=== PATIENT | male | born 1950 | race Caucasian/White ===

== ENCOUNTER → 2016-07-21 | Outpatient (REF) | payer MEDICARE, OTHER ==
[~2016-07-21] MED LIST: HYDR-3719 PO; MSIR30TA PO
== END ==
LOC: M SFHCLERA 15:13
PROVIDERS: ATTEND Family Medicine
DX: J02.9 Acute pharyngitis, unspecified (principal)

== ENCOUNTER → 2016-11-01 | Outpatient (REF) | payer MEDICARE, OTHER ==
[2016-11-01 17:01] LABS: MEAN CORPUSCULAR HEMOGLOBIN 28.9 pg (27.0-33.0); MEAN CORPUSCULAR HGB CONC 33.5 g/dl (32.0-36.5); MEAN CORPUSCULAR VOLUME 86.4 fl (80.0-96.0); RED CELL DISTRIBUTION WIDTH 14.6 % (11.5-14.5); WHITE BLOOD COUNT 6.6 K/mm3 (4.0-10.0)
[2016-11-01 17:10] LABS: ALBUMIN 3.6 GM/DL (3.2-5.2); ALBUMIN/GLOBULIN RATIO 0.95 (1.00-1.93); CALCIUM LEVEL 9.4 MG/DL (8.8-10.2); CREATININE FOR GFR 1.52 MG/DL (0.70-1.30); GLOMERULAR FILTRATION RATE 49.4 (>49); POTASSIUM SERUM 4.3 MEQ/L (3.5-5.1); TOTAL PROTEIN 7.4 GM/DL (6.4-8.2)
[2016-11-01 17:46] LABS: BASOPHILS 1 % (0-4); EOSINOPHILS 1 % (0-5)
== END ==
LOC: M SFHCLERA 14:06
PROVIDERS: ATTEND Family Medicine
DX: N18.3 Chronic kidney disease, stage 3 (moderate) (principal); I25.10 Atherosclerotic heart disease of native coronary artery without angina pectoris
CPT/HCPCS: 80053; 85007; 85027; G0463

== ENCOUNTER → 2016-11-06 | Outpatient (REF) | payer OTHER | LOC: M SFHCPLAZ 09:52 | PROVIDERS: ATTEND Physician Assistant | DX: Z53.9 Procedure and treatment not carried out, unspecified reason (principal) ==

== ENCOUNTER → 2016-11-28 | Outpatient (CLI) | payer OTHER ==
[2016-11-28 13:21] LABS: MEAN CORPUSCULAR HEMOGLOBIN 30.1 pg (27.0-33.0); MEAN CORPUSCULAR VOLUME 88.3 fl (80.0-96.0); RED CELL DISTRIBUTION WIDTH 14.8 % (11.5-14.5); WHITE BLOOD COUNT 6.3 K/mm3 (4.0-10.0)
[2016-11-28 15:04] LABS: CREATININE FOR GFR 1.35 MG/DL (0.70-1.30); GLOMERULAR FILTRATION RATE 56.6 (>49); POTASSIUM SERUM 4.6 MEQ/L (3.5-5.1)
== END ==
LOC: M SMT 11:18
PROVIDERS: ATTEND Physician Assistant
DX: M47.22 Other spondylosis with radiculopathy, cervical region (principal)

== ENCOUNTER → 2017-01-12 | Outpatient (CLI) | payer MEDICARE ==
--- NOTE | 2017-01-12 13:31 | REP ---
Renal ultrasound: The the patient had a right nephrectomy in 2008. The left kidney is normal size measuring 12.8 x 7.7 x 7 ml 1 cm. Renal cortical echogenicity is normal. There is hydronephrosis and hydroureter. There are are no renal calculi, masses or cysts. The the patient has had a cystectomy with ileal conduit. The bladder cannot be evaluated. Impression: Left hydronephrosis. Otherwise, negative renal ultrasound. Signed by Georgi Conklin MD 01/12/2017 01:23 P
== END ==
LOC: M RAD 10:58
PROVIDERS: ATTEND Internal Medicine Nephrology
DX: Z90.5 Acquired absence of kidney (principal)

== ENCOUNTER → 2017-10-05 | Outpatient (CLI) | payer OTHER ==
[~2017-10-05] MED LIST changes: +FUROSEMIDE 20 MG/2 ML VIAL (J1940) As Ordered; -HYDR-3719 PO; -MSIR30TA PO
== END ==
LOC: M RAD 08:54
DX: Z95.0 Presence of cardiac pacemaker (principal); Z98.890 Other specified postprocedural states
CPT/HCPCS: J1940

== ENCOUNTER → 2017-10-17 | Outpatient (CLI) | payer OTHER ==
[2017-10-17 14:25] LABS: ANION GAP 5 MEQ/L (8-16); BLOOD UREA NITROGEN 50 MG/DL (7-18); CALCIUM LEVEL 9.2 MG/DL (8.8-10.2); CARBON DIOXIDE LEVEL 24 MEQ/L (21-32); CHLORIDE LEVEL 114 MEQ/L (98-107); GLUCOSE, FASTING 161 MG/DL (70-100); POTASSIUM SERUM 5.1 MEQ/L (3.5-5.1); SODIUM LEVEL 143 MEQ/L (136-145)
[2017-10-17 14:37] LABS: ESTIMATED AVERAGE GLUCOSE 157 MG/DL (60-110); HEMOGLOBIN A1c 7.1 %
== END ==
LOC: M SMT 09:07
DX: N18.3 Chronic kidney disease, stage 3 (moderate) (principal); Z79.899 Other long term (current) drug therapy
CPT/HCPCS: 83036

== ENCOUNTER → 2017-11-07 | Outpatient (CLI) | payer OTHER | LOC: M LRY 17:08 | DX: M16.11 Unilateral primary osteoarthritis, right hip (principal); M25.761 Osteophyte, right knee; M25.551 Pain in right hip | CPT/HCPCS: 73502; G0463 ==

== ENCOUNTER → 2018-01-16 | Outpatient (REF) | payer OTHER ==
[2018-01-16 17:30] LABS: ESTIMATED AVERAGE GLUCOSE 146 MG/DL (60-110); HEMOGLOBIN A1c 6.7 %
[2018-01-16 17:47] LABS: ANION GAP 9 MEQ/L (8-16); BLOOD UREA NITROGEN 43 MG/DL (7-18); CALCIUM LEVEL 9.6 MG/DL (8.8-10.2); CARBON DIOXIDE LEVEL 24 MEQ/L (21-32); CHLORIDE LEVEL 110 MEQ/L (98-107); CREATININE FOR GFR 1.32 MG/DL (0.70-1.30); GLOMERULAR FILTRATION RATE 57.9 (>49); GLUCOSE, FASTING 106 MG/DL (70-100); POTASSIUM SERUM 4.2 MEQ/L (3.5-5.1); SODIUM LEVEL 143 MEQ/L (136-145)
== END ==
LOC: M SFHCLERA 11:30
DX: E11.9 Type 2 diabetes mellitus without complications (principal); Z87.448 Personal history of other diseases of urinary system; Z90.5 Acquired absence of kidney; Z98.890 Other specified postprocedural states
CPT/HCPCS: 83036

== ENCOUNTER → 2018-02-26 | Outpatient (CLI) | payer OTHER | LOC: M RAD 11:19 | DX: I25.10 Atherosclerotic heart disease of native coronary artery without angina pectoris (principal); I65.23 Occlusion and stenosis of bilateral carotid arteries | CPT/HCPCS: 93880 ==

== ENCOUNTER → 2018-09-26 | Outpatient (REF) | payer MEDICARE ==
[~2018-09-26] MED LIST changes: -FUROSEMIDE 20 MG/2 ML VIAL (J1940) As Ordered; +HYDR-3719 PO; +MSIR30TA PO
[2018-09-26 19:58] LABS: ALBUMIN 3.7 GM/DL (3.2-5.2); BILIRUBIN,TOTAL 0.7 MG/DL (0.2-1.0); CALCIUM LEVEL 9.4 MG/DL (8.8-10.2); CHOLESTEROL RISK RATIO 6.729 (<5); CREATININE FOR GFR 1.39 MG/DL (0.70-1.30); GLOMERULAR FILTRATION RATE 54.6 (>49); LDL CHOLESTEROL 152.8 MG/DL (<100); POTASSIUM SERUM 4.4 MEQ/L (3.5-5.1); TOTAL PROTEIN 8.1 GM/DL (6.4-8.2)
[2018-09-26 20:14] LABS: HEMOGLOBIN A1c 7.3 %
== END ==
LOC: M SFHCLERA 12:46
PROVIDERS: ATTEND Family Medicine
DX: E11.9 Type 2 diabetes mellitus without complications (principal)

== ENCOUNTER → 2018-12-03 | Outpatient (REF) | payer MEDICARE, OTHER ==
[2018-12-03 16:50] LABS: HEMOGLOBIN A1c 7.5 %
== END ==
LOC: M SFHCLERA 13:35
PROVIDERS: ATTEND Family Medicine
DX: E11.9 Type 2 diabetes mellitus without complications (principal)

== ENCOUNTER → 2019-01-01 | Outpatient (CLI) | payer MEDICARE | LOC: M LRY 14:25 | PROVIDERS: ATTEND Family Medicine | DX: M10.9 Gout, unspecified (principal); Z53.8 Procedure and treatment not carried out for other reasons ==

== ENCOUNTER → 2019-01-01 | Outpatient (REF) | payer MEDICARE, OTHER | LOC: M SFHCLERA 14:11 | PROVIDERS: ATTEND Family Medicine | DX: M10.9 Gout, unspecified (principal); Z53.8 Procedure and treatment not carried out for other reasons ==

== ENCOUNTER → 2019-01-02 | Outpatient (REF) | payer MEDICARE, OTHER | LOC: M SFHCLERA 09:16 | PROVIDERS: ATTEND Family Medicine | DX: M10.9 Gout, unspecified (principal) ==

== ENCOUNTER → 2019-01-02 | Outpatient (CLI) | payer MEDICARE ==
--- NOTE | 2019-01-02 12:25 | REP ---
Clinical: Pain. Acute gout. Technique: AP and lateral views of the right foot. Findings: Hallux valgus deformity noted along with mild increased sclerosis and subtle cortical irregularity involving the first metatarsophalangeal joint. No periarticular erosive changes or significant loose bodies identified. Remainder examination is relatively normal for age. Impression: Degenerative changes involving the first toe. Electronically Signed by Michael Arana MD 01/02/2019 09:38 A
== END ==
LOC: M LRY 09:18
PROVIDERS: ATTEND Family Medicine
DX: M10.9 Gout, unspecified (principal)

== ENCOUNTER → 2019-03-11 | Outpatient (REF) | payer MEDICARE, OTHER ==
[2019-03-11 17:15] LABS: BLOOD UREA NITROGEN 65 MG/DL (7-18); CALCIUM LEVEL 9.3 MG/DL (8.8-10.2); CARBON DIOXIDE LEVEL 22 MEQ/L (21-32); CHLORIDE LEVEL 110 MEQ/L (98-107); CREATININE FOR GFR 1.37 MG/DL (0.70-1.30); GLOMERULAR FILTRATION RATE 55.3 (>49); GLUCOSE, FASTING 123 MG/DL (70-100); POTASSIUM SERUM 4.4 MEQ/L (3.5-5.1); RHEUMATOID FACTOR QUANT < 10.0 IU/ML (<15.0); SODIUM LEVEL 139 MEQ/L (136-145)
[2019-03-11 17:34] LABS: HEMOGLOBIN A1c 7.1 %
== END ==
LOC: M SFHCLERA 12:51
PROVIDERS: ATTEND Family Medicine
DX: M25.50 Pain in unspecified joint (principal); E11.9 Type 2 diabetes mellitus without complications

== ENCOUNTER → 2019-03-25 | Outpatient (REF) | payer MEDICARE, OTHER ==
[2019-03-25 16:57] LABS: BASO % 0.2 % (0.0-1.0); EOS # 0.2 10^3/uL (0.0-0.5); EOS % 2.8 % (0.0-3.0); HEMATOCRIT 41.7 % (42.0-52.0); HEMOGLOBIN 13.9 g/dl (13.5-17.5); LYMPH # 2.7 10^3/uL (1.5-5.0); LYMPH % 32.5 % (24.0-44.0); MEAN CORPUSCULAR HGB CONC 33.3 g/dl (32.0-36.5); MEAN CORPUSCULAR VOLUME 95.9 fl (80.0-96.0); MONO # 0.7 10^3/uL (0.0-0.8); MONO % 7.8 % (0.0-5.0); NEUTROPHILS # 4.7 10^3/uL (1.5-8.5); NEUTROPHILS % 56.5 % (36.0-66.0); PLATELET COUNT, AUTOMATED 255 10^3/uL (150-450); RED BLOOD COUNT 4.35 10^6/uL (4.30-6.10); WHITE BLOOD COUNT 8.3 10^3/uL (4.0-10.0)
[2019-03-25 17:16] LABS: C REACTIVE PROTEIN QUANTITATIV 0.3 MG/DL (0.00-0.30); CALCIUM LEVEL 9.7 MG/DL (8.8-10.2); CREATININE FOR GFR 1.29 MG/DL (0.70-1.30); GLOMERULAR FILTRATION RATE 59.3 (>49); POTASSIUM SERUM 4.3 MEQ/L (3.5-5.1)
[2019-03-25 17:53] LABS: ERYTHROCYTE SEDIMENTATION RATE 16 mm/hr (0-20)
== END ==
LOC: M SFHCLERA 11:15
PROVIDERS: ATTEND Family Medicine
DX: N13.30 Unspecified hydronephrosis (principal)

== ENCOUNTER → 2019-06-11 | Outpatient (REF) | payer MEDICARE, OTHER ==
[2019-06-11 17:14] LABS: CALCIUM LEVEL 9.3 MG/DL (8.8-10.2); CREATININE FOR GFR 1.3 MG/DL (0.70-1.30); GLOMERULAR FILTRATION RATE 58.8 (>49); POTASSIUM SERUM 4.5 MEQ/L (3.5-5.1)
[2019-06-11 17:51] LABS: HEMOGLOBIN A1c 7.5 %
== END ==
LOC: M SFHCLERA 12:42
PROVIDERS: ATTEND Family Medicine
DX: E11.9 Type 2 diabetes mellitus without complications (principal); N18.3 Chronic kidney disease, stage 3 (moderate)

== ENCOUNTER → 2019-09-23 | Outpatient (CLI) | payer MEDICARE, OTHER ==
--- NOTE | 2019-09-23 17:35 | REPPI ---
RIGHT HIP, TWO VIEWS: Two views of the right hip are performed and compared to prior study of 11/07/2017. There is chronic diastasis of the pubic symphysis again noted. There are severe arthritic changes at the right hip joint with severe joint space narrowing and associated moderate spurring, subchondral sclerosis, and cystic change. The findings have mildly progressed since the prior exam. Once again, there are metallic clips overlying the right iliac bone superiorly. Metallic clips also overly the sacrum. IMPRESSION: Progressive severe arthritic changes of the right hip joint. Chronic diastasis of the pubic symphysis. Electronically Signed by Georgi Melvin MD 09/24/2019 11:17 A
== END ==
LOC: M PLAIMG 12:20
PROVIDERS: ATTEND Family Medicine
DX: M16.11 Unilateral primary osteoarthritis, right hip (principal)

== ENCOUNTER 2019-10-01 10:26 | Outpatient (RCR) | payer MEDICARE | END 2019-10-02 | disposition home or self-care (01) | LOC: M PT 10:26 | PROVIDERS: ATTEND Family Medicine | DX: Z51.89 Encounter for other specified aftercare (principal); M16.11 Unilateral primary osteoarthritis, right hip ==

== ENCOUNTER → 2019-10-13 | Outpatient (REF) | payer OTHER ==
[2019-10-13 17:39] LABS: HEMOGLOBIN A1c 7.4 %
== END ==
LOC: M SFHCLERA 15:25
PROVIDERS: ATTEND Family Medicine
DX: E11.9 Type 2 diabetes mellitus without complications (principal)

== ENCOUNTER 2019-10-15 11:38 | Outpatient (RCR) | payer MEDICARE | END 2019-11-02 | LOC: M PT 11:38 | PROVIDERS: ATTEND Family Medicine | DX: Z51.89 Encounter for other specified aftercare (principal); M16.11 Unilateral primary osteoarthritis, right hip ==

== ENCOUNTER → 2020-04-16 | Outpatient (REF) | payer OTHER ==
[2020-04-16 15:13] LABS: HEMOGLOBIN A1c 6.7 %
== END ==
LOC: M SFHCLERA 11:07
PROVIDERS: ATTEND Family Medicine
DX: E11.9 Type 2 diabetes mellitus without complications (principal)

== ENCOUNTER → 2020-04-16 | Outpatient (CLI) | payer OTHER ==
--- NOTE | 2020-04-16 13:34 | REPPI ---
INDICATION: RIGHT SHOULER STRAIN. COMPARISON: None. TECHNIQUE: Three views of the shoulder were performed. FINDINGS: The acromioclavicular and glenohumeral relationships are within normal limits. There is no acute fracture or destructive osseous lesion. IMPRESSION: No acute abnormality. <Electronically signed by Hermes Hart > 04/16/20 [id number]
== END ==
LOC: M PLAIMG 11:07
PROVIDERS: ATTEND Physician Assistant
DX: S46.911S Strain of unspecified muscle, fascia and tendon at shoulder and upper arm level, right arm, sequela (principal); X58.XXXD Exposure to other specified factors, subsequent encounter; Y92.9 Unspecified place or not applicable

== ENCOUNTER → 2020-05-31 | Outpatient (CLI) | payer OTHER ==
--- NOTE | 2020-06-02 00:48 | ECWPNPC ---
PATIENT NAME: SHELBY ABEBE : 1950 GENDER: MALE VISIT DATE: 05/31/2020 DISCHARGE DATE: 05/31/20931 VISIT LOCKED DATE TIME: PHYSICIAN: SHEYLA GONZALEZ PHYSICIAN PAGER NO: ACTIVE RESOURCE: SHEYLA GONZALEZ REASON FOR APPOINTMENT 1. 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 PAIN ASSESSMENT. HE RATES HIS PAIN CURRENTLY AT A 4 OUT OF 10 AND DESCRIBES IT ACHING. PATIENT IS CURRENTLY ON HYDROCODONE THAT WAS PRESCRIBED BY ANOTHER PROVIDER. HE HAS NOT HAD PROCEDURES IN THE PAST AND WE WILL DISCUSS PROCEDURES TODAY. ON 01/03/1992 MARIA ELENA WAS PUSHING PALLETS OF LIQUOR ON A CART AND HE FELT A POP IN HIS NECK. THE RESULTING NECK PAIN LED TO BUE NUMBNESS AND CARPAL TUNNEL SYNDROME. FALL RISK SCREENING: SCREENING :NO FALLS REPORTED IN THE LAST YEAR PAIN SCREENING: PATIENT HAS A COMPLAINT OF ACUTE OR CHRONIC PAIN :YES LOCATION OF PAIN:NECK, RIGHT SHOULDER INTENSITY OF PAIN (SCALE OF 1 TO 10):4 WHAT DOES YOUR PAIN FEEL LIKE:ACHING DURATION:CONSTANT PAIN IS INCREASED BY:ACTIVITIES PAIN IS DECREASED BY:USE OF PAIN MEDICATIONS, SITTING NURSING NOTE: - - -. PAIN CENTER INTAKE QUESTIONS: DO YOU HAVE A HISTORY OF MRSA? :NO DO YOU TAKE A BLOOD THINNERS? :NO DO YOU HAVE ANY BLEEDING DISORDERS? :NO ANY NEW NUMBNESS OR WEAKNESS IN YOUR LEGS OR ARMS? :NO ANY PACEMAKER,DEFIBRILLATOR, OR DORSAL COLUMN STIMULATOR? :NO DO YOU HAVE ANY RASHES OR OPEN SORES? :NO ARE YOU ALLERGIC TO IV DYE? :NO ARE YOU DIABETIC? :NO ANY NEW PROBLEMS WITH YOUR MEDICATIONS? :NO HAVE YOU RECEIVED A VACCINE IN THE PAST 30 DAYS? :NO DO YOU PLAN TO RECEIVE A VACCINE IN THE NEXT 21 DAYS? :NO DO YOU NEED ANY PRESCRIPTION? :NO DO YOU TAKE ANY IMMUNOSUPPRESSIVE MEDICATIONS? :YES CURRENT MEDICATIONS TAKING PLAQUENIL 200 MG TABLET DIRECTED ORALLY TAKING CIPROFLOXACIN HCL 500 MG TABLET TAKE ONE TABLET BY MOUTH TWICE A DAY NEEDED ORAL , NOTES: RECURRENT KIDNEY INFECTIONS TAKING GLIPIZIDE ER 5 MG TABLET EXTENDED RELEASE 24 HOUR 1 TABLET WITH FOOD ORALLY ONCE A DAY TAKING ASPIR-81 , NOTES: NOT STARTED TAKING NITROGLYCERIN 0.4 MG TABLET SUBLINGUAL 1 TAB UNDER THE TONGUE NEEDED SUBLINGUAL EVERY 3-5 MIN X 3 DOSES MAXIMUM, GO TO ER IF YOU USE IT TAKING TADALAFIL 20 MG TABLET 1/2 TAB ORALLY 30 MINUTES PRIOR TO SEXUAL ACTIVITY, (MDD:1) TAKING GABAPENTIN 300 MG CAPSULE 1 CAPSULE ORALLY 3 TIMES A DAY TAKING MACRODANTIN 100 MG CAPSULE DIRECTED ORALLY TAKING INCONTINENCE BRIEF LARGE - MISCELLANEOUS DIRECTED N39.45, WORKER'S COMPENSATION FOUR TIMES DAILY NEEDED, NOTES: DISPENSE 120 INCONTINENCE BRIEFS TO BE USED QID FOR 12 MONTHSDX N39.45PROG: GUARDEDLON: 99 MONTHS TAKING BLOOD GLUCOSE TEST - STRIP DIRECTED IN VITRO BID TAKING LANCETS - MISCELLANEOUS DIRECTED BID, NOTES: DISPENSE FORMULARY PREFERRED ONE TOUCH) TAKING GLUCOMETER DIRECTED , NOTES: DISPENSE FORMULARY PREFERRED ONE TOUCH) TAKING HYDROCODONE-ACETAMINOPHEN 10-325 MG TABLET 2 TABLETS ORALLY TWICE A DAY (MDD=4) NOT-TAKING SODIUM BICARBONATE 325 MG TABLET 1 TAB ORALLY TID NOT-TAKING CRUTCHES-ALUMINUM - MISCELLANEOUS DIRECTED _ _ NOT-TAKING BRIEFS OVERNIGHT LARGE - MISCELLANEOUS DIRECTED UNKNOWN HEARING AID DISPENSE RIGHT AND LEFT HEARING AIDS. DX: H91.93 , PROGNOSIS GUARDED, LENGTH OF NEED 1 YEAR, USE DIRECTED MEDICATION LIST REVIEWED AND RECONCILED WITH THE PATIENT PAST MEDICAL HISTORY CA (1 STENT): 2006, REFUSES STATINS HEARING LOSS GOUT CAD DDD - CERVICAL POLYARTHRITIS URINARY INCONTINENCE HYPERLIPIDEMIA VITAMIN D DEFICIENCY HYDRONEPHROSIS BORN WITH EXTERNAL BLADDER AND HAD RESECTION BABY - HAD APPENDECTOMY AND PROSTATECTOMY TYPE 2 DIABETES, DIAGNOSIS 2018 DIET CONTROLLED-->TRADJENTA-->A1C7.5-->SWITCH TO GLIPIZIDE, NEPHROLOGY RECOMMENDS NO METFORMIN, NO ACEI/ARB CKDIII WITH 1 FUNCTIONING KIDNEY, FOLLOWS WITH NEPHROLOGY RHEMATOID ARTHRITIS ALLERGIES AMOXICILLIN: ANAPHYLAXIS - ALLERGY SEASONAL: PUFFY EYES, NASAL DRAINAGE - ALLERGY SURGICAL HISTORY R NEPHRECTOMY 2008 CYSTECTOMY (EXTERNAL) - IN CHILDHOOD, BILAT UTERO-SIGMOIDOSTOMY, PROSTATECTOMY, APPENDECTOMY 1953 MULTIPLE INGUINAL AND VENTRAL HERNIA REPAIRS, DONE AT [facility] 2003 MULTIPLE REVISION SURGERIES S/P NEPHRECTOMY, DONE AT [facility], FOLLOWS WITH [facility] UROLOGY AND HAS CONSULTED WITH [facility] 2018 2008 EPISPADIUS REPAIR 1982 COLONOSCOPY 12/2013 HERNIA REPAIR 04/2016 COLONOSCOPY- [facility] 02/10/2019 FAMILY HISTORY FATHER: 86 YRS, STROKE, DIAGNOSED WITH UNSPECIFIED CEREBRAL ARTERY OCCLUSION WITH CEREBRAL INFARCTION MOTHER: 58 YRS, CA, UNSPECIFIED HEART DISEASE SIBLINGS: 55 YRS, CA, STROKE, DIABETES, KIDNEY DISEASE BROTHER AGE 55 DUE TO CA, HYPERTENSION, UNSPECIFIED HEART DISEASE, DIABETES, UNSPECIFIED CEREBRAL ARTERY OCCLUSION WITH CEREBRAL INFARCTION 3 BROTHER(S) , 6 SISTER(S) - HEALTHY. NO KNOWN FAMILY HISTORY OF ANY UROLOGICALLY RELATED DISEASES\\\/CANCERS. SOCIAL HISTORY GENERAL: TOBACCO USE ARE YOU A:NONSMOKER LATEX QUESTIONNAIRE LATEX ALLERGY : HAVE YOU EVER DEVELOPED ANY TYPE OF REACTION AFTER HANDLING LATEX PRODUCTS SUCH RUBBER GLOVES, CONDOMS, DIAPHRAGMS, BALLOONS, SOCKS, OR UNDERWEAR?NO LATEX ALLERGY : HAVE YOU EVER DEVELOPED ANY TYPE OF REACTION DURING OR AFTER DENTAL APPOINTMENT, VAGINAL/RECTAL EXAMINATION, SURGICAL PROCEDURE, OR ANY OTHER EXPOSURE?NO DATE ASKED : 04/16/2020 LATEX RISK : HAVE YOU EVER HAD ANY DIFFICULTY BREATHING OR HIVES AFTER EATING OR HANDLING ANY FRUITS, OR VEGETABLES; SUCH KIWI, BANANAS, STONE FRUITS, OR CHESTNUTSNO LATEX RISK : DO YOU HAVE A PREVIOUS PERSONAL HISTORY OF MORE THAN NINE SURGERIES, SPINA BIFIDA, OR REPEATED CATHERIZATIONS? NO LATEX RISK : ARE YOU FREQUENTLY EXPOSED TO LATEX PRODUCTS IN YOUR OCCUPATION?NO LUNG CANCER SCREENING SMOKING STATUS:NON SMOKER BMI CARE GOAL FOLLOW-UP ABOVE NORMAL BMI FOLLOW-UPDIETARY MANAGEMENT EDUCATION, GUIDANCE, AND COUNSELING ALCOHOL SCREENING POINTS: 0, INTERPRETATION: NEGATIVE. RECREATIONAL DRUG USE DENIES. CAFFEINE NONE. SEXUAL HX HAD SEX IN THE LAST 12 MONTHS (VAGINAL, ORAL, OR ANAL)?NO HAVE YOU EVER HAD AN STD?NO HIV / HEP-C SCREENING HIV TEST OFFERED TO PATIENT:YES DATE OFFERED:07/29/2018 TEST ACCEPTED:NO HEP-C TEST OFFERED TO PATIENT:NO REASON:PATIENT DECLINED BROCHURE PROVIDED TO PATIENTYES JEW [id number] [employer] LANGUAGE LANGUAGES SPOKEN:YI EDUCATION LEVEL OF EDUCATION:HIGH SCHOOL LEARNING BARRIERS / SPECIAL NEEDS CHANGE FROM LAST VISIT?NO BARRIERS TO LEARNING?NO HEARING IMPAIRED?YES VISION IMPAIRED?YES COGNITIVELY IMPAIRED?NO :HEARING AIDES :CORRECTIVE LENSES READINESS TO LEARN?YES LEARNING PREFERENCES?NO LEARNING CAPABILITIES PRESENT?YES EMOTIONAL BARRIERS?NO SPECIAL DEVICES?NO LEAD CAREGIVER NEEDED?NO DOMESTIC VIOLENCE DO YOU FEEL SAFE IN YOUR ENVIRONMENT?YES 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 EXERCISE: NONE. MARITAL STATUS: - 2 STEP-CHILDREN. OTHERS AT HOME: NONE. FROM 0-10, WHAT LEVEL IS YOUR PAIN TODAY?7 MALAISE HOSPITALIZATION/MAJOR DIAGNOSTIC PROCEDURE CA - 1 STENT 2006 SURGICALY RELATED BOWEL OBSTRUCTION [facility]- HERNIA REPAIR 04/2016 REVIEW OF SYSTEMS CONSTITUTIONAL: ANY RECENT FEVER NO . CHILLS NO . WEIGHT CHANGE OF UNKNOWN REASONS NO . MUSCULOSKELETAL: ANY UNUSUAL JOINT PAIN OR SWELLING NOT MENTIONED NO . SYSTEMIC LUPUS NO . ANY NEUROMUSCULAR DISORDER NOT MENTIONED NO . LYME DISEASE NO . GASTROENTEROLOGY: ANY NEW CHANGE IN BOWEL CONTROL? NO . HISTORY OF LIVER DISORDER NOT MENTIONED NO . HISTORY OF UNUSUAL ABDOMINAL PAIN OR CRAMPING NOT MENTIONED NO . NO CONSTIPATION. GENITOURINARY: ANY NEW CHANGE IN BLADDER CONTROL? NO . ANY RENAL/KIDNEY CONDITON NOT MENTIONED NO . NEUROLOGY: HISTORY OF TBI NOT MENTIONED NO . OTHER NEW NUMBNESS OR PAIN PATTERNS NOT MENTIONED NO . NEW ONSET DIZZINESS OR NEUROLOGICAL CHANGES NOT MENTIONED NO . HISTORY OF SEVERE HEADACHES NOT MENTIONED NO . HISTORY OF STROKE OR NEUROLOGICAL DISORDER NOT MENTIONED NO . CARDIOLOGY: HEART SURGERY NO . CONGESTIVE HEART FAILURE/FLUID OVERLOAD NOT MENTIONED NO . HISTORY OF CHEST PAIN,IRREGULAR HEART BEAT NOT MENTIONED NO . RESPIRATORY: SHORTNESS OF BREATH ON EXERTION, WHEEZES, UNUSUAL COUGH NOT MENTIONED NO . ENDOCRINOLOGY: ADRENAL GLAND OR THYROID DISORDERS NOT MENTIONED NO . UNUSUAL URINATION, DIZZINESS OR LETHARGY NOT MENTIONED NO . VITAL SIGNS WT 164.2 LBS, HT 64 IN, BMI 28.18 INDEX, BP 148/84 MM HG, HR 85 /MIN, RR 18 /MIN, TEMP 97.7 F, OXYGEN SAT % 95%, NA INITIALS AW 0826. EXAMINATION GENERAL EXAMINATION: GENERALNO ACUTE DISTRESS, WELL NOURISHED AND HYDRATED. PSYCHAPPROPRIATE MOOD AND AFFECT . NECK:POINT TENDER C5-C6 C6-C7, SURROUNDING SKIN SHOWS NO ERYTHEMA, ECCHYMOSIS, INCREASED WARMTH, AND/OR SKIN ERUPTIONS NOTED. PATIENT DOES ENDORSE INCREASED PAIN WITH FACET LOADING. . LUNGS:CLEAR TO AUSCULTATION BILATERALLY, NO WHEEZES, RHONCHI, RALES. HEART:NO MURMURS, REGULAR RATE AND RHYTHM. ASSESSMENTS SPONDYLOSIS OF CERVICAL REGION WITHOUT MYELOPATHY OR RADICULOPATHY - M47.812 (PRIMARY) TREATMENT SPONDYLOSIS OF CERVICAL REGION WITHOUT MYELOPATHY OR RADICULOPATHY NOTES: 69-YEAR-OLD MALE IN FOR INITIAL PAIN CONSULT REGARDING THE CERVICAL SPINE. GIVEN PRESENTING SYMPTOMS AND RESULTS OF PHYSICAL EXAMINATION RECOMMEND BILATERAL THERAPEUTIC CERVICAL FACET BLOCK C6-7 C7-T1 WITH POSTPROCEDURAL FOLLOW-UP. PATIENT HAS EXPRESSED UNDERSTANDING OF AND WAS IN AGREEMENT WITH TREATMENT PLAN. GIVEN TIME TO ASK QUESTIONS AND EXPRESS CONCERNS. PROCEDURES PN WORKMANS' COMP OPINION IN YOUR OPINION, WAS THE INCIDENT THAT THE PATIENT DESCRIBED THE COMPETENT MEDICAL CAUSE OF THIS INJURY/ILLNESS? YES ARE THE PATIENT'S COMPLAINTS CONSISTENT WITH HIS/HER HISTORY OF THE INJURY/ILLNESS? YES IS THE PATIENT'S HISTORY OF THE INJURY/ILLNESS CONSISTENT WITH YOUR OBJECTIVE FINDING? YES WHAT IS THE PERCENTAGE OF TEMPORARY IMPAIRMENT? MODERATE TO MARKED = 66.7% IS THE PATIENT WORKING? YES DOCTOR ON SITE: AKBAR PLEITEZ MD [facility] PAIN CLINIC TEACHING: MEDICATIONS PT IS ON PLACQUENIL AND DOES NOT KNOW THE PRESCRIBING PHYSICIANS NAME . PT STATES HE WILL CALL AND GIVEN US HIS NAME SO WE MAY GENERATE A LETTER FOR PERMISSION TO HOLD MEDICAITON. PROCEDURE TEACHING DISCUSSED THE PROCEDURE INCLUDING GIVING HIM PRINTED MEATERIAL ON CERVICAL FACET. PROCEDURE CODES FA211 ESTABILISHED PATIENT [facility] CHARGE DISPOSITION & COMMUNICATION FOLLOW UP POSTPROCEDURE (REASON: BILATERAL THERAPEUTIC CERVICAL FACET BLOCK C6-7 C7-T1 PLEASE GET ORDERS TO HOLD PLAQUINAL) ELECTRONICALLY SIGNED BY CASANDRA SANCHEZ ON 06/01/2020 AT 08:44 AM EST DISCLAIMER : THIS IS A VISIT SUMMARY EXTRACTED FROM THE [employer] CHART. IT IS NOT A COPY OF THE [employer] PROGRESS NOTE. TANYA
== END ==
LOC: M PAIN 08:30
PROVIDERS: ATTEND Family Medicine
DX: M47.812 Spondylosis without myelopathy or radiculopathy, cervical region (principal); I25.2 Old myocardial infarction; E11.9 Type 2 diabetes mellitus without complications; Z88.1 Allergy status to other antibiotic agents; Z79.82 Long term (current) use of aspirin; Z79.891 Long term (current) use of opiate analgesic; Z79.899 Other long term (current) drug therapy

== ENCOUNTER → 2020-08-10 | Outpatient (CLI) | payer OTHER ==
[2020-08-10 12:51] LABS: BASO % 0.3 % (0.0-1.0); EOS # 0.2 10^3/uL (0.0-0.5); EOS % 3.4 % (0.0-3.0); HEMATOCRIT 41.5 % (42.0-52.0); HEMOGLOBIN 13.3 g/dl (13.5-17.5); LYMPH # 2.2 10^3/uL (1.5-5.0); LYMPH % 32.4 % (24.0-44.0); MEAN CORPUSCULAR HEMOGLOBIN 30.5 pg (27.0-33.0); MEAN CORPUSCULAR VOLUME 95.2 fl (80.0-96.0); MONO # 0.6 10^3/uL (0.0-0.8); MONO % 8.7 % (2.0-8.0); NEUTROPHILS # 3.7 10^3/uL (1.5-8.5); NEUTROPHILS % 54.9 % (36.0-66.0); PLATELET COUNT, AUTOMATED 247 10^3/uL (150-450); RED BLOOD COUNT 4.36 10^6/uL (4.30-6.10); WHITE BLOOD COUNT 6.8 10^3/uL (4.0-10.0)
[2020-08-10 15:10] LABS: HEMOGLOBIN A1c 7.4 %
== END ==
LOC: M WUC 09:23
PROVIDERS: ATTEND Family Medicine
DX: E11.9 Type 2 diabetes mellitus without complications (principal); R60.0 Localized edema

== ENCOUNTER → 2020-08-11 | Outpatient (REF) | payer MEDICARE | LOC: M LAB REF 16:41 | PROVIDERS: ATTEND Internal Medicine Nephrology | DX: R60.0 Localized edema (principal); I50.9 Heart failure, unspecified ==

== ENCOUNTER → 2020-12-09 | Outpatient (CLI) | payer OTHER ==
--- NOTE | 2020-12-10 23:14 | ECWPNPC ---
PATIENT NAME: SHELBY ABEBE : 1950 GENDER: MALE VISIT DATE: 12/09/2020 DISCHARGE DATE: 12/09/20 1455 VISIT LOCKED DATE TIME: PHYSICIAN: SHEYLA GONZALEZ PHYSICIAN PAGER NO: ACTIVE RESOURCE: SHEYLA GONZALEZ REASON FOR APPOINTMENT 1. NECK PAIN INTERESTEDN MIN CERVICAL FACET BLOCK HISTORY OF PRESENT ILLNESS DEPRESSION SCREENING: PHQ-2 (2015 EDITION) LITTLE INTEREST OR PLEASURE IN DOING THINGS?NOT AT ALL FEELING DOWN, DEPRESSED, OR HOPELESS?NOT AT ALL TOTAL SCORE0 GENERAL: HPI 70-YEAR-OLD MALE IN FOR CHRONIC PAIN FOLLOW-UP. HE RATES HIS PAIN CURRENTLY AT A 6 OUT OF 10 DESCRIBES IT ACHING, BURNING, CONTINUOUS, TENDER, THROBBING, SORE, AND SHOOTING. HE WOULD LIKE TO DISCUSS POTENTIAL PROCEDURES TODAY. DOI 01/03/1992. -. FALL RISK SCREENING: SCREENING : NO FALLS REPORTED IN THE LAST YEAR. PAIN SCREENING: PATIENT HAS A COMPLAINT OF ACUTE OR CHRONIC PAIN :YES LOCATION OF PAIN:NECK INTENSITY OF PAIN (SCALE OF 1 TO 10):6 WHAT DOES YOUR PAIN FEEL LIKE:ACHING, BURNING, CONTINOUS, TENDER, THROBBING, SORE, SHOOTING DURATION:CONTINOUS, CONSTANT, ALL DAY PAIN IS INCREASED BY:ACTIVITIES, OTHERS SLEEPING IN THE WRONG POSITTION PAIN IS DECREASED BY:OTHERS HEATING PADS, TENS UNITS NURSING NOTE: -. PAIN CENTER INTAKE QUESTIONS: DO YOU HAVE A HISTORY OF MRSA? :YES 2009 DO YOU TAKE A BLOOD THINNERS? :NO DO YOU HAVE ANY BLEEDING DISORDERS? :NO ANY NEW NUMBNESS OR WEAKNESS IN YOUR LEGS OR ARMS? :NO ANY PACEMAKER,DEFIBRILLATOR, OR DORSAL COLUMN STIMULATOR? :NO DO YOU HAVE ANY RASHES OR OPEN SORES? :NO ARE YOU ALLERGIC TO IV DYE? :NO ARE YOU DIABETIC? :YES TYPE 2 DIABETES ANY NEW PROBLEMS WITH YOUR MEDICATIONS? :NO HAVE YOU RECEIVED A VACCINE IN THE PAST 30 DAYS? :NO DO YOU PLAN TO RECEIVE A VACCINE IN THE NEXT 21 DAYS? :NO DO YOU NEED ANY PRESCRIPTION? :NO DO YOU TAKE ANY IMMUNOSUPPRESSIVE MEDICATIONS? :YES PLAQUENIL 200 MG DO YOU HAVE ANY KIDNEY OR LIVER DISEASE? :NO ONLY ONE KIDNEY IS THERE A CHANCE YOU COULD BE ? :NO ARE YOU BREAST FEEDING? :NO CURRENT MEDICATIONS TAKING TRADJENTA 5 MG TABLET 1 TABLET ORALLY ONCE A DAY TAKING PLAQUENIL 200 MG TABLET DIRECTED ORALLY TAKING CIPROFLOXACIN HCL 500 MG TABLET 1 TABLET ORALLY TWICE A DAY NEEDED, NOTES: RECURRENT KIDNEY INFECTIONS TAKING NITROGLYCERIN 0.4 MG TABLET SUBLINGUAL 1 TAB UNDER THE TONGUE NEEDED SUBLINGUAL EVERY 3-5 MIN X 3 DOSES MAXIMUM, GO TO ER IF YOU USE IT TAKING TADALAFIL 20 MG TABLET 1/2 TAB ORALLY 30 MINUTES PRIOR TO SEXUAL ACTIVITY, (MDD:1) TAKING GABAPENTIN 300 MG CAPSULE 1 CAPSULE ORALLY 3 TIMES A DAY TAKING INCONTINENCE BRIEF LARGE - MISCELLANEOUS DIRECTED N39.45, WORKER'S COMPENSATION FOUR TIMES DAILY NEEDED, NOTES: DISPENSE 120 INCONTINENCE BRIEFS TO BE USED QID FOR 12 MONTHSDX N39.45PROG: GUARDEDLON: 99 MONTHS TAKING LANCETS - MISCELLANEOUS DIRECTED BID, NOTES: DISPENSE FORMULARY PREFERRED ONE TOUCH) TAKING GLUCOMETER DIRECTED , NOTES: DISPENSE FORMULARY PREFERRED ONE TOUCH) TAKING BLOOD GLUCOSE TEST - STRIP DIRECTED IN VITRO BID TAKING HYDROCODONE-ACETAMINOPHEN 10-325 MG TABLET 2 TABLETS ORALLY TWICE A DAY (MDD=4) REFERENCE #:[id number], NOTES: PLEASE DO NOT FILL UNTIL DUE NOT-TAKING GLIPIZIDE ER 5 MG TABLET EXTENDED RELEASE 24 HOUR 1 TABLET WITH FOOD ORALLY ONCE A DAY UNKNOWN HEARING AID DISPENSE RIGHT AND LEFT HEARING AIDS. DX: H91.93 , PROGNOSIS GUARDED, LENGTH OF NEED 1 YEAR, USE DIRECTED MEDICATION LIST REVIEWED AND RECONCILED WITH THE PATIENT PAST MEDICAL HISTORY KS (1 STENT): 2006, REFUSES STATINS HEARING LOSS GOUT CAD DDD - CERVICAL POLYARTHRITIS URINARY INCONTINENCE HYPERLIPIDEMIA VITAMIN D DEFICIENCY HYDRONEPHROSIS BORN WITH EXTERNAL BLADDER AND HAD RESECTION BABY - HAD APPENDECTOMY AND PROSTATECTOMY TYPE 2 DIABETES, DIAGNOSIS 2018 DIET CONTROLLED-->TRADJENTA-->A1C7.5-->SWITCH TO GLIPIZIDE, NEPHROLOGY RECOMMENDS NO METFORMIN, NO ACEI/ARB CKDIII WITH 1 FUNCTIONING KIDNEY, FOLLOWS WITH NEPHROLOGY RHEMATOID ARTHRITIS ALLERGIES AMOXICILLIN: ANAPHYLAXIS - ALLERGY SEASONAL: PUFFY EYES, NASAL DRAINAGE - ALLERGY SURGICAL HISTORY R NEPHRECTOMY 2008 CYSTECTOMY (EXTERNAL) - IN CHILDHOOD, BILAT UTERO-SIGMOIDOSTOMY, PROSTATECTOMY, APPENDECTOMY 1953 MULTIPLE INGUINAL AND VENTRAL HERNIA REPAIRS, DONE AT [facility] 2003 MULTIPLE REVISION SURGERIES S/P NEPHRECTOMY, DONE AT [facility], FOLLOWS WITH [facility] UROLOGY AND HAS CONSULTED WITH [facility] 2018 2008 EPISPADIUS REPAIR 1983 COLONOSCOPY 12/2013 HERNIA REPAIR 04/2016 COLONOSCOPY- [facility] 02/10/2019 RIFGHT HIP REPLACEMENT 08/17/2020 SOCIAL HISTORY GENERAL: TOBACCO USE ARE YOU A:NONSMOKER LATEX QUESTIONNAIRE LATEX ALLERGY : HAVE YOU EVER DEVELOPED ANY TYPE OF REACTION AFTER HANDLING LATEX PRODUCTS SUCH RUBBER GLOVES, CONDOMS, DIAPHRAGMS, BALLOONS, SOCKS, OR UNDERWEAR?NO LATEX ALLERGY : HAVE YOU EVER DEVELOPED ANY TYPE OF REACTION DURING OR AFTER DENTAL APPOINTMENT, VAGINAL/RECTAL EXAMINATION, SURGICAL PROCEDURE, OR ANY OTHER EXPOSURE?NO LATEX RISK : HAVE YOU EVER HAD ANY DIFFICULTY BREATHING OR HIVES AFTER EATING OR HANDLING ANY FRUITS, OR VEGETABLES; SUCH KIWI, BANANAS, STONE FRUITS, OR CHESTNUTSNO LATEX RISK : DO YOU HAVE A PREVIOUS PERSONAL HISTORY OF MORE THAN NINE SURGERIES, SPINA BIFIDA, OR REPEATED CATHERIZATIONS? NO LATEX RISK : ARE YOU FREQUENTLY EXPOSED TO LATEX PRODUCTS IN YOUR OCCUPATION?NO DATE ASKED : 12/09/2020 ALCOHOL USE: YES. LUNG CANCER SCREENING SMOKING STATUS:NON SMOKER BMI CARE GOAL FOLLOW-UP ABOVE NORMAL BMI FOLLOW-UPDIETARY MANAGEMENT EDUCATION, GUIDANCE, AND COUNSELING ALCOHOL SCREENING POINTS: 0, INTERPRETATION: NEGATIVE. RECREATIONAL DRUG USE DENIES. CAFFEINE NONE. SEXUAL HX HAD SEX IN THE LAST 12 MONTHS (VAGINAL, ORAL, OR ANAL)?NO HAVE YOU EVER HAD AN STD?NO HIV / HEP-C SCREENING HIV TEST OFFERED TO PATIENT:YES DATE OFFERED:10/14/2020 TEST ACCEPTED:NO HEP-C TEST OFFERED TO PATIENT:NO REASON:PATIENT DECLINED BROCHURE PROVIDED TO PATIENTYES RASTAFARI [id number] LANGUAGE LANGUAGES SPOKEN:FRENCH EDUCATION LEVEL OF EDUCATION:HIGH SCHOOL LEARNING BARRIERS / SPECIAL NEEDS CHANGE FROM LAST VISIT?NO BARRIERS TO LEARNING?NO HEARING IMPAIRED?YES :HEARING AIDES VISION IMPAIRED?YES :CORRECTIVE LENSES COGNITIVELY IMPAIRED?NO READINESS TO LEARN?YES LEARNING PREFERENCES?NO LEARNING CAPABILITIES PRESENT?YES EMOTIONAL BARRIERS?NO SPECIAL DEVICES?NO DOLL REPAIRER NEEDED?NO DOMESTIC VIOLENCE DO YOU FEEL SAFE IN YOUR ENVIRONMENT?YES 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 EXERCISE: NONE. MARITAL STATUS: - 2 STEP-CHILDREN. OTHERS AT HOME: NONE. FROM 0-10, WHAT LEVEL IS YOUR PAIN TODAY?7 MALAISE HOSPITALIZATION/MAJOR DIAGNOSTIC PROCEDURE KS - 1 STENT 2006 SURGICALY RELATED BOWEL OBSTRUCTION [facility]- HERNIA REPAIR 04/2016 REVIEW OF SYSTEMS CONSTITUTIONAL: ANY RECENT FEVER NO . CHILLS NO . WEIGHT CHANGE OF UNKNOWN REASONS NO . GASTROENTEROLOGY: NEW UNEXPLAINABLE CHANGES IN BOWEL CONTROL NO . CONSTIPATION NO . GENITOURINARY: ANY NEW CHANGE IN BLADDER CONTROL? NO . NEUROLOGY: NEW ONSET DIZZINESS OR NEUROLOGICAL CHANGES NOT MENTIONED NO . NEW NUMBNESS OR PAIN PATTERNS NOT MENTIONED AND PERTINENT TO TODAY'S VISIT NO . CARDIOLOGY: NEW CHEST PRESSURE NO . PATIENT DENIES NO . RESPIRATORY: UNEXPLAINABLE COUGH NO . NEW SHORTNESS OF BREATH NO . VITAL SIGNS WT 168.6 LBS, HT 64 IN, BMI 28.94 INDEX, BP 128/59 MM HG, HR 83 /MIN, RR 18 /MIN, TEMP 97.5 F, OXYGEN SAT % 96%, SAFE IN ENV? (Y/N) YES, NA INITIALS AW 1415T.CHRIS REGALADO. EXAMINATION GENERAL EXAMINATION: GENERALNO ACUTE DISTRESS, WELL NOURISHED AND HYDRATED. PSYCHAPPROPRIATE MOOD AND AFFECT . NECK:POINT TENDER ALONG CERVICAL SPINE, SURROUNDING SKIN SHOWS NO ERYTHEMA, ECCHYMOSIS, INCREASED WARMTH, AND NO SKIN OPTIONS NOTED. POSITIVE SPURLING SIGN. LUNGS:CLEAR TO AUSCULTATION BILATERALLY, NO WHEEZES, RHONCHI, RALES. HEART:NO MURMURS, REGULAR RATE AND RHYTHM. ASSESSMENTS CERVICAL DISC DISORDER WITH RADICULOPATHY, UNSPECIFIED CERVICAL REGION - M50.10 (PRIMARY) TREATMENT CERVICAL DISC DISORDER WITH RADICULOPATHY, UNSPECIFIED CERVICAL REGION MED: PAIN NORCO TABLET 5MG/325MG ORALLY HYDROCODONE/ACETAMINOPHEN (ORDERED FOR 12/17/2020) MEDICATION: PAIN VALIUM TAB 5MG ORALLY (DIAZEPAM) (ORDERED FOR 12/17/2020) SALINE LOCK (ORDERED FOR 12/17/2020) NOTES: 70 YEAR OLD MALE IN FOR CHRONIC PAIN FOLLOW UP. GIVEN PRESENTING SYMPTOMS AND RESULTS OF PHYSICAL EXAMINATION RECOMMEND CERVICAL EPIDURAL STEROID INJECTION WITH POST PROCEDURAL FOLLOW UP. PATIENT HAS EXPRESSED UNDERSTANDING OF AND WAS IN AGREEMENT WITH TREATMENT PLAN. GIVEN TIME TO ASK QUESTIONS AND EXPRESS CONCERNS. PRINTED AND REVIEWED PRE PROCEDURE INFORMATION, PATIENT VERBALIZED UNDERSTANDING, ALSO SEND A MED HOLD FOR PLAQUENIL TO DR : FRANSICO LOYA FAX# [phone] FOR 3 DATS BEFORE PROCEDURE AND 3 DAYS AFTER PROCEDURE VELMA REGALADO . PROCEDURES PN WORKMANS' COMP OPINION IN YOUR OPINION, WAS THE INCIDENT THAT THE PATIENT DESCRIBED THE COMPETENT MEDICAL CAUSE OF THIS INJURY/ILLNESS? YES ARE THE PATIENT'S COMPLAINTS CONSISTENT WITH HIS/HER HISTORY OF THE INJURY/ILLNESS? YES IS THE PATIENT'S HISTORY OF THE INJURY/ILLNESS CONSISTENT WITH YOUR OBJECTIVE FINDING? YES WHAT IS THE PERCENTAGE OF TEMPORARY IMPAIRMENT? MODERATE TO MARKED = 66.7% IS THE PATIENT WORKING? YES DOCTOR ON SITE: AKBAR PLEITEZ MD PROCEDURE CODES FA211 ESTABILISHED PATIENT [facility] CHARGE DISPOSITION & COMMUNICATION FOLLOW UP POST PROCEDURE (REASON: CERVICAL EPIDURAL STEROID INJECTION C7-T1) ELECTRONICALLY SIGNED BY CASANDRA SANCHEZ ON 12/10/2020 AT 12:56 PM EDT DISCLAIMER : THIS IS A VISIT SUMMARY EXTRACTED FROM THE [employer] CHART. IT IS NOT A COPY OF THE [employer] PROGRESS NOTE. TANYA
== END ==
LOC: M PAIN 14:30
PROVIDERS: ATTEND Family Medicine
DX: M50.10 Cervical disc disorder with radiculopathy, unspecified cervical region (principal); G89.29 Other chronic pain; E11.9 Type 2 diabetes mellitus without complications; I25.2 Old myocardial infarction; Z86.14 Personal history of Methicillin resistant Staphylococcus aureus infection; Z88.1 Allergy status to other antibiotic agents; Z79.84 Long term (current) use of oral hypoglycemic drugs; Z79.891 Long term (current) use of opiate analgesic; Z79.899 Other long term (current) drug therapy

== ENCOUNTER → 2021-01-13 | Outpatient (CLI) | payer OTHER, MEDICARE | LOC: M LABSMTC 13:10 | PROVIDERS: ATTEND Anesthesiology | DX: Z20.822 Contact with and (suspected) exposure to COVID-19 (principal) ==

== ENCOUNTER → 2021-01-18 | Outpatient (CLI) | payer OTHER | LOC: M PAIN 11:20 | PROVIDERS: ATTEND Anesthesiology | DX: M79.10 Myalgia, unspecified site (principal); M54.2 Cervicalgia; S46.911S Strain of unspecified muscle, fascia and tendon at shoulder and upper arm level, right arm, sequela; G89.29 Other chronic pain; E11.9 Type 2 diabetes mellitus without complications; I25.2 Old myocardial infarction; Z86.14 Personal history of Methicillin resistant Staphylococcus aureus infection; Z88.1 Allergy status to other antibiotic agents; Z79.891 Long term (current) use of opiate analgesic; Z79.899 Other long term (current) drug therapy ==

== ENCOUNTER → 2021-02-23 | Outpatient (CLI) | payer OTHER | LOC: M LABSMTC 11:45 | PROVIDERS: ATTEND Anesthesiology | DX: Z20.822 Contact with and (suspected) exposure to COVID-19 (principal) ==

== ENCOUNTER → 2021-02-28 | Outpatient (CLI) | payer OTHER ==
[~2021-02-28] MED LIST changes: +BUPIVACAINE HCL 0.25% 10ML VIAL As Ordered ONE; +BUPIVACAINE HCL 0.25% 30ML VIAL As Ordered ONE; +TRIAMCINOLONE ACETONIDE SUSP 40 MG/ML VIAL (J3301) As Ordered ONE
== END ==
LOC: M PAIN 08:30
PROVIDERS: ATTEND Anesthesiology
DX: M79.10 Myalgia, unspecified site (principal); E11.9 Type 2 diabetes mellitus without complications; Z86.14 Personal history of Methicillin resistant Staphylococcus aureus infection; Z88.1 Allergy status to other antibiotic agents; Z79.84 Long term (current) use of oral hypoglycemic drugs; Z79.891 Long term (current) use of opiate analgesic; Z79.899 Other long term (current) drug therapy
CPT/HCPCS: 20553; J3301

== ENCOUNTER 2021-03-10 01:05 | Emergency (ER) | payer OTHER ==
[~2021-03-10] VITALS: Ht 162.6 cm; Wt 75.9 kg
[~2021-03-10 01:05] MED LIST changes: -BUPIVACAINE HCL 0.25% 10ML VIAL As Ordered ONE; -BUPIVACAINE HCL 0.25% 30ML VIAL As Ordered ONE; -TRIAMCINOLONE ACETONIDE SUSP 40 MG/ML VIAL (J3301) As Ordered ONE
[2021-03-10] MEDS ORDERED: GABA-282 PO (01:15)
[2021-03-10] MEDS ORDERED: SODI325T9 PO (01:15)
[2021-03-10] MEDS ORDERED: GLIP5TAB8 PO (01:15)
[2021-03-10] MEDS ORDERED: CIPR-249 PO (01:15)
[2021-03-10] MEDS ORDERED: HYDR200T3 PO (01:15)
--- NOTE | 2021-03-10 08:03 | REPVR ---
PROCEDURE INFORMATION: Exam: CT Cervical Spine Without Contrast Exam date and time: 03/10/2021 6:20 AM Age: 70 years old Clinical indication: Neck pain and radicular pain (radiculopathy); Location of radicular pain not specified; Additional info: Trigger injections now has numbness, tingling TECHNIQUE: Imaging protocol: Computed tomography images of the cervical spine without contrast. Radiation optimization: All CT scans at this facility use at least one of these dose optimization techniques: automated exposure control; mA and/or kV adjustment per patient size (includes targeted exams where dose is matched to clinical indication); or iterative reconstruction. COMPARISON: [facility] Spine, Cervical 04/23/2016 1:42 PM FINDINGS: Vertebrae: Bony demineralization age-appropriate degenerative changes are present without acute fracture line, high-grade compression deformity, or worrisome malalignment. Disc spaces: Degenerative changes contribute to multilevel central stenosis most pronounced at C4-C5 through C6-C7 where it is at least [id number]. Multilevel foraminal encroachment is also present. Epidural space: No epidural fluid. Other bones/joints: The ribs are intact. Soft tissues: Unremarkable. Sinuses: Mild maxillary sinus disease without air-fluid levels. Dental: There a carious maxillary teeth present bilaterally suggestive of dental disease. Prevertebral Space: No prevertebral soft tissue swelling. Esophagus: Patulous esophagus. Vasculature: Atherosclerotic changes of the aortic arch. Limited atherosclerotic changes of the carotids. Lungs: Lung apices are normal. IMPRESSION: Degenerative changes without acute fracture. Dental disease. Electronically signed by: Nba Diaz On 03/10/2021 08:02:55 AM
[2021-03-10 10:06] VITALS: BP 119/85
== END 2021-03-10 10:08 | disposition home or self-care (01) ==
LOC: M ED 01:05
DX: M50.321 Other cervical disc degeneration at C4-C5 level (principal); M50.322 Other cervical disc degeneration at C5-C6 level; M48.02 Spinal stenosis, cervical region; M25.511 Pain in right shoulder; R20.2 Paresthesia of skin; K08.9 Disorder of teeth and supporting structures, unspecified; I25.2 Old myocardial infarction; E11.9 Type 2 diabetes mellitus without complications; E78.5 Hyperlipidemia, unspecified; Z88.0 Allergy status to penicillin; Z79.899 Other long term (current) drug therapy

== ENCOUNTER → 2021-04-14 | Outpatient (CLI) | payer MEDICARE ==
[~2021-04-14] MED LIST changes: +CIPR-249 PO; +GABA-282 PO; +GLIP5TAB8 PO; +HYDR200T3 PO; +SODI325T9 PO
[2021-04-14 17:37] LABS: CALCIUM LEVEL 9.4 MG/DL (8.8-10.2); CREATININE FOR GFR 1.27 MG/DL (0.70-1.30); POTASSIUM SERUM 4.5 MEQ/L (3.5-5.1)
[2021-04-14 19:42] LABS: HEMOGLOBIN A1c 7.4 %
== END ==
LOC: M PLALAB 12:08
PROVIDERS: ATTEND Student in an Organized Health Care Education/Training Program
DX: E11.9 Type 2 diabetes mellitus without complications (principal)

== ENCOUNTER → 2021-04-14 | Outpatient (CLI) | payer MEDICARE ==
[2021-04-14 17:24] LABS: BASO % 0.3 % (0.0-1.0); EOS # 0.2 10^3/uL (0.0-0.5); EOS % 2.7 % (0.0-3.0); HEMATOCRIT 45.2 % (42.0-52.0); HEMOGLOBIN 14.3 g/dl (13.5-17.5); MEAN CORPUSCULAR HEMOGLOBIN 29.4 pg (27.0-33.0); MEAN CORPUSCULAR HGB CONC 31.6 g/dl (32.0-36.5); MONO # 0.7 10^3/uL (0.0-0.8); NEUTROPHILS # 5.7 10^3/uL (1.5-8.5); NEUTROPHILS % 65.7 % (36.0-66.0); PLATELET COUNT, AUTOMATED 263 10^3/uL (150-450); RED BLOOD COUNT 4.86 10^6/uL (4.30-6.10); WHITE BLOOD COUNT 8.6 10^3/uL (4.0-10.0)
[2021-04-14 17:45] LABS: ALBUMIN 3.6 GM/DL (3.2-5.2); BILIRUBIN,TOTAL 0.5 MG/DL (0.2-1.0); CALCIUM LEVEL 9.3 MG/DL (8.8-10.2); CREATININE FOR GFR 1.28 MG/DL (0.70-1.30); GLOMERULAR FILTRATION RATE 59.5 (>49); POTASSIUM SERUM 4.4 MEQ/L (3.5-5.1); TOTAL PROTEIN 7.1 GM/DL (6.4-8.2)
== END ==
LOC: M PLALAB 12:11
PROVIDERS: ATTEND Physician Assistant
DX: M25.50 Pain in unspecified joint (principal)

== ENCOUNTER → 2021-04-14 | Outpatient (CLI) | payer OTHER | LOC: M PLALAB 12:04 | PROVIDERS: ATTEND Physician Assistant | DX: Z53.20 Procedure and treatment not carried out because of patient's decision for unspecified reasons (principal) ==

== ENCOUNTER → 2021-04-22 | Outpatient (CLI) | payer OTHER | LOC: M PAIN 11:00 | PROVIDERS: ATTEND Anesthesiology | DX: G89.29 Other chronic pain (principal); M54.2 Cervicalgia; M79.18 Myalgia, other site; E11.9 Type 2 diabetes mellitus without complications; Z86.14 Personal history of Methicillin resistant Staphylococcus aureus infection; Z79.84 Long term (current) use of oral hypoglycemic drugs; Z79.891 Long term (current) use of opiate analgesic; Z79.899 Other long term (current) drug therapy ==

== ENCOUNTER 2021-05-04 15:17 | Emergency (ER) | payer OTHER ==
[~2021-05-04] VITALS: Ht 162.6 cm; Wt 75.9 kg
[2021-05-04 15:18] VITALS: BP 142/70
== END 2021-05-04 22:19 | disposition left against medical advice (07) ==
LOC: M ED 15:17
DX: Z53.21 Procedure and treatment not carried out due to patient leaving prior to being seen by health care provider (principal)

== ENCOUNTER 2021-05-09 14:38 | Emergency (ER) | payer OTHER ==
[~2021-05-09] VITALS: Ht 162.6 cm; Wt 75.5 kg
--- OUTSIDE RECORDS SUMMARY | 2021-05-09 14:52 | CCD ---
Author Author [facility] Organization [facility] Address Unknown Phone Unavailable Care Team Providers Care Paralegal Instructor Name Role Phone Leixs Farr PT Unavailable Unavailable Yordan, R Tony PT Unavailable Unavailable Yordan, R Tony PT Unavailable Unavailable Yordan, R Tony PT Unavailable Unavailable Yordan, R Tony PT Unavailable Unavailable Yordan, R Tony PT Unavailable Unavailable Yordan, R Tony PT Unavailable Unavailable Yordan, R Tony PT Unavailable Unavailable Yordan, R Tony PT Unavailable Unavailable Yordan, R Tony PT Unavailable Unavailable Yordan, R Tony PT Unavailable Unavailable Yordan, R Tony PT Unavailable Unavailable Yordan, R Tony PT Unavailable Unavailable Yordan, R Tony PT Unavailable Unavailable Yordan, R Tony PT Unavailable Unavailable Yordan, R Tony PT Unavailable Unavailable Yordan, R Tony PT Unavailable Unavailable Yordan, R Tony PT Unavailable Unavailable Yordan, R Tony PT Unavailable Unavailable Yordan, R Tony PT Unavailable Unavailable Yordan, R Tony PT Unavailable Unavailable Yordan, R Tony PT Unavailable Unavailable Yordan, R Tony PT Unavailable Unavailable Yordan, R Tony PT Unavailable Unavailable Yordan, R Tony PT Unavailable Unavailable Yaw, Lety Corbin MD Unavailable Unavailable Yaw, Lety Corbin MD Unavailable Unavailable Yaw, Lety Corbin MD Unavailable Unavailable Yaw, A Shelby MD Unavailable Unavailable Yaw, A Shelby MD Unavailable Unavailable Yaw, A Shelby MD Unavailable Unavailable Yaw, A Shelby MD Unavailable Unavailable Yaw, A Shelby MD Unavailable Unavailable Yaw, A Shelby MD Unavailable Unavailable Yaw, A Shelby MD Unavailable Unavailable Yaw, A Shelby MD Unavailable Unavailable Yaw, A Shelby MD Unavailable Unavailable Yaw, A Shelby MD Unavailable Unavailable Yaw, A Shelby MD Unavailable Unavailable Yaw, A Shelby MD Unavailable Unavailable Yaw, A Shelby MD Unavailable Unavailable Yaw, A Shelby MD Unavailable Unavailable Yaw, A Shelby MD Unavailable Unavailable Yaw, A Shelby MD Unavailable Unavailable Yaw, A Shelby MD Unavailable Unavailable Yaw, A Shelby MD Unavailable Unavailable Yaw, A Shelby MD Unavailable Unavailable Yaw, A Shelby MD Unavailable Unavailable Yaw, A Shelby MD Unavailable Unavailable Yaw, A Shelby MD Unavailable Unavailable Yaw, A Shelby MD Unavailable Unavailable Yaw, A Shelby MD Unavailable Unavailable Yaw, A Shelby MD Unavailable Unavailable Yaw, A Shelby MD Unavailable Unavailable Yaw, A Shelby MD Unavailable Unavailable Yaw, A Shelby MD Unavailable Unavailable Yaw, A Shelby MD Unavailable Unavailable Yaw, A Shelby MD Unavailable Unavailable Yaw, A Shelby MD Unavailable Unavailable Yaw, A Shelby MD Unavailable Unavailable Yaw, A Shelby MD Unavailable Unavailable Yaw, A Shelby MD Unavailable Unavailable Yaw, A Shelby MD Unavailable Unavailable Yaw, A Shelby MD Unavailable Unavailable Yaw, A Shelby MD Unavailable Unavailable Yaw, A Shelby MD Unavailable Unavailable Yaw, A Shelby MD Unavailable Unavailable Yaw, A Shelby MD Unavailable Unavailable Yaw, A Shelby MD Unavailable Unavailable Yaw, A Shelby MD Unavailable Unavailable Yaw, A Shelby MD Unavailable Unavailable Yaw, A Shelby MD Unavailable Unavailable Yaw, A Shelby MD Unavailable Unavailable Yaw, A Shelby MD Unavailable Unavailable Yaw, A Shelby MD Unavailable Unavailable Yaw, A Shelby MD Unavailable Unavailable Yaw, A Shelby MD Unavailable Unavailable Yaw, A Shelby MD Unavailable Unavailable Yaw, A Shelby MD Unavailable Unavailable Yaw, A Shelby MD Unavailable Unavailable Yaw, A Shelby MD Unavailable Unavailable Yaw, A Shelby MD Unavailable Unavailable Yaw, A Shelby MD Unavailable Unavailable Yaw, A Shelby MD Unavailable Unavailable Yaw, A Shelby MD Unavailable Unavailable Yaw, A Shelby MD Unavailable Unavailable Yaw, A Shelby MD Unavailable Unavailable Yaw, A Shelby MD Unavailable Unavailable Yaw, A Shelby MD Unavailable Unavailable Yaw, A Shelby MD Unavailable Unavailable Yaw, A Shelby MD Unavailable Unavailable Yaw, A Shelby MD Unavailable Unavailable Yaw, A Shelby MD Unavailable Unavailable Yaw, A Shelby MD Unavailable Unavailable Yaw, A Shelby MD Unavailable Unavailable Yaw, A Shelby MD Unavailable Unavailable Yaw, A Shelby MD Unavailable Unavailable Yaw, A Shelby MD Unavailable Unavailable Yaw, A Shelby MD Unavailable Unavailable Yaw, A Shelby MD Unavailable Unavailable Yaw, A Shelby MD Unavailable Unavailable Yaw, A Shelby MD Unavailable Unavailable Yaw, A Shelby MD Unavailable Unavailable Yaw, A Shelby MD Unavailable Unavailable Yaw, A Shelby MD Unavailable Unavailable Yaw, A Shelby MD Unavailable Unavailable Yaw, A Shelby MD Unavailable Unavailable Yaw, A Shelby MD Unavailable Unavailable Yaw, A Shelby MD Unavailable Unavailable Yaw, A Shelby MD Unavailable Unavailable Yaw, A Shelby MD Unavailable Unavailable Yaw, A Shelby MD Unavailable Unavailable Yaw, A Shelby MD Unavailable Unavailable Yaw, A Shelby MD Unavailable Unavailable Yaw, A Shelby MD Unavailable Unavailable Yaw, A Shelby MD Unavailable Unavailable Yaw, A Shelby MD Unavailable Unavailable Yaw, A Shelby MD Unavailable Unavailable Yaw, A Shelby MD Unavailable Unavailable Yaw, A Shelby MD Unavailable Unavailable Yaw, A Shelby MD Unavailable Unavailable Yaw, A Shelby MD Unavailable Unavailable Yaw, A Shelby MD Unavailable Unavailable Yaw, A Shelby MD Unavailable Unavailable Yaw, A Shelby MD Unavailable Unavailable Yaw, A Shelby MD Unavailable Unavailable Yaw, A Shelby MD Unavailable Unavailable Yaw, A Shelby MD Unavailable Unavailable Yaw, A Shelby MD Unavailable Unavailable Yaw, A Shelby MD Unavailable Unavailable Yaw, A Shelby MD Unavailable Unavailable Yaw, A Shelby MD Unavailable Unavailable Yaw, A Shelby MD Unavailable Unavailable Yaw, A Shelby MD Unavailable Unavailable Yaw, A Shelby MD Unavailable Unavailable Yaw, A Shelby MD Unavailable Unavailable Yaw, A Shelby MD Unavailable Unavailable Yaw, A Shelby MD Unavailable Unavailable Yaw, A Shelby MD Unavailable Unavailable Yaw, A Shelby MD Unavailable Unavailable Yaw, A Shelby MD Unavailable Unavailable Yaw, Lety Corbin MD Unavailable Unavailable Yaw, Lety Corbin MD Unavailable Unavailable Thomas, C Zo PROGRAMMER OR ANALYST Unavailable Unavailable Thomas, C Zo PROGRAMMER OR ANALYST Unavailable Unavailable Thomas, C Zo PROGRAMMER OR ANALYST Unavailable Unavailable Thomas, C Zo PROGRAMMER OR ANALYST Unavailable Unavailable Thomas, C Zo PROGRAMMER OR ANALYST Unavailable Unavailable Thomas, C Zo PROGRAMMER OR ANALYST Unavailable Unavailable Thomas, C Zo PROGRAMMER OR ANALYST Unavailable Unavailable Thomas, C Zo PROGRAMMER OR ANALYST Unavailable Unavailable Thomas, C Zo PROGRAMMER OR ANALYST Unavailable Unavailable Thomas, C Zo PROGRAMMER OR ANALYST Unavailable Unavailable Thomas, C Zo PROGRAMMER OR ANALYST Unavailable Unavailable Thomas, C Zo PROGRAMMER OR ANALYST Unavailable Unavailable Thomas, C Zo PROGRAMMER OR ANALYST Unavailable Unavailable Thomas, C Zo PROGRAMMER OR ANALYST Unavailable Unavailable Thomas, C Zo PROGRAMMER OR ANALYST Unavailable Unavailable Thomas, C Zo PROGRAMMER OR ANALYST Unavailable Unavailable Thomas, C Zo PROGRAMMER OR ANALYST Unavailable Unavailable Thomas, C Zo PROGRAMMER OR ANALYST Unavailable Unavailable Thomas, C Zo PROGRAMMER OR ANALYST Unavailable Unavailable Thomas, C Zo PROGRAMMER OR ANALYST Unavailable Unavailable Thomas, C Zo PROGRAMMER OR ANALYST Unavailable Unavailable Thomas, C Zo PROGRAMMER OR ANALYST Unavailable Unavailable Thomas, C Zo PROGRAMMER OR ANALYST Unavailable Unavailable Thomas, C Zo PROGRAMMER OR ANALYST Unavailable Unavailable Thomas, C Zo PROGRAMMER OR ANALYST Unavailable Unavailable Thomas, C Zo PROGRAMMER OR ANALYST Unavailable Unavailable Thomas, C Zo PROGRAMMER OR ANALYST Unavailable Unavailable Thomas, C Zo PROGRAMMER OR ANALYST Unavailable Unavailable Thomas, C Zo PROGRAMMER OR ANALYST Unavailable Unavailable Thomas, C Zo PROGRAMMER OR ANALYST Unavailable Unavailable Frannie COX MD Unavailable Unavailable Frannie COX MD Unavailable Unavailable Frannie COX MD Unavailable Unavailable Frannie COX MD Unavailable Unavailable RAYA WALSH MD Unavailable Unavailable Jesus AlbertouoVILMA schmidt ANP-C Unavailable tomaiuo [email or web address] VILMA Blevins ANP-C Unavailable tomaiuo [email or web address] VILMA Blevins ANP-C Unavailable tomaiuo [email or web address] VILMA Blevins ANP-C Unavailable tomaiuo [email or web address] VILMA Blevins ANP-C Unavailable tomaiuo [email or web address] Tomaiuoli, VILMA Janis ANP-C Unavailable tomaiuo Tomaiuoroxana VILMA Janis ANP-C Unavailable tomaiuo TomaiuoADEEL schmidtE Janis ANP-C Unavailable tomaiuo Tomaiuoroxana VILMA Janis ANP-C Unavailable tomaiuo Tomaiuoroxana VILMA Janis ANP-C Unavailable tomaiuo TomaiuoADEEL schmidtE Janis ANP-C Unavailable tomaiuo Tomaiuoroxana VILMA Janis ANP-C Unavailable tomaiuo Tomaiuoroxana VILMA Janis ANP-C Unavailable tomaiuo TomaiuoADEEL schmidtE Janis ANP-C Unavailable tomaiuo TomaiuoADEEL schmidtE Janis ANP-C Unavailable tomaiuo TomaiuoADELE schmidtE Janis ANP-C Unavailable tomaiuo Tomaiuoroxana VILMA Janis ANP-C Unavailable tomaiuo Tomaiuoroxana VILMA Janis ANP-C Unavailable tomaiuo Tomaiuoroxana VILMA Janis ANP-C Unavailable tomaiuo Tomaiuoroxana VILMA Janis ANP-C Unavailable tomaiuo TomaiuoADEEL schmidtE Janis ANP-C Unavailable tomaiuo TomaiuoVILMA schmidt Janis ANP-C Unavailable tomaiuo Tomaiuoroxana VILMA Janis ANP-C Unavailable tomaiuo Tomaiuoroxana VILMA Janis ANP-C Unavailable tomaiuo TomaiuoADEEL schmidtE Janis ANP-C Unavailable tomaiuo Tomaiuoroxana VILMA Janis ANP-C Unavailable tomaiuo Tomaiuoroxana VILMA Janis ANP-C Unavailable tomaiuo TomaiuoADEEL schmidtE Janis ANP-C Unavailable tomaiuo ADEEL BlevinsE Janis ANP-C Unavailable tomaiuo CecilaiuoVILMA schmidt Janis ANP-C Unavailable tomaiuo Jesus AlbertouoVILMA schmidt Janis ANP-C Unavailable tomaiuo Jesus AlbertouoVILMA schmidt Janis ANP-C Unavailable tomaiuo CecilaiuoVILMA schmidt Janis ANP-C Unavailable tomaiuo Jesus AlbertouoVILMA schmidt Janis ANP-C Unavailable tomaiuo TomaiuoVILMA schmidt Janis ANP-C Unavailable tomaiuo TomaiuoVILMA schmidt Janis ANP-C Unavailable tomaiuo CecilaiuoVILMA schmidt Janis ANP-C Unavailable tomaiuo TomaiuoVILMA schmidt Janis ANP-C Unavailable tomaiuo CecilaiVILMA gill Janis ANP-C Unavailable tomaiuo TomaiuoVILMA schmidt Janis ANP-C Unavailable tomaiuo TomaiuoVILMA schmidt Janis ANP-C Unavailable tomaiuo [place], V SY PA-C Unavailable Unavailable [place], V SY PA-C Unavailable Unavailable Eric, V SY PA-C Unavailable Unavailable [place], V SY PA-C Unavailable Unavailable [place], V SY PA-C Unavailable Unavailable [place], V SY PA-C Unavailable Unavailable Eric, V SY PA-C Unavailable Unavailable Eric, V SY PA-C Unavailable Unavailable [place], V SY PA-C Unavailable Unavailable [place], V SY PA-C Unavailable Unavailable Eric, V SY PA-C Unavailable Unavailable [place], V SY PA-C Unavailable Unavailable [place], V YS PA-C Unavailable Unavailable [place], V SY PA-C Unavailable Unavailable PATRIC LIN MD Unavailable Unavailable PATRIC LIN MD Unavailable Unavailable PATRIC LIN MD Unavailable Unavailable PATRIC LIN MD Unavailable Unavailable Fannie Palencia MD Unavailable Fannie Patricio MD Unavailable Unavailable Fannie Palencia MD Unavailable Unavailable Fannie Palencia MD Unavailable Unavailable Sita Michele MD Unavailable Unavailable Sita Michele MD Unavailable Unavailable Sita Michele MD Unavailable Unavailable Sita Michele MD Unavailable Unavailable Sita Michele MD Unavailable Unavailable Sita Michele MD Unavailable Unavailable Sita Michele MD Unavailable Unavailable Sita Michele MD Unavailable Unavailable Sita Michele MD Unavailable Unavailable Sita Michele MD Unavailable Unavailable Sita Michele MD Unavailable Unavailable Sita Michele MD Unavailable Unavailable Sita Michele MD Unavailable Unavailable Sita Michele MD Unavailable Unavailable Sita Michele MD Unavailable Unavailable Sita Michele MD Unavailable Unavailable Sita Michele MD Unavailable Unavailable Sita Michele MD Unavailable Unavailable Sita Michele MD Unavailable Unavailable Sita Michele MD Unavailable Unavailable Sita Michele MD Unavailable Unavailable Sita Michele MD Unavailable Unavailable Sita Michele MD Unavailable Unavailable Sita Michele MD Unavailable Unavailable Sita Michele MD Unavailable Unavailable Sita Michele MD Unavailable Unavailable Sita Michele MD Unavailable Unavailable Sita Michele MD Unavailable Unavailable Sita Michele MD Unavailable Unavailable Sita Michele MD Unavailable Unavailable Sita Michele MD Unavailable Unavailable Sita Michele MD Unavailable Unavailable Sita Michele MD Unavailable Unavailable Sita Michele MD Unavailable Unavailable Sita Michele MD Unavailable Unavailable Sita Michele MD Unavailable Unavailable Sita Michele MD Unavailable Unavailable Sita Michele MD Unavailable Unavailable Sita Michele MD Unavailable Unavailable Sita Michele MD Unavailable Unavailable Sita Michele MD Unavailable Unavailable Sita Michele MD Unavailable Unavailable Sita Michele MD Unavailable Unavailable Sita Michele MD Unavailable Unavailable Sita Michele MD Unavailable Unavailable Sita Michele MD Unavailable Unavailable Sita Michele MD Unavailable Unavailable Sita Michele MD Unavailable Unavailable Slezka, Vojtech MD Unavailable Unavailable Slezka, Vojtech MD Unavailable Unavailable Slezka, Vojtech MD Unavailable Unavailable Slezka, Vojtech MD Unavailable Unavailable Slezka, Vojtech MD Unavailable Unavailable Slezka, Vojtech MD Unavailable Unavailable Slezka, Vojtech MD Unavailable Unavailable Slezka, Vojtech MD Unavailable Unavailable Slezka, Vojtech MD Unavailable Unavailable Slezka, Vojtech MD Unavailable Unavailable Slezka, Vojtech MD Unavailable Unavailable Slezka, Vojtech MD Unavailable Unavailable Re-disclosure Warning The records that you are about to access may contain information from federally-assisted alcohol or drug abuse programs. If such information is present, then the following federally mandated warning applies: This information has been disclosed to you from records protected by federal confidentiality rules (42 CFR part 2). The federal rules prohibit you from making any further disclosure of this information unless further disclosure is expressly permitted by the written consent of the person to whom it pertains or as otherwise permitted by 42 CFR part 2. A general authorization for the release of medical or other information is NOT sufficient for this purpose. The Federal rules restrict any use of the information to criminally investigate or prosecute any alcohol or drug abuse patient.The records that you are about to access may contain highly sensitive health information, the redisclosure of which is protected by Article 27-F of the [facility] Public Health law. If you continue you may have access to information: Regarding HIV / AIDS; Provided by facilities licensed or operated by the [facility] Office of Mental Health; or Provided by the [facility] Office for People With Developmental Disabilities. If such information is present, then the following [facility] mandated warning applies: This information has been disclosed to you from confidential records which are protected by state law. State law prohibits you from making any further disclosure of this information without the specific written consent of the person to whom it pertains, or as otherwise permitted by law. Any unauthorized further disclosure in violation of state law may result in a fine or long-term sentence or both. A general authorization for the release of medical or other information is NOT sufficient authorization for further disc losure. Allergies and Adverse Reactions Type Description Substance Reaction Status Data Source(s ) Environmental Allergy ENVIRONMENTAL [facility] Family History Family Member Name Family Member Gender Family Member Status Date o f Status Description Data Source(s) Unknown Unknown Problem [facility] ([facility]) Encounters Encounter Providers Location Date Indications Data Source(s ) Outpatient Attender: Shelby Leiws MD 06/06/2021 12:00:00 AM [facility] Outpatient Attender: Shelby Lewis MD 05/06/2021 12:00:00 AM [facility] Out[place] [address] [facility] [address] 04/22/2021 12:00:00 AM EST [facility]CW1 ([facility]) [place] [address] [facility] [facility] [address] 04/14/2021 12:00:00 AM EST eCW1 ([facility]) Unknown [address] [facility] [place] [address] 04/14/2021 12:00:00 AM EST eCW1 ([facility]) [place] [address] [facility] [place] [address] 03/23/2021 12:00:00 AM EDT eCW1 ([facility]) [place] [address] [facility] [address] 03/15/2021 12:00:00 AM EDT eCW1 ([facility]) [place] [address] [facility] [place] [address] 03/15/2021 12:00:00 AM EDT eCW1 ([facility]) [place] [address] [facility] [place] [address] 03/11/2021 12:00:00 AM EDT eCW1 ([facility]) [place] [address] [facility] [address] 03/08/2021 12:00:00 AM EDT eCW1 ([facility]) Outpatient Attender: Sita Michele MD [email or web address] 09/2020 12:00:00 AM EDT - 03/07/2021 10:24:24 AM EDT [facility] ([facility]) W/C Procedure [address] [place] [address] 02/28/2021 12:00:00 AM EDT [facility]CW1 ([facility]) [place] [address] [facility] [address] 02/24/2021 12:00:00 AM EDT eCW1 ([facility]) [place] [address] [facility] [address] 02/21/2021 12:00:00 AM EDT eCW1 ([facility]) [place] [address] [facility] [address] 02/10/2021 12:00:00 AM EDT eCW1 ([facility]) [place] [address] [facility] [address] 01/27/2021 12:00:00 AM EDT eCW1 ([facility]) [place] [address] [facility] [address] 01/27/2021 12:00:00 AM EDT eCW1 ([facility]) [place] [address] [facility] [address] 01/25/2021 12:00:00 AM EDT eCW1 ([facility]) Outpatient Attender: Tony Farr PT CPSCAORT-CPSCARHALINA 01:20:00 PM EDT - 01/24/2021 01:21:00 PM EDT [facility] Patient discharged. [place] [address] [facility] [address] 01/24/2021 12:00:00 AM EDT eCW1 ([facility]) [place] [address] [facility] [address] 01/18/2021 12:00:00 AM EDT eCW1 ([facility]) [place] [address] [facility] [address] 01/18/2021 12:00:00 AM EDT eCW1 ([facility]) [place] [address] [facility] [address] 01/13/2021 12:00:00 AM EDT eCW1 ([facility]) Outpatient Attender: Janis LIRA-C 01/13/2021 12:00:00 AM [facility] Unknown [address] [facility] [address] 01/06/2021 12:00:00 AM EDT eCW1 ([facility]) [place] [address] [facility] [address] 01/05/2021 12:00:00 AM EDT eCW1 ([facility]) Outpatient Referrer: Shelby Lewis MD 12/31/2020 12 :00:00 AM EDT Presence of right artificial hip joint [facility] Presence of right artificial hip joint Outpatient Attender: Shelby Lewis MD [id number] 12/31/2020 12:00:0 0 AM [facility] Outpatient Attender: Janis LIRA-C [id number] 12/30/2020 12:00:00 AM EDT [facility] Cervicalgia Outpatient Referrer: Janis LIRA-C 12/30 12:00:00 AM EDT [facility] Cervicalgia Outpatient [address] [facility] [address] 12/27/2020 12:00:00 AM EDT eCW1 ([facility]) [place]patient [address] [facility] [address] 12/24/2020 12:00:00 AM EDT eCW1 ([facility]) [place] [address] [facility] [address] 12/17/2020 12:00:00 AM EDT eCW1 ([facility]) Outpatient Attender: JAYSON COX MDReferrer: JAYSON COX MD 12/14/2020 12:00:00 AM [facility] Outpatient Attender: JAYSON COX MDReferrer: JAYSON COX MD 12/13/2020 12:00:00 AM [facility] Inpatient Attender: RAYA ABEL MDAttender: JAYSON COX MDAttender: Fannie Palencia MDAttender: PATRIC LIN MDAdmitter: JAYSON COX MDReferrer: JAYSON COX MD [id number] 12/12/2020 12:00:00 AM EDT - 12/16/2020 12:33:00 PM EDT 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 [place] [address] [facility] [address] 12/09/2020 12:00:00 AM EDT eCW1 ([facility]) Outpatient [address] [facility] [place] [address] 12/09/2020 12:00:00 AM EDT eCW1 ([facility]) Unknown [address] [facility] [place] [address] 12/08/2020 12:00:00 AM EDT eCW1 ([facility]) Outpatient Attender: Shelby Lewis MD [id number] 12/03/2020 12:00:0 0 AM EDT [facility] Unknown [address] [facility] [address] 12/03/2020 12:00:00 AM EDT eCW1 ([facility]) [place] [address] [facility] [address] 12/01/2020 12:00:00 AM EDT [facility] [place] [address] [facility] [place] [address] 11/30/2020 12:00:00 AM EDT eCW1 ([facility]) Unknown [address] [facility] [place] [address] 11/26/2020 12:00:00 AM EDT [facility] [place] [address] [facility] [address] 11/19/2020 12:00:00 AM EDT eCW1 ([facility]) [place] [address] [facility] [address] 11/11/2020 12:00:00 AM EDT eCW1 ([facility]) [place] [address] [facility] [address] 10/28/2020 12:00:00 AM EDT eCW1 ([facility]) [place] [address] [facility] [address] 10/28/2020 12:00:00 AM EDT eCW1 ([facility]) [place] [address] [facility] [address] 10/28/2020 12:00:00 AM EDT eCW1 ([facility]) Outpatient [address] [facility] [address] 10/14/2020 12:00:00 AM EDT eCW1 ([facility]) Outpatient [address] [facility] [address] 10/14/2020 12:00:00 AM EDT eCW1 ([facility]) [place] [address] [facility] [address] 10/07/2020 12:00:00 AM EDT eCW1 ([facility]) [place] [address] [facility] [address] 10/07/2020 12:00:00 AM EDT eCW1 ([facility]) Outpatient Referrer: Shelby Lewis MD 10/01/2020 12 :00:00 AM EDT Pain in right hip [facility] Pain in right hip Outpatient Attender: Shelby Lewis MD [id number] 10/01/2020 12 :00:00 AM EDT Presence of right artificial hip joint [facility] Presence of right artificial hip joint [place] [address] [facility] [address] 09/30/2020 12:00:00 AM EDT eCW1 ([facility]) [place] [address] [facility] [address] 09/24/2020 12:00:00 AM EDT eCW1 ([facility]) [place] [address] [facility] [address] 09/14/2020 12:00:00 AM EDT eCW1 ([facility]) Outpatient Attender: Shelby Lewis MD [id number] 09/03/2020 12 :00:00 AM EDT Pain in right hip [facility] Pain in right hip [place] [address] [facility] [address] 09/03/2020 12:00:00 AM EDT eCW1 ([facility]) Unknown [address] [facility] [address] 08/25/2020 12:00:00 AM EDT eCW1 ([facility]) [place] [address] [facility] [address] 08/20/2020 12:00:00 AM EDT eCW1 ([facility]) Inpatient Attender: Shelby Lewis MDAdmitter: Shelby dang MD [id number] 08/17/2020 12:00:00 AM EDT - 08/21/2020 12:05:00 PM EDT Unilateral primary osteoarthritis, right [facility] Unilateral primary osteoarthritis, right hip Patient discharged. Outpatient 08/13/2020 12:00:00 AM [facility] Outpatient Attender: Zo Thomas FNPReferrer: Zo graves PROGRAMMER OR ANALYST 08/12/2020 12:00:00 AM EST - 08/13/2020 12:00:00 AM EST Encounter for screening for other viral diseases [facility] Encounter for screening for other viral diseases Outpatient Referrer: Shelby Lewis MD 08/12/2020 12 :00:00 AM EST Other unilateral secondary osteoarthritis of hip [facility] Other unilateral secondary osteoarthriti s of hip Outpatient Attender: Shelby Lewis MDReferrer: Shelby dang MD 08/12/2020 12:00:00 AM EST - 08/13/2020 12:00:00 AM [facility] Outpatient 08/12/2020 12:00:00 AM [facility] Outpatient [address] [facility] [address] 08/10/2020 12:00:00 AM EST eCW1 ([facility]) Outpatient 08/05/2020 12:00:00 AM EST [facility] Unknown [address] [facility] [facility] [address] 08/04/2020 12:00:00 AM EST eCW1 ([facility]) Outpatient Attender: SY MATHEW-SJPTaliaRANDALL 07/2020 12:00:00 AM EST - 08/03/2020 08:35:38 AM EST [facility] Outpatient Attender: Tony Farr PT [id number]-CPSCARHE 01:37:00 PM EST - 07/29/2020 01:38:00 PM EST [facility] Patient discharged. [place] [address] [facility] [address] 07/29/2020 12:00:00 AM EST eCW1 ([facility]) Unknown [address] [facility] [facility] [address] 07/21/2020 12:00:00 AM EST eCW1 ([facility]) Outpatient [address] [facility] [facility] [address] 07/15/2020 12:00:00 AM EST eCW1 ([facility]) Unknown [address] [facility] [facility] [address] 06/25/2020 12:00:00 AM EST eCW1 ([facility]) Unknown [address] [facility] [address] 06/17/2020 12:00:00 AM EST eCW1 ([facility]) Outpatient [address] [facility] [address] 05/31/2020 12:00:00 AM EST eCW1 ([facility]) Unknown [address] [facility] [facility] [address] 05/31/2020 12:00:00 AM EST eCW1 ([facility]) Unknown [address] [facility] [address] 05/26/2020 12:00:00 AM EST eCW1 ([facility]) Unknown [address] [facility] [address] 05/19/2020 12:00:00 AM EST eCW1 ([facility]) Outpatient Attender: Shelby Lewis MD [id number] 12/2019 12:00:00 AM EST - 05/10/2020 03:20:16 PM EST Other unilateral secondary osteoarthritis of hip [facility] Other unilateral secondary osteoarthriti s of hip Outpatient Referrer: Shelby Lewis MD 05/10/2020 12 :00:00 AM EST Pain in right hip [facility] Pain in right hip Unknown [address] [facility] [address] 04/21/2020 12:00:00 AM EST eCW1 ([facility]) Unknown [address] [facility] [address] 04/19/2020 12:00:00 AM EST eCW1 ([facility]) Outpatient [address] [facility] [address] 04/16/2020 12:00:00 AM EST eCW1 ([facility]) Unknown [address] [facility] [address] 04/16/2020 12:00:00 AM EST eCW1 ([facility]) Outpatient [address] [facility] [address] 04/06/2020 12:00:00 AM EST eCW1 ([facility]) Outpatient [address] [facility] [address] 03/30/2020 12:00:00 AM EDT eCW1 ([facility]) Unknown [address] [facility] [address] 03/28/2020 12:00:00 AM EDT eCW1 ([facility]) Unknown [address] [facility] [address] 03/26/2020 12:00:00 AM EDT eCW1 ([facility]) Unknown [address] [facility] [address] 03/15/2020 12:00:00 AM EDT eCW1 ([facility]) Unknown [address] [facility] [address] 03/15/2020 12:00:00 AM EDT eCW1 ([facility]) Unknown [address] [facility] [address] 03/13/2020 12:00:00 AM EDT eCW1 ([facility]) Unknown [address] [facility] [address] 03/12/2020 12:00:00 AM EDT eCW1 ([facility]) Medications Medication Brand Name Start Date Product Form Dose Route Admi nistrative Instructions Pharmacy Instructions Status Indications Reaction Description Data Source(s) Acetaminophen 325 MG / Hydrocodone Bitartrate 10 MG Or al Tablet 10-325 mg HYDROCODONE/ACETAMINOPHEN 04/20/2021 12:00:00 AM EST tablet 120 TAKE TWO TABLETS BY MOUTH TWICE A DAY MAXIMUM DAILY DOSE = 4 TABLETS TAKE TWO TABLETS BY MOUTH TWICE A DAY MAXIMUM DAILY DOSE = 4 TABLETS SOLD: 04/29/2021 [facility] Acetaminophen 325 MG / Hydrocodone Bitartrate 10 MG Or al Tablet 10-325 mg HYDROCODONE/ACETAMINOPHEN 03/22/2021 12:00:00 AM EDT tablet 120 TAKE TWO TABLETS BY MOUTH TWICE A DAY MAXIMUM DAILY DOSE = 4 TABLETS TAKE TWO TABLETS BY MOUTH TWICE A DAY MAXIMUM DAILY DOSE = 4 TABLETS SOLD: 03/22/2021 [facility] 300 mg 03/21/2021 12:00:00 AM EDT capsule 90 TAKE ONE CAPSULE BY MOUTH THREE TIMES A DAY TAKE ONE CAPSULE BY MOUTH THREE TIMES A DAY SOLD: 03/21/2021 [facility] Acetaminophen 325 MG / Hydrocodone Guevara trate 10 MG Oral Tablet HYDROcodone- Acetaminophen 10-325 MG HYDROcodone-Acetaminophen 10-325 MG 03/17/2021 12:00:0 0 AM EDT 2.0 {tablets} active HYDROcodon e-Acetaminophen 10-325 MG eCW1 ([facility]) Acetaminophen 325 MG / Hydrocodone Guevara trate 10 MG Oral Tablet HYDROcodone- Acetaminophen 10-325 MG HYDROcodone-Acetaminophen 10-325 MG 03/17/2021 12:00:0 0 AM EDT 2.0 {tablets} active HYDROcodon e-Acetaminophen 10-325 MG eCW1 ([facility]) Acetaminophen 325 MG / Hydrocodone Guevara trate 10 MG Oral Tablet HYDROcodone- Acetaminophen 10-325 MG HYDROcodone-Acetaminophen 10-325 MG 03/17/2021 12:00:0 0 AM EDT 2.0 {tablets} active HYDROcodon e-Acetaminophen 10-325 MG eCW1 ([facility]) Acetaminophen 325 MG / Hydrocodone Guevara trate 10 MG Oral Tablet HYDROcodone- Acetaminophen 10-325 MG HYDROcodone-Acetaminophen 10-325 MG 03/17/2021 12:00:0 0 AM EDT 2.0 {tablets} active HYDROcodon e-Acetaminophen 10-325 MG eCW1 ([facility]) Acetaminophen 325 MG / Hydrocodone Guevara trate 10 MG Oral Tablet HYDROcodone- Acetaminophen 10-325 MG HYDROcodone-Acetaminophen 10-325 MG 03/17/2021 12:00:0 0 AM EDT 2.0 {tablets} active HYDROcodon e-Acetaminophen 10-325 MG eCW1 ([facility]) Acetaminophen 325 MG / Hydrocodone Guevara trate 10 MG Oral Tablet HYDROcodone- Acetaminophen 10-325 MG HYDROcodone-Acetaminophen 10-325 MG 03/17/2021 12:00:0 0 AM EDT 2.0 {tablets} active HYDROcodon e-Acetaminophen 10-325 MG eCW1 ([facility]) Acetaminophen 325 MG / Hydrocodone Guevara trate 10 MG Oral Tablet HYDROcodone- Acetaminophen 10-325 MG HYDROcodone-Acetaminophen 10-325 MG 03/17/2021 12:00:0 0 AM EDT 2.0 {tablets} active HYDROcodon e-Acetaminophen 10-325 MG eCW1 ([facility]) Acetaminophen 325 MG / Hydrocodone Guevara trate 10 MG Oral Tablet HYDROcodone- Acetaminophen 10-325 MG HYDROcodone-Acetaminophen 10-325 MG 03/17/2021 12:00:0 0 AM EDT 2.0 {tablets} active HYDROcodon e-Acetaminophen 10-325 MG eCW1 ([facility]) Acetaminophen 325 MG / Hydrocodone Guevara trate 10 MG Oral Tablet HYDROcodone- Acetaminophen 10-325 MG HYDROcodone-Acetaminophen 10-325 MG 03/17/2021 12:00:0 0 AM EDT 2.0 {tablets} active HYDROcodon e-Acetaminophen 10-325 MG eCW1 ([facility]) Aspirin 81 MG Delayed Release Oral Tablet aspirin EC 8 1 MG EC tablet aspirin EC 81 MG EC tablet 03/07/2021 12:00:00 AM EDT 81 mg Oral ac tive Take 1 tablet (81 mg total) by mouth daily [facility] Acetaminophen 325 MG / Hydrocodone Guevara trate 10 MG Oral Tablet HYDROcodone- Acetaminophen 10-325 MG HYDROcodone-Acetaminophen 10-325 MG 02/10/2021 12:00:0 0 AM EDT 2.0 {tablets} active HYDROcodon e-Acetaminophen 10-325 MG eCW1 ([facility]) Acetaminophen 325 MG / Hydrocodone Bitartrate 10 MG Or al Tablet 10-325 mg HYDROCODONE/ACETAMINOPHEN 02/10/2021 12:00:00 AM EDT tablet 120 TAKE TWO TABLETS BY MOUTH TWICE A DAY MAXIMUM DAILY DOSE = FOUR TABLETS TAKE TWO TABLETS BY MOUTH TWICE A DAY MAXIMUM DAILY DOSE = FOUR TABLETS SOLD: 02/14/2021 [facility] Acetaminophen 325 MG / Hydrocodone Guevara trate 10 MG Oral Tablet HYDROcodone- Acetaminophen 10-325 MG HYDROcodone-Acetaminophen 10-325 MG 02/10/2021 12:00:0 0 AM EDT 2.0 {tablets} active HYDROcodon e-Acetaminophen 10-325 MG eCW1 ([facility]) Acetaminophen 325 MG / Hydrocodone Guevara trate 10 MG Oral Tablet HYDROcodone- Acetaminophen 10-325 MG HYDROcodone-Acetaminophen 10-325 MG 02/10/2021 12:00:0 0 AM EDT 2.0 {tablets} active HYDROcodon e-Acetaminophen 10-325 MG eCW1 ([facility]) Acetaminophen 325 MG / Hydrocodone Guevara trate 10 MG Oral Tablet HYDROcodone- Acetaminophen 10-325 MG HYDROcodone-Acetaminophen 10-325 MG 02/10/2021 12:00:0 0 AM EDT 2.0 {tablets} active HYDROcodon e-Acetaminophen 10-325 MG eCW1 ([facility]) Acetaminophen 325 MG / Hydrocodone Guevara trate 10 MG Oral Tablet HYDROcodone- Acetaminophen 10-325 MG HYDROcodone-Acetaminophen 10-325 MG 02/10/2021 12:00:0 0 AM EDT 2.0 {tablets} active HYDROcodon e-Acetaminophen 10-325 MG eCW1 ([facility]) Acetaminophen 325 MG / Hydrocodone Guevara trate 10 MG Oral Tablet HYDROcodone- Acetaminophen 10-325 MG HYDROcodone-Acetaminophen 10-325 MG 02/10/2021 12:00:0 0 AM EDT 2.0 {tablets} active HYDROcodon e-Acetaminophen 10-325 MG eCW1 ([facility]) Acetaminophen 325 MG / Hydrocodone Guevara trate 10 MG Oral Tablet HYDROcodone- Acetaminophen 10-325 MG HYDROcodone-Acetaminophen 10-325 MG 02/10/2021 12:00:0 0 AM EDT 2.0 {tablets} active HYDROcodon e-Acetaminophen 10-325 MG eCW1 ([facility]) Acetaminophen 325 MG / Hydrocodone Bitartrate 10 MG Or al Tablet 10-325 mg HYDROCODONE/ACETAMINOPHEN 01/10/2021 12:00:00 AM EDT tablet 120 TAKE TWO TABLETS BY MOUTH TWICE A DAY MAXIMUM DAILY DOSE = 4 TAKE TWO TABLETS BY MOUTH TWICE A DAY MAXIMUM DAILY DOSE = 4 SOLD: 01/11/2021 [facility] Acetaminophen 325 MG / Hydrocodone Guevara trate 10 MG Oral Tablet HYDROcodone- Acetaminophen 10-325 MG HYDROcodone-Acetaminophen 10-325 MG 01/06/2021 12:00:0 0 AM EDT 2.0 {tablets} active HYDROcodon e-Acetaminophen 10-325 MG eCW1 ([facility]) Acetaminophen 325 MG / Hydrocodone Guevara trate 10 MG Oral Tablet HYDROcodone- Acetaminophen 10-325 MG HYDROcodone-Acetaminophen 10-325 MG 01/06/2021 12:00:0 0 AM EDT 2.0 {tablets} active HYDROcodon e-Acetaminophen 10-325 MG eCW1 ([facility]) Acetaminophen 325 MG / Hydrocodone Guevara trate 10 MG Oral Tablet HYDROcodone- Acetaminophen 10-325 MG HYDROcodone-Acetaminophen 10-325 MG 01/06/2021 12:00:0 0 AM EDT 2.0 {tablets} active HYDROcodon e-Acetaminophen 10-325 MG eCW1 ([facility]) Acetaminophen 325 MG / Hydrocodone Guevara trate 10 MG Oral Tablet HYDROcodone- Acetaminophen 10-325 MG HYDROcodone-Acetaminophen 10-325 MG 01/06/2021 12:00:0 0 AM EDT 2.0 {tablets} active HYDROcodon e-Acetaminophen 10-325 MG eCW1 ([facility]) Hydroxychloroquine Sulfate 200 MG Oral Tablet HYDROXYCHLOROQ UINE SULFATE 01/06/2021 12:00:00 AM EDT tablet 60 TAKE ONE TABLET BY MOUTH TWICE A DAY WITH FOOD OR MILK TAKE ONE TABLET BY MOUTH TWICE A DAY WITH FOOD OR MILK SOLD: 03/27/2021 [facility] Acetaminophen 325 MG / Hydrocodone Guevara trate 10 MG Oral Tablet HYDROcodone- Acetaminophen 10-325 MG HYDROcodone-Acetaminophen 10-325 MG 01/06/2021 12:00:0 0 AM EDT 2.0 {tablets} active HYDROcodon e-Acetaminophen 10-325 MG eCW1 ([facility]) Acetaminophen 325 MG / Hydrocodone Guevara trate 10 MG Oral Tablet HYDROcodone- Acetaminophen 10-325 MG HYDROcodone-Acetaminophen 10-325 MG 01/06/2021 12:00:0 0 AM EDT 2.0 {tablets} active HYDROcodon e-Acetaminophen 10-325 MG eCW1 ([facility]) Hydroxychloroquine Sulfate 200 MG Oral Tablet HYDROXYCHLOROQ UINE SULFATE 01/06/2021 12:00:00 AM EDT tablet 60 TAKE ONE TABLET BY MOUTH TWICE A DAY WITH FOOD OR MILK TAKE ONE TABLET BY MOUTH TWICE A DAY WITH FOOD OR MILK SOLD: 01/11/2021 [facility] Hydroxychloroquine Sulfate 200 MG Oral Tablet HYDROXYCHLOROQ UINE SULFATE 01/06/2021 12:00:00 AM EDT tablet 60 TAKE ONE TABLET BY MOUTH TWICE A DAY WITH FOOD OR MILK TAKE ONE TABLET BY MOUTH TWICE A DAY WITH FOOD OR MILK SOLD: 03/01/2021 [facility] Acetaminophen 325 MG / Hydrocodone Guevara trate 10 MG Oral Tablet HYDROcodone- Acetaminophen 10-325 MG HYDROcodone-Acetaminophen 10-325 MG 01/06/2021 12:00:0 0 AM EDT 2.0 {tablets} active HYDROcodon e-Acetaminophen 10-325 MG eCW1 ([facility]) Hydroxychloroquine Sulfate 200 MG Oral Tablet HYDROXYCHLOROQ UINE SULFATE 01/06/2021 12:00:00 AM EDT tablet 60 TAKE ONE TABLET BY MOUTH TWICE A DAY WITH FOOD OR MILK TAKE ONE TABLET BY MOUTH TWICE A DAY WITH FOOD OR MILK SOLD: 04/19/2021 [facility] 500 mg 01/01/2021 12:00:00 AM EDT tablet 30 TAKE ONE TABLET BY MOUTH THREE TIMES A DAY NEEDED FOR UP TO 10 DAYS TAKE ONE TABLET BY MOUTH THREE TIMES A DAY NEEDED FOR UP TO 10 DAYS SOLD: 01/01/2021 [facility] Methocarbamol 500 MG Oral Tablet Methocarbamol 500 MG Oral Tablet (ROBAXIN) Methocarbamol 500 MG Oral Tablet (ROBAXIN) 12/30/2020 12:00:00 AM EDT 500 mg Oral active Take 1 tablet by mouth Three times daily as needed for up to 10 days [facility] 500 mg 12/19/2020 12:00:00 AM EDT tablet 10 TAKE ONE TABLET BY MOUTH TWICE A DAY FOR 5 DAYS TAKE ONE TABLET BY MOUTH TWICE A DAY FOR 5 DAYS SOLD: 2020 [facility] Ciprofloxacin 500 MG Oral Tablet ciprofloxacin (CIPRO) 500 MG tablet ciprofloxacin (CIPRO) 500 MG tablet 12/19/2020 12:00:00 AM EDT active Prn UTI [facility] Ciprofloxacin 500 MG Oral Tablet Ciprofloxacin HCl 500 MG Oral Tablet (CIPRO) Ciprofloxacin HCl 500 MG Oral Tablet (CIPRO) 12/16/2020 12:00:00 AM EDT 500 mg Oral aborted Take 1 tablet by mouth T wo Times Daily for 5 days [facility] Sodium Bicarbonate 325 MG Oral Tablet Sodium Bicarbonate 325 MG Oral Tablet 12/16/2020 12:00:00 AM EDT 650 mg Oral aborted Take 2 tablets by mouth Two Times Daily [facility] Ciprofloxacin 500 MG Oral Tablet Ciprofloxacin HCl 500 MG Oral Tablet (CIPRO) Ciprofloxacin HCl 500 MG Oral Tablet (CIPRO) 12/16/2020 12:00:00 AM EDT 500 mg Oral active Take 1 tablet by mouth T wo Times Daily for 5 days [facility] Sodium Bicarbonate 325 MG Oral Tablet Sodium Bicarbonate 325 MG Oral Tablet 12/16/2020 12:00:00 AM EDT 650 mg Oral active Take 2 tablets by mouth Two Times Daily [facility] Acetaminophen 325 MG / Hydrocodone Guevara trate 5 MG Oral Tablet HYDROcodone- acetaminophen (LORTAB) 5-325 MG per tablet 1 tablet HYDROcodone-acetaminophen (LORTAB) 5-325 MG per tablet 1 tablet 12/15/2020 05:13:03 PM EDT 1 {tbl} Oral active 1 tablet, Oral, Every 6 hours PRN, Moderate Pain (Pain Scale Score 4-6), chronic neck pain, abdominal pain, Starting on Sun12/15/20 at 1713, For 3 days
Maximum daily dose of acetaminophen is 3,000 mg from all sources in 24 hours.
[facility] Medication administered onsite POLYETHYLENE GLYCOL 3350 59 MG/ML / Pota ssium Chloride 0.01 MEQ/ML / Sodium Bicarbonate 0.02 MEQ/ML / Sodium Chloride 0.025 MEQ/ML / sodium sulfate 0.04 MEQ/ML Oral Solution polyethylene glycol (GoLYTELY,NuLYTELY) suspension 4,000 mL polyethylene glycol (GoLYTELY,NuLYTELY) suspension 4,0 00 mL 12/14/2020 06:45:00 PM EDT 4000 mL Oral completed 4,000 mL, Oral, Once, On Sun12/14/20 at 1845, For 1 dose [facility] Medication administered onsite fentaNYL (SUBLIMAZE) (PF) injection 25 mcg [id number] 12/14/2020 02:12:50 PM EDT 25 ug Intravenous completed 25 mcg, Intravenous, Every 4 hours PRN, Moderate Pain (Pain Scale Score 4-6), Starting on Sun12/14/20 at 1412, For 24 hours [facility] Medication administered onsite Ceftriaxone 1000 MG Injection cefTRIAXone (ROCEPHIN) i nfusion 1 g (premix) cefTRIAXone (ROCEPHIN) infusion 1 g (premix) 12/14/2020 02:00:00 AM EDT 1 g Intravenous completed 1 g, Intraven ous, at 100 mL/hr, Every 24 hours, First dose on Sun12/14/20 at 0200, For 3 days
Discouraged Uses: Empiric treatment of post-surgical meningitis (ceftazidime preferred)
[facility] Medication administered onsite Sodium Bicarbonate 650 MG Oral Tablet sodium bicarbona te tablet 325 mg sodium bicarbonate tablet 325 mg 12/13/2020 09:00:00 PM EDT 325 mg Oral active 325 mg, Oral, 2 Times Daily, First dose on Sun12/13/20 at 2100, For 30 days [facility] Medication administered onsite insulin lispro (HumaLOG) injection LOW DOSE EATING INS ULIN patients 1-8 Units 50968-040-68 12/13/2020 06:00:00 PM EDT U Subcutaneous active 1-8 Units, Subcutaneous, Three Times Daily-With Meals, First dose on Sun12/13/20 at 1800, For 30 days
Nursing MUST open the 'SQ Insulin Dosing Charts' Sidebar Report, or, the Patient Summary or Summary Report within the ED.
[facility] Medication administered onsite potassium chloride (K-DUR) dissolvable tablet 40 mEq 86597-7 99-01 12/13/2020 09:30:00 AM EDT 40 meq Oral completed 40 mEq, Oral, Once, On Sun12/13/20 at 0930, For 1 dose
May be dissolved in water for patients with a G- Tube or unable to swallow. If concern for clogging G-Tube, may contact Pharmacy to switch formulation to a powder packet.
[facility] Medication administered onsite heparin (porcine) 5000 UNIT/ML injection 5,000 Units [id number] 12/13/2020 09:00:00 AM EDT 5000 U Subcutaneous active 5,000 Units, Subcutaneous, Three Times Daily Standard, First dose on Sun12/13/20 at 0900, For 30 days [facility] Medication administered onsite Calcium Chloride 0.0014 MEQ/ML / Potassi um Chloride 0.004 MEQ/ML / Sodium Chloride 0.103 MEQ/ML / Sodium Lactate 0.028 MEQ/ML Injectable Solution lactated ringers infusion lactated ringers infusion 12/13/2020 03:45:00 AM EDT 75 mL/h Intravenous completed at 75 mL/hr, Intravenous, Continuous, Starting on Sun12/13/20 at 0345, For 12 hours [facility] Medication administered onsite Glucose 0.417 MG/MG Oral Gel glucose (GLUTOSE) 40 % or al gel 15 g glucose (GLUTOSE) 40 % oral gel 15 g 12/13/2020 02:52:39 AM EDT 15 g Oral active 15 g, Oral, PRN, Low blood s ugar, for gluose 55-69 mg/dl and able to take PO, Starting on Sun12/13/20 at 0252, For 30 days [facility] Medication administered onsite dextrose 50 % IV solution 25 mL [id number] 12/13/2020 02:52:38 AM E DT 25 mL Intravenous active 25 mL, Intrav enous, PRN, Other, blood glucose <55, Starting on Sun12/13/20 at 0252, For 30 days
Not for midline administration.
[facility] Medication administered onsite Glucagon 1 MG Injection glucagon (human recombinant) ( GLUCAGEN) injection 1 mg glucagon (human recombinant) (GLUCAGEN) injection 1 mg 12/13/2020 02:52:38 AM EDT 1 mg Intramuscular active 1 mg, Intramuscular, PRN, for glucose <55 without IV access, Starting on Sun12/13/20 at 0252, For 30 days [facility] Medication administered onsite fentaNYL (SUBLIMAZE) (PF) injection 25 mcg 2081-1114-40 12/13/2020 02:46:39 AM EDT 25 ug Intravenous aborted 25 m cg, Intravenous, Every 4 hours PRN, Moderate Pain (Pain Scale Score 4-6), Starting on Sun12/13/20 at 0246, For 2 days [facility] Medication administered onsite Ceftriaxone 1000 MG Injection cefTRIAXone (ROCEPHIN) i nfusion 1 g (premix) cefTRIAXone (ROCEPHIN) infusion 1 g (premix) 12/12/2020 11:15:00 PM EDT 1 g Intravenous completed 1 g, Intraven ous, at 100 mL/hr, Once, On 12/12/20 at 2315, For 1 dose
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
[facility] Medication administered onsite lactated ringers bolus 1,000 mL [id number] 12/12/2020 08:30:00 PM EDT 1000 mL Intravenous completed 1,000 mL , Intravenous, Once, On Sun12/12/20 at 2030, For 1 dose [facility] Medication administered onsite Acetaminophen 325 MG / Hydrocodone Bitartrate 10 MG Or al Tablet 10-325 mg HYDROCODONE/ACETAMINOPHEN 12/07/2020 12:00:00 AM EDT tablet 120 TAKE TWO TABLETS BY MOUTH TWICE A DAY MAXIMUM DAILY DOSE = 4 TAKE TWO TABLETS BY MOUTH TWICE A DAY MAXIMUM DAILY DOSE = 4 SOLD: 12/07/2020 [facility] Acetaminophen 325 MG / Hydrocodone Guevara trate 10 MG Oral Tablet HYDROcodone- Acetaminophen 10-325 MG HYDROcodone-Acetaminophen 10-325 MG 11/26/2020 12:00:0 0 AM EDT 2.0 {tablets} active HYDROcodon e-Acetaminophen 10-325 MG eCW1 ([facility]) Acetaminophen 325 MG / Hydrocodone Guevara trate 10 MG Oral Tablet HYDROcodone- Acetaminophen 10-325 MG HYDROcodone-Acetaminophen 10-325 MG 11/26/2020 12:00:0 0 AM EDT 2.0 {tablets} active HYDROcodon e-Acetaminophen 10-325 MG eCW1 ([facility]) Acetaminophen 325 MG / Hydrocodone Guevara trate 10 MG Oral Tablet HYDROcodone- Acetaminophen 10-325 MG HYDROcodone-Acetaminophen 10-325 MG 11/26/2020 12:00:0 0 AM EDT 2.0 {tablets} active HYDROcodon e-Acetaminophen 10-325 MG eCW1 ([facility]) Acetaminophen 325 MG / Hydrocodone Guevara trate 10 MG Oral Tablet HYDROcodone- Acetaminophen 10-325 MG HYDROcodone-Acetaminophen 10-325 MG 11/26/2020 12:00:0 0 AM EDT 2.0 {tablets} active HYDROcodon e-Acetaminophen 10-325 MG eCW1 ([facility]) Acetaminophen 325 MG / Hydrocodone Guevara trate 10 MG Oral Tablet HYDROcodone- Acetaminophen 10-325 MG HYDROcodone-Acetaminophen 10-325 MG 11/26/2020 12:00:0 0 AM EDT 2.0 {tablets} active HYDROcodon e-Acetaminophen 10-325 MG eCW1 ([facility]) Acetaminophen 325 MG / Hydrocodone Guevara trate 10 MG Oral Tablet HYDROcodone- Acetaminophen 10-325 MG HYDROcodone-Acetaminophen 10-325 MG 11/26/2020 12:00:0 0 AM EDT 2.0 {tablets} active HYDROcodon e-Acetaminophen 10-325 MG eCW1 ([facility]) Acetaminophen 325 MG / Hydrocodone Guevara trate 10 MG Oral Tablet HYDROcodone- Acetaminophen 10-325 MG HYDROcodone-Acetaminophen 10-325 MG 11/26/2020 12:00:0 0 AM EDT 2.0 {tablets} active HYDROcodon e-Acetaminophen 10-325 MG eCW1 ([facility]) Acetaminophen 325 MG / Hydrocodone Guevara trate 10 MG Oral Tablet HYDROcodone- Acetaminophen 10-325 MG HYDROcodone-Acetaminophen 10-325 MG 11/26/2020 12:00:0 0 AM EDT 2.0 {tablets} active HYDROcodon e-Acetaminophen 10-325 MG eCW1 ([facility]) Acetaminophen 325 MG / Hydrocodone Bitartrate 10 MG Or al Tablet 10-325 mg HYDROCODONE/ACETAMINOPHEN 10/29/2020 12:00:00 AM EDT tablet 120 TAKE TWO TABLETS BY MOUTH TWICE A DAY MAXIMUM DAILY DOSE = FOUR TABLETS TAKE TWO TABLETS BY MOUTH TWICE A DAY MAXIMUM DAILY DOSE = FOUR TABLETS SOLD: 11/06/2020 [facility] Acetaminophen 325 MG / Hydrocodone Guevara trate 10 MG Oral Tablet Hydrocodone- Acetaminophen 10-325 MG Hydrocodone-Acetaminophen 10-325 MG 10/28/2020 12:00:0 0 AM EDT 2.0 {tablets} active Hydrocodon e-Acetaminophen 10-325 MG eCW1 ([facility]) Acetaminophen 325 MG / Hydrocodone Guevara trate 10 MG Oral Tablet HYDROcodone- Acetaminophen 10-325 MG HYDROcodone-Acetaminophen 10-325 MG 10/28/2020 12:00:0 0 AM EDT 2.0 {tablets} active HYDROcodon e-Acetaminophen 10-325 MG eCW1 ([facility]) Acetaminophen 325 MG / Hydrocodone Guevara trate 10 MG Oral Tablet Hydrocodone- Acetaminophen 10-325 MG Hydrocodone-Acetaminophen 10-325 MG 10/28/2020 12:00:0 0 AM EDT 2.0 {tablets} active Hydrocodon e-Acetaminophen 10-325 MG eCW1 ([facility]) Acetaminophen 325 MG / Hydrocodone Guevara trate 10 MG Oral Tablet HYDROcodone- Acetaminophen 10-325 MG HYDROcodone-Acetaminophen 10-325 MG 10/28/2020 12:00:0 0 AM EDT 2.0 {tablets} active HYDROcodon e-Acetaminophen 10-325 MG eCW1 ([facility]) Acetaminophen 325 MG / Hydrocodone Guevara trate 10 MG Oral Tablet Hydrocodone- Acetaminophen 10-325 MG Hydrocodone-Acetaminophen 10-325 MG 10/28/2020 12:00:0 0 AM EDT 2.0 {tablets} active eCW 1 ([facility]) Linagliptin 5 MG Oral Tablet [Tradjenta] Tradjenta 5 MG Trad jenta 5 MG 10/14/2020 12:00:00 AM EDT 1.0 {tablet} active Tradjenta 5 MG eCW1 ([facility]) Linagliptin 5 MG Oral Tablet [Tradjenta] Tradjenta 5 MG Trad jenta 5 MG 10/14/2020 12:00:00 AM EDT 1.0 {tablet} active Tradjenta 5 MG eCW1 ([facility]) Linagliptin 5 MG Oral Tablet [Tradjenta] Tradjenta 5 MG Trad jenta 5 MG 10/14/2020 12:00:00 AM EDT 1.0 {tablet} active Tradjenta 5 MG eCW1 ([facility]) Linagliptin 5 MG Oral Tablet [Tradjenta] Tradjenta 5 MG Oral Tablet (linagliptin) Tradjenta 5 MG Oral Tablet (linagliptin) 10/14/2020 12 :00:00 AM EDT active 1 [facility] Linagliptin 5 MG Oral Tablet [Tradjenta] Tradjenta 5 MG Trad jenta 5 MG 10/14/2020 12:00:00 AM EDT 1.0 {tablet} active Tradjenta 5 MG eCW1 ([facility]) Linagliptin 5 MG Oral Tablet [Tradjenta] Tradjenta 5 MG Trad jenta 5 MG 10/14/2020 12:00:00 AM EDT 1.0 {tablet} active Tradjenta 5 MG eCW1 ([facility]) Linagliptin 5 MG Oral Tablet [Tradjenta] Tradjenta 5 MG Trad jenta 5 MG 10/14/2020 12:00:00 AM EDT 1.0 {tablet} active Tradjenta 5 MG eCW1 ([facility]) Linagliptin 5 MG Oral Tablet [Tradjenta] Tradjenta 5 MG Trad jenta 5 MG 10/14/2020 12:00:00 AM EDT 1.0 {tablet} active Tradjenta 5 MG eCW1 ([facility]) Linagliptin 5 MG Oral Tablet [Tradjenta] Tradjenta 5 MG Trad jenta 5 MG 10/14/2020 12:00:00 AM EDT 1.0 {tablet} active Tradjenta 5 MG eCW1 ([facility]) Linagliptin 5 MG Oral Tablet [Tradjenta] Tradjenta 5 MG Trad jenta 5 MG 10/14/2020 12:00:00 AM EDT 1.0 {tablet} active eCW1 ([facility]) Linagliptin 5 MG Oral Tablet [Tradjenta] Tradjenta 5 MG Trad jenta 5 MG 10/14/2020 12:00:00 AM EDT 1.0 {tablet} active Tradjenta 5 MG eCW1 ([facility]) Linagliptin 5 MG Oral Tablet [Tradjenta] Tradjenta 5 MG Trad jenta 5 MG 10/14/2020 12:00:00 AM EDT 1.0 {tablet} active Tradjenta 5 MG eCW1 ([facility]) Linagliptin 5 MG Oral Tablet [Tradjenta] Tradjenta 5 MG Trad jenta 5 MG 10/14/2020 12:00:00 AM EDT 1.0 {tablet} active Tradjenta 5 MG eCW1 ([facility]) Linagliptin 5 MG Oral Tablet [Tradjenta] Tradjenta 5 MG Trad jenta 5 MG 10/14/2020 12:00:00 AM EDT 1.0 {tablet} active Tradjenta 5 MG eCW1 ([facility]) Linagliptin 5 MG Oral Tablet [Tradjenta] Tradjenta 5 MG Trad jenta 5 MG 10/14/2020 12:00:00 AM EDT 1.0 {tablet} active eCW1 ([facility]) Linagliptin 5 MG Oral Tablet [Tradjenta] Tradjenta 5 MG Trad jenta 5 MG 10/14/2020 12:00:00 AM EDT 1.0 {tablet} active Tradjenta 5 MG eCW1 ([facility]) Linagliptin 5 MG Oral Tablet [Tradjenta] Tradjenta 5 MG Trad jenta 5 MG 10/14/2020 12:00:00 AM EDT 1.0 {tablet} active Tradjenta 5 MG eCW1 ([facility]) Linagliptin 5 MG Oral Tablet [Tradjenta] Tradjenta 5 MG Trad jenta 5 MG 10/14/2020 12:00:00 AM EDT 1.0 {tablet} active Tradjenta 5 MG eCW1 ([facility]) Linagliptin 5 MG Oral Tablet [Tradjenta] Tradjenta 5 MG Trad jenta 5 MG 10/14/2020 12:00:00 AM EDT 1.0 {tablet} active Tradjenta 5 MG eCW1 ([facility]) Linagliptin 5 MG Oral Tablet [Tradjenta] Tradjenta 5 MG Trad jenta 5 MG 10/14/2020 12:00:00 AM EDT 1.0 {tablet} active Tradjenta 5 MG eCW1 ([facility]) Linagliptin 5 MG Oral Tablet [Tradjenta] Tradjenta 5 MG Trad jenta 5 MG 10/14/2020 12:00:00 AM EDT 1.0 {tablet} active Tradjenta 5 MG eCW1 ([facility]) Linagliptin 5 MG Oral Tablet [Tradjenta] Tradjenta 5 MG Trad jenta 5 MG 10/14/2020 12:00:00 AM EDT 1.0 {tablet} active Tradjenta 5 MG eCW1 ([facility]) Linagliptin 5 MG Oral Tablet [Tradjenta] Tradjenta 5 MG Trad jenta 5 MG 10/14/2020 12:00:00 AM EDT 1.0 {tablet} active Tradjenta 5 MG eCW1 ([facility]) Linagliptin 5 MG Oral Tablet [Tradjenta] Tradjenta 5 MG Trad jenta 5 MG 10/14/2020 12:00:00 AM EDT 1.0 {tablet} active Tradjenta 5 MG eCW1 ([facility]) Linagliptin 5 MG Oral Tablet [Tradjenta] Tradjenta 5 MG Trad jenta 5 MG 10/14/2020 12:00:00 AM EDT 1.0 {tablet} active Tradjenta 5 MG eCW1 ([facility]) Linagliptin 5 MG Oral Tablet [Tradjenta] Tradjenta 5 MG Trad jenta 5 MG 10/14/2020 12:00:00 AM EDT 1.0 {tablet} active Tradjenta 5 MG eCW1 ([facility]) Acetaminophen 325 MG / Hydrocodone Bitartrate 10 MG Or al Tablet 10-325 mg HYDROCODONE/ACETAMINOPHEN 10/01/2020 12:00:00 AM EDT tablet 120 TAKE TWO TABLETS BY MOUTH TWICE A DAY MAXIMUM DAILY DOSE = 4 TABLETS TAKE TWO TABLETS BY MOUTH TWICE A DAY MAXIMUM DAILY DOSE = 4 TABLETS SOLD: 10/02/2020 [facility] Acetaminophen 325 MG / Hydrocodone Guevara trate 10 MG Oral Tablet Hydrocodone- Acetaminophen 10-325 MG Hydrocodone-Acetaminophen 10-325 MG 09/30/2020 12:00:0 0 AM EDT 2.0 {tablets} active Hydrocodon e-Acetaminophen 10-325 MG eCW1 ([facility]) Acetaminophen 325 MG / Hydrocodone Guevara trate 10 MG Oral Tablet Hydrocodone- Acetaminophen 10-325 MG Hydrocodone-Acetaminophen 10-325 MG 09/30/2020 12:00:0 0 AM EDT 2.0 {tablets} active Hydrocodon e-Acetaminophen 10-325 MG eCW1 ([facility]) Acetaminophen 325 MG / Hydrocodone Guevara trate 10 MG Oral Tablet Hydrocodone- Acetaminophen 10-325 MG Hydrocodone-Acetaminophen 10-325 MG 09/30/2020 12:00:0 0 AM EDT 2.0 {tablets} active Hydrocodon e-Acetaminophen 10-325 MG eCW1 ([facility]) Acetaminophen 325 MG / Hydrocodone Guevara trate 10 MG Oral Tablet Hydrocodone- Acetaminophen 10-325 MG Hydrocodone-Acetaminophen 10-325 MG 09/30/2020 12:00:0 0 AM EDT 2.0 {tablets} active Hydrocodon e-Acetaminophen 10-325 MG eCW1 ([facility]) Acetaminophen 325 MG / Hydrocodone Guevara trate 10 MG Oral Tablet Hydrocodone- Acetaminophen 10-325 MG Hydrocodone-Acetaminophen 10-325 MG 09/30/2020 12:00:0 0 AM EDT 2.0 {tablets} active eCW 1 ([facility]) Acetaminophen 325 MG / Hydrocodone Guevara trate 10 MG Oral Tablet Hydrocodone- Acetaminophen 10-325 MG Hydrocodone-Acetaminophen 10-325 MG 09/30/2020 12:00:0 0 AM EDT 2.0 {tablets} active Hydrocodon e-Acetaminophen 10-325 MG eCW1 ([facility]) Acetaminophen 325 MG / Hydrocodone Guevara trate 10 MG Oral Tablet Hydrocodone- Acetaminophen 10-325 MG Hydrocodone-Acetaminophen 10-325 MG 09/30/2020 12:00:0 0 AM EDT 2.0 {tablets} active Hydrocodon e-Acetaminophen 10-325 MG eCW1 ([facility]) BLOOD SUGAR DIAGNOSTIC 09/18/2020 12:00:00 AM EDT strip 200 DIRECTED TWO TIMES A DAY DIRECTED TWO TIMES A DAY SOLD: 09/18/2020 [facility] BLOOD SUGAR DIAGNOSTIC 09/18/2020 12:00:00 AM EDT strip 200 DIRECTED TWO TIMES A DAY DIRECTED TWO TIMES A DAY SOLD: 03/24/2021 [facility] 10-325 mg 08/27/2020 12:00:00 AM EDT tablet 120 TAKE TWO TABLETS BY MOUTH TWICE A DAY MAXIMUM DAILY DOSE = 4 TABLETS TAKE TWO TABLETS BY MOUTH TWICE A DAY MAXIMUM DAILY DOSE = 4 TABLETS SOLD: 09/03/2020 [facility] 10 mg 08/26/2020 12:00:00 AM EDT tablet 30 TAKE ONE TABLET BY MOUTH EVERY DAY TAKE ONE TABLET BY MOUTH EVERY DAY SOLD: 08/26/2020 [facility] rivaroxaban 10 MG Oral Tablet Rivaroxaban 10 MG Oral T ablet (XARELTO) Rivaroxaban 10 MG Oral Tablet (XARELTO) 08/22/2020 12:00:00 AM EDT 10 mg Oral aborted Take 1 tablet by mouth [facility] Acetaminophen 325 MG / Hydrocodone Guevara trate 5 MG Oral Tablet HYDROcodone- acetaminophen (LORTAB) 5-325 MG per tablet 2 tablet HYDROcodone-acetaminophen (LORTAB) 5-325 MG per tablet 2 tablet 08/21/2020 08:43:02 AM EDT 2 {tbl} Oral active 2 tablet, Oral, Every 4 hours PRN, Severe Pain (Pain Scale Score 7-10), Starting 08/21/20 at 0843, For 3 days
Maximum daily dose of acetaminophen is 3,000 mg from all sources in 24 hours.
[facility] Medication administered onsite Acetaminophen 325 MG / Hydrocodone Guevara trate 5 MG Oral Tablet HYDROcodone- acetaminophen (LORTAB) 5-325 MG per tablet 1 tablet HYDROcodone-acetaminophen (LORTAB) 5-325 MG per tablet 1 tablet 08/21/2020 08:42:52 AM EDT 1 {tbl} Oral active 1 tablet, Oral, Every 4 hours PRN, Moderate Pain (Pain Scale Score 4-6), Starting 08/21/20 at 0842, For 3 days
Maximum daily dose of acetaminophen is 3,000 mg from all sources in 24 hours.
[facility] Medication administered onsite Capsaicin 0.25 MG/ML Topical Cream capsaicin (ZOSTRIX) 0.025 % cream capsaicin (ZOSTRIX) 0.025 % cream 08/20/2020 10:49:08 AM EDT Topical active Topical, 2 Times Daily PRN, pain to right foot, Starting 08/20/20 at 1049, For 2 days [facility] Medication administered onsite Acetaminophen 325 MG / Hydrocodone Guevara trate 10 MG Oral Tablet Hydrocodone- Acetaminophen 10-325 MG Hydrocodone-Acetaminophen 10-325 MG 08/20/2020 12:00:0 0 AM EDT 2.0 {tablets} active Hydrocodon e-Acetaminophen 10-325 MG eCW1 ([facility]) Acetaminophen 325 MG / Hydrocodone Guevara trate 10 MG Oral Tablet Hydrocodone- Acetaminophen 10-325 MG Hydrocodone-Acetaminophen 10-325 MG 08/20/2020 12:00:0 0 AM EDT 2.0 {tablets} active Hydrocodon e-Acetaminophen 10-325 MG eCW1 ([facility]) Acetaminophen 325 MG / Hydrocodone Guevara trate 10 MG Oral Tablet Hydrocodone- Acetaminophen 10-325 MG Hydrocodone-Acetaminophen 10-325 MG 08/20/2020 12:00:0 0 AM EDT 2.0 {tablets} active Hydrocodon e-Acetaminophen 10-325 MG eCW1 ([facility]) potassium chloride (K-DUR) dissolvable tablet 40 mEq 81245-5 99-08/19/2020 08:00:00 AM EDT 40 meq Oral completed 40 mEq, Oral, Once, [facility] 08/19/20 at 0800, For 1 dose
Do not crush or chew
[facility] Medication administered onsite Sodium Bicarbonate 325 MG Oral Tablet sodium bicarbona te tablet 325 mg sodium bicarbonate tablet 325 mg 08/18/2020 09:00:00 PM EDT 325 mg Oral active 325 mg, Oral, 2 Times Daily, First dose on Sun08/18/20 at 2100, For 30 days [facility] Medication administered onsite insulin lispro (HUMALOG) injection LOW D OSE CLEAR LIQUID INSULIN patients 1-8 Units [id number] 08/18/2020 01:00:00 PM EDT U Subcutaneous active 1-8 Units, Subcutaneous, Three Times Daily-With Meals, First dose on Sun08/18/20 at 1300, For 30 days
Nursing MUST open the 'SQ Insulin Dosing Charts' Sidebar Report, or, the Patient Summary or Summary Report within the ED.
[facility] Medication administered onsite multivitamin tablet 1 tablet [id number] 08/18/2020 09:00:00 AM EDT 1 {tbl} Oral active 1 tablet, Oral , Daily Standard, First dose on Sun08/18/20 at 0900, For 30 days [facility] Medication administered onsite rivaroxaban 10 MG Oral Tablet rivaroxaban (XARELTO) ta blet 10 mg rivaroxaban (XARELTO) tablet 10 mg 08/18/2020 09:00:00 AM EDT 10 mg Oral active 10 mg, Oral, Daily Standard, First dose on Sun08/18/20 at 0900, For 30 days [facility] Medication administered onsite potassium chloride (K-DUR) dissolvable tablet 40 mEq [id number] 99-08/18/2020 08:00:00 AM EDT 40 meq Oral completed 40 mEq, Oral, Once, Sun08/18/20 at 0800, For 1 dose
Do not crush or chew
[facility] Medication administered onsite Oxycodone Hydrochloride 5 MG Oral Tablet oxyCODONE (ROXICODONE) immediate release tablet 10 mg oxyCODONE (ROXICODONE) immediate release tablet 10 mg 08/18/2020 03:27:04 AM EDT 10 mg Oral aborted 10 mg, Oral, Every 4 hours PRN, Severe Pain (Pain Scale Score 7-10), or pre-painful procedure or activity, Starting Sun08/18/20 at 0327, For 3 days 6 hours
If no MAINTENANCE SUPERVISOR 2ND SHIFT or when MAINTENANCE SUPERVISOR 2ND SHIFT has been DC.
Oxycodone immediate release is limited to 10 mg per dose. Higher doses ( only) require Pain Service consultation and approval.
[facility] Medication administered onsite Oxycodone Hydrochloride 5 MG Oral Tablet oxyCODONE (ROXICODONE) immediate release tablet 5 mg oxyCODONE (ROXICODONE) immediate release tablet 5 mg 08/18/2020 03:27:01 AM EDT 5 mg Oral aborted 5 mg, Oral, Every 4 hours PRN, Moderate Pain (Pain Scale Score 4-6), Starting Sun08/18/20 at 0327, For 3 days 6 hours
If no MAINTENANCE SUPERVISOR 2ND SHIFT or when MAINTENANCE SUPERVISOR 2ND SHIFT has been DC.
Oxycodone immediate release is limited to 10 mg per dose. Higher doses ( only) require Pain Service consultation and approval.
[facility] Medication administered onsite sennosides, SENIOR CARE 8.6 MG Oral Tablet senna tablet 2 tablet sen na tablet 2 tablet 08/17/2020 10:00:00 PM EDT 2 {tbl} Oral active 2 tablet, Oral, Nightly, First dose on Sun08/17/20 at 2200, For 30 days [facility] Medication administered onsite Hydroxychloroquine Sulfate 200 MG Oral T ablet hydroxychloroquine (PLAQUENIL) tablet 200 mg hydroxychloroquine (PLAQUENIL) tablet 200 mg 09:00:00 PM EDT 200 mg Oral active 200 mg, Oral, 2 Times Daily, First dose on Sun08/17/20 at 2100, For 7 days [facility] Medication administered onsite Docusate Sodium 100 MG Oral Capsule docusate sodium (C OLACE) capsule 100 mg docusate sodium (COLACE) capsule 100 mg 08/17/2020 09:00:00 PM EDT 100 mg Oral active 100 mg, Oral, 2 Times Daily, First dose on Sun08/17/20 at 2100, For 30 days [facility] Medication administered onsite vancomycin (VANCOCIN) 1,250 mg in sodium chloride 0.9 % IVPB 08/17/2020 06:30:00 PM EDT 1250 mg Intravenous completed 1,250 mg, Intravenous, Administer over 90 Minutes, Once, Sun08/17/20 at 1830, For 1 dose [facility] Medication administered onsite gabapentin 300 MG Oral Capsule gabapentin (NEURONTIN) capsule 300 mg gabapentin (NEURONTIN) capsule 300 mg 08/17/2020 05:00:00 PM EDT 300 mg Oral active 300 mg, Oral, Three Times D ahsan Standard, First dose on Sun08/17/20 at 1700, For 30 days [facility] Medication administered onsite dextrose 50 % IV solution 25 mL [id number] 08/17/2020 11:15:24 AM E DT 25 mL Intravenous active 25 mL, Intrav enous, PRN, Other, blood glucose <55, Starting Sun08/17/20 at 1115, For 30 days
Not for midline administration.
[facility] Medication administered onsite Glucagon 1 MG Injection glucagon (human recombinant) ( GLUCAGEN) injection 1 mg glucagon (human recombinant) (GLUCAGEN) injection 1 mg 08/17/2020 11:15:24 AM EDT 1 mg Intramuscular active 1 mg, Intramuscular, PRN, for glucose <55 without IV access, Starting Sun08/17/20 at 1115, For 30 days [facility] Medication administered onsite Acetaminophen 325 MG Oral Tablet acetaminophen (TYLENO L) tablet 650 mg acetaminophen (TYLENOL) tablet 650 mg 08/17/2020 11:15:24 AM EDT 65 0 mg Oral active 650 mg, Oral, E very 6 hours PRN, Mild Pain (Pain Scale Score 1- 3), Starting Sun08/17/20 at 1115, For 30 days
Maximum daily dose of acetaminophen is 3,000 mg from all sources in 24 hours.
[facility] Medication administered onsite Oxycodone Hydrochloride 5 MG Oral Tablet oxyCODONE (ROXICODONE) immediate release tablet 2.5 mg oxyCODONE (ROXICODONE) immediate release tablet 2.5 mg 08/17/2020 11:15:24 AM EDT 2.5 mg Oral aborted 2.5 mg, Oral, Every 4 hours PRN, Moderate Pain (Pain Scale Score 4-6), Starting [facility] 08/17/20 at 1115, For 3 days
If no MAINTENANCE SUPERVISOR 2ND SHIFT or when MAINTENANCE SUPERVISOR 2ND SHIFT has been DC.
Oxycodone immediate release is limited to 10 mg per dose. Higher doses ( only) require Pain Service consultation and approval.
[facility] Medication administered onsite Glucose 0.417 MG/MG Oral Gel glucose (GLUTOSE) 40 % or al gel 15 g glucose (GLUTOSE) 40 % oral gel 15 g 08/17/2020 11:15:24 AM EDT 15 g Oral active 15 g, Oral, PRN, Low blood s ugar, for gluose 55-69 mg/dl and able to take PO, Starting 08/17/20 at 1115, For 30 days [facility] Medication administered onsite POLYETHYLENE GLYCOL 3350 142 MG/ML Oral Solution polyethylene glycol (MIRALAX) packet 17 g polyethylene glycol (MIRALAX) packet 17 g 08/17/2020 1 1:15:24 AM EDT 17 g Oral active 17 g, Or al, Daily PRN, As needed for Constipation, Starting [facility] 08/17/20 at 1115, For 30 days
Mix in 8 ounces of water, juice or milk. Avoid use in patients who require thickened liquids due to potential increased risk for aspiration.
[facility] Medication administered onsite ondansetron (ZOFRAN) injection 4 mg [id number] 08/17/2020 11:15:2 4 AM EDT 4 mg Intravenous active 4 mg, In travenous, Every 6 hours PRN, Nausea, Vomiting, Starting 08/17/20 at 1115, For 30 days [facility] Medication administered onsite Oxycodone Hydrochloride 5 MG Oral Tablet oxyCODONE (ROXICODONE) immediate release tablet 5 mg oxyCODONE (ROXICODONE) immediate release tablet 5 mg 08/17/2020 11:15:24 AM EDT 5 mg Oral aborted 5 mg, Oral, Every 4 hours PRN, Severe Pain (Pain Scale Score 7-10), or pre-painful procedure or activity, Starting [facility] 08/17/20 at 1115, For 3 days
If no MAINTENANCE SUPERVISOR 2ND SHIFT or when MAINTENANCE SUPERVISOR 2ND SHIFT has been DC.
Oxycodone immediate release is limited to 10 mg per dose. Higher doses ( only) require Pain Service consultation and approval.
[facility] Medication administered onsite metaxalone 800 MG Oral Tablet metaxalone (SKELAXIN) ta blet 800 mg metaxalone (SKELAXIN) tablet 800 mg 08/17/2020 11:15:24 AM EDT 800 mg Oral active 800 mg, Oral, Three Times Daily-PRN, Mu scle spasms, Starting Sun08/17/20 at 1115, For 30 days [facility] Medication administered onsite NaCl infusion 0.9 % [id number] 08/17/2020 10:15:00 AM EDT Intravenous active at 100 mL/hr, Intrav enous, Continuous, Starting Sun08/17/20 at 1015, For 30 days [facility] Medication administered onsite HYDROmorphone (DILAUDID) injection 0.5 mg [id number] 08/17/2020 09:43:28 AM EDT 0.5 mg Intravenous completed 0. 5 mg, Intravenous, Every 5 min PRN, Severe Pain (Pain Scale Score 7-10), Starting Sun08/17/20 at 0943, For 4 doses, Recovery [facility] Medication administered onsite vancomycin (VANCOCIN) in D5W infusion 1,000 mg/200 mL (premi x) [id number] 08/17/2020 06:15:00 AM EDT 1000 mg Intravenous completed 1,000 mg, Intravenous, Administer over 60 Minutes, Once, Sun08/17/20 at 0615, For 1 dose, Pre-op [facility] Medication administered onsite bupivacaine (MARCAINE) 0.25 % 50 mg, morphine sulfate (PF) 1 0 mg syringe 08/17/2020 06:15:00 AM EDT Infiltration complete d Infiltration, Once, Sun08/17/20 at 0615, For 1 dose, Pre-op [facility] Medication administered onsite Acetaminophen 325 MG Oral Tablet acetaminophen (TYLENO L) tablet 975 mg acetaminophen (TYLENOL) tablet 975 mg 08/17/2020 06:15:00 AM EDT 97 5 mg Oral completed 975 mg, Oral, O nce, Sun21 at 0615, For 1 dose
Maximum daily dose of acetaminophen is 3,000 mg from all sources in 24 hours.
Pre-op [facility] Medication administered onsite 325 mg 08/13/2020 12:00:00 AM EST tablet 180 TAKE ONE TABLET BY MOUTH TWICE A DAY TAKE ONE TABLET BY MOUTH TWICE A DAY SOLD: 08/26/2020 [facility] 500 mg 08/11/2020 12:00:00 AM EST tablet 14 TAKE ONE TABLET BY MOUTH TWICE A DAY NEEDED FOR UTI TAKE ONE TABLET BY MOUTH TWICE A DAY NEEDED FOR UTI SOLD: 08/26/2020 [facility] 2 % 08/10/2020 12:00:00 AM EST ointment 22 APPLY LIBERALLY TO EACH NOSTRIL TWO TIMES A DAY FOR 5 DAYS PRIOR TO SURGERY APPLY LIBERALLY TO EACH NOSTRIL TWO TIMES A DAY FOR 5 DAYS PRIOR TO SURGERY SOLD: 08/26/2020 [facility] Mupirocin 0.02 MG/MG Topical Ointment Mupirocin 2 % Ex ternal Ointment Mupirocin 2 % External Ointment 08/09/2020 12:00:00 AM EST aborted Apply liberally to each nostril two times per day for 5 days prior to surgery. [facility] Acetaminophen 325 MG / Hydrocodone Bitartrate 10 MG Or al Tablet 10-325 mg HYDROCODONE BITARTRATE/ACETAMINOPHEN 07/30/2020 12:00:00 AM EST tablet 120 TAKE TWO TABLETS BY MOUTH TWICE A DAY MAXIMUM DAILY DOSE = 4 TABLETS TAKE TWO TABLETS BY MOUTH TWICE A DAY MAXIMUM DAILY DOSE = 4 TABLETS SOLD: 07/31/2020 [facility] Acetaminophen 325 MG / Hydrocodone Guevara trate 10 MG Oral Tablet Hydrocodone- Acetaminophen 10-325 MG Hydrocodone-Acetaminophen 10-325 MG 07/29/2020 12:00:0 0 AM EST 2.0 {tablets} active Hydrocodon e-Acetaminophen 10-325 MG eCW1 ([facility]) Acetaminophen 325 MG / Hydrocodone Guevara trate 10 MG Oral Tablet Hydrocodone- Acetaminophen 10-325 MG Hydrocodone-Acetaminophen 10-325 MG 07/29/2020 12:00:0 0 AM EST 2.0 {tablets} active Hydrocodon e-Acetaminophen 10-325 MG eCW1 ([facility]) Acetaminophen 325 MG / Hydrocodone Guevara trate 10 MG Oral Tablet Hydrocodone- Acetaminophen 10-325 MG Hydrocodone-Acetaminophen 10-325 MG 07/29/2020 12:00:0 0 AM EST 2.0 {tablets} active Hydrocodon e-Acetaminophen 10-325 MG eCW1 ([facility]) 10-325 mg 07/02/2020 12:00:00 AM EST tablet 120 TAKE TWO TABLETS BY MOUTH TWICE A DAY MAXIMUM DAILY DOSE = FOUR TABLETS TAKE TWO TABLETS BY MOUTH TWICE A DAY MAXIMUM DAILY DOSE = FOUR TABLETS SOLD: 07/08/2020 [facility] Acetaminophen 325 MG / Hydrocodone Guevara trate 10 MG Oral Tablet Hydrocodone- Acetaminophen 10-325 MG Hydrocodone-Acetaminophen 10-325 MG 06/25/2020 12:00:0 0 AM EST 2.0 {tablets} active Hydrocodon e-Acetaminophen 10-325 MG eCW1 ([facility]) Acetaminophen 325 MG / Hydrocodone Guevara trate 10 MG Oral Tablet Hydrocodone- Acetaminophen 10-325 MG Hydrocodone-Acetaminophen 10-325 MG 06/25/2020 12:00:0 0 AM EST 2.0 {tablets} active Hydrocodon e-Acetaminophen 10-325 MG eCW1 ([facility]) Acetaminophen 325 MG / Hydrocodone Guevara trate 10 MG Oral Tablet Hydrocodone- Acetaminophen 10-325 MG Hydrocodone-Acetaminophen 10-325 MG 06/25/2020 12:00:0 0 AM EST 2.0 {tablets} active Hydrocodon e-Acetaminophen 10-325 MG eCW1 ([facility]) Acetaminophen 325 MG / Hydrocodone Guevara trate 10 MG Oral Tablet Hydrocodone- Acetaminophen 10-325 MG Hydrocodone-Acetaminophen 10-325 MG 06/25/2020 12:00:0 0 AM EST 2.0 {tablets} active Hydrocodon e-Acetaminophen 10-325 MG eCW1 ([facility]) 10-325 mg 05/31/2020 12:00:00 AM EST tablet 120 TAKE TWO TABLETS BY MOUTH TWICE A DAY MAXIMUM DAILY DOSE = 4 TAKE TWO TABLETS BY MOUTH TWICE A DAY SABINE WELLS DAILY DOSE = 4 SOLD: 06/03/2020 [facility] Acetaminophen 325 MG / Hydrocodone Guevara trate 10 MG Oral Tablet Hydrocodone- Acetaminophen 10-325 MG Hydrocodone-Acetaminophen 10-325 MG 05/24/2020 12:00:0 0 AM EST 2.0 {tablets} active Hydrocodon e-Acetaminophen 10-325 MG eCW1 ([facility]) Acetaminophen 325 MG / Hydrocodone Guevara trate 10 MG Oral Tablet Hydrocodone- Acetaminophen 10-325 MG Hydrocodone-Acetaminophen 10-325 MG 05/24/2020 12:00:0 0 AM EST 2.0 {tablets} active Hydrocodon e-Acetaminophen 10-325 MG eCW1 ([facility]) Acetaminophen 325 MG / Hydrocodone Guevara trate 10 MG Oral Tablet Hydrocodone- Acetaminophen 10-325 MG Hydrocodone-Acetaminophen 10-325 MG 05/24/2020 12:00:0 0 AM EST 2.0 {tablets} active Hydrocodon e-Acetaminophen 10-325 MG eCW1 ([facility]) Acetaminophen 325 MG / Hydrocodone Guevara trate 10 MG Oral Tablet Hydrocodone- Acetaminophen 10-325 MG Hydrocodone-Acetaminophen 10-325 MG 05/24/2020 12:00:0 0 AM EST 2.0 {tablets} active Hydrocodon e-Acetaminophen 10-325 MG eCW1 ([facility]) Acetaminophen 325 MG / Hydrocodone Guevara trate 10 MG Oral Tablet Hydrocodone- Acetaminophen 10-325 MG Hydrocodone-Acetaminophen 10-325 MG 05/24/2020 12:00:0 0 AM EST 2.0 {tablets} active Hydrocodon e-Acetaminophen 10-325 MG eCW1 ([facility]) 10-325 mg 04/19/2020 12:00:00 AM EST tablet 120 TAKE TWO TABLETS BY MOUTH TWICE A DAY MAXIMUM DAILY DOSE = FOUR TABLETS TAKE TWO TABLETS BY MOUTH TWICE A DAY MAXIMUM DAILY DOSE = FOUR TABLETS SOLD: 04/19/2020 [facility] Acetaminophen 325 MG / Hydrocodone Guevara trate 10 MG Oral Tablet Hydrocodone- Acetaminophen 10-325 MG Hydrocodone-Acetaminophen 10-325 MG 04/16/2020 12:00:0 0 AM EST 2.0 {tablets} active Hydrocodon e-Acetaminophen 10-325 MG eCW1 ([facility]) Acetaminophen 325 MG / Hydrocodone Guevara trate 10 MG Oral Tablet Hydrocodone- Acetaminophen 10-325 MG Hydrocodone-Acetaminophen 10-325 MG 04/16/2020 12:00:0 0 AM EST 2.0 {tablets} active Hydrocodon e-Acetaminophen 10-325 MG eCW1 ([facility]) Acetaminophen 325 MG / Hydrocodone Guevara trate 10 MG Oral Tablet Hydrocodone- Acetaminophen 10-325 MG Hydrocodone-Acetaminophen 10-325 MG 04/16/2020 12:00:0 0 AM EST 2.0 {tablets} active Hydrocodon e-Acetaminophen 10-325 MG eCW1 ([facility]) Acetaminophen 325 MG / Hydrocodone Guevara trate 10 MG Oral Tablet Hydrocodone- Acetaminophen 10-325 MG Hydrocodone-Acetaminophen 10-325 MG 04/16/2020 12:00:0 0 AM EST 2.0 {tablets} active Hydrocodon e-Acetaminophen 10-325 MG eCW1 ([facility]) Acetaminophen 325 MG / Hydrocodone Guevara trate 10 MG Oral Tablet Hydrocodone- Acetaminophen 10-325 MG Hydrocodone-Acetaminophen 10-325 MG 04/16/2020 12:00:0 0 AM EST 2.0 {tablets} active Hydrocodon e-Acetaminophen 10-325 MG eCW1 ([facility]) 100 mg 04/08/2020 12:00:00 AM EST capsule 90 TAKE ONE CAPSULE BY MOUTH AT BEDTIME TAKE ONE CAPSULE BY MOUTH AT BEDTIME SOLD: 04/09/2020 [facility] NITROFURANTOIN, MACROCRYSTALS 25 MG / Ni trofurantoin, Monohydrate 75 MG Oral Capsule 100 mg NITROFURANTOIN MONOHYD/M-CRYST 04/08/2020 12:00:00 AM EST ca psule 90 TAKE ONE CAPSULE BY MOUTH AT BEDTIME TAKE ONE CAPSULE BY MOUTH AT BEDTIME SOLD: 12/07/2020 [facility] 500 mg 04/06/2020 12:00:00 AM EST tablet 14 TAKE ONE TABLET BY MOUTH TWICE A DAY NEEDED FOR UTI NEEDED TAKE ONE TABLET BY MOUTH TWICE A DAY NEEDED FOR UTI NEEDED SOLD: 03/24/2021 [facility] 500 mg 04/06/2020 12:00:00 AM EST tablet 14 TAKE ONE TABLET BY MOUTH TWICE A DAY NEEDED FOR UTI NEEDED TAKE ONE TABLET BY MOUTH TWICE A DAY NEEDED FOR UTI NEEDED SOLD: 04/09/2020 [facility] tadalafil 20 MG Oral Tablet Tadalafil 20 MG Tadalafil 20 MG 03/30/2020 12:00:00 AM EDT active Tadalafil 20 MG e CW1 ([facility]) tadalafil 20 MG Oral Tablet Tadalafil 20 MG Tadalafil 20 MG 03/30/2020 12:00:00 AM EDT active Tadalafil 20 MG e CW1 ([facility]) tadalafil 20 MG Oral Tablet Tadalafil 20 MG Tadalafil 20 MG 03/30/2020 12:00:00 AM EDT active Tadalafil 20 MG e CW1 ([facility]) tadalafil 20 MG Oral Tablet Tadalafil 20 MG Tadalafil 20 MG 03/30/2020 12:00:00 AM EDT active Tadalafil 20 MG e CW1 ([facility]) tadalafil 20 MG Oral Tablet Tadalafil 20 MG Tadalafil 20 MG 03/30/2020 12:00:00 AM EDT active Tadalafil 20 MG e CW1 ([facility]) tadalafil 20 MG Oral Tablet Tadalafil 20 MG Tadalafil 20 MG 03/30/2020 12:00:00 AM EDT active Tadalafil 20 MG e CW1 ([facility]) tadalafil 20 MG Oral Tablet Tadalafil 20 MG Tadalafil 20 MG 03/30/2020 12:00:00 AM EDT active Tadalafil 20 MG e CW1 ([facility]) tadalafil 20 MG Oral Tablet Tadalafil 20 MG Tadalafil 20 MG 03/30/2020 12:00:00 AM EDT active Tadalafil 20 MG e CW1 ([facility]) tadalafil 20 MG Oral Tablet Tadalafil 20 MG Tadalafil 20 MG 03/30/2020 12:00:00 AM EDT active Tadalafil 20 MG e CW1 ([facility]) tadalafil 20 MG Oral Tablet Tadalafil 20 MG Tadalafil 20 MG 03/30/2020 12:00:00 AM EDT active Tadalafil 20 MG e CW1 ([facility]) tadalafil 20 MG Oral Tablet Tadalafil 20 MG Tadalafil 20 MG 03/30/2020 12:00:00 AM EDT active Tadalafil 20 MG e CW1 ([facility]) tadalafil 20 MG Oral Tablet Tadalafil 20 MG Tadalafil 20 MG 03/30/2020 12:00:00 AM EDT active Tadalafil 20 MG e CW1 ([facility]) tadalafil 20 MG Oral Tablet Tadalafil 20 MG Tadalafil 20 MG 03/30/2020 12:00:00 AM EDT active Tadalafil 20 MG e CW1 ([facility]) tadalafil 20 MG Oral Tablet Tadalafil 20 MG Tadalafil 20 MG 03/30/2020 12:00:00 AM EDT active Tadalafil 20 MG e CW1 ([facility]) tadalafil 20 MG Oral Tablet Tadalafil 20 MG Tadalafil 20 MG 03/30/2020 12:00:00 AM EDT active Tadalafil 20 MG e CW1 ([facility]) tadalafil 20 MG Oral Tablet Tadalafil 20 MG Tadalafil 20 MG 03/30/2020 12:00:00 AM EDT active Tadalafil 20 MG e CW1 ([facility]) tadalafil 20 MG Oral Tablet Tadalafil 20 MG Tadalafil 20 MG 03/30/2020 12:00:00 AM EDT active Tadalafil 20 MG e CW1 ([facility]) 5 mg 03/30/2020 12:00:00 AM EDT tablet extended release 24hr 90 TAKE ONE TABLET BY MOUTH EVERY DAY WITH FOOD TAKE ONE TABLET BY MOUTH EVERY DAY WITH FOOD SOLD: 04/01/2020 [facility] tadalafil 20 MG Oral Tablet Tadalafil 20 MG Tadalafil 20 MG 03/30/2020 12:00:00 AM EDT active Tadalafil 20 MG e CW1 ([facility]) tadalafil 20 MG Oral Tablet Tadalafil 20 MG Tadalafil 20 MG 03/30/2020 12:00:00 AM EDT active Tadalafil 20 MG e CW1 ([facility]) tadalafil 20 MG Oral Tablet Tadalafil 20 MG Tadalafil 20 MG 03/30/2020 12:00:00 AM EDT active Tadalafil 20 MG e CW1 ([facility]) tadalafil 20 MG Oral Tablet Tadalafil 20 MG Tadalafil 20 MG 03/30/2020 12:00:00 AM EDT active Tadalafil 20 MG e CW1 ([facility]) tadalafil 20 MG Oral Tablet Tadalafil 20 MG Tadalafil 20 MG 03/30/2020 12:00:00 AM EDT active Tadalafil 20 MG e CW1 ([facility]) tadalafil 20 MG Oral Tablet Tadalafil 20 MG Tadalafil 20 MG 03/30/2020 12:00:00 AM EDT active Tadalafil 20 MG e CW1 ([facility]) tadalafil 20 MG Oral Tablet Tadalafil 20 MG Tadalafil 20 MG 03/30/2020 12:00:00 AM EDT active Tadalafil 20 MG e CW1 ([facility]) tadalafil 20 MG Oral Tablet Tadalafil 20 MG Tadalafil 20 MG 03/30/2020 12:00:00 AM EDT active Tadalafil 20 MG e CW1 ([facility]) tadalafil 20 MG Oral Tablet Tadalafil 20 MG Tadalafil 20 MG 03/30/2020 12:00:00 AM EDT active Tadalafil 20 MG e CW1 ([facility]) tadalafil 20 MG Oral Tablet Tadalafil 20 MG Tadalafil 20 MG 03/30/2020 12:00:00 AM EDT active Tadalafil 20 MG e CW1 ([facility]) tadalafil 20 MG Oral Tablet Tadalafil 20 MG Tadalafil 20 MG 03/30/2020 12:00:00 AM EDT active Tadalafil 20 MG e CW1 ([facility]) tadalafil 20 MG Oral Tablet Tadalafil 20 MG Tadalafil 20 MG 03/30/2020 12:00:00 AM EDT active Tadalafil 20 MG e CW1 ([facility]) tadalafil 20 MG Oral Tablet Tadalafil 20 MG Tadalafil 20 MG 03/30/2020 12:00:00 AM EDT active Tadalafil 20 MG e CW1 ([facility]) tadalafil 20 MG Oral Tablet Tadalafil 20 MG Tadalafil 20 MG 03/30/2020 12:00:00 AM EDT active Tadalafil 20 MG e CW1 ([facility]) 5 mg 03/30/2020 12:00:00 AM EDT tablet extended release 24hr 90 TAKE ONE TABLET BY MOUTH EVERY DAY WITH FOOD TAKE ONE TABLET BY MOUTH EVERY DAY WITH FOOD SOLD: 10/06/2020 [facility] tadalafil 20 MG Oral Tablet Tadalafil 20 MG Tadalafil 20 MG 03/30/2020 12:00:00 AM EDT active Tadalafil 20 MG e CW1 ([facility]) tadalafil 20 MG Oral Tablet Tadalafil 20 MG Tadalafil 20 MG 03/30/2020 12:00:00 AM EDT active Tadalafil 20 MG e CW1 ([facility]) tadalafil 20 MG Oral Tablet Tadalafil 20 MG Tadalafil 20 MG 03/30/2020 12:00:00 AM EDT active Tadalafil 20 MG e CW1 ([facility]) tadalafil 20 MG Oral Tablet Tadalafil 20 MG Tadalafil 20 MG 03/30/2020 12:00:00 AM EDT active Tadalafil 20 MG e CW1 ([facility]) tadalafil 20 MG Oral Tablet Tadalafil 20 MG Tadalafil 20 MG 03/30/2020 12:00:00 AM EDT active Tadalafil 20 MG e CW1 ([facility]) tadalafil 20 MG Oral Tablet Tadalafil 20 MG Tadalafil 20 MG 03/30/2020 12:00:00 AM EDT active Tadalafil 20 MG e CW1 ([facility]) tadalafil 20 MG Oral Tablet Tadalafil 20 MG Tadalafil 20 MG 03/30/2020 12:00:00 AM EDT active Tadalafil 20 MG e CW1 ([facility]) tadalafil 20 MG Oral Tablet Tadalafil 20 MG Tadalafil 20 MG 03/30/2020 12:00:00 AM EDT active Tadalafil 20 MG e CW1 ([facility]) tadalafil 20 MG Oral Tablet Tadalafil 20 MG Tadalafil 20 MG 03/30/2020 12:00:00 AM EDT active eCW1 ([facility]) tadalafil 20 MG Oral Tablet Tadalafil 20 MG Tadalafil 20 MG 03/30/2020 12:00:00 AM EDT active Tadalafil 20 MG e CW1 ([facility]) tadalafil 20 MG Oral Tablet Tadalafil 20 MG Tadalafil 20 MG 03/30/2020 12:00:00 AM EDT active Tadalafil 20 MG e CW1 ([facility]) tadalafil 20 MG Oral Tablet Tadalafil 20 MG Tadalafil 20 MG 03/30/2020 12:00:00 AM EDT active Tadalafil 20 MG e CW1 ([facility]) tadalafil 20 MG Oral Tablet Tadalafil 20 MG Tadalafil 20 MG 03/30/2020 12:00:00 AM EDT active Tadalafil 20 MG e CW1 ([facility]) tadalafil 20 MG Oral Tablet Tadalafil 20 MG Tadalafil 20 MG 03/30/2020 12:00:00 AM EDT active Tadalafil 20 MG e CW1 ([facility]) tadalafil 20 MG Oral Tablet Tadalafil 20 MG Tadalafil 20 MG 03/30/2020 12:00:00 AM EDT active eCW1 ([facility]) tadalafil 20 MG Oral Tablet Tadalafil 20 MG Tadalafil 20 MG 03/30/2020 12:00:00 AM EDT active Tadalafil 20 MG e CW1 ([facility]) tadalafil 20 MG Oral Tablet Tadalafil 20 MG Tadalafil 20 MG 03/30/2020 12:00:00 AM EDT active Tadalafil 20 MG e CW1 ([facility]) tadalafil 20 MG Oral Tablet Tadalafil 20 MG Tadalafil 20 MG 03/30/2020 12:00:00 AM EDT active Tadalafil 20 MG e CW1 ([facility]) tadalafil 20 MG Oral Tablet Tadalafil 20 MG Tadalafil 20 MG 03/30/2020 12:00:00 AM EDT active Tadalafil 20 MG e CW1 ([facility]) tadalafil 20 MG Oral Tablet Tadalafil 20 MG Tadalafil 20 MG 03/30/2020 12:00:00 AM EDT active Tadalafil 20 MG e CW1 ([facility]) tadalafil 20 MG Oral Tablet Tadalafil 20 MG Tadalafil 20 MG 03/30/2020 12:00:00 AM EDT active Tadalafil 20 MG e CW1 ([facility]) 5 mg 03/30/2020 12:00:00 AM EDT tablet extended release 24hr 90 TAKE ONE TABLET BY MOUTH EVERY DAY WITH FOOD TAKE ONE TABLET BY MOUTH EVERY DAY WITH FOOD SOLD: 01/11/2021 [facility] tadalafil 20 MG Oral Tablet Tadalafil 20 MG Tadalafil 20 MG 03/30/2020 12:00:00 AM EDT active Tadalafil 20 MG e CW1 ([facility]) tadalafil 20 MG Oral Tablet Tadalafil 20 MG Tadalafil 20 MG 03/30/2020 12:00:00 AM EDT active Tadalafil 20 MG e CW1 ([facility]) tadalafil 20 MG Oral Tablet Tadalafil 20 MG Tadalafil 20 MG 03/30/2020 12:00:00 AM EDT active Tadalafil 20 MG e CW1 ([facility]) tadalafil 20 MG Oral Tablet Tadalafil 20 MG Tadalafil 20 MG 03/30/2020 12:00:00 AM EDT active Tadalafil 20 MG e CW1 ([facility]) tadalafil 20 MG Oral Tablet Tadalafil 20 MG Tadalafil 20 MG 03/30/2020 12:00:00 AM EDT active Tadalafil 20 MG e CW1 ([facility]) tadalafil 20 MG Oral Tablet Tadalafil 20 MG Tadalafil 20 MG 03/30/2020 12:00:00 AM EDT active Tadalafil 20 MG e CW1 ([facility]) tadalafil 20 MG Oral Tablet Tadalafil 20 MG Tadalafil 20 MG 03/30/2020 12:00:00 AM EDT active Tadalafil 20 MG e CW1 ([facility]) tadalafil 20 MG Oral Tablet Tadalafil 20 MG Tadalafil 20 MG 03/30/2020 12:00:00 AM EDT active Tadalafil 20 MG e CW1 ([facility]) tadalafil 20 MG Oral Tablet Tadalafil 20 MG Tadalafil 20 MG 03/30/2020 12:00:00 AM EDT active Tadalafil 20 MG e CW1 ([facility]) tadalafil 20 MG Oral Tablet Tadalafil 20 MG Tadalafil 20 MG 03/30/2020 12:00:00 AM EDT active Tadalafil 20 MG e CW1 ([facility]) tadalafil 20 MG Oral Tablet Tadalafil 20 MG Tadalafil 20 MG 03/30/2020 12:00:00 AM EDT active Tadalafil 20 MG e CW1 ([facility]) tadalafil 20 MG Oral Tablet Tadalafil 20 MG Tadalafil 20 MG 03/30/2020 12:00:00 AM EDT active Tadalafil 20 MG e CW1 ([facility]) tadalafil 20 MG Oral Tablet Tadalafil 20 MG Tadalafil 20 MG 03/30/2020 12:00:00 AM EDT active Tadalafil 20 MG e CW1 ([facility]) 10-325 mg 03/17/2020 12:00:00 AM EDT tablet 120 TAKE TWO TABLETS BY MOUTH TWICE A DAY MAXIMUM DAILY DOSE = 4 TABLETS TAKE TWO TABLETS BY MOUTH TWICE A DAY MAXIMUM DAILY DOSE = 4 TABLETS SOLD: 03/23/2020 [facility] Acetaminophen 325 MG / Hydrocodone Guevara trate 10 MG Oral Tablet Hydrocodone- Acetaminophen 10-325 MG Hydrocodone-Acetaminophen 10-325 MG 03/16/2020 12:00:0 0 AM EDT 2.0 {tablets} active Hydrocodon e-Acetaminophen 10-325 MG eCW1 ([facility]) Acetaminophen 325 MG / Hydrocodone Guevara trate 10 MG Oral Tablet Hydrocodone- Acetaminophen 10-325 MG Hydrocodone-Acetaminophen 10-325 MG 03/16/2020 12:00:0 0 AM EDT 2.0 {tablets} active Hydrocodon e-Acetaminophen 10-325 MG eCW1 ([facility]) Acetaminophen 325 MG / Hydrocodone Guevara trate 10 MG Oral Tablet Hydrocodone- Acetaminophen 10-325 MG Hydrocodone-Acetaminophen 10-325 MG 03/16/2020 12:00:0 0 AM EDT 2.0 {tablets} active Hydrocodon e-Acetaminophen 10-325 MG eCW1 ([facility]) Acetaminophen 325 MG / Hydrocodone Guevara trate 10 MG Oral Tablet Hydrocodone- Acetaminophen 10-325 MG Hydrocodone-Acetaminophen 10-325 MG 03/16/2020 12:00:0 0 AM EDT 2.0 {tablets} active Hydrocodon e-Acetaminophen 10-325 MG eCW1 ([facility]) Acetaminophen 325 MG / Hydrocodone Guevara trate 10 MG Oral Tablet Hydrocodone- Acetaminophen 10-325 MG Hydrocodone-Acetaminophen 10-325 MG 03/16/2020 12:00:0 0 AM EDT 2.0 {tablets} active Hydrocodon e-Acetaminophen 10-325 MG eCW1 ([facility]) Acetaminophen 325 MG / Hydrocodone Guevara trate 10 MG Oral Tablet Hydrocodone- Acetaminophen 10-325 MG Hydrocodone-Acetaminophen 10-325 MG 03/16/2020 12:00:0 0 AM EDT 2.0 {tablets} active Hydrocodon e-Acetaminophen 10-325 MG eCW1 ([facility]) Acetaminophen 325 MG / Hydrocodone Guevara trate 10 MG Oral Tablet Hydrocodone- Acetaminophen 10-325 MG Hydrocodone-Acetaminophen 10-325 MG 03/16/2020 12:00:0 0 AM EDT 2.0 {tablets} active Hydrocodon e-Acetaminophen 10-325 MG eCW1 ([facility]) Aspirin 81 MG Delayed Release Oral Tablet aspirin EC 8 1 MG EC tablet aspirin EC 81 MG EC tablet 03/04/2020 12:00:00 AM EDT 81 mg Oral ab orted Take 1 tablet (81 mg total) by mouth daily [facility] Mupirocin 0.02 MG/MG Topical Ointment Mupirocin 2 % Ex ternal Ointment Mupirocin 2 % External Ointment 01/14/2020 12:00:00 AM EDT aborted Apply liberally to each nostril two times per day for 5 days prior to surgery. [facility] Hydroxychloroquine Sulfate 200 MG Oral T ablet Hydroxychloroquine Sulfate 200 MG Oral Tablet (PLAQUENIL) Hydroxychloroquine Sulfate 200 MG Oral T ablet (PLAQUENIL) 12/18/2019 12:00:00 AM EDT 200 mg Oral aborte d Take 200 mg by mouth Two Times Daily [facility] 300 mg 11/26/2019 12:00:00 AM EDT capsule 90 TAKE ONE CAPSULE BY MOUTH THREE TIMES A DAY TAKE ONE CAPSULE BY MOUTH THREE TIMES A DAY SOLD: 07/08/2020 [facility] 300 mg 11/26/2019 12:00:00 AM EDT capsule 90 TAKE ONE CAPSULE BY MOUTH THREE TIMES A DAY TAKE ONE CAPSULE BY MOUTH THREE TIMES A DAY SOLD: 04/14/2020 [facility] 300 mg 11/26/2019 12:00:00 AM EDT capsule 90 TAKE ONE CAPSULE BY MOUTH THREE TIMES A DAY TAKE ONE CAPSULE BY MOUTH THREE TIMES A DAY SOLD: 11/18/2020 [facility] 300 mg 11/26/2019 12:00:00 AM EDT capsule 90 TAKE ONE CAPSULE BY MOUTH THREE TIMES A DAY TAKE ONE CAPSULE BY MOUTH THREE TIMES A DAY SOLD: 10/06/2020 [facility] Sodium Bicarbonate 325 MG Oral Tablet sodium bicarbona te 325 MG tablet sodium bicarbonate 325 MG tablet 325 mg Oral aborted Take 325 mg by mouth Two Times Daily [facility] Sodium Bicarbonate 325 MG Oral Tablet sodium bicarbona te 325 MG tablet sodium bicarbonate 325 MG tablet 325 mg Oral aborted Take 325 mg by mouth 4 (four) times a day [facility] Ciprofloxacin 500 MG Oral Tablet ciprofloxacin (CIPRO) 500 MG tablet ciprofloxacin (CIPRO) 500 MG tablet 500 mg Oral ab orted Take 500 mg by mouth 2 (two) times a day [facility] Nitroglycerin 0.4 MG Sublingual Tablet n itroglycerin (NITROSTAT) 0.4 MG SL tablet nitroglycerin (NITROSTAT) 0.4 MG SL tablet 0.[address] 0.4 mg under t he tongue every 5 (five) minutes as needed for chest pain [facility] Ciprofloxacin 500 MG Oral Tablet Ciprofloxacin HCl 500 MG Oral Tablet (CIPRO) Ciprofloxacin HCl 500 MG Oral Tablet (CIPRO) 500 mg Oral aborted Take 500 mg by mouth Two times daily as needed (UTI) [facility] 24 HR Glipizide 5 MG Extended Release Or al Tablet glipiZIDE ER 5 MG Oral Tablet Extended Release 24 Hour (GLUCOTROL) glipiZIDE ER 5 MG Oral Tablet Extended Release 24 Hour (GLUCOTROL) 5 mg Oral aborted Take 5 mg by mouth daily [facility] Insurance Providers Payer name Policy type / Coverage type Policy ID Covered alliance party ID Covered alliance party's relationship to austin Policy [place] Plan Information [employer] Dominik [id number] [facility] [id number] JATIN CLAIMS ADMIN NCA Dominik [id number] [facility] [id number] UHC UNITED MEDICARE COMPLETE G [id number] Self [id number] MEDICARE A [id number] Self [id number] A UHC MEDICARE [id number] Cony [id number] MEDICARE [id number] Cony [id number] [facility] [id number] Self [id number] UHC UNITED MEDICARE COMPLETE G [id number] Self [id number] MEDICARE COMPLETE [id number] SP [id number] TODAYS OPTIONS [id number] SP [id number] TODAYS OPTIONS [id number] SP [id number] TODAYS OPTIONS [id number] SP [id number] AETNA MEDICARE MEBRPLQP Cony MEBRP LQP Aetna Medicare F MEBRPLQP SELF MEBRP LQP AETNA MEDICARE Medicare [id number] xxxxxxxxxxxx [id number] AETNA MEDICARE [id number] Cony 10 [id number] AETNA MEDICARE MEBRPLQP Cony MEBRP LQP AETNA MEDICARE COMPLETE G MEBRPLQP Self MEBRPLQP AETNA MEDICARE COMPLETE G MEBRPLQP Self MEBRPLQP AETNA MEDICARE COMPLETE G MEBRPLQP Self MEBRPLQP AETNA MEDICARE COMPLETE G [id number] Self [id number] AETNA MEDICARE COMPLETE G [id number] Self [id number] ANS-Medicare Part B [id number] ANSI-Commercial [id number] ANS-Medicare Part B [id number] ANSI-Commercial [id number] ANS-Medicare Part B [id number] ANSI-Medicare Part B [id number] ANSI-Medicare Part B [id number] ANSI-Medicare Part B [id number] ANSI-Commercial [id number] ANSI-Medicare Part B [id number] ANSI-Commercial [id number] ANSI-Medicare Part B [id number] ANSI-Medicare Part B [id number] ANSI-Commercial [id number] ANSI-Medicare Part B [id number] ANSI-Medicare Part B [id number] ANSI-Commercial [id number] ANSI-Medicare Part B [id number] ANSI-Medicare Part B [id number] ANSI-Commercial [id number] ANSI-Medicare Part B [id number] ANSI-Commercial [id number] ANSI-Medicare Part B [id number] ANSI-Medicare Part B [id number] ANSI-Commercial [id number] ANSI-Medicare Part B [id number] ANSI-Medicare Part B [id number] ANSI-Commercial [id number] ANSI-Medicare Part B [id number] ANSI-Medicare Part B [id number]-f15o-0v4u-4841-9u4s34lkeni1 r5o640bc-r04h-0x5t-3378-2k5l82yynyn1 ANSI-Medicare Part B [id number]-a6la-2015-t719-z2ehg2453492 t5gu46dn-h1tz-3846-x731-u7klf0021677 ANSI-Commercial 93yx6078-k271-4g2m-gpcj-t88014y2986j 30gt9097-n753-4t1z-lsmo-x14711k1510g ANSI-Medicare Part B 64kw5978-0e04-96v3-2312-i72136s8co2p 85iw8879-4n58-05o2-6795-c99369y0jb2b ANSI-Commercial t9o8246r-8ksz-2696-6e88-9h3749oy40af j1r1118w-9lzf-0358-8e55-6u2744du51rx ANSI-Medicare Part B 9f9gva29-bj2j-9z98-1317-055w8910t02m 2g3hut10-dd2a-3j77-2152-777x9711o26p ANSI-Medicare Part B ijep50vp-0v48-6988-s273-7i641645p815 icgy46hs-0a82-4656-m288-2t787504j771 ANSI-Commercial 89q57fe9-nu37-145b-a986-s830p6687436 73i42fz4-dy91-393i-c431-m300o5847591 ANSI-Medicare Part B 477x384b-3799-5304-10rq-4b1f13yy3887 662g752m-9456-2147-02ng-3o7p65wi8722 ANSI-Medicare Part B 74kvx4w9-d163-7140-06wq-1r46i4n4404v 11gzp1q9-t858-6883-20ev-1w53t9r6037g ANSI-Commercial 9rm6r23q-8a44-7t1b-9940-vr9z31h44ot1 8vp3j77j-0h20-4s4c-0390-go2q09m28wo2 ANSI-Medicare Part B 0vt9t16h-w759-475i-025k-3y118499s71b 0qq7v26g-p886-255n-886n-3t298392a10w ANSI-Medicare Part B 9570u32x-0428-7239-7vk7-73bo4a167769 7133a94f-4202-8720-5tq8-94zh3s480917 ANSI-Commercial z8q6884x-1d6w-50x4-0g18-6u4c838o3j2i s3z3337h-6m0p-84v9-0f77-1d1o070x2d9e ANSI-Medicare Part B 20965t48-35rh-78c3-94c0-25ahx04gf76d 80292p20-49qs-15m1-56p5-88wsl21sz99b ANSI-Medicare Part B [id number]-x76t-0679-f5j9-41z33w60i833 98l07198-j23e-2557-y0h9-68y71p51j988 Medicaid [facility] S D [id number] SELF [id number] Medicare C [id number] SELF [id number] ANSI-Medicare Part B [id number]-5s8o-2i23-[id number] 6d0cklym-6b2n-1d26-a766-4bky20h811f1 ANSI-Medicare Part B [id number]-k8aa-54jy-3h3b-q368oy0jx9l1 431y920c-t5ya-16xy-1r3i-m401oz7ht5k7 ANSI-Commercial 989x7h6z-0s0j-3v11-6413-d1u89m95qfl0 306m2k7f-3f9k-6a06-0994-x7t57h49nzs8 ANSI-Medicare Part B [id number]-m467-3fm1-qx27-870hv8946fbr m326870c-a538-3ai3-uy15-738iz1787lzm ANSI-Commercial be650142-24gi-4hwq-zh10-dh0pzl0rbjfm of260460-69of-7oar-jb92-hp1sky3bsptb ANSI-Medicare Part B [id number]-jp89r511096p 1u12x357-71v1-00a5-04i8-ng38j401507i ANSI-Medicare Part B [id number]-97n25s8kv682 z7j94e86-1641-2as1-6g1r-29f38i1bv776 ANSI-Medicare Part B [id number]-d39c-37o5-20sj-0302582gg781 a5c008fu-e42o-65o7-56cl-3459485ft323 ANSI-Commercial 059jw7vp-9c67-7hy8-8974-7s010n5s82d6 485ph1xw-2v65-6pu0-0458-7k680j5z94v4 ANSI-Commercial 53w399jh-cs64-8681-2p02-202y866na707 97a782oq-ta72-6830-1x89-161e984gr745 ANSI-Medicare Part B [id number]-52zl-2g10-9mh2-17b4iu7ns1f4 ccl4665z-39qc-9u72-4yy3-40t8gk5bb4u4 ANSI-Medicare Part B 824gx888-64vy-0380-5534-87oq7g89u8mx [id number]-[id number] ANSI-Commercial [id number] [id number] ANSI-Medicare Part B [id number] ANSI-Commercial [id number]-[id number] [id number]-[id number] ANSI-Medicare Part B [id number] ANSI-Commercial [id number]-b8t1-92u0-2uc8-69541k1lg0hj 419t4a03-l2i2-40e2-4dm2-25744u2ug5yo ANSI-Medicare Part B [id number] ANSI-Medicare Part B [id number]-[id number] ANSI-Commercial [id number]-[id number] [id number]-2by9nl8h2665 ANSI-Commercial [id number]-56k1-[id number] [id number]-65f8-[id number] ANSI-Medicare Part B [id number]-[id number] ANSI-Commercial mn8o69y6-hs0v-691c-[id number] dl4d03n3-ao3s-280m-3w56-8094kx1h1311 ANSI-Medicare Part B [id number] TODAYS OPTIONS [id number] Today's Option Medicare Commercial [id number] Self [id number] ANSI-Commercial [id number]-t79c-[id number] [id number]-035u-q16q-917270p14iw2 ANSI-Medicare Part B [id number]-[id number] ANSI-Medicare Part B [id number]-[id number] ANSI-Commercial [id number]-52uo-[id number] [id number]-81mh-vmt1-481l28q430w3 ANSI-Medicare Part B [id number]-[id number] ANSI-Commercial [id number]-[id number]-[id number] [id number]-p0i0-0820-2408-[id number] ANSI-Commercial [id number]-357d-9m1gvxr683b5 [id number]-494t-0c4ngal881w2 ANSI-Medicare Part B [id number]-[id number] ANSI-Commercial hy506dxi-p025-81l5-b38h-81h5thc9v4f0 uv700fvv-t497-19z9-f29x-56y0ldr8a9n3 ANSI-Medicare Part B [id number]-[id number] ANSI-Commercial [id number]-[id number]-e70k-[id number]-501j-6iy6-f61x-[id number] ANSI-Medicare Part B [id number] [place] CLAIM ADMIN WORK COMP [id number] SP [id number] MEDICARE COMPLETE [id number] SP [id number] MEDICARE COMPLETE [id number] SP [id number] SPECIAL FUNDS [facility] [id number] SP [id number] ANSI-Medicare Part B [id number] ANSI-Commercial [id number]-53c7-8k90-7o4o-[id number] ANSI-Medicare Part B [id number] [id number]-y29p-8963o6r6k81b ANSI-Commercial [id number]-58hk-[id number] [id number]-76se-[id number] ANSI-Medicare Part B [id number]-863p-sx4p-[id number] ANSI-Commercial 530k3mgr-f709-55e6-2022-440389ls42bw [id number]-d605-52u9-6882-146493oh72ym ANSI-Medicare Part B [id number] ANSI-Commercial [id number]-[id number] [id number]-[id number] ANSI-Commercial 570a4yai-0n2i-5owu-[id number] 568v9bxn-3y2p-4vfy-[id number] ANSI-Medicare Part B [id number]-[id number] ANSI-Commercial [id number]-ptva-533r-[id number] [id number]-kfbt-[id number]-[id number] ANSI-Medicare Part B [id number]-h2y7-635p-[id number] ANSI-Medicare Part B [id number] ANSI-Commercial [id number]-76rt-[id number]-[id number] ANSI-Commercial 23lo4cy8-8177-2j0x-36o2-v86nu8j5z5m1 89gc9bm8-3639-6g1i-22z2-j09fj3d0p1p4 ANSI-Medicare Part B [id number]-7tqj-[id number] SPECIAL FUNDS O [id number] S [id number] TODAYS OPTIONS/TAJIK O [id number] S [id number] ONE CALL CARE MANAGEMENT O [id number] S [id number] MEDICARE COMPLETE-[facility] O [id number] S [id number] SPECIAL FUNDS [place] [id number] SP [id number] MEDICARE COMPLETE [id number] SP [id number] MEDICAID [id number] SP [id number] MEDICARE [id number] SP [id number] A SPECIAL FUNDS [place]SERV[place] NOT FOR TODAYS VISIT SP NOT FOR TODAYS VISIT [id number] FCS ADMINISTRATORS [facility]# [id number] SP B# [id number] A [place] CLAIM ADMIN WORK COMP [facility]# [id number] SP [facility]# [id number] FCS ADMINISTRATORS [id number] SP [id number] AETNA MEDICARE [id number] SP [id number] AETNA MEDICARE [id number] SP [id number] FCS ADMINISTRATORS [facility]# [id number] SP [facility]# [id number] [employer]CS ADMINISTRATORS [id number] SP [id number] [place] CLAIM ADMIN WORK COMP [id number] SP [id number] [employer]CS ADMINISTRATORS [id number] SP [id number] AETNA MEDICARE ADVANTAGE [id number] S [id number] AETNA MEDICARE MEBRPLP SP MEBRP LP AETNA MEDICARE MEBRPLQP SP MEBRP LQP [employer] MEBRPLQP S MEB RPLQP Today's Option P UNAVAILABLE S RAISA VAILABLE AETNA MEDICARE MEBRPLQP SP MEBRP LQP AETNA MEDICARE ADVANTAGE MEBRPLQP S MEBRPLQP ANSI-Commercial [id number] ANSI-Medicare Part B [id number] ANSI-Medicare Part B [id number] ANSI-Medicare Part B [id number] ANSI-Commercial [id number] ANSI-Medicare Part B [id number] Problems, Conditions, and Diagnoses Code Display Name Description Problem Type Effective Dates Data Source(s) E11.00 Type 2 diabetes mellitus wit h hyperosmolarity without nonketotic hyperglycemic-hyperosmolar coma ([facility]) Type 2 diabetes mellitus with hyperosmol Diagnosis 03/07/2021 09:45:59 AM EDT [facility] E78.5 Hyperlipidemia, unspecified Hyperlipidemia, unspecifie d Diagnosis 03/07/2021 09:45:59 AM EDT [facility] I25.10 Atherosclerotic heart diseas e of [place] coronary artery without angina pectoris Atherosclerotic heart disease of [place] Diagnosis 03/07/2021 09:45:59 AM EDT [facility] R76.8 Other specified abnormal immunological f indings in serum OTHER SPECIFIED ABNORMAL IMMUNOLOGICAL FINDINGS IN SERUM Diagnosis 01/24/2021 01:20:[address] 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 M25.50 Pain in unspecified joint PAIN IN UNSPECIFIED JOINT Di agnosis 01/24/2021 01:20:[address] 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 Diagno sis 12/12/2020 06:29:00 PM [facility] G89.29 Other chronic pain Other chronic pain Diagnosis 11:14:14 AM [facility] M25.551 Pain in right hip Pain in right hip Diagnosis 10/01 11:14:14 AM [facility] Q64.10 Exstrophy of urinary bladder, unspecifie d Exstrophy of urinary bladder, unspecified Diagnosis 08/17/2020 10:16:17 AM [facility] M16.11 Unilateral primary osteoarthritis, right hip Unilateral primary osteoarthritis, right hip Diagnosis 08/17/2020 10:07:58 AM [facility] R52 Pain, unspecified Pain, unspecified Diagnosis 08/17/2020 05:41:00 AM [facility] Bladder exstrophy [Q64.10] Bladder exstrophy [Q64.10] Diagnosis 08/17/2020 05:41:00 AM [facility] Chronic right hip pain [M25.551, G89.29] Chronic right hip pain [M25.551, G89.29] Diagnosis 08/17/2020 05:41:00 AM [facility] 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] Diagnosis 08/17/2020 05:41:00 AM E [facility] Z11.59 Encounter for screening for other viral diseases Encounter for screening for other viral diseases Diagnosis 08/12/2020 02:50:21 PM [facility] Z01.810 Encounter for preprocedural cardiovascul ar examination Encounter for preprocedural cardiovascul Diagnosis 08/03/2020 07:46:20 AM [facility] E11.59 Type 2 diabetes mellitus with other circ ulatory complications Type 2 diabetes mellitus with other circ Diagnosis 08/03/2020 07:46:20 AM [facility] R03.0 Elevated blood-pressure reading, without diagnosis of hypertension Elevated blood-pressure reading, without Diagnosis 08/03/2020 07:46:20 AM [facility] E78.2 Mixed hyperlipidemia Mixed hyperlipidemia Diagnosis 08/03/2020 07:46:20 AM [facility] 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 Atherosclerotic heart disease of [place] Diagnosis 08/03/2020 07:46:20 AM [facility] M16.7 Other unilateral secondary osteoarthriti s of hip Other unilateral secondary osteoarthritis of hip Diagnosis 05/10/2020 08:52:05 AM [facility] G89.29 [id number] Other chronic pain Problem 04/21/2021 12:00: 00 AM EST eCW1 ([facility]) M47.22 Cervical spondylosis without myelopathy Osteoarthritis of spine with radiculopathy, cervical region Problem 01/13/2021 12:00:00 AM EDT eC W1 ([facility]) S46.911S [id number] Strain of right shoulder, sequela Problem 01/13/2021 12:00:00 AM EDT eCW1 ([facility]) M50.10 Cervical radiculopathy Cervical disc dis order with radiculopathy, unspecified cervical region Problem 12/09/2020 12:00:00 AM EDT eCW1 ([facility]) M06.9 [id number] Rheumatoid arthritis , involving unspecified site, unspecified whether rheumatoid factor present Problem 10/14/2020 12:00:00 AM EDT eCW1 ([facility]) M47.812 Cervical spondylosis without myelopathy Spondylosis of cervical region without myelopathy or radiculopathy Problem 05/31/2020 12:00:[address] eCW1 ([facility]) Z98.890 Postprocedural states History of urinary diversion pro cedure Problem 04/06/2020 12:00:00 AM EST eCW1 ([facility]) 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 Erectile dys function, unspecified erectile dysfunction type Problem 03/30/2020 12:00:00 AM EDT eCW1 ([facility]) Surgeries/Procedures Procedure Description Date Indications Data Source(s) Pain Procedure Log 04/22/2021 12:00:00 AM EST [facility] ([facility]) Hospital outpatient clinic visit for assessment and ma nagement of a patient Hospital Outpatient Clinic Visit 01/24/2021 12:00:00 AM EDT [facility] POCT GLUCOSE, DOCKED <td>POCT GLUCOSE, DOCKED</td ><td>Routine</td><td>12/16/2020 8:52 AM EDT</td><td></td><td> </td> 12/16/2020 08:52:00 AM [facility] BASIC METABOLIC PANEL CALCIUM TOTAL <td>BASIC METABOLI C PANEL</td><td>Routine</td><td>12/16/2020 2:13 AM EDT</td><td></td><td> </td> 12/16/2020 02:13:00 AM [facility] BASIC METABOLIC PANEL CALCIUM TOTAL <td>BASIC METABOLI C PANEL</td><td>Routine</td><td>12/16/2020</td><td></td><td> </td> [facility] XCPT REAGENT STRIP <td>POCT GLUCOSE, DOCKED</td><td>Routine</td><td>12/15/2020 9:23 PM EDT</td><td></td><td> </td> 12/15/2020 09:23:00 PM [facility] GLUCOSE QUANTITATIVE BLOOD XCPT REAGENT STRIP <td>POCT GLUCOSE, DOCKED</td><td>Routine</td><td>12/15/2020 5:56 PM EDT</td><td></td><td> </td> 12/15/2020 05:56:00 PM [facility] SIGMOIDOSCOPY, FLEXIBLE DX, W/WO SPECIMENS, BRUSHING/W ASHING (SEP PROC) <td>SIGMOIDOSCOPY, FLEXIBLE DX, W/WO SPECIMENS, BRUSHING/WASHING (SEP PROC)</td><td></td><td>12/15/2020 12:04 PM EDT</td><td> Calculus at the junction of sigmoid colon and ureter</td><td></td> 12/15/2020 12:04:00 PM EDT - 12/15/2020 12:39:00 PM [facility] GLUCOSE QUANTITATIVE BLOOD XCPT REAGENT STRIP <td>POCT GLUCOSE, DOCKED</td><td>Routine</td><td>12/15/2020 8:44 AM EDT</td><td></td><td> </td> 12/15/2020 08:44:00 AM [facility] BASIC METABOLIC PANEL CALCIUM TOTAL <td>BASIC METABOLI C PANEL</td><td>Routine</td><td>12/15/2020 5:52 AM EDT</td><td></td><td> </td> 12/15/2020 05:52:00 AM [facility] FLEXIBLE SIGMOIDOSCOPY <td>FLEXIBLE SIGMOIDOSCOPY</ td><td></td><td>12/15/2020 12:00 AM EDT</td><td></td><td></td> 12/15/2020 12:00:00 AM [facility] GLUCOSE QUANTITATIVE BLOOD XCPT REAGENT STRIP <td>POCT GLUCOSE, DOCKED</td><td>Routine</td><td>12/14/2020 9:31 PM EDT</td><td></td><td> </td> 12/14/2020 09:31:00 PM [facility] GLUCOSE QUANTITATIVE BLOOD XCPT REAGENT STRIP <td>POCT GLUCOSE, DOCKED</td><td>Routine</td><td>12/14/2020 6:04 PM EDT</td><td></td><td> </td> 12/14/2020 06:04:00 PM [facility] GLUCOSE QUANTITATIVE BLOOD XCPT REAGENT STRIP <td>POCT GLUCOSE, DOCKED</td><td>Routine</td><td>12/14/2020 11:09 AM EDT</td><td></td><td> </td> 12/14/2020 11:09:00 AM [facility] US RETROPERITONEAL REAL TIME W/IMAGE COMPLETE <td>US R ENAL OR AORTA COMPLETE 67233</td><td>Routine</td><td>12/14/2020 10:44 AM EDT</td><td></td><td> </td> 12/14/2020 10:44:00 AM [facility] GLUCOSE QUANTITATIVE BLOOD XCPT REAGENT STRIP <td>POCT GLUCOSE, DOCKED</td><td>Routine</td><td>12/14/2020 7:11 AM EDT</td><td></td><td> </td> 12/14/2020 07:11:00 AM [facility] BASIC METABOLIC PANEL CALCIUM TOTAL <td>BASIC METABOLI C PANEL</td><td>Routine</td><td>12/14/2020 3:13 AM EDT</td><td></td><td> </td> 12/14/2020 03:13:00 AM [facility] GLUCOSE QUANTITATIVE BLOOD XCPT REAGENT STRIP <td>POCT GLUCOSE, DOCKED</td><td>Routine</td><td>12/14/2020 2:41 AM EDT</td><td></td><td> </td> 12/14/2020 02:41:00 AM [facility] GLUCOSE QUANTITATIVE BLOOD XCPT REAGENT STRIP <td>POCT GLUCOSE, DOCKED</td><td>Routine</td><td>12/13/2020 10:05 PM EDT</td><td></td><td> </td> 12/13/2020 10:05:00 PM [facility] GLUCOSE QUANTITATIVE BLOOD XCPT REAGENT STRIP <td>POCT GLUCOSE, DOCKED</td><td>Routine</td><td>12/13/2020 5:25 PM EDT</td><td></td><td> </td> 12/13/2020 05:25:00 PM [facility] GLUCOSE QUANTITATIVE BLOOD XCPT REAGENT STRIP <td>POCT GLUCOSE, DOCKED</td><td>Routine</td><td>12/13/2020 12:09 PM EDT</td><td></td><td> </td> 12/13/2020 12:09:00 PM [facility] GLUCOSE QUANTITATIVE BLOOD XCPT REAGENT STRIP <td>POCT GLUCOSE, DOCKED</td><td>Routine</td><td>12/13/2020 8:17 AM EDT</td><td></td><td> </td> 12/13/2020 08:17:00 AM [facility] PROTHROMBIN TIME <td>PROTIME INR</td><td>Rout ine</td><td>12/13/2020 4:30 AM EDT</td><td></td><td> </td> 12/13/2020 04:30:00 AM [facility] HEMOGLOBIN GLYCOSYLATED A1C <td>HEMOGLOBIN A1C</td><td>Routine</td><td>12/13/2020 4:30 AM EDT</td><td></td><td> </td> 12/13/2020 04:30:00 AM [facility] GLUCOSE QUANTITATIVE BLOOD XCPT REAGENT STRIP <td>POCT GLUCOSE, DOCKED</td><td>Routine</td><td>12/13/2020 4:19 AM EDT</td><td></td><td> </td> 12/13/2020 04:19:00 AM [facility] BLOOD COUNT COMPLETE AUTOMATED <td>CBC</td><td>Routine </td><td>12/13/2020 2:03 AM EDT</td><td></td><td> </td> 12/13/2020 02:03:00 AM [facility] BASIC METABOLIC PANEL CALCIUM TOTAL <td>BASIC METABOLI C PANEL</td><td>Routine</td><td>12/13/2020 2:03 AM EDT</td><td></td><td> </td> 12/13/2020 02:03:00 AM [facility] CT ABDOMEN & PELVIS W/O CONTRAST MATERIAL <td>CT ABDOM EN PELVIS WITHOUT CONTRAST [id number]</td><td>STAT</td><td>12/12/2020 9:22 PM EDT</td><td></td><td> </td> 12/12/2020 09:22:10 PM [facility] RESPIRATORY PATHOGEN PANEL <td>RESPIRATORY PATHOGEN PANEL</td><td>Routine</td><td>12/12/2020 8:16 PM EDT</td><td></td><td> </td> 12/12/2020 08:16:00 PM [facility] COVID-19 PCR <td>COVID-19 PCR</td><td>Rou zonia</td><td>12/12/2020 8:16 PM EDT</td><td></td><td> </td> 12/12/2020 08:16:00 PM [facility] BLOOD COUNT COMPLETE AUTO&AUTO DIFRNTL WBC COUNT <td>C BC AND DIFFERENTIAL</td><td>Routine</td><td>12/12/2020 8:16 PM EDT</td><td></td><td> </td> 12/12/2020 08:16:00 PM [facility] LIPASE <td>LIPASE LEVEL</td><td>STA T</td><td>12/12/2020 8:16 PM EDT</td><td></td><td> </td> 12/12/2020 08:16:00 PM [facility] HEPATIC FUNCTION PANEL <td>HEPATIC FUNCTION PANEL A</td><td>STAT</td><td>12/12/2020 8:16 PM EDT</td><td></td><td> </td> 12/12/2020 08:16:00 PM [facility] BASIC METABOLIC PANEL CALCIUM TOTAL <td>BASIC METABOLI C PANEL</td><td>STAT</td><td>12/12/2020 8:16 PM EDT</td><td></td><td> </td> 12/12/2020 08:16:00 PM [facility] GLUCOSE QUANTITATIVE BLOOD XCPT REAGENT STRIP <td>POCT GLUCOSE, DOCKED</td><td>Routine</td><td>12/12/2020 6:59 PM EDT</td><td></td><td> </td> 12/12/2020 06:59:00 PM [facility] ECG ROUTINE ECG W/LEAST 12 LDS W/I&R 10/14/2020 12:00: 00 AM EDT eCW1 ([facility]) URIC ACID BLOOD <td>URIC ACID</td><td>Routin e</td><td>08/21/2020 10:29 AM EDT</td><td></td><td> </td> 08/21/2020 10:29:00 AM [facility] POCT GLUCOSE, DOCKED <td>POCT GLUCOSE, DOCKED</td ><td>Routine</td><td>08/21/2020 8:21 AM EDT</td><td></td><td> </td> 08/21/2020 08:21:00 AM [facility] GLUCOSE QUANTITATIVE BLOOD XCPT REAGENT STRIP <td>POCT GLUCOSE, DOCKED</td><td>Routine</td><td>08/20/2020 9:30 PM EDT</td><td></td><td> </td> 08/20/2020 09:30:00 PM [facility] GLUCOSE QUANTITATIVE BLOOD XCPT REAGENT STRIP <td>POCT GLUCOSE, DOCKED</td><td>Routine</td><td>08/20/2020 5:21 PM EDT</td><td></td><td> </td> 08/20/2020 05:21:00 PM [facility] GLUCOSE QUANTITATIVE BLOOD XCPT REAGENT STRIP <td>POCT GLUCOSE, DOCKED</td><td>Routine</td><td>08/20/2020 12:26 PM EDT</td><td></td><td> </td> 08/20/2020 12:26:00 PM [facility] DUP-SCAN XTR VEINS UNILATERAL/LIMITED STUDY <td>US DOP PLER LOWER EXTREMITY UNILATERAL VENOUS LIMITED [id number]</td><td>Urgent</td><td>08/20/2020 10:36 AM EDT</td><td></td><td> </td> 08/20/2020 10:36:26 AM [facility] GLUCOSE QUANTITATIVE BLOOD XCPT REAGENT STRIP <td>POCT GLUCOSE, DOCKED</td><td>Routine</td><td>08/20/2020 8:18 AM EDT</td><td></td><td> </td> 08/20/2020 08:18:00 AM [facility] BLOOD COUNT COMPLETE AUTOMATED <td>CBC</td><td>Routine </td><td>08/20/2020 5:03 AM EDT</td><td></td><td> </td> 08/20/2020 05:03:00 AM [facility] BASIC METABOLIC PANEL CALCIUM TOTAL <td>BASIC METABOLI C PANEL</td><td>Routine</td><td>08/20/2020 5:03 AM EDT</td><td></td><td> </td> 08/20/2020 05:03:00 AM [facility] GLUCOSE QUANTITATIVE BLOOD XCPT REAGENT STRIP <td>POCT GLUCOSE, DOCKED</td><td>Routine</td><td>08/19/2020 9:16 PM EDT</td><td></td><td> </td> 08/19/2020 09:16:00 PM [facility] GLUCOSE QUANTITATIVE BLOOD XCPT REAGENT STRIP <td>POCT GLUCOSE, DOCKED</td><td>Routine</td><td>08/19/2020 5:27 PM EDT</td><td></td><td> </td> 08/19/2020 05:27:00 PM [facility] RADEX FOOT COMPLETE MINIMUM 3 VIEWS <td>XR FOOT 3 OR M ORE VIEWS 69154</td><td>Routine</td><td>08/19/2020 2:22 PM EDT</td><td></td><td> </td> 08/19/2020 02:22:18 PM [facility] GLUCOSE QUANTITATIVE BLOOD XCPT REAGENT STRIP <td>POCT GLUCOSE, DOCKED</td><td>Routine</td><td>08/19/2020 12:18 PM EDT</td><td></td><td> </td> 08/19/2020 12:18:00 PM [facility] GLUCOSE QUANTITATIVE BLOOD XCPT REAGENT STRIP <td>POCT GLUCOSE, DOCKED</td><td>Routine</td><td>08/19/2020 8:43 AM EDT</td><td></td><td> </td> 08/19/2020 08:43:00 AM [facility] BLOOD COUNT COMPLETE AUTOMATED <td>CBC</td><td>Routine </td><td>08/19/2020 5:30 AM EDT</td><td></td><td> </td> 08/19/2020 05:30:00 AM [facility] BASIC METABOLIC PANEL CALCIUM TOTAL <td>BASIC METABOLI C PANEL</td><td>Routine</td><td>08/19/2020 5:30 AM EDT</td><td></td><td> </td> 08/19/2020 05:30:00 AM [facility] GLUCOSE QUANTITATIVE BLOOD XCPT REAGENT STRIP <td>POCT GLUCOSE, DOCKED</td><td>Routine</td><td>08/18/2020 9:13 PM EDT</td><td></td><td> </td> 08/18/2020 09:13:00 PM [facility] GLUCOSE QUANTITATIVE BLOOD XCPT REAGENT STRIP <td>POCT GLUCOSE, DOCKED</td><td>Routine</td><td>08/18/2020 5:33 PM EDT</td><td></td><td> </td> 08/18/2020 05:33:00 PM [facility] POTASSIUM SERUM PLASMA/WHOLE BLOOD <td>POTASSIUM</td><td>Routine</td><td>08/18/2020 4:45 PM EDT</td><td></td><td> </td> 08/18/2020 04:45:00 PM [facility] HEMOGLOBIN GLYCOSYLATED A1C <td>HEMOGLOBIN A1C</td><td>Routine</td><td>08/18/2020 4:45 PM EDT</td><td></td><td> </td> 08/18/2020 04:45:00 PM [facility] GLUCOSE QUANTITATIVE BLOOD XCPT REAGENT STRIP <td>POCT GLUCOSE, DOCKED</td><td>Routine</td><td>08/18/2020 12:26 PM EDT</td><td></td><td> </td> 08/18/2020 12:26:00 PM [facility] GLUCOSE QUANTITATIVE BLOOD XCPT REAGENT STRIP <td>POCT GLUCOSE, DOCKED</td><td>Routine</td><td>08/18/2020 8:23 AM EDT</td><td></td><td> </td> 08/18/2020 08:23:00 AM [facility] HEPATITIS C ANTIBODY <td>HEPATITIS C ANTIBODY</td ><td>Routine</td><td>08/18/2020 5:22 AM EDT</td><td></td><td> </td> 08/18/2020 05:22:00 AM [facility] BLOOD COUNT COMPLETE AUTOMATED <td>CBC</td><td>Routine </td><td>08/18/2020 5:22 AM EDT</td><td></td><td> </td> 08/18/2020 05:22:00 AM [facility] BASIC METABOLIC PANEL CALCIUM TOTAL <td>BASIC METABOLI C PANEL</td><td>Routine</td><td>08/18/2020 5:22 AM EDT</td><td></td><td> </td> 08/18/2020 05:22:00 AM [facility] GLUCOSE QUANTITATIVE BLOOD XCPT REAGENT STRIP <td>POCT GLUCOSE, DOCKED</td><td>Routine</td><td>08/17/2020 9:34 PM EDT</td><td></td><td> </td> 08/17/2020 09:34:00 PM [facility] GLUCOSE QUANTITATIVE BLOOD XCPT REAGENT STRIP <td>POCT GLUCOSE, DOCKED</td><td>Routine</td><td>08/17/2020 5:26 PM EDT</td><td></td><td> </td> 08/17/2020 05:26:00 PM [facility] RESPIRATORY PATHOGEN PANEL <td>RESPIRATORY PATHOGEN PANEL</td><td>Routine</td><td>08/17/2020 11:55 AM EDT</td><td></td><td> </td> 08/17/2020 11:55:00 AM [facility] COVID-19 PCR <td>COVID-19 PCR</td><td>Rou zonia</td><td>08/17/2020 11:55 AM EDT</td><td></td><td> </td> 08/17/2020 11:55:00 AM [facility] GLUCOSE QUANTITATIVE BLOOD XCPT REAGENT STRIP <td>POCT GLUCOSE, DOCKED</td><td>Routine</td><td>08/17/2020 11:23 AM EDT</td><td></td><td> </td> 08/17/2020 11:23:00 AM [facility] RADIOLOGIC EXAMINATION PELVIS 1/2 VIEWS <td>XR PELVIS 1-2 VIEWS 67522</td><td>STAT</td><td>08/17/2020 10:26 AM EDT</td><td></td><td> </td> 08/17/2020 10:26:29 AM [facility] GLUCOSE QUANTITATIVE BLOOD XCPT REAGENT STRIP <td>POCT GLUCOSE, DOCKED</td><td>Routine</td><td>08/17/2020 9:54 AM EDT</td><td></td><td> </td> 08/17/2020 09:54:00 AM [facility] LEVEL I SURG PATHOLOGY GROSS EXAMINATION ONLY <td>SURG ICAL PATHOLOGY EXAM ([facility]IEW[facility] ONLY)</td><td>Routine</td><td>08/17/2020 8:42 AM EDT</td><td></td><td> </td> 08/17/2020 08:42:00 AM [facility] [id number] ARTHROPLASTY, ACETABULAR/PROXIMAL FEMORAL PROSTHETIC REPLACEMENT, W/WO AUTOGRAFT/ALLOGRAFT <td>[id number] ARTHROPLASTY, ACETABULAR/PROXI MAL FEMORAL PROSTHETIC REPLACEMENT, W/WO AUTOGRAFT/ALLOGRAFT</td><td></td><td>08/17/2020 7:30 AM EDT</td><td> Other secondary osteoarthritis of right hip Chronic right hip pain Bladder exstrophy</td><td></td> 08/17/2020 07:30:00 AM EDT - 08/17/2020 10:20:00 AM EDT Bladder exstrophyChronic right hip painO ther secondary osteoarthritis of right hip [facility] Bladder exstrophy Chronic right hip pain Other secondary osteoarthritis of right hip US GUIDED PERIPHERAL NERVE BLOCK (OR ONLY) <td>US GUID ED PERIPHERAL NERVE BLOCK (OR ONLY)</td><td>Routine</td><td>08/17/2020 6:47 AM EDT</td><td></td><td></td> 08/17/2020 06:47:00 AM EDT [facility] GLUCOSE QUANTITATIVE BLOOD XCPT REAGENT STRIP <td>POCT GLUCOSE, DOCKED</td><td>Routine</td><td>08/17/2020 6:33 AM EDT</td><td></td><td> </td> 08/17/2020 06:33:00 AM [facility] BLOOD TYPING ABO <td>TYPE AND SCREEN</td><td> Routine</td><td>08/17/2020 6:13 AM EDT</td><td></td><td> </td> 08/17/2020 06:13:00 AM [facility] ECG ROUTINE ECG W/LEAST 12 LDS W/I&R <td>POCT AMB EKG</td><td>Routine</td><td>08/03/2020 8:46 AM EST</td><td> Preoperative cardiovascular examination</td><td> </td> 08/03/2020 01:46:00 PM EST Preoperative cardiovascular examination [facility] Preoperative cardiovascular examination SURGERY CASE REQUEST OUTSIDE FACILITY ONLY <td>SURGERY CASE REQUEST OUTSIDE FACILITY ONLY</td><td>Routine</td><td>05/10/2020 9:46 AM EST</td><td> Other secondary osteoarthritis of right hip Chronic right hip pain Bladder exstrophy</td><td></td> 05/10/2020 09:46:03 AM EST Bladder exstrophyChronic right hip painOther secondary osteoarthritis of right hip [facility] Bladder exstrophy Chronic right hip pain Other secondary osteoarthritis of right hip Results ID Date Data Source [id number] 12/31/2020 07:04:12 PM EDT [facility] XR HIP- UNILAT, 2-3 VIEWS [id number] RE SULTInterpreted by:Shelby Lewis MDIndication: Status post right total hip, history of bladder exstrophy and pubic diastasisTechnique: 4 views pelvis and right hipComparison: October 01, 2020 x-raysFindings: A well sized and positioned press-fit right total hip arthroplasty shows no subluxation, dislocation, periprosthetic fracture, or loosening. No change when compared to prior films. Left femoral acetabular joint spaces well-preserved. Pubic diastasis is unchanged. No acute findings.Impression: Unchanged right total hip arthroplasty without radiographic complicationsThis document has been electronically signed by Shelby Lewis MD on 12/31/2020 7:04 PM Name Value Range Interpretation Code Description Data Sherice rce(s) Supporting Document(s) ID Date Data Source [id number] 12/31/2020 10:22:02 AM EDT [facility] Name Value Range Interpretation Code Description Data Sherice rce(s) Supporting Document(s) Progress Note [facility] VFKZAu1jZsFRRwAp61/MMEvbJLOnd4VbLWvvSJr8WQynDOYfG3JgGTM7eL4nNBL8QOpJGuCbCpJaPkDl lbm [file] AgICAgICAgICAgICAgICAgICAgICAgICAgICAgICAgICAgICAgICAgICAgICAgICAgDQogICAgICAgIC AgICAgICAgICAgICAgICAgICAgICAgICAgICAgICAg ICAgICAgICAgICAgICAgICAgICAgICAgICAgICAgICAgICAgICAgICAgICAgICAgICAgICAgICAgICAg DQogICAgICAgICAgICAgICAgICAgICAgICAgICAgICAgICAgICAgICAgICAgICAgICAgICAgICAgICAg ICAgICAgICAgICAgICAgICAgICAgICAgICAgICAgIC AgICAgICAgICAgDQogICAgICAgICAgICAgICAgICAgICAgICAgICAgICAgICAgICAgICAgICAgICAgIC AgICAgICAgICAgICAgICAgICAgICAgICAgICAgICAgICAgICAgICAgICAgICAgICAgICAgDQogICAgIC AgICAgICAgICAgICAgICAgICAgICAgICAgICAgICAg ICAgICAgICAgICAgICAgICAgICAgICAgICAgICAgICAgICAgICAgICAgICAgICAgICAgICAgICAgICAg ICAgDQogICAgICAgICAgICAgICAgICAgICAgICAgICAgICAgICAgICAgICAgICAgICAgICAgICAgICAg ICAgICAgICAgICAgICAgICAgICAgICAgICAgICAgIC AgICAgICAgICAgICAgDQogICAgICAgICAgICAgICAgICAgICAgICAgICAgICAgICAgICAgICAgICAgIC AgICAgICAgICAgICAgICAgICAgICAgICAgICAgICAgICAgICAgICAgICAgICAgICAgICAgICAgDQogIC AgICAgICAgICAgICAgICAgICAgICAgICAgICAgICAg ICAgICAgICAgICAgICAgICAgICAgICAgICAgICAgICAgICAgICAgICAgICAgICAgICAgICAgICAgICAg ICAgICAgDQogICAgICAgICAgICAgICAgICAgICAgICAgICAgICAgICAgICAgICAgICAgICAgICAgICAg ICAgICAgICAgICAgICAgICAgICAgICAgICAgICAgIC AgICAgICAgICAgICAgICAgDQogICAgICAgICAgICAgICAgICAgICAgICAgICAgICAgICAgICAgICAgIC AgICAgICAgICAgICAgICAgICAgICAgICAgICAgICAgICAgICAgICAgICAgICAgICAgICAgICAgICAgDQ h6R3uiNTKhOVYbKK9lMGd2Wh8+ZBkEIaDwDCH2xjVa nJ3QEC2kd3RmPNfxSJZtl2FtEKz0PT0RUEQdDJzbKS1CWZznpt6GUMCnEZPccRFTg1scVnRkBFC0ZIGh YxrqQL1YNVZiF9sablGmLLGvPZMURKokDCIDOM1UGmYqI5DacJ63KTZYJu0+ZSgqbwNnCxuYZaH3KRMg e1JlFMi4UO2NEVCgAacai9MrZxSrMYPTDLlaCA9KLI N7GHX3UXGrOz1QYKGyJ881whQjDM5GYz7QXlRfQS0jvf4PPgRcPYMkZgzBAps0IBahQA7BcWEjOPkWed 4grhJtjrRMs6ImwkNiiPTNTI3payQMLFDliMstZQuNJUvuMIXfDNMhHx1sIW9yKINiSEU4DqA7IBWBHX 0OOYNkLSMcfJHgCKWvJRGWBC3NOFpxQMP7VTDeyjKq nMUeLUfvLR5FYAPfxqLhCwXyKHLTYAm+Cs7VOA9gv0HfGYxhUhVuMH9cht4RKGhAJoAkO5V4iZOzD0S8 AKixVc1FEGZvBFFwKpUyMZGUBHvmAK9IWC4ijyQ8PD0QyJUtTZGgDZXrvKAnPBt1R21gpKRgRHgkUZ5X ICA+Edgar+Ch6CCVVbMDEpZZKmGcGjUWDKHzAeN1GqF4 YZz9RaQ3UeBK23nBwfoxRrVOweQE4XIP1bSUJeQHAMOQ9JhOOsaY2txyIhPSVyVDXHOdUcG62gqMGnYU PuAZFuBYQwFj6HTHUdP0FzkjJeyAecvvJwZDBlZGXBGY3KRZastyCgpETiyFlbKW63fIfxCH5GGx4EGm PiHL3ajj3FpWLhBz3SUTAfSx7QREAoIHYtZOFcDWX4 ILRtMrGcJMofSSJtWNVuLPH1APCnTXDdBZ7RLoAvXHBtJeV4ETBhLDThFJRihn2DPMYmOEArKTF6LVWx OWBbCLSwQXktVEZfJWAkOLZ8FZPeKJCjVY9CWaYcSZDyEJF6SDTeDESnCDNohm0VYAHaTJZvTSV7SAKn UHFfYLAzMUimUKMyDUL0WFD1SGZvJZRiCJ7HRoQpVV WuPAZnDLqyXJIpCEHdvt3ABSVhGMKrLej5NYVwZWJrTOQiFPbmJWPqJML7RFA1EZBrGXArXB9SQjJfMN UsTRttHRCxBHYxYJKbnz3MFMJcLECiUQVkGRBgSAMlNBNrLCejAAMuSJG8USI8ABNaAUQlFZ1TVbCuYN KvIEt1IZEgYJXhROJzec8MIYJjUDQmKNn4WXDyJHZi LEJgNVtxDZGoJLUvPbP4RXZzMLRjTX7ESeWrQPKyFfG3AqAkJKOvYULzqk5RBPOiVUCbRMOsEfWoVRUz WZCeOAcqZBXcGIXwZHjcBQQvRYLkXX8UVfCqCWVfGuQjDgdsGSYoEJBibr8OJGVxDAVkPmQhLOQpMSXn PUAkTCqfLBUoIRQhDHraBQDmTWWtUL0PJdIsXDXiWb T2WNPbQFClTWRngk7NYZUhMBGnSPU6MICmATQsMMRkTCzyFOYiUHL5XDR4ASAvSIPdQC9QXaJbDBJvLq E0AgynGNMuSEChjd5ZeWOjrXdtll4AUFmIIu5RcOleVBN6NGmvQa1tpIRpFqGjMHKWSm3LqaYsFVEpWM BSDQovSURbPGJiYmQzZmExNzljNWQyNjNjZDEzMDJj YxEhABUnVyV3JfU2RiAwOMRtFAD4TTF3GEC6R5BwUOIrCvIqUwKqRZIxHuL+VF7hJQo+Tq7Pg0FmpyV1 pwQwCWvoJQtsMP3OLARBV6PUPk== ID Date Data Source [id number] 12/31/2020 07:12:36 AM EDT [facility] XR SPINE CERV 4 OR MORE VIEWS [id number] RESULTInterpreted by:ENMANUEL JohnstonERVICAL SPINECLINICAL STATEMENT: Neck pain TECHNIQUE: AP, neutral lateral, and flexion and extension views of the cervical spine.COMPARISON: None.FINDINGS:No acute fracture or subluxation is identified. There is minimal grade 1 anterolisthesis at C4-C5 measuring 2 mm, stable on flexion-extension views.The prevertebral soft tissues are within normal limits.Moderate degenerative disc space narrowing is noted at C5-C6 and C6-C7. Otherwise, normal intervertebral disc spaces are preserved. IMPRESSION:Minimal grade 1 ant erolisthesis at C4-C5, stable on flexion extension views.Moderate degenerative disc disease at C5-C7.This document has been electronically signed by Guillermo Cuevas MD on 12/31/2020 7:10 AM Name Value Range Interpretation Code Description Data Sherice rce(s) Supporting Document(s) ID Date Data Source [id number] 12/30/2020 01:38:13 PM EDT [facility] Name Value Range Interpretation Code Description Data Sherice rce(s) Supporting Document(s) Progress Note [facility] YDWFOu2yGgRATgXq56/KHNuhWFOlf4FnDRpgQJw1ZUjvBKCyQ8GtCSG5nD0oOYN2ABtWYfEiHpMmOjO5 lbm [file] AgICAgICAgICAgICAgICAgICAgICAgICAgICAgICAgICAgICAgICAgICAgICAgICAgICAgICAgICAgIC AgICANCiAgICAgICAgICAgICAgICAgICAgICAgICAg ICAgICAgICAgICAgICAgICAgICAgICAgICAgICAgICAgICAgICAgICAgICAgICAgICAgICAgICAgICAg ICAgICAgICAgICAgICANCiAgICAgICAgICAgICAgICAgICAgICAgICAgICAgICAgICAgICAgICAgICAg ICAgICAgICAgICAgICAgICAgICAgICAgICAgICAgIC AgICAgICAgICAgICAgICAgICAgICAgICANCiAgICAgICAgICAgICAgICAgICAgICAgICAgICAgICAgIC AgICAgICAgICAgICAgICAgICAgICAgICAgICAgICAgICAgICAgICAgICAgICAgICAgICAgICAgICAgIC AgICAgICANCiAgICAgICAgICAgICAgICAgICAgICAg ICAgICAgICAgICAgICAgICAgICAgICAgICAgICAgICAgICAgICAgICAgICAgICAgICAgICAgICAgICAg ICAgICAgICAgICAgICAgICANCiAgICAgICAgICAgICAgICAgICAgICAgICAgICAgICAgICAgICAgICAg ICAgICAgICAgICAgICAgICAgICAgICAgICAgICAgIC AgICAgICAgICAgICAgICAgICAgICAgICAgICANCiAgICAgICAgICAgICAgICAgICAgICAgICAgICAgIC AgICAgICAgICAgICAgICAgICAgICAgICAgICAgICAgICAgICAgICAgICAgICAgICAgICAgICAgICAgIC AgICAgICAgICANCiAgICAgICAgICAgICAgICAgICAg ICAgICAgICAgICAgICAgICAgICAgICAgICAgICAgICAgICAgICAgICAgICAgICAgICAgICAgICAgICAg ICAgICAgICAgICAgICAgICAgICANCiAgICAgICAgICAgICAgICAgICAgICAgICAgICAgICAgICAgICAg ICAgICAgICAgICAgICAgICAgICAgICAgICAgICAgIC AgICAgICAgICAgICAgICAgICAgICAgICAgICAgICANCiAgICAgICAgICAgICAgICAgICAgICAgICAgIC AgICAgICAgICAgICAgICAgICAgICAgICAgICAgICAgICAgICAgICAgICAgICAgICAgICAgICAgICAgIC AgICAgICAgICAgICANCjw/rCIxP3hvlGVbwyE7S2iw Pd8MRv3JYL9ob2RzFAYzOKrmyuDbFrnIYsPyOVSiBtzBKlv1DVtpPY3ToHTkO2MqE2OrXWpaJL0WFSTm VSLxuNEtUFMjWZIiEtF9MLIoQKzgLJ8BaAWfSFhpQDRdDOCrWcRfDYKnRW5PMFCmN474rcHkZc0RKr1V EhHiXJ3wih9MQuGaGAIlGenFLxm3PSxwMH3MrYBfoT MtPnMgKTBIHeKfG0yod7KhHeAiLCRMYZfvYQ0Qq8YmiPAtRRx+Tn3VET8xa1OtVOcwPgDrEB8yot9SSP oMPbBnV9KfzHpxXYCks6esBOHoMC6oeSKfMJD2CWPyiTuahivnMZLILFJjnMUodO9yoEdyDkNbJYKzAn 6tCO3oWZXrUSX4NfKxVBYTBN9FNGJjEKCkqIVbPFPd CIJFXD4KGNamFUL3ZQQtjvBlzVChGZedXF6TXVDgzhFwTfGtQEYMXHe+Rt7GBS3jv2GoCExmNmVvHO6k lk2MJBxRZpPfI4J4oTBlG2Y8LOljGw6KESLjSGDwITrqLGQMJQqeRL3YPP3pikY3TZ9SpDHzKOAyNPYf bNPuDMi1T39szSFpBGwrRR2QCMA+Edgar+Gn3MPDMvLK NdBBXsDjXaOXMPUtTiS6YkN0IBv1BqK5XpLB37oGrnjvEhAXbgEM2TKO1eXZUlAIQQDR1MiALbtT8zjl YwISOaWQVBWpQlO23zvLWcJLCdZLJaOLViYz5MXRVnG4DzkeAkfVnjlyKdEUIvOUGGEJ6SHTqkjlBpeX GjzKjaBB93jBjyLT8FZv8AYtLcET1lzb2VgWJtXy7D HCPrAQ5GCHOqXVGqGJIhUBY9QQUgObWlPYzvPIFnHCGoDLU0IPOiUUHhYE5DSeDmMJYrSfLhDHOtDNFt OIIwsg0DELMxLXHjFWy7OLCcHCQoIKMeNKunNWUqAFOeSUI9PDPoSIHyTU7BWeLfJRXaGQRjOMnlYHKb OHNbwj5VIOThHJCkKJA4CgWkVTQcPPYpUTjwQHNqXG O5APs9HWGzXDMpUH3IByLwBKAoEYxjPsxvUANiPPBpqs1UOQXjLGPaFZEeINJqOQPjCWFfHKamBFAkLB C0MnY5UYGwMBHjLG4NBvQwZTMrBQk0WSMbHXRbYQQodj4NZORlMEBfKTV8NNZxMXNhRHVaBGlgUUYzWX MgPhs6SQZxHZUkWH4ANhKcQRXyMBQ9WeCrASHyVLKd la4NMTIlEJVhQxJaULNoJYCfMRYdMIvfAJKjELVzOSZ9RUWmTUGePA0FNuTxPWLwTcK0TPLmEUOoFEJn oh7BKYBuPKCrJte8EQGwZYXwBRNfGZkiUIKfSXZjGJJhCCRiPPPtYC0BQsRzXNUcMjT4LkBjBQWwNITu gi6DHYRnTXLbHWs1GNOnPOSaQNMjUZywVMVtLFZ5LV A0SUHzUWJbHD6GQlQaCEBrUoFkYUWtNEGcIPKvza1ZjPUmcKzikh5DFNxMTz7LeUcbBDK0JEybSo1dyW YmWpUyMIBCSk9PyxKkXJWlCOQUZRypWFDmNWymMAg5DKBwCNpwCPEjG1FzJIgoEwPnC2HeXvAuZ3UbVb B8RHL2NGF0TFN2JVGdOlIeKTUwC0FiBAU6UfBrMIWr YjI+FA5jGHp+Qt3Fo2WjmwF1qaWoNRfwMVP4Ah7UTMINO6INCr== ID Date Data Source [id number] 12/16/2020 04:18:34 PM EDT [facility] Name Value Range Interpretation Code Description Data Sherice rce(s) Supporting Document(s) Discharge Summary [facility] CMUWGx7yQhBNQjZn57/SYOtiSDJhc4MdERghXKs8MHecIVKzW3VgQOF1mI8nKPP1DIyLXxWeTxQpZuR2 lbm [file] WXjtObQ9YoB+TK3nKZd+Zt1Kb7AmhnU6mwHoSGnrXBp0ZG9XRPYGU2LMDu== ID Date Data Source [id number] 12/16/2020 08:55:59 AM EDT [facility] Name Value Range Interpretation Code Description Data Sherice rce(s) Supporting Document(s) Glucose [Mass/volume] in Capillary blood by Glucometer 106 mg/dL 70- 140 [facility] ID Date Data Source [id number] 12/16/2020 03:35:17 AM EDT [facility] Name Value Range Interpretation Code Description Data Sherice rce(s) Supporting Document(s) Bicarbonate [Moles/volume] in Serum 13 mmol/L 22-29 L [facility] Chloride [Moles/volume] in Serum or Plasma 114 mmol/L 98-107 H [facility] Creatinine [Mass/volume] in Serum or Plasma 1.22 mg/dL 0.70-1.20 H [facility] Glucose [Mass/volume] in Serum or Plasma 81 mg/dL 70-140 [facility] Potassium [Moles/volume] in Serum or Plasma 4.1 mmol/L 3.4-5.1 [facility] Sodium [Moles/volume] in Serum or Plasma 139 mmol/L 136-145 [facility] Urea nitrogen [Mass/volume] in Serum or Plasma 28 mg/dL 8-23 H [facility] Anion gap 3 in Serum or Plasma 12 mmol/L 8-15 [facility] Osmolality of Serum or Plasma by calculation 293 mosm/kg 275-300 [facility] Creatinine/Urea nitrogen [Mass Ratio] in Serum or Plasma 23 [facility] Calcium [Mass/volume] in Serum or Plasma 9.4 mg/dL 8.8-10.2 [facility] Glomerular filtration rate/1.73 sq M pre dicted among non-blacks [Volume Rate/Area] in Serum or Plasma by Creatinine-based formula (MDRD) 59 mL/min/1.73m2 >60 L [facility] Glomerular filtration rate/1.73 sq M pre dicted among blacks [Volume Rate/Area] in Serum or Plasma by Creatinine-based formula (MDRD) 69 mL/min/1.73m2 >60 [facility] ID Date Data Source [id number] 12/16/2020 12:33:00 AM EDT [facility] Name Value Range Interpretation Code Description Data Sherice rce(s) Supporting Document(s) ED Provider Note [facility] OVSTTm7uBjGXXwFc34/BDDqjPAVrj2OkPXdjLWd3KSrkENVqS3VvDHE3wS6iCFG6HWqCFwNhNpMrPeC2 lbm JqYveCGsVsNBYmBxnNCtImYRubTqexyHEbRK5RcHB8UNLrN40tMZZyPGRhB6QmYDDlHhZ+Tn1ETXCzmI XeKJ2UTdnJ2X2hj0b9FA2qGB2XK37ahE7Nn2+hQWpYbgZ8UPc0+0U3E8MU85bruCnHwuf/ltzHMD0i+D OJcxOHYpp8ThVy9J46TMfBp//83b8LnLEZL/+7/adrian [file] mobile products [file] INSTRUMENT REPAIRER+ZIHfXLdBegHlHTLBkDucdxRhcv8Flgn4Lwwq98f/ONBPr95sKU3b4hEUIqIdx4JO+L2MeA4YbCbKk [file] N+q6zwylXhmFEcRoyyZeIAiD86I/wASoUTeoR5 [file] Nm2uD7hxdj7yu4GXuk3ds0EieUvN/0q6+Jose David/pZTPh [file] ICAgICAgICAgICAgICAgICAgICAgICAgICAgICAgIC AgICAgICAgICAgICAgICAgICAgICAgICAgICAgICAgICAgICAgICAgICAgICAgICAgICAgDQogICAgIC AgICAgICAgICAgICAgICAgICAgICAgICAgICAgICAgICAgICAgICAgICAgICAgICAgICAgICAgICAgIC AgICAgICAgICAgICAgICAgICAgICAgICAgICAgICAg ICAgDQogICAgICAgICAgICAgICAgICAgICAgICAgICAgICAgICAgICAgICAgICAgICAgICAgICAgICAg ICAgICAgICAgICAgICAgICAgICAgICAgICAgICAgICAgICAgICAgICAgICAgDQogICAgICAgICAgICAg ICAgICAgICAgICAgICAgICAgICAgICAgICAgICAgIC AgICAgICAgICAgICAgICAgICAgICAgICAgICAgICAgICAgICAgICAgICAgICAgICAgICAgICAgDQogIC AgICAgICAgICAgICAgICAgICAgICAgICAgICAgICAgICAgICAgICAgICAgICAgICAgICAgICAgICAgIC AgICAgICAgICAgICAgICAgICAgICAgICAgICAgICAg ICAgICAgDQogICAgICAgICAgICAgICAgICAgICAgICAgICAgICAgICAgICAgICAgICAgICAgICAgICAg ICAgICAgICAgICAgICAgICAgICAgICAgICAgICAgICAgICAgICAgICAgICAgICAgDQogICAgICAgICAg ICAgICAgICAgICAgICAgICAgICAgICAgICAgICAgIC AgICAgICAgICAgICAgICAgICAgICAgICAgICAgICAgICAgICAgICAgICAgICAgICAgICAgICAgICAgDQ ogICAgICAgICAgICAgICAgICAgICAgICAgICAgICAgICAgICAgICAgICAgICAgICAgICAgICAgICAgIC AgICAgICAgICAgICAgICAgICAgICAgICAgICAgICAg ICAgICAgICAgDQogICAgICAgICAgICAgICAgICAgICAgICAgICAgICAgICAgICAgICAgICAgICAgICAg ICAgICAgICAgICAgICAgICAgICAgICAgICAgICAgICAgICAgICAgICAgICAgICAgICAgDQogICAgICAg ICAgICAgICAgICAgICAgICAgICAgICAgICAgICAgIC AgICAgICAgICAgICAgICAgICAgICAgICAgICAgICAgICAgICAgICAgICAgICAgICAgICAgICAgICAgIC FrLWd2B5etBILaXKAnCU0eKLx1No5+GSzMSfXwFSS8dnKguK0HAE1zz9DwEUmmMGNzb3VqOLf5HM1FLT AxVEroNO2CDPewmz1BKVJqPIKanIGFw7yxBbPjYMZ0 ROMlAaqqKI0WELRcS4tiuaTcJLAsPYWEPVmqTFDKILenFJYWUEJgYSSrItAxRtWeDZVzCOEyDIQNGRS6 ZFDgRqCzUKNfELKcSmFjJPUDGLPcKISeZhHqAUvxGN9Xd4MpuHLdQO3FZb4NOqXsZU6kgc1BULcgARWn PiiGQmi6VWwsEE5JaQNvcWV1KRNdMEYTYmQjS6odx0 YiCCVhEOZGDVbtTK7Wt6SoqLH7IQc+Rl1LVW6sm1QcNQv5OXPdXN5gfn2QTDgXMbVkG1FwfTaeVVXWJB Ymq3LjUSXxGE0otRHfOGT0KWkmudE3tZKmAMl9wqCvHP2AJYD6XEdwWUMyPvVsVGEvRuc5OxRBRErYBh ShW1Mri9YtXnA1KXUxCoBnPKuiNHCwJsGtEN15pVgg TZ2KUSYdYOQhNB90ILV3IUGrPk0AWUHkWsD6wYI6NJVuWOQLNu2+PRhuksFlZjuJOcEuKMQdc1OeHBy8 YK9IDYNpHOb9sFJcBLMtECUrylfpDHBwQu29WLEtOuegLi1rDDPpCH4yXXOaRMtxKXQdKHLuQf6lDP4z ITMfQWE4AtNqFICJSW3ZIUOfPMVggNRgGHXoKXTjPl IxDWqwHNBgYjF1XK37bAtqNQ2XXICnGPBvYB69CIR9OAUwBx5FEHTeNBHjlcS5NYZtTEKZOfChN06dcT QgNTEgMCBSDQo+Gq8WAZ8co5GbNYw0XWYzFF0yeo3TQHlBBvMiZ8PgqXdlTZXWHQ0amMAqEHG5BTFvjE PlLIQOITSer4jwOMZANL0yBAQrIf6vYC8sAETgHMSj KoD8CNHVFM8BXGCvHMLcfQSdWBHrBRTgQiAoLYahCPOsVPlrSS21lEbsIR9SEUUqMQQtXN70DZD7SMLf Mq1JHDLySQHnfyJ0DVOvFHNCRjBqX69xtWDuHFIdSYWRGHd+Mr9XQM8uz7BwVSe5LkZjIB9fph5TUOtV IyUaY7EpgTjmRFVVKM3yuCGnSOC3YVIyupGtOuYNiz HuXQV2VUweZs6gPIPkPm3xVT5wXHDgEFV8XaVyRRMMCU0HKTUhOOPyaHCzAVUxFJDuVaTjVFdqFFBhYF x8KN19aMdeXP2MVSQuNEQjUG68CJX6NDMpEa3AJLWqJNOopuH4TSUkZLQYPgBkI24smJIcCZFjNRHXDV o+Tp7VPB3sl7VoIAw5GpTyXS7mxa3QAVlBBsJjV8Pq dYrzZHYNFSStoEHxXRBCn2EtxbQqnGYKCM7qxEXhWrUer73aVUSBMSI2YYcfBVXzJqRuQHBmGheoWJBB DWuIQfMaT1Uyr7UtGlCiJeUgIKKxX4rXJfTwRWM8PgXnzQwmUM5LGuAmK3PopiRnrOP0TKUgBVCADjCf V1MsPGThUCYwMTTIHBo+Ev6FOX7uk8QnRGx2AAUpYT 0kbp9PDJlSEgZoS7D9cQVmP6Q5LWamNy8CTRSsLAXfMNIwHTYUMOyaPO6ADB6glcA2AP4JlUJdVETqCV HjaTQoRTs6F75qrQBzLInnIF4YFRF+Edgar+Vs9YIGOzGPPnSEQpDwMxMQPKSiYkE0WbD0LOc1HzZ0GkHE 77uFwoasJvJFwiCX1TWO7rRCSzWGASQD2SaYMdcK1b hjU6JCGsLNQZLdXrX65ssLPxKDXpFVC5ZMOhKx5VOBYjE4JotfVicWvvjrWbFXTjYYRHEQ3LFGdoktTm dNUikYvqVH92dIclOP0MTo7KQtGdLN2guq4ZqBLfEn9KFJC1YU6BTDVmGGPmLOEdNNA9LTQnBpOyTRwp ZBRtUGVeIHW4EPQvUNXbVM5LNzAxWHWoIdh3DErpGQ AgUBNdpy9NDAXkWZP8LLi4XDRjTXFcBMCxUNlyZHVbLRBoFHK5ALPzOJAmLZ0YUoTxNEHdART2PFLiIN PiDBFvcv2MVQYeQYViPygwPUWlMOWhJYStXBitFKGfTES0Nup4XIQeMJJhSA1HOtZeLGAoBVF0BSFvXA PqBTRynk5WCMHpEFJzPXG7JWPcFWFwYAFaWRwnAHHg VMZ4TaY6WTYuSWRuBY3UCiOiVEZzAVH7BQUhOWCkJFGpef1KESDeGCXlPtn3SNQlSVEwBMPrMLqqJAUg KIX7WUmpSAMkCZAiHD1MKqMsTZYrCRClPXTsUPEpNTRxpq8NCDZfMSJmNKC9YgLyOKZhJFXbFSvyHCSl JYU2YnvrERBmMWEiDB8NKoRtEAWdHnX4DVrcGRQwCX Woxi5AGZUfXYVyUCgbMnOgCDXvTFIyGJapFPUmVFQ6XUc0QIBiASJyUQ1PLgIbXXLsQcY2MNLvKOIhYU Ccbt3HXJKuPWRvZRMoJnTqCGLuPQNyCAygVBRyLWX1NBZbMZCrWZWgQP2BLnIpMMXdCqZ8PlOnTKZcJU Izvv1HWWNmUVIuBXozYfIcUVYrGRFaHBesSYMbCPGe ALg5RGJoMYJuKD0DHgFqWPTpWkInEKGkLAOkMLQtwx3IMDRrZBZmAsC3NgSnMFZbMNHwAUkeSWIlUWGi GcZ6DPFuTBLvTL2FXvUwVUIhMmJ4CrvnYNCdSIQpdg2BLZNcLKHxWzSdDMMaGWRbVCJvYRfdYATpYLQu TTPnCKCyTYOqWS4PMfOsMSDsNVMvDBBpZPQrKGXhwa 3UQDZrVTQ7PID6JUVbGXPsNQCcALjlSKCkESF6VLI6JFWfUROcXP3XKeFjAXRrUQZoCwJjSFNnDILqzm 5USKFhFGK4IsMqEpPoBFNjMYLlQAtrLATzQEP5SLs2YZGhUMAxAQ1GEqFaKXDjYCKwUjsoRWBaRDQhis 6VMKBkVXE2Bqr1FTTtTYVbQMUwQGskZTVvPUM6URnn VRVrFGZvVK9PEvLfVCUoEedjMBNlHMBjBXCmea1ZDNFmWOF3ZNVkIEKtYGOuKCChHAgiPZXmZXK2LuP6 EZVxIJAqFE8IWhPrCVZqRla6BBEdKGGbQCDkmb0WSWMmMFM1PQd9BSQrUVJzRHRuCZlzSODzLJT6YYl1 VSNjKHKjIO9VNeKxZJFkBdW9JoMdQIRkMTUmdu5ZJE AyBXL3FFauCUEgKCAjYORfAFlzFQMnOMsuOXs8HFUtNORsVQ8QHaDaGWFaTtDqUbRnXFXeZIUsly2KGV TkATW1QvP8KqCiCBGqKODvMFvfZPFeJRaqCND4CXEsYGVrRH3GWtXnOSOqOvU7ENStPSSnUQFmru1HKY JjOSZ7Qlb1KsDxKWIiSKIyQNa7leIyhXRfHVk3BF0R W5RvvlTgKBZRHr3Ih624LVP8CPZjOd8XM6saJb7dLPCrMRBXBx3OHMp0Yyg8IyCpRBB8HajgWIPiZFd1 YTNjZGVkNjMxYTNkODQ+QSlaCIUnIgBkFmcuDeF5AfS6QffaH0WuDMN7HtJdL5B1EF7kJVMMDn2+DQpz fXUtoBbhDVPXNgurSGStZFqiTSTBPh4X ID Date Data Source [id number] 12/15/2020 09:38:09 PM EDT [facility] Value Range Interpretation Code Description Data Sherice rce(s) Supporting Document(s) Glucose [Mass/volume] in Capillary blood by Glucometer 128 mg/dL 70- 140 [facility] ID Date Data Source [id number] 12/15/2020 05:58:11 PM EDT [facility] Value Range Interpretation Code Description Data Sherice rce(s) Supporting Document(s) Glucose [Mass/volume] in Capillary blood by Glucometer 150 mg/dL 70- 140 [facility] ID Date Data Source [id number] 12/15/2020 12:16:29 PM EDT [facility] Value Range Interpretation Code Description Data Sherice rce(s) Supporting Document(s) History and Physical [facility] IVVYBk5bGbSRGbQx70/YHVfwTUVjr4ByGWjxHKi6ASvfAONwD3ZnGMU8kB9sYAF7OWmYHjRcIlZeTjD9 lbm [file] AgICAgICAgICAgICAgICAgICAgICAgICAgICAgICAg RSScUDIxGNDjMMFeKIOwRGIsFI0WSPEjRXPjJCScKPFrASGsMPMqFDMbSTTnHDBfXQUyADWqYOYgHGOj ICAgICAgICAgICAgICAgICAgICAgICAgICAgICAgICAgICAgICAgICAgICAgICAgICAgICAgICAgICAg HE9DZDLlKFYlAWHwZDKwVLZcVAXbJCIiFPDvKMTwYS AgICAgICAgICAgICAgICAgICAgICAgICAgICAgICAgICAgICAgICAgICAgICAgICAgICAgICAgICAgIC FfICErTBNgBPDnQI6QBYWnQPRbCBAgGZIsURDjENByEBDzPXIsNBPxREEwWNQePFOuTMUoIKUrESSlUR AgICAgICAgICAgICAgICAgICAgICAgICAgICAgICAg ZHNgSROdXRAnUQXvVZRgJFQsWICfLB1QWFSxOLWsPTBjKPTsGQKkUBUrPWYmZEGgTQIiZBOhLBAfHMKf ICAgICAgICAgICAgICAgICAgICAgICAgICAgICAgICAgICAgICAgICAgICAgICAgICAgICAgICAgICAg GEIzFB0CWVGrNSStPPKoCIBuKOMxIHLeFCYyYGFaRM AgICAgICAgICAgICAgICAgICAgICAgICAgICAgICAgICAgICAgICAgICAgICAgICAgICAgICAgICAgIC EtOGMoZYYyNUVpUTApDM2KJUPaXWAoQVAgQOVbKWXbZMAsGIPiUJGfNIMbKTWhZWXzBSDlLOFbTFMeEQ AgICAgICAgICAgICAgICAgICAgICAgICAgICAgICAg ODLiYZMnQBEqIDPnTUUaQDBwKJZuAOEaTG2MNQDlNISfFVQkLJVcBILhVPJvUBGuUVRiHEUhEULmZKVj ICAgICAgICAgICAgICAgICAgICAgICAgICAgICAgICAgICAgICAgICAgICAgICAgICAgICAgICAgICAg VSLpKROqQR8BVQLcQWObMVHhTJWrOYRcSFPyRCTnAC AgICAgICAgICAgICAgICAgICAgICAgICAgICAgICAgICAgICAgICAgICAgICAgICAgICAgICAgICAgIC QdHRNkEUEdRSQxKSPvGPGdCB9TDFMaYBNiJBAgBFArQNJsIEQaVQPyKJOeCIAdLVWwPUAuTPMtGDTfDR AgICAgICAgICAgICAgICAgICAgICAgICAgICAgICAg QOGvVOZlAROyNHAeSOEnMRFzNKStHRNtLMYpXV6CJN09wPLhb4C9VQSmQJ4tqrp/Nw8PYTkuyzXjjTLn RV8KWzOuXE1umf6GRzTtAC8jfe9YGBgCLzDjD1L9hDPxQMAkWYNGLmJzM02iCKueDf38HReeZAPqVfQr AJu0Ds2SEzXvW7kaMLFyVcC1EGRwVqZ1HBLdGqB3ZK HkRtTbKRrhGS7Ys9DulIVvFDf+Lp7UGZ8zz5AdPKwwJUCiXH7kya2FJHaXHhIfO9BjqjP2LCItYGYgBe 7FOFBlGUJunFQdLRUcIHYAGaMbJ8JywW24VLVIIb5+KLaoloHzMuaOFoQnQITqu7JrANb0SC1LOOYaUA x9eAUsNRUUBPK0OST5fsr4zGRxG4FnSTEpjtPelIiu EW1YHeAiHQEtGk4vLi5yJNWoTRT0CfV8NOSZAV1ZRVRsNKSseCYzWBZhVFAYDK3XIRabINF1DVOrekVq gLTbOIldMN2TGFYjhgRfJbkoFPTUWGd+Ju6QUT0uq0OhRQcyKECzLF4dmb1NHXtQOiDrG6T2rXLkI7G8 PFeyCe3DNRIiDREhJqnbTXVVTZdsEZ6JHK1nfoK4CV 2ThGQiODNeBFJuwGHcRLn8F74hvICrFEtyQZ2ELKP+Edgar+Wj0MMWRgTJIyBDJpFeQoUBZRWkGgZ7GvM4 PDc8OvG9OcSL17vZrfpyOvWBocTA1VVW4sFYUtUQERPV0EyCXjlA6mylAuGIOmSUTYFpWoH98zsMWuZX DiPSB4FOEnLt3QAOItP5QoqeXraKnrpbIeCITqRVXM BE9BYPhzciAyvXEpkCjtDY65gXtdMV8ZFg0NJlHtDE5urf6ZsIHlEh1ROLOaUo1NUNGbVNNfIIVsZRE5 AVLqFaFjGUxmGSFrLYDvLWT0PXLgZIVpAO7EAiJlHRLcKwEmZKtfVVMgTXGdnj4VXITgYFNeBmm6SUIj ZHBzVMTuWEwfVAUeHGPjGWT9BCDhVSOcWU8CImGdLJ MmVRTdSHnbJSTpDWMavj8FPFGpMJXvWpC2HnKgKBKlXZDrFAzeDEPyZHM5Xbn4YUCxYPQkBT9XOtWqCD KsEFD5MLUxLVRkIFMxjt8SRTIvTWOwBMRcAGZmQJPcGXVkQExkKKFaGTP8QER5TUIuWKInND1VZgVsKG ZcQBd6FQbnPDLuSGDabv7PUIBmFKHuEAW0LxDrVAJo MRInGMbyGMHdZKR7JHe3ELIaLVZdNO4EYkLcSJBfWWS1ZzhpZSTqZZTcod0MQWObORHpKTD7XIPzDCVh MCYePYbfSRFfRUXjOsJ5SYPwJLGkPM0HPkJnCEDpJYNgDUouVGJhPQMema0JILGzURZvEaS6IIWtPVAs UMGjYIzkTJZvHDWuIYD2GKBkSQAaUJ3KOqEtJIGyPl W1QYYtROItWUPukl6LGSMgBYWuJMI9LOHjCGYbOBBfBUopSQYhRKD6RUwuEIHqHQLoRW4AAlLoHPFwBw W6ONkeRKCeHMVqlv3HKDKwRFXyOOn0VZLvIZRcQKXhDKjtZVXqCPJ8BJK8PJSrVMWnOB4UZjRqOVXkXy W1YLonLZIqPGOtzw6PCYOsNVOzPjP5ZAUvASKhODYp WXhpVBOeFXA2ZiL5WRQlNEDoDY7PVzCjEHCrBwxcZGufWHDjHCImdc6FRDGjIDSrNPAkXTCkHEInINBi PDkbPURuCRO2Oem8YFBoNMWfRQ7HCzKoQKceOTBHCne3VTzfC5e6FIIsXn4RU9Lhi7LaIqEtCXJDKGeh YI0hieSbCPCcEd1RA4lREjv6JKZjLNO9TdGmFAOqDN laPZK2ZTHaZzdfTSeiJgX9FC6hMDAfQPC7XIRwMTN8BKYzI8F7FLNbYDJcVTZaN0V4HYn1JzFsMU3GUa 7BNsO9XNB1oGTcLz2QNkl1NKgVIbFcCU1TOTr= ID Date Data Source [id number] 12/15/2020 12:16:13 PM EDT [facility] Name Value Range Interpretation Code Description Data Sherice rce(s) Supporting Document(s) Consultation [facility] HTGKJb2fJfEKHfYl76/WDXovJKHmv6RqDMhgWTu4JJqbXMLmU5HbGJK5dQ3wPHF6KVtKChRuDmDeLjU1 lbm [file] ogICAgICAgICAgICAgICAgICAgICAgICAgICAgICAgICAgICAgICAgICAgICAgICAgICAgICAgICAgIC AgICAgICAgICAgICAgICAgICAgICAgICAgICAgICAg ICAgICAgICAgDQogICAgICAgICAgICAgICAgICAgICAgICAgICAgICAgICAgICAgICAgICAgICAgICAg ICAgICAgICAgICAgICAgICAgICAgICAgICAgICAgICAgICAgICAgICAgICAgICAgICAgDQogICAgICAg ICAgICAgICAgICAgICAgICAgICAgICAgICAgICAgIC AgICAgICAgICAgICAgICAgICAgICAgICAgICAgICAgICAgICAgICAgICAgICAgICAgICAgICAgICAgIC AgDQogICAgICAgICAgICAgICAgICAgICAgICAgICAgICAgICAgICAgICAgICAgICAgICAgICAgICAgIC AgICAgICAgICAgICAgICAgICAgICAgICAgICAgICAg ICAgICAgICAgICAgDQogICAgICAgICAgICAgICAgICAgICAgICAgICAgICAgICAgICAgICAgICAgICAg ICAgICAgICAgICAgICAgICAgICAgICAgICAgICAgICAgICAgICAgICAgICAgICAgICAgICAgDQogICAg ICAgICAgICAgICAgICAgICAgICAgICAgICAgICAgIC AgICAgICAgICAgICAgICAgICAgICAgICAgICAgICAgICAgICAgICAgICAgICAgICAgICAgICAgICAgIC AgICAgDQogICAgICAgICAgICAgICAgICAgICAgICAgICAgICAgICAgICAgICAgICAgICAgICAgICAgIC AgICAgICAgICAgICAgICAgICAgICAgICAgICAgICAg ICAgICAgICAgICAgICAgDQogICAgICAgICAgICAgICAgICAgICAgICAgICAgICAgICAgICAgICAgICAg ICAgICAgICAgICAgICAgICAgICAgICAgICAgICAgICAgICAgICAgICAgICAgICAgICAgICAgICAgDQog ICAgICAgICAgICAgICAgICAgICAgICAgICAgICAgIC AgICAgICAgICAgICAgICAgICAgICAgICAgICAgICAgICAgICAgICAgICAgICAgICAgICAgICAgICAgIC AgICAgICAgDQogICAgICAgICAgICAgICAgICAgICAgICAgICAgICAgICAgICAgICAgICAgICAgICAgIC AgICAgICAgICAgICAgICAgICAgICAgICAgICAgICAg UKRcBXUwBQYbRJLgEEXaDNGbLZg7V0gvOSAzUZWjWD0jOYh7Ni1+MUrYTdJgQKG4kbYbbK5XGX0gd8Ww XOxdJWGin3NoNBm7SN8GFPUdKGewAR6LPAusua0RESPkWMWvfAGAe6nmYwQkDXZ5TSUeXlsfGK4RIPLr T8eibeUuJQYhJBXTVBqiASLVKZbgFTXENAWxHZMySm SiLvTzOURgOC4DAFDuD880tiZwQQ1HIn5GFrLzXD5lbf2RAsXzXPTbLkiWVma9DExtRH6SoMTpuJGrRA SmFVYVVzEoU5hjy2PlLtGmFZXLOTodJC0Tg1EndINbOTr+Sb9GEC2yl8JpAYhbAWFeIT3tvq2HZAlUXi VpQ8QknChnECZvenF9dBLgFZI1ZV4uwGDkOQcaTdRC nr88CJLEWeIaaEI5QsGjGyCiYjSnOIQ2TTvfXG7sUFgxFH0VQOA0PRfgHBGaNYNuO0qVZcDiVSCkUWPu tWgkVX1YJjQyH5QlbhDpqNIfZoHqRJKTAq9+LNzwfyBrIufJFcQ9VUBgh5IqMLn3DA6VMGJqHHlxKE8D NCKjlL7iVKohJW6KAfGeVPQcKSCZVpYuN53nyNIrLU g6W5ShZuIfJQKcJwcsGRVnRFryIwVvRMKnDnQfYBvcNA9+ID4+ZTsiSX1EMOaajkCoQMZwMp4WIZUqZK OzLU2oYDDwRGVtU0O4kKhcDOTIVyAgR0icwzuvZV7cTVPeL033hSojrnNjQRYxUGRcNs1FXDQkPKJ1KB EdzJYjYqRzRIPDJMznZE5XeVEbEEZ3vC6sNCysSZBx ISJpE8jXJfHqcUiqKJ28iWneteXxaXMpHTj+Kp1DYD3cf8VyWCw1dsCbBDbsZLA7JFrzGOUbYIZlTEKv NYR2FRZ9JTMRGyJeRBGoIQXrCVwoHPGvIUDxis8PZGVpKJZhLuW0BXGgZFDcEPQhKWzoSUAwYHC8KxDw SAGqSXNdBV9WSsChEJGvNPThDDhrDFQtUQLajz5XIR OnFXUfTZX4HDIkYQWtCENvCOovOZTrHOK1OaitIGJoETIpGU6PVkDaSHGrZKtuZzbaCMQtUAQitl9ORE NmEERmJoX9RKOfCIHsKWPjUJyjYOGjNANhXDHpUDEmMWLdOO2COeXyZZOtEOTjTXYaLOJrFADfus6RDX SaKQVzNUD3JJSgVNKiSDQmYPqwZMWjGZM4QSt1UXJq BZJkZU6ERtKkTFWtBGa8TlRvJLDiXCBmux7XIUSzYEYdOPdeIALmMYNoFGAwZJnmIDYdKWT2ZmblUWAw ZFUnIF6SBjXoWYYiYZo8YWggNMJrSEPofy0KTORjQUMgMBD5WQIkDBVwTKIiRMznGIAjZTBxMUPyFMXr QMWxMV2BOzLvOLNuWkKzNvTyGFRmLKUffk2HRVIwNF CrVTApKAKzPDNzXLJcIDemLSKbFRGuDPgyCVRsRWXyWB6OLkHmQIQrNrC1SkflOVDjCMSarr0DQVHlRL YhTzl6IOKwIYUoXXEyTPhbXQDsPXH4YpS9IROpCCXuSC0EWnVdTDMlUzY4KmBeXEMyTMYviv6XWYEnRI HpLKk1UpDtGGIwXVOqUHyqRYKaLNZ6BWZpDJElPCOc TR9FMuUcQRBaMaFeJCbbMMXbAURsgf7HSYLiSLUkQhZzIFGnXFHuYNGcBEkcCHIcZVO3Zwn5EEQbZOCj CM3KYeNoUROmYbM1WoxsMUJvSMAsad8VGYJdLXLxPoooQMHkIDDiSOYlXCrlGBMjWHZ9PtU1TBNiJIKw GS2FBvGyIIOxPok4CwGjRJTxSAQmcf8MNMJmNSWeMW T4UQBbDJNlTBCaGGy6jnWfeXPaMEi3BC4PE0IhmfJdUxOKDb4Cn582TII9CPAgOe6RC7maTi2yBLBnWX CMYi1QCNp9JBhlQYWrUpP5LHhaXdP4MRWeAQu8PUMnMmV0CbMfPHq+VWjnBBGcJqWjFntpJ9DdHsngYu JaVCq6JIB0BxxdWEM0GR1vWJHOPf8+LFnreQOuxTxiXOZSHyM4FOSgTVepTFSNSh2L ID Date Data Source [id number] 12/15/2020 08:49:05 AM [facility] Name Value Range Interpretation Code Description Data Sherice rce(s) Supporting Document(s) Glucose [Mass/volume] in Capillary blood by Glucometer 110 mg/dL 70- 140 [facility] ID Date Data Source [id number] 12/15/2020 08:28:49 AM [facility] Name Value Range Interpretation Code Description Data Sherice rce(s) Supporting Document(s) Bicarbonate [Moles/volume] in Serum 13 mmol/L 22-29 L [facility] Chloride [Moles/volume] in Serum or Plasma 112 mmol/L 98-107 H [facility] Creatinine [Mass/volume] in Serum or Plasma 1.29 mg/dL 0.70-1.20 H [facility] Glucose [Mass/volume] in Serum or Plasma 86 mg/dL 70-140 [facility] Potassium [Moles/volume] in Serum or Plasma 3.7 mmol/L 3.4-5.1 [facility] Sodium [Moles/volume] in Serum or Plasma 137 mmol/L 136-145 [facility] Urea nitrogen [Mass/volume] in Serum or Plasma 34 mg/dL 8-23 H [facility] Anion gap 3 in Serum or Plasma 12 mmol/L 8-15 [facility] Osmolality of Serum or Plasma by calculation 291 mosm/kg 275-300 [facility] Creatinine/Urea nitrogen [Mass Ratio] in Serum or Plasma 26 [facility] Calcium [Mass/volume] in Serum or Plasma 9.3 mg/dL 8.8-10.2 [facility] Glomerular filtration rate/1.73 sq M pre dicted among non-blacks [Volume Rate/Area] in Serum or Plasma by Creatinine-based formula (MDRD) 55 mL/min/1.73m2 >60 L [facility] Glomerular filtration rate/1.73 sq M pre dicted among blacks [Volume Rate/Area] in Serum or Plasma by Creatinine-based formula (MDRD) 64 mL/min/1.73m2 >60 [facility] ID Date Data Source [id number] 12/14/2020 09:38:41 PM EDT [facility] Name Value Range Interpretation Code Description Data Sherice rce(s) Supporting Document(s) Glucose [Mass/volume] in Capillary blood by Glucometer 156 mg/dL 70- 140 H [facility] ID Date Data Source [id number] 12/14/2020 06:08:49 PM [facility] Name Value Range Interpretation Code Description Data Sherice rce(s) Supporting Document(s) Glucose [Mass/volume] in Capillary blood by Glucometer 98 mg/dL 70- 140 [facility] ID Date Data Source [id number] 12/14/2020 12:17:08 PM T [facility] US RENAL OR AORTA COMPLETE [id number] RE SULTInterpreted by:Yaakov Mckeon III, MDPROCEDURE INFORMATION: Exam: US Retroperitoneal Complete, Kidneys Aorta IVC. Exam date and time: 12/14/2020 9:45 AM Age: 70 years old Clinical indication: Acute kidney failure, unspecified; Abnormal findings; Abnormal radiologic finding of the abdomen; Radiologic exam and body structure: CT; Additional info: Follow up on hydroureteronephrosis and the ureteral obstruction TECHNIQUE: Imaging protocol: Real-time ultrasound of the retroperitoneum with image documentation. Complete exam. Total images: 600 COMPARISON: CT ABDOMEN PELVIS WITHOUT CONTRAST [id number] 12/12/2020 9:00 PM FINDINGS: Right kidney: Prior right nephrectomy. Normal echogenicity of the renal parenchyma. Left kidney: 14.6 cm length of left kidney. Moderate hydronephrosis of the left kidney. 6 mm echogenic area seen in the inferior pole felt to represent a renal calculus. Aorta: Normal. No aneurysm. Common iliac arteries: Normal. Inferior vena cava: Normal. Urinary bladder: Urinary bladder absent. IMPRESSION: 1. Moderate hydroureteronephrosis of the left kidney. Distal ureter cannot be visualized. This appears improved when compared to prior CT. 2. 6 mm echogenic area seen in the inferior pole felt to represent a renal calculus. THIS DOCUMENT HAS BEEN ELECTRONICALLY SIGNED BY YAAKOV MCKEON MDThis document has been electronically signed by Yaakov Mckeon III, MD on 12/14/2020 12:16 PM Name Value Range Interpretation Code Description Data Sherice rce(s) Supporting Document(s) ID Date Data Source [id number] 12/14/2020 11:12:11 AM EDT [facility] Name Value Range Interpretation Code Description Data Sherice rce(s) Supporting Document(s) Glucose [Mass/volume] in Capillary blood by Glucometer 120 mg/dL 70- 140 [facility] ID Date Data Source [id number] 12/14/2020 08:36:43 AM EDT [facility] Name Value Range Interpretation Code Description Data Sherice rce(s) Supporting Document(s) [facility] [id number]/[id number] [facility] [file] [id number]= ID Date Data Source [id number] 12/14/2020 07:13:13 AM [facility] Name Value Range Interpretation Code Description Data Sherice rce(s) Supporting Document(s) Glucose [Mass/volume] in Capillary blood by Glucometer 120 mg/dL 70- 140 [facility] ID Date Data Source [id number] 12/14/2020 05:03:14 AM [facility] Name Value Range Interpretation Code Description Data Sherice rce(s) Supporting Document(s) Bicarbonate [Moles/volume] in Serum 12 mmol/L 22-29 L [facility] Chloride [Moles/volume] in Serum or Plasma 115 mmol/L 98-107 H [facility] Creatinine [Mass/volume] in Serum or Plasma 1.60 mg/dL 0.70-1.20 H [facility] Glucose [Mass/volume] in Serum or Plasma 108 mg/dL 70-140 [facility] Potassium [Moles/volume] in Serum or Plasma 3.9 mmol/L 3.4-5.1 [facility] Sodium [Moles/volume] in Serum or Plasma 139 mmol/L 136-145 [facility] Urea nitrogen [Mass/volume] in Serum or Plasma 51 mg/dL 8-23 H [facility] Anion gap 3 in Serum or Plasma 12 mmol/L 8-15 [facility] Osmolality of Serum or Plasma by calculation 302 mosm/kg 275-300 H [facility] Creatinine/Urea nitrogen [Mass Ratio] in Serum or Plasma 32 [facility] Calcium [Mass/volume] in Serum or Plasma 9.1 mg/dL 8.8-10.2 [facility] Glomerular filtration rate/1.73 sq M pre dicted among non-blacks [Volume Rate/Area] in Serum or Plasma by Creatinine-based formula (MDRD) 43 mL/min/1.73m2 >60 L [facility] Glomerular filtration rate/1.73 sq M pre dicted among blacks [Volume Rate/Area] in Serum or Plasma by Creatinine-based formula (MDRD) 49 mL/min/1.73m2 >60 L [facility] ID Date Data Source [id number] 12/14/2020 02:43:36 AM EDT [facility] Name Value Range Interpretation Code Description Data Sherice rce(s) Supporting Document(s) Glucose [Mass/volume] in Capillary blood by Glucometer 112 mg/dL 70- 140 [facility] ID Date Data Source [id number] 12/13/2020 10:10:38 PM EDT [facility] Value Range Interpretation Code Description Data Sherice rce(s) Supporting Document(s) Glucose [Mass/volume] in Capillary blood by Glucometer 84 mg/dL 70- 140 [facility] ID Date Data Source [id number] 12/13/2020 05:29:36 PM EDT [facility] Value Range Interpretation Code Description Data Sherice rce(s) Supporting Document(s) Glucose [Mass/volume] in Capillary blood by Glucometer 98 mg/dL 70- 140 [facility] ID Date Data Source [id number] 12/13/2020 04:20:21 PM EDT [facility] Value Range Interpretation Code Description Data Sherice rce(s) Supporting Document(s) History and Physical [facility] LQCBFy2dXuRSEaTj40/BXPotEQDwf9WgZOwbKPt0RRddLRFcD6OhDMS7yE0gAZC7LAeLHjIgEjVdIuHy lbm [file] ICAgICAgICAgICAgICAgICAgICAgICAgICAgICAgIC PbECWmXZWyUBLtKCIsNLQaQOBfFQAtZDGcWHBpQEToTIKyHM9EEXNiHSDbFEXnREXtZGJkVDUwLPQeOA AgICAgICAgICAgICAgICAgICAgICAgICAgICAgICAgICAgICAgICAgICAgICAgICAgICAgICAgICAgIC SpQPZeCAGvQZKrCMCbJCYzOT4BFMKaKLYkSCFxFCOr ICAgICAgICAgICAgICAgICAgICAgICAgICAgICAgICAgICAgICAgICAgICAgICAgICAgICAgICAgICAg KGLiBGVgBYAaBDMqIOHqPIPjERPmXWUyCPGgZK7LEUWaGYOaXYFmPFLuBZGyWMUfNRHzNFEgSVNjBOEf ICAgICAgICAgICAgICAgICAgICAgICAgICAgICAgIC HuGOUgZDZdAJUhPYNyYMYkJRBoGXTyQXEmEJYhIJZoTMOoOTNbXS5JXQArKKRhZMOwVSRgVTAeMUUoAM AgICAgICAgICAgICAgICAgICAgICAgICAgICAgICAgICAgICAgICAgICAgICAgICAgICAgICAgICAgIC EvNCMrRTKyABLwGYOdAXSyYWPmCZ0XEIIlJERnEBFz ICAgICAgICAgICAgICAgICAgICAgICAgICAgICAgICAgICAgICAgICAgICAgICAgICAgICAgICAgICAg WYWxZLBtRRWzVEBkPNXpNFDiOYKkTXXyLXJxWEGnIP2ZIQVyZBVgJMPnQWZbMAPbOQJoCMXmMFMgVYEu ICAgICAgICAgICAgICAgICAgICAgICAgICAgICAgIC PfTVClSUJiOTTjHFRoAELeZFYwPTAqHTDsALHeLMPqXVVcOISiSWYmLI0AXOXcUPIxCHQcCQTlFRPoZQ AgICAgICAgICAgICAgICAgICAgICAgICAgICAgICAgICAgICAgICAgICAgICAgICAgICAgICAgICAgIC FnZMBbXBRxVWElUWWeSQQxNSNfCEBkYN9RILJfVDCn ICAgICAgICAgICAgICAgICAgICAgICAgICAgICAgICAgICAgICAgICAgICAgICAgICAgICAgICAgICAg PHJoXLRpAFVvQKQzNENxONAuDKCsYPLiACGkDBNdXBMoBE9HYUDyFOMuGPKmJKEzPYGpCJBcUAQcPZAp ICAgICAgICAgICAgICAgICAgICAgICAgICAgICAgIC DzEALzYCKmZICfAIHaBNNrYHOlNDUpMWVtAGCjOYMyAQJgSCJcDFUdHINcEV9FFC64sQBlu1D1FEQvZE 0ndyc/Tl1JGXkabkXdbNJpVN5YZgJtNJ2dqn7IYwGrFZ4bwd7SNQbWAmCxD2Z3iHVmXTRpSXQVHiXpP0 0lOXaeDn39CVdoUNMqLeGcLZo0Rg6KHzZeI1riAJWn EnD6TEMuZhD5DTJdLfJ1SCCsEmIjOMXeLLHhELQbWFUCGWH9FFTwVlLbNXuaZE5Nm2FlnSO2GAk+Pg0K EO8mw5QrFMfiURTkGA7jlb8ZMTpLHzUhT1MdgaI4NKL0MMIrJu1NVFOyZTQziLMySDRlADRDFxNuA6Wh qN78OJEQSf7+HZtrwkNiPkiCUrU9GBAzu0ZiAOu8SI 3SVFGzYKs2lPJfXJNMICH9SXKndZIgTJ6dswfhGLDjGBFhZp6tEp5bTXAyNJCwFmD9CQOWUW9RBSKzIO PrpZFkAWNvFHMWAT4EQFzvMXU8DCTtboYetGTfVWzqUR0SYNJobgRyJqgaXNCRWRz+Op0AOB1ok6YxDH z4BSQfHY5fyr3WKGnEUxAeI4N1eMNgF3U8EHxpUg4W MEWoRWZrCoIlLAAXLSeeMR4ZZE2fpfK8NL2LxVNmUGXhSJIikFJySVt5O14kjBIsTLsrNP8GAVJ+Edgar+ Ai5HEOEoQPJhBDYwVxEnYXTSAfHhR1TgN6TLh9EoU2IyFG72xLkzffBkGIleBJ8PJW3eSXJsRXLCNK9O xAFxsU7kyqMeTIXyPFJNZtTbA17uhTYyTVUfEPU2UL AfGy2RMOSpV0VsztDsnXawmmNdHKUsYXKTSN2EXOhzhfDctNXiqEvhMK51pVwwFK9XMe6WLzAjEG9bnl 6JuPJtNh0SPQU2VC6FCVYiAYDmXWWrYKR1MQScVgMjGHiwUCZuIIWfHOD1TKUsQEBpKJ9BIfUvUUYtDU LeFZgaALDcVJPwqx1BIGJpXKT9ShS2JRRcPHJpWREw YSmcITSaHDBbRQO8ABGwFTIqXF0ECuTwRBKdTEG8FPluJXWfWCEgvg1UIGOuSKWeMjyqAdJbDBSqRVHr PHnbJNCeJHI2NbJ2BNSiTJXoOD4SWzTmPSWzZVv4NpLlDYSdJMVkup0ZCHQlRICkRTc5EpUrCQKaXHPb CDfpMTSkMKUnKDk5ZFOrEIViSX7FWeVxLPHiDXB2UM JkAHFmBKKdoh3WERJmCBQvGWU4JaSeGQFjTYTlLBfxHSXfLCP7NTD4WRSrRVIfUH2BDuBmIHLlPMv0Js ZmLJHjOKYhee2VCAAdERUdUJS4PTTcCMHzYBZlQBouLTIjJSAjKjxgBQIiYPXuGB1TLmLwUFHyLmIjEV YoWYHoGPXeyg4BWICjUNLzZuFmEsCxWKOfHNEqWDfp GRFgUCGlHjCkFFJjBSXrZN4ERtQyRAXmQqF8NqxeSAFqXTUhiu2LMDNdYRNyTwj2TXHfCQLmQORkDKfp EWCfYBSeGPA4RTUpQRUfRQ5UWaFnUQHhKkK5HsqsCMQsVQGpnl2SNOTgSZJpBOGdGESdBUKfRAZcMKgc HXBnDUX8MqE3TWOfUUKaCM6WWlYkPEQmIeZuKwlmLD AjKHPhfn5VMFDsZXGvKyM4BIXmSRSwFUFlHOchOZHuJWT3OiF2UVXoLWTuXR0AZgYxDLWuMdijUKXpJZ BsCUKira1DDCNiZMLwZQS1NIYgZTUsWXCfYRmwVGWhBTQ9WAqlQYPeKQMdHO7NKqQeBDXkUnk5GJykBI IqCDEruu5SUCZnXHIvRBo5KHPkVIYrCHAvRMjoQQIs RNJ2YWr5EVCfWEIiQB0OYlWdSLYgWHFjWRsaFAFyXRCcra2FLBAkHAR2SSL7GNZvPHCmEEJjAQusAVIf MQEqSaS4UWXbGFQkKP2RUfXqBTIoDZPcYOIgULOuGXYpqn3AFGAxRRP3PcY3VbLiVNGaWYRoRPowVUTy HOBoFal6OTOzVBMhCB9GEhQxGHyaEFHHLsz0PUunU9 g7VGN4BJ5CW1Kbv6RgVLWeFVDBAQrtWO5gslUrYKMqAj0VU2cMCbn5C8UcBhL9QPW5Mcw2VNKlRKihOE VnErZyCdVxKbX1AI8qYQSaNCDqMsakCIMrSYb5AoN5EER4OnLtCQCqBMPyHutzAoNdAP7EQx0VBvZ6OR Y4lAJzVb0WVNR3UsVSHqNzKR5TZHg= ID Date Data Source [id number] 12/13/2020 12:15:07 PM EDT [facility] Name Value Range Interpretation Code Description Data Sherice rce(s) Supporting Document(s) Glucose [Mass/volume] in Capillary blood by Glucometer 109 mg/dL 70- 140 [facility] ID Date Data Source [id number] 12/13/2020 08:19:17 AM EDT [facility] Value Range Interpretation Code Description Data Sherice rce(s) Supporting Document(s) Glucose [Mass/volume] in Capillary blood by Glucometer 87 mg/dL 70- 140 [facility] ID Date Data Source [id number] 12/13/2020 05:18:18 AM EDT [facility] Name Value Range Interpretation Code Description Data Sherice rce(s) Supporting Document(s) Hemoglobin A1c/Hemoglobin.total in Blood by HPLC 7.2 % 4.0-6.0 H [facility] (NOTE)<5.7% Average risk of diabetes (ADA)5.7-6.4% Increased risk of diabetes(ADA)>/= 6.5% Diagnostic for diabetes(ADA) Glucose mean value [Mass/volume] in Blood Estimated fr om glycated hemoglobin 160 mg/dL <126 H [facility] ID Date Data Source [id number] 12/13/2020 05:13:56 AM [facility] Name Value Range Interpretation Code Description Data Sherice rce(s) Supporting Document(s) Prothrombin time (PT) 14.1 s 11.6-14.0 H [facility] INR in Platelet poor plasma by Coagulation assay 1.13 [facility] Routine intensity oral anticoagulation I NR is typically 2.0-3.0. Target INR must be clinically individualized. ID Date Data Source [id number] 12/13/2020 04:35:58 AM [facility] Value Range Interpretation Code Description Data Sherice rce(s) Supporting Document(s) Glucose [Mass/volume] in Capillary blood by Glucometer 92 mg/dL 70- 140 [facility] ID Date Data Source [id number] 12/13/2020 02:36:23 AM [facility] Value Range Interpretation Code Description Data Sherice rce(s) Supporting Document(s) Leukocytes [#/volume] in Blood by Automated count 8.8 10*3/uL 4-10 [facility] Erythrocytes [#/volume] in Blood by Automated count 4.48 10*6/uL 4.6- 6.1 L [facility] Hemoglobin [Mass/volume] in Blood 12.4 g/dL 13.5-18 L [facility] Hematocrit [Volume Fraction] of Blood by Automated count 38.3 % 4 1-53 L [facility] Erythrocyte mean corpuscular volume [Entitic volume] by Auto mated count 85.5 fL 80-96 [facility] Erythrocyte mean corpuscular hemoglobin [Entitic mass] by Automated count 27.7 pg 27-33 [facility] Erythrocyte mean corpuscular hemoglobin concentration [Mass/volume] by Automated count 32.4 g[facility] width [Ratio] by Automated count 15.2 % 11.5-14.5 H [facility] Platelets [#/volume] in Blood by Automated count 247 10*3/uL 150-400 [facility] ID Date Data Source [id number] 12/13/2020 02:54:37 AM EDT [facility] Name Value Range Interpretation Code Description Data Sherice rce(s) Supporting Document(s) Bicarbonate [Moles/volume] in Serum 14 mmol/L 22-29 L [facility] Chloride [Moles/volume] in Serum or Plasma 109 mmol/L 98-107 H [facility] Creatinine [Mass/volume] in Serum or Plasma 1.76 mg/dL 0.70-1.20 H [facility] Glucose [Mass/volume] in Serum or Plasma 89 mg/dL 70-140 [facility] Potassium [Moles/volume] in Serum or Plasma 3.6 mmol/L 3.4-5.1 [facility] Sodium [Moles/volume] in Serum or Plasma 135 mmol/L 136-145 L [facility] Urea nitrogen [Mass/volume] in Serum or Plasma 65 mg/dL 8-23 H [facility] Anion gap 3 in Serum or Plasma 13 mmol/L 8-15 [facility] Osmolality of Serum or Plasma by calculation 298 mosm/kg 275-300 [facility] Creatinine/Urea nitrogen [Mass Ratio] in Serum or Plasma 37 [facility] Calcium [Mass/volume] in Serum or Plasma 9.1 mg/dL 8.8-10.2 [facility] Glomerular filtration rate/1.73 sq M pre dicted among non-blacks [Volume Rate/Area] in Serum or Plasma by Creatinine-based formula (MDRD) 38 mL/min/1.73m2 >60 L [facility] Glomerular filtration rate/1.73 sq M pre dicted among blacks [Volume Rate/Area] in Serum or Plasma by Creatinine-based formula (MDRD) 44 mL/min/1.73m2 >60 L [facility] ID Date Data Source [id number] 12/12/2020 10:30:50 PM EDT [facility] CT ABDOMEN PELVIS WITHOUT CONTRAST [id number] FINAL RESULTInterpreted by:Garfield Crouch, MDPROCEDURE INFORMATION: Exam: CT Abdomen And Pelvis Without Contrast Exam date and time: 12/12/2020 9:00 PM Age: 70 years old Clinical indication: Other: Only 1 kidney; Additional info: Eval kidney, only has left TECHNIQUE: Imaging protocol: Computed tomography of the abdomen and pelvis without contrast. Radiation optimization: All CT scans at this facility use at least one of these dose optimization techniques: automated exposure control; mA and/or kV adjustment per patient size (includes targeted exams where dose is matched to clinical indication); or iterative reconstruction. COMPARISON: CT ABD PELVIS WITH CONTRAST 01/08/2016 5:57 PM FINDINGS: Lungs: Ground-glass opacities in the right lower lobe, which could represent atelectasis and/or atypical pneumonia. Liver: Normal. No mass. Gallbladder and bile ducts: Normal. No calcified stones. No ductal dilation. Pancreas: There is atrophy of the pancreatic head and uncinate process. Spleen: Normal. No splenomegaly. Adrenal glands: Normal. No mass. Kidneys and ureters: The patient is status post right nephrectomy. There is severe left-sided hydroureteronephrosis. The left ureter terminates in a loop of bowel in the pelvis. There is a 10 mm calcification in the anastomosis site of the ureter best seen on image 387 of series 5. This could represent an obstructing calculus. This was not visualized on prior study. There is also inflammatory changes with fat stranding in left perinephric region. There is also a 7 mm nonobstructing calculus in the lower pole of the left kidney. Stomach and bowel: There is fluid throughout the distal colon, which could represent diarrhea. Appendix: The appendix was not visualized and may be surgically absent. Intraperitoneal space: Unremarkable. No free air. No significant fluid collection. Vasculature: The aorta demonstrates mild atherosclerotic calcification. Lymph nodes: Unremarkable. No enlarged lymph nodes. Urinary bladder: Patient is status post resection of the urinary bladder. Reproductive: Unremarkable as visualized. Bones/joints: The spine demonstrates moderate degenerative changes at multiple levels. The patient is status post right hip arthroplasty. There is severe streak artifact from metallic hardware limiting evaluation of the adjacent structures. Soft tissues: There are bilateral fat containing femoral hernias. IMPRESSION: 1. The patient is status post right hip arthroplasty. There is severe streak artifact from metallic hardware limiting evaluation of the adjacent structures. 2. There is severe left-sided hydroureteronephrosis. The left ureter terminates in a loop of bowel in the pelvis. There is a 10 mm calcification in the anastomosis site of the ureter best seen on image 387 of series 5. This could represent an obstructing calculus. This was not visualized on prior study. There is also inflammatory changes with fat stranding in left perinephric region. There is also a 7 mm nonobstructing calculus in the lower pole of the left kidney. 3. Ground-glass opacities in the right lower lobe, which could represent atelectasis and/or atypical pneumonia. 4. The patient is status post right nephrectomy. 5. Patient is status post resection of the urinary bladder. 6. There is fluid throughout the distal colon, which could represent diarrhea. 7. There are bilateral fat containing femoral hernias. THIS DOCUMENT HAS BEEN ELECTRONICALLY SIGNED BY GARFIELD CROUCH MDThis document has been electronically signed by Garfield Crouch MD on 12/12/2020 10:30 PM Name Value Range Interpretation Code Description Data Sherice rce(s) Supporting Document(s) ID Date Data Source [id number] 12/12/2020 08:16:00 PM EDT [facility] Name Value Range Interpretation Code Description Data Sherice rce(s) Supporting Document(s) SARS-CoV-2 RNA 2019 nCoV Real-Time RT-PCR: NOT DETECTED [facility] This lab was ordered by [facility] and reported by [facility]. ID Date Data Source [id number] 12/12/2020 10:13:55 PM EDT [facility] XXX-Imp : NoneRespiratory P CR Panel : PCR ResultsMicroorganism XXX Cult : See Labs Tab for 2019 nCoV RT-PCR resultsHAdV DNA QI CLAIRE+non-probe : Not DetectedHCoV [id number] Nph QI CLAIRE+non-probe : Not DetectedHCoV WPC2EWN Nph QI CLAIRE+non-probe : Not [id number] RNA Nph QI CLAIRE+non-probe : Not [id number] RNA Upper resp QI CLAIRE+probe : Not DetectedhMPV RNA Nph QINAA+non-probe : Not DetectedRV+EV RNA Nph QI CLAIRE+non-probe : Not DetectedFLUAV RNA Nph QI CLAIRE+ non-probe : Not DetectedFLUBV RNA Nph QI CLAIRE+non-probe : Not DetectedHPIV1 RNA NphQINAA+non-probe : Not DetectedHPIV2 RNA Nph QINAA+non-probe : Not DetectedHPVI3 RNA Nph CLAIRE+non-probe : Not DetectedHPIV4 RNA Nph Q CLAIRE+non- probe : Not DetectedRSV RNA Nph Q CLAIRE+non-probe : Not DetectedB pert.PT PrmtNph Q CLAIRE+non-probe : Not DetectedC pneum DNA Nph Q CLAIRE+non-probe : Not DetectedM pneum DNA Nph Q CLAIRE+non-probe : Not DetectedB [id number] DNA Nph CLAIRE+non-probe : Not Detected Name Value Range Interpretation Code Description Data Sherice rce(s) Supporting Document(s) ID Date Data Source [id number] 12/12/2020 10:13:30 PM EDT [facility] Name Value Range Interpretation Code Description Data Sherice rce(s) Supporting Document(s) Specimen source [Identifier] of Unspecified specimen [facility] SARS-CoV-2 RNA 2019 nCoV Real-Time RT-PCR: NOT DETECTED [facility] Assay Performed [facility] Patients first test for [facility] 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 [facility] Patient has symptoms related to [facility] When did you start to experience these symptoms [Date and time] [Phen X] [facility] Patient was hospitalized because of this condition [facility] patient was admitted to ICU for [facility] Patient resides in a congregate care setting [facility] status [facility] ID Date Data Source [id number] 12/12/2020 08:41:26 PM EDT [facility] Name Value Range Interpretation Code Description Data Sherice rce(s) Supporting Document(s) Leukocytes [#/volume] in Blood by Automated count 12.2 10*3/uL 4-10 H [facility] Erythrocytes [#/volume] in Blood by Automated count 4.72 10*6/uL 4.6- 6.1 [facility] Hemoglobin [Mass/volume] in Blood 13.2 g/dL 13.5-18 L [facility] Hematocrit [Volume Fraction] of Blood by Automated count 41.0 % 4 1-53 [facility] Erythrocyte mean corpuscular volume [Entitic volume] by Auto mated count 86.7 fL 80-96 [facility] Erythrocyte mean corpuscular hemoglobin [Entitic mass] by Automated count 28.0 pg 27-33 [facility] Erythrocyte mean corpuscular hemoglobin concentration [Mass/volume] by Automated count 32.3 g/dL 32.0-36.0 [facility] Erythrocyte distribution width [Ratio] by Automated count 15.3 % 11.5-14.5 H [facility] Platelets [#/volume] in Blood by Automated count 268 10*3/uL 150-400 [facility] Differential cell count method - Blood [facility] Neutrophils/100 leukocytes in Blood by Automated count 81 % [facility] Lymphocytes/100 leukocytes in Blood by Automated count 11 % [facility] Monocytes/100 leukocytes in Blood by Automated count 8 % [facility] Eosinophils/100 leukocytes in Blood by Automated count 0 % [facility] Basophils/100 leukocytes in Blood by Automated count 0 % [facility] Neutrophils [#/volume] in Blood by Automated count 9.89 10*3/uL 1.8-7 .0 H [facility] Lymphocytes [#/volume] in Blood by Automated count 1.30 10*3/uL 1.2-4 .0 [facility] Monocytes [#/volume] in Blood by Automated count 0.99 10*3/uL 0-0.8 H [facility] Eosinophils [#/volume] in Blood by Automated count 0.02 10*3/uL 0-0.5 [facility] Basophils [#/volume] in Blood by Automated count 0.03 10*3/uL 0-0.2 [facility] Nucleated erythrocytes/100 leukocytes [Ratio] in Blood by Automated count 0 /100{WBCs} 0-0 [facility] ID Date Data Source [id number] 12/12/2020 09:03:24 PM [facility] Name Value Range Interpretation Code Description Data Sherice rce(s) Supporting Document(s) Lipase [Enzymatic activity/volume] in Serum or Plasma 46 U/L 13-6 0 [facility] ID Date Data Source [id number] 12/12/2020 09:03:24 PM [facility] Name Value Range Interpretation Code Description Data Sherice rce(s) Supporting Document(s) Albumin [Mass/volume] in Serum or Plasma by Bromocresol green (BCG) dye binding method 4.1 g/dL 3.5-5.2 [facility] al Bilirubin.total [Mass/volume] in Serum or Plasma 0.7 mg/dL <1.2 [facility] Bilirubin.direct [Mass/volume] in Serum or Plasma <0.3 [facility] Hemolyzed Alkaline phosphatase [Enzymatic activity/volume] in Serum or Plasma 128 U/L 40-129 [facility] Aspartate aminotransferase [Enzymatic activity/volume] in Serum or Plasma 22 U/L <40 [facility] Hemolyzed Alanine aminotransferase [Enzymatic activity/volume] in Seru m or Plasma 22 U/L <41 [facility] Protein [Mass/volume] in Serum or Plasma 7.2 g/dL 6.4-8.3 [facility] ID Date Data Source [id number] 12/12/2020 09:03:24 PM EDT [facility] Name Value Range Interpretation Code Description Data Sherice rce(s) Supporting Document(s) Bicarbonate [Moles/volume] in Serum 13 mmol/L 22-29 L [facility] Chloride [Moles/volume] in Serum or Plasma 108 mmol/L 98-107 H [facility] Creatinine [Mass/volume] in Serum or Plasma 1.80 mg/dL 0.70-1.20 H [facility] Glucose [Mass/volume] in Serum or Plasma 113 mg/dL 70-140 [facility] Potassium [Moles/volume] in Serum or Plasma 4.2 mmol/L 3.4-5.1 [facility] Hemolyzed Sodium [Moles/volume] in Serum or Plasma 137 mmol/L 136-145 [facility] Urea nitrogen [Mass/volume] in Serum or Plasma 65 mg/dL 8-23 H [facility] Anion gap 3 in Serum or Plasma 16 mmol/L 8-15 H [facility] Osmolality of Serum or Plasma by calculation 303 mosm/kg 275-300 H [facility] Creatinine/Urea nitrogen [Mass Ratio] in Serum or Plasma 36 [facility] Calcium [Mass/volume] in Serum or Plasma 9.3 mg/dL 8.8-10.2 [facility] Glomerular filtration rate/1.73 sq M pre dicted among non-blacks [Volume Rate/Area] in Serum or Plasma by Creatinine-based formula (MDRD) 37 mL/min/1.73m2 >60 L [facility] Glomerular filtration rate/1.73 sq M pre dicted among blacks [Volume Rate/Area] in Serum or Plasma by Creatinine-based formula (MDRD) 43 mL/min/1.73m2 >60 L [facility] ID Date Data Source [id number] 12/12/2020 07:02:15 PM EDT [facility] Name Value Range Interpretation Code Description Data Sherice rce(s) Supporting Document(s) Glucose [Mass/volume] in Capillary blood by Glucometer 135 mg/dL 70- 140 [facility] ID Date Data Source [id number] 12/07/2020 01:09:56 PM EDT [facility] Name Value Range Interpretation Code Description Data Sherice rce(s) Supporting Document(s) Progress Note [facility] NGEUBw0fZkUGWbBv15/FDKvcKBRfa5TxPDtmFJb1MUsgVNLwC0DqLCP5lJ6mEDL0PJjNVuQxZpJdRzG6 lbm [file] AgICAgICAgICAgICAgICAgICAgICAgICAgICAgICAg ICAgICAgICAgICAgICAgICAgICAgICAgICAgICAgICAgICAgICAgICAgICAgICAgICAgICAgICAgICAg DJUiSBLgRC7VJNIcNWJqTZShGAXaMUDcJBAuVBObBBGdSJYnRDQkEAKeXMAvTVSrMVImQDKxEFTvAANh ICAgICAgICAgICAgICAgICAgICAgICAgICAgICAgIC JzEOSbNPQxBGReWZCtGXSlZQ3VUMKvNOQtHTObSSTiMMXqEQKbHRQfCPJmBNTzJJBrDIJmLSDqGMYhJH AgICAgICAgICAgICAgICAgICAgICAgICAgICAgICAgICAgICAgICAgICAgICAgICAgICAgICAgICAgIA 0KICAgICAgICAgICAgICAgICAgICAgICAgICAgICAg ICAgICAgICAgICAgICAgICAgICAgICAgICAgICAgICAgICAgICAgICAgICAgICAgICAgICAgICAgICAg JYApJKEoVSCgEB6IQRXoTJNuBDIeFDBnIAEiGBCsVBSjXOYkQBGlZYJmCUOvJVWoASJoXXUgVBKdJDIe ICAgICAgICAgICAgICAgICAgICAgICAgICAgICAgIC OuDLEdAVTvDOUvKORcAUOtJWVbYW8RZHRfXPPmLAXmJZDpTCQtNOKnMQWvMKXrXOOkETPaDDHxCVWmEP AgICAgICAgICAgICAgICAgICAgICAgICAgICAgICAgICAgICAgICAgICAgICAgICAgICAgICAgICAgIC JhQP3ZEDEoOUUvUAKgWYQpUGAtUEWoUDZkVIQjUXBb ICAgICAgICAgICAgICAgICAgICAgICAgICAgICAgICAgICAgICAgICAgICAgICAgICAgICAgICAgICAg KXMtJTPePMRsZAAaTZ0FWVElRWOgCKNyHHBgUJBkVYLhPWWmCLNvKQWyXBPcOWEgFZKtTTByPCYaPDBt ICAgICAgICAgICAgICAgICAgICAgICAgICAgICAgIC UzUZXmKOIvHKDxUOYuOAAaEVLwSHDwUP2FKUVmWCUpOAXuKNHaGIMsVOGpVZWuJRBdIMZpBIFeBRYsOB AgICAgICAgICAgICAgICAgICAgICAgICAgICAgICAgICAgICAgICAgICAgICAgICAgICAgICAgICAgIC ZhLXOpYV5KMMZmBYOiSZDeZSLtBSGjAARbJSMmJOXn ICAgICAgICAgICAgICAgICAgICAgICAgICAgICAgICAgICAgICAgICAgICAgICAgICAgICAgICAgICAg HNFiRTLhTDJsXDJeUOAsFW4JDY56aQWqe5N9MLYcPF6mrtd/Lf6KUIihxsCdbWDqVS1OFrWaPF1tdn8N VjLuZS2rkk3XFDnAHeByX1P7xMIiMMUyYNLLDbWjG1 1fPJolKs44HNpiNLWvXmUrCFj3Oh9GKvEgI9kiETCfTeF0SUMxRhHqETllKV5Mr4VraHBgKZu+Pg0KZW 2xt5SwVUprRSMkIZ4dwb4MJMqFLeXnY7BlxfG4CZMdZRBhNj8XEOCvQGQpiEWfZEHpVVJWEkSaA0CosB 97CGHOQp4+NFxuehXiQkkBKpRhZLVrm0UrJRj5CW5C TNKyROl8eFNgMMArQ3Nyi6CwHb68AXAtDiqvE991zhGxTEnyWjqbP5tpZLtevcndVLHVBQX6IGgzDa6q BKKgPEV6UqT4QURIMI2UHDEaTIIkcKTbLOHoGBUISM2MSCfvYSJ1DKYjicUccULtSXrbSW2DQPYieaWm MTkgMCBSDQo+Hf8MBN4bs1EmECpsSCQwRM9mqm6HVG yZVaWuR6X7qJYyS0A7FCrcDc6HMMJzAHXrFWvpCQBWHFdcOG3OQS1xkwH7FV1VvIAhRZDmDAMzeDSdPS u5T82zjGGtRTjvNR5PIPU+Edgar+Ih9QVSEyOHJtBZNcSoXpFCNPReLbP7StB3VBo3JrQ5HxNX86qLqrsr EdUWqtIC0VAC0pBHIaXPJSBO1KiTTabF8yklRmBAKd BRAITfClP76oxXOnXANbFLX6LTPtQq0DOEZlI3XndnJoyOkkbfTqPIWtDWGAQN9VQUdabsWszOTvsUvf TM05nCriJQ2KKh9MYsUlXD0vsw1RfLYeRl4LPKSwSi9JBLGeDYRtRGYnRNJ2XRGrIkRuSMfzNCKfOJOu OMS8NDPnKOSkAJ3RYsXvSGRmMPB0BBKwZWZzOUUskw 8ETREvOJLpEXJjNcRdMHZpVBYzHQapBXGaIHAeYWT5DXGlXLScOM8EIkIcXKGhZPS6USYeIIXfPLNgqk 9ACNHyMXBeHSftFYErCTAdJXOdMXerSTKqIGDlLMh8SMYhIIYsKG4GDtZlHGJzDRCkLgGzBWJwAGOtjb 3PVUSjZVMqMnH5UQVaQLGrKHPbWWzsTGDwPQT7QqR6 GHNtICEmJI5NLsGgQXMvHJJ6VDNnXPAjBSKndh2KIVLpWDZvFOF1VmXzTWDcEPKaJCmbMJDmAEK8AYIb BDCmCXKwLD6PZfOcDTVePNFwKiwcQSRfKRQeaa7TDGNrXWZaYmR8OtNeOXJlQFQlXGdvRLUnZMV2JkP1 JQIqMPEuCS3BVkMtZHTzCFA3YxDxNXRnCPWwcj4NWE BfSMBoMhH9AuFlBOAgJLAtCIwqOILiNAQ9MqQnEKMxCEPrFA7RZaEjNZIfBVv1YuIqFHBzKVAbdu3CQG AiTMMuZYfmDuGaONWdQXWqQDx8afSpoSGmRBq3WS3HF2UxslXqJeZCOd6Xg279YSLhRTLeOj4WN1erIb 2tRHEzQUWSWj0LETd2HGZcMZKdIYMqHEO8UDIjZ4O9 CKf4RUC3DabpNFpxOwR+HUrbF1FnXQYuTIY4IWT6XkUuKEFyIBCiPyjnZ4K0E7RnOD5aDQRTXe5+DQpz xPMzmLuqAWAWZdZ2NRobZCipBSJFTf5O ID Date Data Source [id number] 12/02/2020 10:52:22 AM EDT [facility] Name Value Range Interpretation Code Description Data Sherice rce(s) Supporting Document(s) Progress Note [facility] WHJJBn3cRzWILuEi67/LPRqiFPNbz4IjJZfaOJf5TFiqPLTrE8JrPND6kD1ySDT1TUgDFnBkXoBqByYt lbm [file] ICAgICAgICAgICAgICAgICAgICAgICAgICAgICAgIC AgICAgICAgICAgICAgICAgICAgICAgICAgICAgICAgICAgICAgICAgICAgICAgICAgICAgICAgICAgIC TiFKUsHA5DJYCeQJOmVZWvUNCaIMHuZYRaTVTpVPFgRICaWMTlHGMbXYKqIGMmTVUlLIQeNRVfOOKaUL AgICAgICAgICAgICAgICAgICAgICAgICAgICAgICAg GJWkZPOpFEQcGWMcCNBoQL5OIBFtKVWyCAXtHCJzUDKvLTKjIBAmPYQfHKOvBVDhSUHcCQBrHLSsKABq ZOOpNVWbIBVeSAYyGGNdZRYcJJNgIKOrSVWsNZZxGSJgDNRqLASnBGWoGAZnUFJoVNGgCMKdACOzCG0Q ICAgICAgICAgICAgICAgICAgICAgICAgICAgICAgIC AgICAgICAgICAgICAgICAgICAgICAgICAgICAgICAgICAgICAgICAgICAgICAgICAgICAgICAgICAgIC VxSHJhVCDhFZ0TMGLnQFShVPYlQPXaHNMsZXUkTEFqBABeRWCbIIMmIAEiEOWbAWVsCZLuFPBxAUMjXD AgICAgICAgICAgICAgICAgICAgICAgICAgICAgICAg ASTlZCOzPBLkJMRlGZMpMOToRC6MRZLlSBXxCURpHXGeUVXoYXTbPWDbQCDnNHRoEWYwGCKiHQKcMPLf ICAgICAgICAgICAgICAgICAgICAgICAgICAgICAgICAgICAgICAgICAgICAgICAgICAgICAgICAgICAg HR0AYPWgQIXqRJCoKLBhMTAhHVTkSTFhRQKaVQBgSF AgICAgICAgICAgICAgICAgICAgICAgICAgICAgICAgICAgICAgICAgICAgICAgICAgICAgICAgICAgIC KvPNXqZEVvPQRwVH0NENYiCXDtYWHtOAIiMPIsQRZvNXIjHSHkNWHdRRBsLTZuLSXbGBIaGJNwQMRnFM AgICAgICAgICAgICAgICAgICAgICAgICAgICAgICAg TAVoDWNqHEGpITHnDKRgRSWcSOBsTD4DANCdHSSuPMJgACOiFMBzOERzCYVzYASlPRKoJJZmMGWoITMo ICAgICAgICAgICAgICAgICAgICAgICAgICAgICAgICAgICAgICAgICAgICAgICAgICAgICAgICAgICAg PBDpOG3ZAV74zHAwq0F1FHWjBL3phlu/Yt3JDWztbl JbvLRaTI4WRbYdCZ4pgp2LVtVeLS8hyc4ZKVoJXwOyL3Q5gBYqQMJwZCCJDnUwR41hEIppGb50JSaqOO CxAuPvEMd3Ec9RTzEyB6gwRQYtItR1EDPyLtA3CMKdQzHpUTwmGH2Xf6JpsTFuGFq+Jb9CHX2vm3UzAB quHBBvBE9wej3HDDtGQfUyT6OapjD2ACPbAZZkVi4H GOGhEGPhmQYeZyNpLBSNLsWgU0JcvV50IMPJOg1+CGkjqfBvGkmYZtFqVCCcc3XeBKg2CX0EKXPpHBh8 yFGcCTVcJ0Psn7MzNj37CSFrMfjyYuAdWPAiCxKRO3cvngYSGPuhWW2KNQR1HHmqKh5xWYKmBRC6UhW6 CNKCVF7NVFOkBEWkvIUxRUUrHPJUZB5LQAltQFN0EW YqmhAeuKBlKWggLJ1ASNXtqvKcDeEbGNJZMKg+Lp9EVN9tz1AaSMwsRrDhOJ3oia1YNAzBArExP2F2aS AnN2Q3TOpbYh7QVWMuIGPjKWxkJWPSOUxdPU4BHC0kyvQ2AB7CfKNcVUAwHHMmmKQlMVp7X87lpTEmFP chJY1MPOF+Edgar+Yp2FAUUyDPCnSVMbHgYePANTWxCd K9ZzK3XUp0LhD7UvOU47rUxiabGkCJexCM7RYC8aXAVfXWCXQD6DkMRmeV5iuzVeWOZlLOSZVqYiW93s zKPgXQKpQCRsZNNeSz8VXZXaZ0KwvbBthAewexGnZUVsJDDHHH2QSAnfdsMfuMJkpRckMH19rAlhFZ8B Tn0HRgDhAF6zqb4JqXBhQr8HSIZyMX0AOUJkPPAaLT AtTNY3UPJfQqBuBOqiGIAmEEWwKWS8VRFkWKLlWW1VOwWiMCPgEsQaUDScONWgKDVmwq2TQOJsXXArPv fjCmYrDSGeEOGeEYuiJVNnEVPuQJH2QQUgQVVqVP6LOqRhYAOgGNL6OyzaSVPjUAPhvy0INHEyGULbAe i4OBFhXQTwNQVfQIdhQCVnUWP2UdWrSYNfZDNdQU3G TnOfBANnJHY1TpUxKAWrGKLvcz0WOKLiQABcZIj0TJUfSQJxEIEzVGovDHMdKCS3JXxgAOEzXDPiUI0X YkDfDNOkQAXmNeDvUSRpXLMkaf8JIAVwVZCcYnOjWCCqSOZgDLQeGShdFFLgPHU8SsWlESRlHYSsFE3I XyBpKHPhCNs9UQUvKPDrSHGxsz4UYOZdGJSaZZF9WF DtEMLnUTCeIWqzYYNhKOWsAKAmRUUnNHWoYA0IRjNoBHNpGeJ7UhToASHjJWPoms4RVGJcADWrGCefQE TyOLBbPLGqLIfjNXWuPPRgFSMqQDGnUQEyPU0LJcSnCNHdZjR5OmYwNZQsVXFbes4IVSTnSVByRqxxKm ZlUZHwJPWuCMktMGSjWYPzOIh6SZBfXYCpZC7JXtKi LWFhWmIdGhbtOJIvJZBlrt4SrJHboBpebr5MZApMMq6SvSepMUS6FXooBr5fiDDaFtOwYVREEb9SuoZd SKDfWYAIBMusWQQwNOGdKVO1ECViHvH0OjIzWpTqEYZsUnDsESy9AbtlXyTuBoD1GfRhQOD6JLYoMIPs HQE0RaLtYAL3OlKvSFqgGALgHrJ+KN1jGZk+Vg6Cj1BkiqQ1sqDrOHngTGT2Hp0NFYJCE3ODDk== ID Date Data Source [id number] 10/01/2020 12:48:54 PM EDT [facility] XR HIP- UNILAT, 2-3 VIEWS [id number] RE SULTInterpreted by:Shelby Lewis MDIndication: Status post right total hip arthroplasty in the setting of congenital pubic diastasis and bladder exstrophyTechnique: 3 views pelvis and right hipComparison: August 17, 2020 immediate postop x-raysFindings: A well sized and positioned right press-fit total hip arthroplasty shows no subluxation, dislocation, periprosthetic fracture, or loosening. Left hip shows well-preserved joint space. Pubic diastases is unchanged. No acute findings.Impression: Unchanged right total hip arthroplasty without radiographic complication. Marked pubic diastasis, unchanged.This document has been electronically signed by Shelby Lewis MD on 10/01/2020 12:48 PM Name Value Range Interpretation Code Description Data Sherice rce(s) Supporting Document(s) ID Date Data Source [id number] 10/01/2020 12:46:12 PM EDT [facility] Name Value Range Interpretation Code Description Data Sherice rce(s) Supporting Document(s) Progress Note [facility] YBRNCz2zMiFLNcOa19/YZMdtQJZzu5SxNXxjHDw3NGpiRTJjC7VzXLQ0bI4qEPL6DQmFJuTnGvWuTYCd lbm [file] g01OYOIM3Dz4m9PDZPf1JXp1xb1Zvlh+LANDING SUPPORT SPECIALIST+ZeL1TI8o4E/+1m3Qs2d7Em7+rPG1OVR1YgTn9PGhfnl1G [file] AgICAgICAgICAgICAgICAgICAgICAgICAgICAgICAg ICAgICAgICAgICAgICAgICAgICAgICAgICAgICAgICAgICAgICAgICAgICAgICAgICAgICAgICAgICAg ICAgICAgICANCiAgICAgICAgICAgICAgICAgICAgICAgICAgICAgICAgICAgICAgICAgICAgICAgICAg ICAgICAgICAgICAgICAgICAgICAgICAgICAgICAgIC AgICAgICAgICAgICAgICAgICANCiAgICAgICAgICAgICAgICAgICAgICAgICAgICAgICAgICAgICAgIC AgICAgICAgICAgICAgICAgICAgICAgICAgICAgICAgICAgICAgICAgICAgICAgICAgICAgICAgICAgIC ANCiAgICAgICAgICAgICAgICAgICAgICAgICAgICAg ICAgICAgICAgICAgICAgICAgICAgICAgICAgICAgICAgICAgICAgICAgICAgICAgICAgICAgICAgICAg ICAgICAgICAgICANCiAgICAgICAgICAgICAgICAgICAgICAgICAgICAgICAgICAgICAgICAgICAgICAg ICAgICAgICAgICAgICAgICAgICAgICAgICAgICAgIC AgICAgICAgICAgICAgICAgICAgICANCiAgICAgICAgICAgICAgICAgICAgICAgICAgICAgICAgICAgIC AgICAgICAgICAgICAgICAgICAgICAgICAgICAgICAgICAgICAgICAgICAgICAgICAgICAgICAgICAgIC AgICANCiAgICAgICAgICAgICAgICAgICAgICAgICAg ICAgICAgICAgICAgICAgICAgICAgICAgICAgICAgICAgICAgICAgICAgICAgICAgICAgICAgICAgICAg ICAgICAgICAgICAgICANCiAgICAgICAgICAgICAgICAgICAgICAgICAgICAgICAgICAgICAgICAgICAg ICAgICAgICAgICAgICAgICAgICAgICAgICAgICAgIC AgICAgICAgICAgICAgICAgICAgICAgICANCiAgICAgICAgICAgICAgICAgICAgICAgICAgICAgICAgIC AgICAgICAgICAgICAgICAgICAgICAgICAgICAgICAgICAgICAgICAgICAgICAgICAgICAgICAgICAgIC AgICAgICANCiAgICAgICAgICAgICAgICAgICAgICAg ICAgICAgICAgICAgICAgICAgICAgICAgICAgICAgICAgICAgICAgICAgICAgICAgICAgICAgICAgICAg ICAgICAgICAgICAgICAgICANCjw/iOHwM9qedJPqavF6P6woLz3XJg3LQO7yp6RxYAYgXIspoiElWdqY PjKbEDEaIjuZOct1UBadSY2UqDQgR1CwY8VhDCmnUH 2CFNBrRWNprYYyTTYzEIVlSdB0TLDgLUlwZO0SbSPtDHwfFVJeDDBaOnRpIOEfLJ7UITXcN958wlNfSs 5KVx4TPjNuBF2ema2VAgUeIWLcNroIEtm1SEbkAR8MrURlcTFpFPAjSUBDQoGeL8sem6JkZlAuRWFOHH mbKL1Sd9AelRRmTUv+Jz3VSL7rl4BoZWhoBMAuHP4b cm7GSKjKGpYeO0ZvmQmtNYHij1uiBBRvAV4vdTNfSYO9VPVyK6pjqnSnOMMMbSGmHO2xWXvfYZWbZIYt WC6mOZ6hGKAyBNDbEkBpOWIFGG6KHFXoOIOokDZqIKDfMVOEKQ6AFBhbHHE2MFUekeTuqAPnCVvbZL3E YXJlbnQgMjQgMCBSDQo+Xc6DOS4kv0TvMQdaGzEiWB 7dmx5AGCiJAmQtS0Y8pDKiN8Z4LOycQi8DRPYrKMVuJkIiSQHAQAlsGY4LCT4lobA4CX1YkWGlCNPjOI QhjHUsDVb4I38ykQRwPJonWN6SNXP+Edgar+Ho9RRMFxQAQgINSeIvDoBANVGqOrX2HiB1NQp7SdR3BxKB 87jCkztqWlWGbaEH5KMI3pSDHnGMDCXF9BfDPetS3u maTmSCLmTLQBFsWmC16ipJZlVNHaTLBcILVjDd6HDOXtL5GjcxFkvRwdodNtCNWsSMYFTY6QMIvyzqXl oOLmvKnvON06uPmeAV5IGy8CIhTzRK7wqv2GtXXuSj1SGJUqXa9UIPZhVIAzUMIqZRO3AQYcIoRgGLev AVLbRFQnZPH7ICBnFXExEU1NDhYeOBUwLpO0WfabAG KwGKOljm8XXYLePBPcONC8XfHtYEXiLIFnFNflCEZuGLQwBTY9WHKlGOMnWJ7YOrAmMPHzTBD3UROiEH NhGHEpqh8NYDLmXQNtRij1WRSqWFWzKKLuSYuqYKKzHPJ5LBg7FZJeMVDfQL4UTfXhXTUkEBSiAVYuKB HnDXZrke7SMYMhCGQeFrH7YZXfLGYmRQLtJFyhAOBm IXK3MbC4MKHyRJTcXD9POnIqMZCoMWR7QzirMFDhYGWjvo5PVPJtMNWzRhH8JrAdUXPcQBHsPLfkWRUe FRR6Oqw8XEGvHUUkCA6VFvHmGQGtGUq4PnXvRARuFGHjqs8MNFNsURWwNLQ8TPCvEETbOKKnDEgtULRn XWDwLJI6LRLyYGPhRP1BKlSxTDSnNgYlDTDgDTMzTD Ecvw3JVQPsMFQrKlA3DJIoBNIpFAHsPQckZGUhASFuKZG8IBJxBRPvYD7BCuWqXMDsKxT1GBStYDEoKS Ngva8GZISoFAGpGsIkTNTzNQIjNCDaTJplWNXhLIQmEHN3VTUmBQKtDJ6XUdIhIKPyEbGkQrYbDPGsOF Hjcm9MOENuFLWkTNI7ClWdXFJyYIAwZXcrBTDlUPJ6 XbU5BHOlIZErLQ7PEtDdWZLuUgP5WPEkEMNnMIHjkl5JwEUoeQqfag3TCZfPOp3PtCumXXG5OZlhTj9h oGXbRhXtEZYBPq6JfiCwPCCzJHIKZPaySDDdWXA6WIX7Hul7LNOmFRH8INN1HSY7NHhwUPjjNiM6HmWm AwQ8KQnlTgpoTUb8KsMjCXt9WHkpEjjdEUJ2HABoCo cyM2Q+GV4aZJz+Yw4Jt4OhtuG7tbAqSTjhPzJ7EC3RPYLBX6OIWb== ID Date Data Source [id number] 09/03/2020 11:45:22 AM EDT [facility] Name Value Range Interpretation Code Description Data Sherice rce(s) Supporting Document(s) Progress Note [facility] FGQNZj3qVcGMMiWd42/ALJecXLBcx4EjFFaeDDl3SStpFKUaV4WzBQE0rR6vJLY0POxPBuRmUgXzJFKl lbm [file] mVdVuHj+/y89c33fiV8Ko7MBwaq1K94znY8nuYyG+IAs888eW6+aXdu3NKKZ8hKSm50ARKNjrrQl/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 [file] 10i01oLkhFY8g4qHJfhITmwX1mj48XHMV8H17z471e rqxtFd3Y3FQf2jIqZG31VMpBFod24KWWTT0Az7c3GRWWz8XFl4xc9Nocv+LANDING SUPPORT SPECIALIST+EfV6CN3b2T/+0r3Se6o 0Hl4+wZF8DER1OxNe7DAuxlt4XrjHMnu8pR/GbthOagagvQZdquoUgaiA3BrrY7TsoGeEx3H9YTEv7Lw tEbKhwYTWWBEBppZ8n8sV7Ku3UTLBKSDIO7oXJVXK6 [file] F2JMU6wODxDf9NJfG8DPFWYyLpJX3UFHh= ID Date Data Source [id number] 08/23/2020 06:32:52 PM EDT [facility] Name Value Range Interpretation Code Description Data Sherice e(s) Supporting Document(s) Discharge Summary [facility] NRWOXc8sJwCUCxPa23/OERheERQvh4ZuTGxrLUy5YLrsRFZwD7WwGLA1rX3uNTK0MQcGBzGzEbEkLtQo lbm [file] QTTaND3NTBMNF1DABx== ID Date Data Source [id number] 08/21/2020 11:03:13 AM [facility] Name Value Range Interpretation Code Description Data Sherice rce(s) Supporting Document(s) Urate [Mass/volume] in Serum or Plasma 2.8 mg/dl 3.4-7.0 L [facility] ID Date Data Source [id number] 08/21/2020 09:52:03 AM [facility] Name Value Range Interpretation Code Description Data Sherice rce(s) Supporting Document(s) Glucose [Mass/volume] in Capillary blood by Glucometer 120 mg/dL 70- 140 [facility] ID Date Data Source [id number] 08/20/2020 09:33:10 PM [facility] Name Value Range Interpretation Code Description Data Sherice rce(s) Supporting Document(s) Glucose [Mass/volume] in Capillary blood by Glucometer 154 mg/dL 70- 140 [facility] ID Date Data Source [id number] 08/20/2020 05:28:18 PM [facility] Name Value Range Interpretation Code Description Data Sherice rce(s) Supporting Document(s) Glucose [Mass/volume] in Capillary blood by Glucometer 137 mg/dL 70- 140 [facility] ID Date Data Source [id number] 08/20/2020 12:30:30 PM [facility] Name Value Range Interpretation Code Description Data Sherice rce(s) Supporting Document(s) Glucose [Mass/volume] in Capillary blood by Glucometer 154 mg/dL 70- 140 [facility] ID Date Data Source [id number] 08/20/2020 11:18:21 AM [facility] US DOPPLER LOWER EXTREMITY UNILATERAL VE NOUS LIMITED [id number] RESULTInterpreted by:ALTHEA Albertrocedure: Right lower extremity venous Doppler ultrasound, 08/20/2020History: [id number] 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 Rule out DVT.Full result: Ultrasound examination of the right lower extremity veins was performed. The right common femoral, femoral and popliteal veins as well as proximal deep calf veins were examined.The examined deep veins show normal compressibility. Normal flow is determined by color Doppler and spectral waveform analysis. There is no evidence of deep venous thrombosis. The visualized soft tissue is grossly unremarkable. Mild edema appears to be present in the right calf.Impression: No deep venous thrombosis in the right lower extremity.This document has been electronically signed by Sherry Copeland MD on 08/20/2020 11:16 AM Name Value Range Interpretation Code Description Data Sherice rce(s) Supporting Document(s) ID Date Data Source [id number] 08/20/2020 08:34:41 AM [facility] Name Value Range Interpretation Code Description Data Sherice rce(s) Supporting Document(s) Glucose [Mass/volume] in Capillary blood by Glucometer 119 mg/dL 70- 140 [facility] ID Date Data Source [id number] 08/20/2020 05:21:12 AM [facility] Value Range Interpretation Code Description Data Sherice rce(s) Supporting Document(s) Leukocytes [#/volume] in Blood by Automated count 11.1 10*3/uL 4-10 H [facility] Erythrocytes [#/volume] in Blood by Automated count 3.42 10*6/uL 4.6- 6.1 [facility] Hemoglobin [Mass/volume] in Blood 10.6 g/dL 13.5-18 [facility] Hematocrit [Volume Fraction] of Blood by Automated count 31.7 % 4 1-53 [facility] Erythrocyte mean corpuscular volume [Entitic volume] by Auto mated count 92.5 fL 80-96 [facility] Erythrocyte mean corpuscular hemoglobin [Entitic mass] by Automated count 30.8 pg 27-33 [facility] Erythrocyte mean corpuscular hemoglobin concentration [Mass/volume] by [facility] 33.3 g/[facility] width [Ratio] by Automated count 14.0 % 11.5-14.5 [facility] Platelets [#/volume] in Blood by Automated count 201 10*3/uL 150-400 [facility] ID Date Data Source [id number] 08/20/2020 05:42:17 AM [facility] Value Range Interpretation Code Description Data Sherice rce(s) Supporting Document(s) Bicarbonate [Moles/volume] in Serum 18 mmol/L 22-29 L [facility] Chloride [Moles/volume] in Serum or Plasma 109 mmol/L 98-107 H [facility] Creatinine [Mass/volume] in Serum or Plasma 1.20 mg/dL 0.70-1.20 [facility] Glucose [Mass/volume] in Serum or Plasma 123 mg/dL 70-140 [facility] Potassium [Moles/volume] in Serum or Plasma 3.5 mmol/L 3.4-5.1 [facility] Sodium [Moles/volume] in Serum or Plasma 137 mmol/L 136-145 [facility] Urea nitrogen [Mass/volume] in Serum or Plasma 28 mg/dL 8-23 H [facility] Anion gap 3 in Serum or Plasma 10 mmol/L 8-15 [facility] Osmolality of Serum or Plasma by calculation 291 mosm/kg 275-300 [facility] Creatinine/Urea nitrogen [Mass Ratio] in Serum or Plasma 24 [facility] Calcium [Mass/volume] in Serum or Plasma 8.8 mg/dL 8.8-10.2 [facility] Glomerular filtration rate/1.73 sq M pre dicted among non-blacks [Volume Rate/Area] in Serum or Plasma by Creatinine-based formula (MDRD) 61 mL/min/1.73m2 >60 [facility] Glomerular filtration rate/1.73 sq M pre dicted among blacks [Volume Rate/Area] in Serum or Plasma by Creatinine-based formula (MDRD) 71 mL/min/1.73m2 >60 [facility] ID Date Data Source [id number] 08/19/2020 09:24:29 PM EDT [facility] Name Value Range Interpretation Code Description Data Sherice rce(s) Supporting Document(s) Glucose [Mass/volume] in Capillary blood by Glucometer 139 mg/dL 70- 140 [facility] ID Date Data Source [id number] 08/19/2020 05:32:04 PM [facility] Name Value Range Interpretation Code Description Data Sherice rce(s) Supporting Document(s) Glucose [Mass/volume] in Capillary blood by Glucometer 133 mg/dL 70- 140 [facility] ID Date Data Source [id number] 08/19/2020 03:01:13 PM [facility] XR FOOT 3 OR MORE VIEWS [id number] RESUL TInterpreted by:Cristina Chavez foot radiographs, 4 viewsINDICATION: Pain between first and second metatarsals.COMPARISON: None available.FINDINGS: Osseous structures are intact. There is mild first MTP joint arthrosis with hallux valgus. Also, there is soft tissue swelling about the inner margin of the first MTP joint with faint focus of calcification about the first metatarsal head.There is minimal enthesopathy at the Achilles and plantar margins of the calcaneus. Mild metatarsosesamoid joint arthrosis is noted, as seen on lateral projection.IMPRESSION: First MTP joint arthrosis with hallux valgus and mild bunion formation as described. Correlate clinically. No acute osseous or articular abnormality.This document has been electronically signed by Nathen Torres MD on 08/19/2020 2:59 PM Name Value Range Interpretation Code Description Data Sherice rce(s) Supporting Document(s) ID Date Data Source [id number] 08/19/2020 12:27:00 PM [facility] Value Range Interpretation Code Description Data Sherice rce(s) Supporting Document(s) Glucose [Mass/volume] in Capillary blood by Glucometer 156 mg/dL 70- 140 H [facility] ID Date Data Source [id number] 08/19/2020 08:52:00 AM [facility] Value Range Interpretation Code Description Data Sherice rce(s) Supporting Document(s) Glucose [Mass/volume] in Capillary blood by Glucometer 153 mg/dL 70- 140 H [facility] ID Date Data Source [id number] 08/19/2020 06:11:41 AM [facility] Value Range Interpretation Code Description Data Sherice rce(s) Supporting Document(s) Leukocytes [#/volume] in Blood by Automated count 12.7 10*3/uL 4-10 [facility] Erythrocytes [#/volume] in Blood by Automated count 3.77 10*6/uL 4.6- 6.1 L [facility] Hemoglobin [Mass/volume] in Blood 11.8 g/dL 13.5-18 L [facility] Hematocrit [Volume Fraction] of Blood by Automated count 34.3 % 4 1-53 L [facility] Erythrocyte mean corpuscular volume [Entitic volume] by Auto mated count 90.9 fL 80-96 [facility] Erythrocyte mean corpuscular hemoglobin [Entitic mass] by Automated count 31.2 pg 27-33 [facility] Erythrocyte mean corpuscular hemoglobin concentration [Mass/volume] by Automated count 34.3 g[facility].0[facility] width [Ratio] by Automated count 14.2 % 11.5-14.5 [facility] Platelets [#/volume] in Blood by Automated count 206 10*3/uL 150-400 [facility] ID Date Data Source [id number] 08/19/2020 06:28:51 AM EDT [facility] Name Value Range Interpretation Code Description Data Sherice rce(s) Supporting Document(s) Bicarbonate [Moles/volume] in Serum 16 mmol/L 22-29 L [facility] Chloride [Moles/volume] in Serum or Plasma 111 mmol/L 98-107 [facility] Creatinine [Mass/volume] in Serum or Plasma 1.15 mg/dL 0.70-1.20 [facility] Glucose [Mass/volume] in Serum or Plasma 124 mg/dL 70-140 [facility] Potassium [Moles/volume] in Serum or Plasma 3.1 mmol/L 3.4-5.1 L [facility] Sodium [Moles/volume] in Serum or Plasma 140 mmol/L 136-145 [facility] Urea nitrogen [Mass/volume] in Serum or Plasma 31 mg/dL 8-23 [facility] Anion gap 3 in Serum or Plasma 13 mmol/L 8-15 [facility] Osmolality of Serum or Plasma by calculation 298 mosm/kg 275-300 [facility] Creatinine/Urea nitrogen [Mass Ratio] in Serum or Plasma 27 [facility] Calcium [Mass/volume] in Serum or Plasma 9.2 mg/dL 8.8-10.2 [facility] Glomerular filtration rate/1.73 sq M pre dicted among non-blacks [Volume Rate/Area] in Serum or Plasma by Creatinine-based formula (MDRD) 64 mL/min/1.73m2 >60 [facility] Glomerular filtration rate/1.73 sq M pre dicted among blacks [Volume Rate/Area] in Serum or Plasma by Creatinine-based formula (MDRD) 74 mL/min/1.73m2 >60 [facility] ID Date Data Source [id number] 08/18/2020 09:16:04 PM EDT [facility] Name Value Range Interpretation Code Description Data Sherice rce(s) Supporting Document(s) Glucose [Mass/volume] in Capillary blood by Glucometer 137 mg/dL 70- 140 [facility] ID Date Data Source [id number] 08/18/2020 05:44:28 PM EDT [facility] Value Range Interpretation Code Description Data Sherice rce(s) Supporting Document(s) Glucose [Mass/volume] in Capillary blood by Glucometer 156 mg/dL 70- 140 [facility] ID Date Data Source [id number] [facility] Interpretation Code Description Data Sherice rce(s) Supporting Document(s) Hemoglobin A1c/Hemoglobin.total in Blood by HPLC 7.3 % 4.0-6.0 H [facility] Glucose mean value [Mass/volume] in Blood Estimated fr om glycated hemoglobin 163 mg/dL <126 [facility] ID Date Data Source [id number] 08/18/2020 06:23:18 PM [facility] Value Range Interpretation Code Description Data Sherice rce(s) Supporting Document(s) Potassium [Moles/volume] in Serum or Plasma 3.4 mmol/L 3.4-5.1 [facility] ID Date Data Source [id number] 08/18/2020 01:01:05 PM [facility] Value Range Interpretation Code Description Data Sherice rce(s) Supporting Document(s) Glucose [Mass/volume] in Capillary blood by Glucometer 213 mg/dL 70- 140 [facility] ID Date Data Source [id number] 08/18/2020 11:43:09 AM [facility] Value Range Interpretation Code Description Data Sherice rce(s) Supporting Document(s) Progress Note [facility] WSHASg4fKfGWYhTw73/EHGwbSRJaf1CcYEdvILw2PPvpFLCqJ0PcWES5kJ2lHVY4QFrGKgCwEoIeOkO5 [facility] [file] AgICAgICAgICAgICAgICAgICAgICAgICAgICAgICAgICAgICAgICAgICAgICAgICAgICAgICAgICAgIC AgICAgDQogICAgICAgICAgICAgICAgICAgICAgICAg ICAgICAgICAgICAgICAgICAgICAgICAgICAgICAgICAgICAgICAgICAgICAgICAgICAgICAgICAgICAg ICAgICAgICAgICAgICAgDQogICAgICAgICAgICAgICAgICAgICAgICAgICAgICAgICAgICAgICAgICAg ICAgICAgICAgICAgICAgICAgICAgICAgICAgICAgIC AgICAgICAgICAgICAgICAgICAgICAgICAgDQogICAgICAgICAgICAgICAgICAgICAgICAgICAgICAgIC AgICAgICAgICAgICAgICAgICAgICAgICAgICAgICAgICAgICAgICAgICAgICAgICAgICAgICAgICAgIC AgICAgICAgDQogICAgICAgICAgICAgICAgICAgICAg ICAgICAgICAgICAgICAgICAgICAgICAgICAgICAgICAgICAgICAgICAgICAgICAgICAgICAgICAgICAg ICAgICAgICAgICAgICAgICAgDQogICAgICAgICAgICAgICAgICAgICAgICAgICAgICAgICAgICAgICAg ICAgICAgICAgICAgICAgICAgICAgICAgICAgICAgIC AgICAgICAgICAgICAgICAgICAgICAgICAgICAgDQogICAgICAgICAgICAgICAgICAgICAgICAgICAgIC AgICAgICAgICAgICAgICAgICAgICAgICAgICAgICAgICAgICAgICAgICAgICAgICAgICAgICAgICAgIC AgICAgICAgICAgDQogICAgICAgICAgICAgICAgICAg ICAgICAgICAgICAgICAgICAgICAgICAgICAgICAgICAgICAgICAgICAgICAgICAgICAgICAgICAgICAg ICAgICAgICAgICAgICAgICAgICAgDQogICAgICAgICAgICAgICAgICAgICAgICAgICAgICAgICAgICAg ICAgICAgICAgICAgICAgICAgICAgICAgICAgICAgIC AgICAgICAgICAgICAgICAgICAgICAgICAgICAgICAgDQogICAgICAgICAgICAgICAgICAgICAgICAgIC AgICAgICAgICAgICAgICAgICAgICAgICAgICAgICAgICAgICAgICAgICAgICAgICAgICAgICAgICAgIC KtAZZoOCFnTROdVQOhPCo2D2ojRZEjDMUiNH4gRGu7 Jz8+LUcSMeVhYWE6kcHxxO0HOG8zv7FlIWnuGAQti1NoBDc0EF0DJYSgMKnjTZ9MEGocgv0JVQBeVEOo dVVPg9ckEmMsUTH9NZOgCctlZQ5HZPShJ3xhswSgEMAhLISIHWvoIIRTXYwdVGOQWA8QInLfY6NtvS97 IDMNCj4+AGbpsdCxJgvKSsZoDVNgc2DwUXy6FX9YIZ PjVaeuj1LlQsGiDEYUXPxlOW0YLTM8LXGcNYBpGs8JMUObP287uoJfYB6TAs9YJiAfHW5lcd5ELeDuDF UxPmmFRwo1PVsoCF4YaSDjZDfPci6etrJewpEVa9BsmxTuuNEODZF4uIAkVYUiJ7R0n9UkHLkfWRDvJL GrGy2fLx3tXZViKBUmSfCoRYKQQI7CROSdHVCnfXWq KRJsLFJWGT4CFEqjKPS8LJBeakGvuFLuFNnqXO6MBBSmitTaBdDqGNTDUIl+Bi7PSM0pt6BcWJpoZcOs VI8mfp1FKJrFQoLpB8G1jSEdQ0H4KJxxBe4TUSXxYQDjEJlbSZPIOUawVQ8UXM4nbvR7SG7KuIByOFHe HIXqyWKdDGw1V55shGGkSSopMS4GYYH+Edgar+Pg0KIC MjZATsTBKyKwHqNPPTPpVvJ0BzA2KLq1ScY5JlFI53vTeabqSgFWcjPB3MUB5zVMJkKVHAQA7FhAWgyA 3uzqRjZXUyRUGEKxLsR22nlLYaGZFuMXDvHAOdWt0CSVEoY9DkhlYygXrbajHwWBKbOCFDOJ1JCZprmc WjjYUboRklNC74vNxwME6HNx3CGiOaYZ7ezs9TgJKz Eo9BVSGzJA7MFBTfWJDvYEMgAGX6WQYyNlKvOMzlMYBvFIFySCG1LBYzESXrJD4FVxRpPRQePSG7DMMp CXZjAYMwlv0WAAHnCGPkIHS7JAEvVKDoXNQdTXmnTQIbPVUpCTP5PQLaPBWoJV4YIkGzRMVgKFY6RFGy ZRYtVQCuyx4WWBVtLEQvXxo2VBNaXXVcCWGbPYamAV KuCZJ2CwX0EBDyUUCqEL8PAbPxDXTfBLB1SwZiJCCbYAYqkp1VMVYjLEMmUGS2XWCsWQIbRJIcVCwgSN XtFIC6DdwvQVPaGEVqFU7DQoLtPGZwZFI7HbFvLSLvAPAbvr3LBQMcAZDhCXjnNMGhTPRvHLHxDBgjVO TlFAUkATWkDBBjHFJuRV2ETtKtKEKoGNO7CnObLTBu SKTiuc2BKFLgFGPgKhN0ZJIpPAWwTFNwJBpuVEGkOFJvKsYyKTCgGQIgOA4YLxXcTACnMRFnXxFvIWBs VVFsmr5HQQRqHWVrLkZjUjFqGHZeIDZuFKdpHTNiFQAyHnX9REDuOFMoGM5LCbUpGAEyBIDzYdxiHYMg YMPbwc6REJKgUWWxPZI7TQDoTWEdTSLkSAriAKEgOD B9UuFfORQqQJYbCH7KBrDbZRZnAAY7FQJhPNDsABNihh9PlBQunWfaym1YRLdATd3VtAyaEQN1HXayIr 8ojGXhShZuOQGXMu7HovRgODMiWATEQKzrQJNlSXInZxP0T7V8CmWmTzA7WtKuKzSfITf5TVMnBgFbDj UwEoB7KyTcEmviSQHmYVRpPDxzDFH3EZI8MBcoPcUv NDMyZjM+GK1lKWz+Oa8Kv4KnnqD5ayEdBGgyQkP5Xy7NUJKZB6RLJu== ID Date Data Source [id number] 08/18/2020 11:23:52 AM EDT [facility] Name Value Range Interpretation Code Description Data Sherice rce(s) Supporting Document(s) Progress Note [facility] IVPSVi5lJsBOPjQl57/ADLlgZTMrd7EvZSelFEu0CLuiWKVfH3RyMJM3mX5gHIX4SIpNWdRhGxTjXhQ7 lbm [file] AgICAgICAgICAgICAgICAgICAgICAgICAgICAgICAg ICAgICAgICAgICAgICAgICAgICAgICAgICAgICAgICAgICAgICAgICAgICAgICANCiAgICAgICAgICAg ICAgICAgICAgICAgICAgICAgICAgICAgICAgICAgICAgICAgICAgICAgICAgICAgICAgICAgICAgICAg ICAgICAgICAgICAgICAgICAgICAgICAgICAgICANCi AgICAgICAgICAgICAgICAgICAgICAgICAgICAgICAgICAgICAgICAgICAgICAgICAgICAgICAgICAgIC AgICAgICAgICAgICAgICAgICAgICAgICAgICAgICAgICAgICAgICANCiAgICAgICAgICAgICAgICAgIC AgICAgICAgICAgICAgICAgICAgICAgICAgICAgICAg ICAgICAgICAgICAgICAgICAgICAgICAgICAgICAgICAgICAgICAgICAgICAgICAgICANCiAgICAgICAg ICAgICAgICAgICAgICAgICAgICAgICAgICAgICAgICAgICAgICAgICAgICAgICAgICAgICAgICAgICAg ICAgICAgICAgICAgICAgICAgICAgICAgICAgICAgIC ANCiAgICAgICAgICAgICAgICAgICAgICAgICAgICAgICAgICAgICAgICAgICAgICAgICAgICAgICAgIC AgICAgICAgICAgICAgICAgICAgICAgICAgICAgICAgICAgICAgICAgICANCiAgICAgICAgICAgICAgIC AgICAgICAgICAgICAgICAgICAgICAgICAgICAgICAg ICAgICAgICAgICAgICAgICAgICAgICAgICAgICAgICAgICAgICAgICAgICAgICAgICAgICANCiAgICAg ICAgICAgICAgICAgICAgICAgICAgICAgICAgICAgICAgICAgICAgICAgICAgICAgICAgICAgICAgICAg ICAgICAgICAgICAgICAgICAgICAgICAgICAgICAgIC AgICANCiAgICAgICAgICAgICAgICAgICAgICAgICAgICAgICAgICAgICAgICAgICAgICAgICAgICAgIC AgICAgICAgICAgICAgICAgICAgICAgICAgICAgICAgICAgICAgICAgICAgICANCiAgICAgICAgICAgIC AgICAgICAgICAgICAgICAgICAgICAgICAgICAgICAg ICAgICAgICAgICAgICAgICAgICAgICAgICAgICAgICAgICAgICAgICAgICAgICAgICAgICAgICANCjw/ lREqK2demWAiqbP9J3ciQx2LSn1VFS6hk5AfJQUnOHjiepWbZgwPFiEfSNTgCryBAtt3KUxsHY5GeDTp H4IdB1DkMGveCH9PKYYwAWGgsDGvTVUxLYJtVzP2EU QeVLefBU2DdCAgWCqgLWUtSPEaFaSsAMZpGQ8QIKVzL880dsUpEh3ZCj3DZaMnXG8pkc5CAVNiMOYiIh oFMfv1QYirMV0GgNXmtGFcOiYjYOBCZwCsP5dlb1WlFSabPGKTILigVZ5Fr2FlgKFwYAy+Yy4GVQ8ms9 WlKEcoPwJgPD4ith5SWLeJKfBqL5KdoGbjMEKhv3uj LPZpHZ1qeSWiHIK7GVVtvuhhtGfgTKSVp1AyXKBjbnaiGk8qPFYqWu9jHq4aXPBuZPYfQkP8OLALWS7O KDFyFFKnnYDeCQDvIDUFFB3EEXlpEGL4OPEldpKboYYzQXhoMK0DLMLspmOkANCkAPSESCe+Jy1TDN6q b0JkUObrLKWbDV5tyl8PTZsUMfGpZ2Z2zPKzM5J4QA dfYa0AHNGqWQVkMSKjWRHVPPmzYQ4YBZ1hfaL5TN0QnIXvVOJjXWEdeGIkJTv6C10slEEyTJkmXF1FBU A+Edgar+Zk2LSAIjQNUdMDHlPbUaGUWLIyTiX1PzN7ABd5JhM9DmVL37pPxumsClTGqhTQ7QZE9cUAGaTR JKQT5TjWTcyK0hcdCjIyVnUKHFDlFkT65jfTYgEGRg JEZ8AEHfVo6FPXPyY7UehwJppEktekZmTYBgORZVDP9RMCgvqoOzvYNafRplXL17mBksWE3FOa2NZmFz XG5zup0RkYScVn6FKPEbBL7USTQxABTzDGEpUNQ2COGiYlLiVLtrRTNmMIOsRRB9YPIxLVYyKT2EWcWk QRPwTHx0TUNzULRqOIKozv1YKRTaLZOuATshXKQjGH PfAUNnRSaiWZTeWJOrLSG9BJFvWEAnVL8PMgPuGCVcAGWmZPGnYSKqMXGeuu5TNGAoKGHyPhS0THJbZL RiUCVnMFzvXBUzJFI0JVyySPHaVUEiXV1HUdUoSTImMLTsSmKcMGNhDNQlfk0LRRBfZKMgIbLvWPMpUJ LmEPMpLWbaZWQfXID7CRGiINPtPZKyWG2TBvHaTRYf QAh7TFEjNTYqASGauk5WIQUmQWXbMCO9ILNqILRiTBDsMQspUCTuZOT0DjmxKKJhYSUaKF8OMxOwSDMz SSj9TyAqTMKyPVRtgq8LNNHcWYVtZYM6EDHlFGAoPQUpWYipTHLfTFXmUTY1GVXxERKxNG5NAuXsYZCl RLL0BATpSXLzBRQazq2FKPZpBGRhXEAwZjLvCUDkXM SuYJt7wsEedDDbURl1NV9OS8ZjixFkQSoGEy6Jj924YYE3ADNpQx3JJ4hePk6eBIVuMBBKIl1EVGi5Pi g8EKQ7OnL1BnTcJgM5QZY2UwrmGcLtYiEwYWQ9VvY+XFpcSAnfTtB2UuszVEQnNEUlEnj9TTGjBABvFI OxHhlqGE8xRIKYKj4+MHxnwWGwvUkzTRRPQvSwGnh8DEqxHDJSQl2Z ID Date Data Source [id number] 08/18/2020 08:31:04 AM [facility] Name Value Range Interpretation Code Description Data Sherice rce(s) Supporting Document(s) Glucose [Mass/volume] in Capillary blood by Glucometer 134 mg/dL 70- 140 [facility] ID Date Data Source [id number] 08/18/2020 09:13:20 AM [facility] Name Value Range Interpretation Code Description Data Sherice rce(s) Supporting Document(s) Hepatitis C virus Ab [Presence] in Serum or Plasma by Immuno assay Non Reactive [facility] No serological evidence of active infect ion. If recent exposure is suspected, test for HCV RNA. ID Date Data Source [id number] 08/18/2020 06:07:56 AM [facility] Name Value Range Interpretation Code Description Data Sherice rce(s) Supporting Document(s) Bicarbonate [Moles/volume] in Serum 16 mmol/L 22-29 [facility] Chloride [Moles/volume] in Serum or Plasma 115 mmol/L 98-107 H [facility] Creatinine [Mass/volume] in Serum or Plasma 1.18 mg/dL 0.70-1.20 [facility] Glucose [Mass/volume] in Serum or Plasma 147 mg/dL 70-140 [facility] Potassium [Moles/volume] in Serum or Plasma 3.0 mmol/L 3.4-5.1 [facility] Sodium [Moles/volume] in Serum or Plasma 142 mmol/L 136-145 [facility] Urea nitrogen [Mass/volume] in Serum or Plasma 51 mg/dL 8-23 H [facility] Anion gap 3 in Serum or Plasma 12 mmol/L 8-15 [facility] Osmolality of Serum or Plasma by calculation 310 mosm/kg 275-300 H [facility] Creatinine/Urea nitrogen [Mass Ratio] in Serum or Plasma 43 [facility] Calcium [Mass/volume] in Serum or Plasma 8.7 mg/dL 8.8-10.2 [facility] Glomerular filtration rate/1.73 sq M pre dicted among non-blacks [Volume Rate/Area] in Serum or Plasma by Creatinine-based formula (MDRD) 62 mL/min/1.73m2 >60 [facility] Glomerular filtration rate/1.73 sq M pre dicted among blacks [Volume Rate/Area] in Serum or Plasma by Creatinine-based formula (MDRD) 72 mL/min/1.73m2 >60 [facility] ID Date Data Source [id number] 08/18/2020 06:04:34 AM EDT [facility] Name Value Range Interpretation Code Description Data Sherice rce(s) Supporting Document(s) Leukocytes [#/volume] in Blood by Automated count 11.5 10*3/uL 4-10 H [facility] Erythrocytes [#/volume] in Blood by Automated count 3.95 10*6/uL 4.6- 6.1 L [facility] Hemoglobin [Mass/volume] in Blood 12.1 g/dL 13.5-18 L [facility] Hematocrit [Volume Fraction] of Blood by Automated count 35.9 % 4 1-53 L [facility] Erythrocyte mean corpuscular volume [Entitic volume] by Auto mated count 90.9 fL 80-96 [facility] Erythrocyte mean corpuscular hemoglobin [Entitic mass] by Automated count 30.8 pg 27-33 [facility] Erythrocyte mean corpuscular hemoglobin concentration [Mass/volume] by Automated count 33.9 g/dL 32[facility]0-36.0 [facility] distribution width [Ratio] by Automated count 13.9 % 11.5-14.5 [facility] Platelets [#/volume] in Blood by Automated count 233 10*3/uL 150-400 [facility] ID Date Data Source [id number] 08/17/2020 10:52:37 PM EDT [facility] Name Value Range Interpretation Code Description Data Sherice rce(s) Supporting Document(s) Progress Note [facility] BNTFDp4rQyUOTjSi75/IGJdjXAFqx8DfKKseSMz3UJjnEIHiN1QlIXJ2eS6uZFV1FQkQHxIqIbUaJyE0 [facility] [file] ICAgICAgICAgICAgICAgICAgICAgICAgICAgICAgICAgICAgICAgICAgICAgICAgICAgICAgICAgICAg ICAgICAgICAgICAgICAgICAgICAgICAgDQogICAgIC AgICAgICAgICAgICAgICAgICAgICAgICAgICAgICAgICAgICAgICAgICAgICAgICAgICAgICAgICAgIC AgICAgICAgICAgICAgICAgICAgICAgICAgICAgICAgICAgDQogICAgICAgICAgICAgICAgICAgICAgIC AgICAgICAgICAgICAgICAgICAgICAgICAgICAgICAg ICAgICAgICAgICAgICAgICAgICAgICAgICAgICAgICAgICAgICAgICAgICAgDQogICAgICAgICAgICAg ICAgICAgICAgICAgICAgICAgICAgICAgICAgICAgICAgICAgICAgICAgICAgICAgICAgICAgICAgICAg ICAgICAgICAgICAgICAgICAgICAgICAgICAgDQogIC AgICAgICAgICAgICAgICAgICAgICAgICAgICAgICAgICAgICAgICAgICAgICAgICAgICAgICAgICAgIC AgICAgICAgICAgICAgICAgICAgICAgICAgICAgICAgICAgICAgDQogICAgICAgICAgICAgICAgICAgIC AgICAgICAgICAgICAgICAgICAgICAgICAgICAgICAg ICAgICAgICAgICAgICAgICAgICAgICAgICAgICAgICAgICAgICAgICAgICAgICAgDQogICAgICAgICAg ICAgICAgICAgICAgICAgICAgICAgICAgICAgICAgICAgICAgICAgICAgICAgICAgICAgICAgICAgICAg ICAgICAgICAgICAgICAgICAgICAgICAgICAgICAgDQ ogICAgICAgICAgICAgICAgICAgICAgICAgICAgICAgICAgICAgICAgICAgICAgICAgICAgICAgICAgIC AgICAgICAgICAgICAgICAgICAgICAgICAgICAgICAgICAgICAgICAgDQogICAgICAgICAgICAgICAgIC AgICAgICAgICAgICAgICAgICAgICAgICAgICAgICAg ICAgICAgICAgICAgICAgICAgICAgICAgICAgICAgICAgICAgICAgICAgICAgICAgICAgDQogICAgICAg ICAgICAgICAgICAgICAgICAgICAgICAgICAgICAgICAgICAgICAgICAgICAgICAgICAgICAgICAgICAg ICAgICAgICAgICAgICAgICAgICAgICAgICAgICAgIC NyDIc9V4jcJHOvQUMtAJ0zBLh2Jv2+DFbCRjYhXTQ5yvJizL1BCX9iv4IvHWxgWGYfc6OsOWx7TP1IAT GqYTbzDY0OBMzwwb5MWSHfQUYqzVYCe8aoRvBpFMP1GZQjKzspBC6YKNZbS9msnpIzHDYvXKAHCV1VLn AzF4IavU11VRASKu0+HEmlaxEsMvzCRdS4CYHbw4Ol STg5EP6MJCJlTrsov3YaSVVbTFDJPKwrCW5DMBR4BGQ9UULrDc4URTKzI455ivVbMA4GHm7PGfClNN9l rv7TIKLxYLDtCunUOtw4OUqjSW1RsPDdEMfNjl5zzdEmxgTVl4LxkoRexFXFxJukEvZcEdq2uZifVs5f AEYgIb0tHb6tTTWwJUEeWxC3ZZVVQJ6ACLPdWIWujU BfYKSlJVVKZB4FAZeuRSN4XIXpubEhxXAcXDnoTW4CXTVxziMvQKWmNCAPEXf+Wi9IQI1vz5AoOWyoXk RcTG2kye8ZHTsXDhKpB2N0eULxJ4C2NLsqXr9WSLCwEYVrHCPuZZJQYIkeVV5WJA6fahN6HT5GxBWzMC GeOEBojYQbFXg0H35ekGTuZRduDN8MZGN+Edgar+Pg0K JPQrBNXqXSFnFdWdBJKPFpDnQ3WtG3KWg5ByV5VtUW11pIldxyPlYFaqVB4OJI4iQGPgNRTYLF9PuDTe uS0oinUqEDWhPIPUKiBjF96hfRMyLCIfLRHrUWQyXr4PIDIyN0HshpAzzLeuzsAsUKDsEECNME1CAXuu lwPixSDvfBytGL37cXxlIC9IXt4VLoZjYT9wdd8JtV BuCd6VCUYdLg8TACYhPECsFAYaVAR2QKCjDqBsICfoYBBqOCGjGLZ5LQFvDIDmTY7NFiQzRNEvIFY7FQ IaNXEwFLZzjo0SCHWtAQBgEkG6XNHaEORkQGBoVAeyEEWcKLKkMCZ1EQMjWLMgBI1RRtZdKGVtVQJ0Ml FmSHWvKVHuhw6WWAKpNOKmCiBlSFIgFXMyDDDyYYxb DTKmCGQwIAlyOVKvCMZlWJ4DZaBdVUMlFCXbOAziMELmSWSmdm8TLOMoHFTlDeK8EJNkXIPoVRUlZCep HXOwTSJ6XRR6HALrZGXbHV3RViKfPBOwLOS4BzmcPHEyTCLghm9MDLWdLTByDXvlUiNdZMGfTHKrPHci SWJlTDU6ZzKyDQKxJHWqXQ9ERxCmONJjSDI9OHglKH QfGFZyoc1BDOBrBEOdFjubIMMxYGJjAKCnYEgoWUCzMYG3PWm1UJJkFSScVX8IMuPtVEcwXMITYmo3YW avS4h4PFOmMk4OC5Fal8OsADKhMJWEBFmjPO9ksfSyXUZwLe5JH6sQIjfwDCZgEyZhMMG8UsDdKLX0YD H0GSWpFCJfYVNjKID3MX7fZEA6KkQiWGF7AmPkObXi Nkw1YnNcRCH4FzVpAFZxYng0GzDrRW7QPa4CVmR6IDQ2xSMuYw4PHfOjYF6UMAYDH9FBBa== ID Date Data Source [id number] 08/17/2020 09:59:47 PM EDT [facility] Name Value Range Interpretation Code Description Data Sherice rce(s) Supporting Document(s) Glucose [Mass/volume] in Capillary blood by Glucometer 133 mg/dL 70- 140 [facility] ID Date Data Source [id number] 08/17/2020 05:28:16 PM EDT [facility] Name Value Range Interpretation Code Description Data Sherice rce(s) Supporting Document(s) Glucose [Mass/volume] in Capillary blood by Glucometer 137 mg/dL 70- 140 [facility] ID Date Data Source [id number] 08/17/2020 12:56:14 PM EDT [facility] Name Value Range Interpretation Code Description Data Sherice rce(s) Supporting Document(s) Progress Note [facility] ADENNr0bZnOKAoZx25/MUOggVZSja4XfBIzfGJy3EQhsOCVwX5EcVTO7bJ9gPPX7ADeUIwUnQwAcLdR9 lbm [file] ICAgICAgICAgICAgICAgICAgICAgICAgICAgICAgIC AgICAgICAgICAgICAgICAgICAgICAgDQogICAgICAgICAgICAgICAgICAgICAgICAgICAgICAgICAgIC AgICAgICAgICAgICAgICAgICAgICAgICAgICAgICAgICAgICAgICAgICAgICAgICAgICAgICAgICAgIC AgICAgDQogICAgICAgICAgICAgICAgICAgICAgICAg ICAgICAgICAgICAgICAgICAgICAgICAgICAgICAgICAgICAgICAgICAgICAgICAgICAgICAgICAgICAg ICAgICAgICAgICAgICAgDQogICAgICAgICAgICAgICAgICAgICAgICAgICAgICAgICAgICAgICAgICAg ICAgICAgICAgICAgICAgICAgICAgICAgICAgICAgIC AgICAgICAgICAgICAgICAgICAgICAgICAgDQogICAgICAgICAgICAgICAgICAgICAgICAgICAgICAgIC AgICAgICAgICAgICAgICAgICAgICAgICAgICAgICAgICAgICAgICAgICAgICAgICAgICAgICAgICAgIC AgICAgICAgDQogICAgICAgICAgICAgICAgICAgICAg ICAgICAgICAgICAgICAgICAgICAgICAgICAgICAgICAgICAgICAgICAgICAgICAgICAgICAgICAgICAg ICAgICAgICAgICAgICAgICAgDQogICAgICAgICAgICAgICAgICAgICAgICAgICAgICAgICAgICAgICAg ICAgICAgICAgICAgICAgICAgICAgICAgICAgICAgIC AgICAgICAgICAgICAgICAgICAgICAgICAgICAgDQogICAgICAgICAgICAgICAgICAgICAgICAgICAgIC AgICAgICAgICAgICAgICAgICAgICAgICAgICAgICAgICAgICAgICAgICAgICAgICAgICAgICAgICAgIC AgICAgICAgICAgDQogICAgICAgICAgICAgICAgICAg ICAgICAgICAgICAgICAgICAgICAgICAgICAgICAgICAgICAgICAgICAgICAgICAgICAgICAgICAgICAg ICAgICAgICAgICAgICAgICAgICAgDQogICAgICAgICAgICAgICAgICAgICAgICAgICAgICAgICAgICAg ICAgICAgICAgICAgICAgICAgICAgICAgICAgICAgIC MoDHKrBZYfHHLsNNFuKQUuIPXlUVNmSIDmSFIxZUBcYLs9H6ymECRhDATsVS7jTBr0Fv7+DQoNCmVuZH S5qtKxtW5LSM0ta8QiGVaqJYTwk8ZqRLe3IN8BTIGhAJpvPJ5JFCguid3KFGTvJFXfkGBGf7hdXfFvAI D2JDTyGtbeNW5NQRNgJ6rybwYgVRLnZQUMMVhuUIMB TI7RWcAsO8BysI27VURKIm6+SEcgdwRcAozYZyZ1IRRax4EeYDn4CK9JNPCqYplpq4SyUpYaBFBJHNnz DV7NBSX2MLCuZVAcFs6SHPGgE516yjEpVQ2CKp4EQpDpBN1tlb6IAnYyIOMzVlvKOhl0DPddAC8GsFGi TJgNvi3rznQevqFIg4KoyaPyhUHIwnleOXNwDIVSxS 5kCMmlHFkfGXOsXVYzEz2aEq5wSRAaUCTmGcTrDWHFZV8IMHAtOJArzGXuSUZgOYOQCZ7FSNzcZJZ4AS ZwhyTrzYJiXVtgDO8CNVGjprIhOPooNJUTWIs+Hu9LJM8xi2LmZLzlOARyIJ1nrm9TJKpAQfHlR7H3mM TsK0T9EQgzUq1XQAHwZVXgQFuvUKUFNRnbPU6CPH6t zyJ0CX6RnOGpHXMaTYDwmBTpXVp5Y64edWArBBkbCX4DDZR+Edgar+Iz2OSTBbULMoMGUvHmSsEAOTLwCg S9FvP0QVo3WfQ4UfGO22xEgjkyWwVQtwQG9ICD5aRPDsXJLJRW4DxRLduF2rwkZnEWPfYZPBAdDiR89j cGStBMUhEJF8LMSkLa9UKBDjU6XifqEuyNxkyhJbIM LkHLNWXV4RTNenleAdkHBouJskUY91yTxaXN0ORy4WQqIuEF2sci6FzRSiFo1UBCKzGw2UXDWyVABuGQ TsWXY4VRImItCnACveNUBcVKGcOUO4GETzRTSwMV8UUoNeTHIdKIysEISrXSKuXMWtmo7FYCJrEIJmSE axFnArVPMyUPGpPWorNZTxFLThNDO6OFCoPVBtKJ3Z QfZfEWIxNJNbYNVeDQUwIAMqqc8WSAMpJBMdRvP4VAFyTJXsAXJnQVtlOTRnFFG4KCYnVHJgIAHiFI5D RpUpEWYwTYKdBSDrQHMgPJLipk5ZODQgIAJgHqWzBaIiSMFvDQKgTVycASGjQWR9STt4UYXpYAFvML0G RcRtKNGyYMExPFXlPNAlXYOese1GDMKaJUWdNyLzMQ QzLYIkSALvBOjpITGsJWV1IXZeHVCfETDkLW4YKwBzXGGeQCt2ZnhnMTTnHADtvj3KZTNoRPAhSRJ0EQ PwRLFxEELtRMnkAEFjZTI8IOk1GWEfMCHmDT8IJkGxNSUpEFqmKqlbZOHaHRWakv7TJFOaBJMxETC4Dn KlOEXzIDStIQkbNRVcUMIeRKZ9GLBeGUDbRC9ZYqLd WIOmZAAvAQibGMNfALExxi0TYBYaDCQiICG3TKDaBNTaPEAcRBu0sxBlxBXaMEb1VX9NT7EkjjBxToDB Wb2Wr197TOLnXMMqXq1RW8lfIs7tJYQdFPGNJd4FEPo9CUOrB5GlVdB5OqCaHfMpSpN8EGL5XMOmQjSr ZDW9KGd+AHqrQXU2FuEbQNu6LAW6TPYhPjFoUcz4Ck WlCKA5XwfgXe9kYKSXAy0+NTlxrYSglFmqLCGQKyKyISEfDGvjQQKMWm7J ID Date Data Source [id number] 08/17/2020 11:55:00 AM EDT [facility] Name Value Range Interpretation Code Description Data Sherice rce(s) Supporting Document(s) SARS-CoV-2 RNA 2019 nCoV Real-Time RT-PCR: NOT DETECTED [facility] This lab was ordered by [facility] and reported by [facility]. 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 [facility] Patient has symptoms related to condition [facility] When did you start to experience these symptoms [Date and time] [Phen X] [facility] Patient was hospitalized because of this condition [facility] patient was admitted to ICU for [facility] Patient resides in a congregate care setting [facility] status [facility] ID Date Data Source [id number] 08/17/2020 01:09:55 PM EDT [facility] Service Cmnt XXX-Imp : NoneRespiratory P CR Panel : PCR ResultsMicroorganism XXX Cult : See Labs Tab for 2019 nCoV RT-PCR resultsHAdV DNA QI CLAIRE+non-probe : Not DetectedHCoV 229ERNA Nph QI CLAIRE+non-probe : Not DetectedHCoV [id number] Nph QI CLAIRE+non-probe : Not AjsutmggVXyJZW67 RNA Nph QI CLAIRE+non-probe : Not OtinmgirFGyBAT55 RNA Upper resp QI CLAIRE+probe : Not DetectedhMPV RNA Nph QINAA+non-probe : Not DetectedRV+EV RNA Nph QI CLAIRE+non-probe : Not DetectedFLUAV RNA Nph QI CLAIRE+ non-probe : Not DetectedFLUBV RNA Nph QI CLAIRE+non-probe : Not DetectedHPIV1 RNA NphQINAA+non-probe : Not DetectedHPIV2 RNA Nph QINAA+non-probe : Not DetectedHPVI3 RNA Nph CLAIRE+non-probe : Not DetectedHPIV4 RNA Nph Q CLAIRE+non-probe : Not DetectedRSV RNA Nph Q CLAIRE+non-probe : Not DetectedB pert.PT PrmtNph Q CLAIRE+non-probe : Not DetectedC pneum DNA Nph Q CLAIRE+non-probe : Not DetectedM pneum DNA Nph Q CLAIRE+non-probe : Not DetectedB [id number] DNA Nph CLAIRE+non-probe : Not Detected Name Value Range Interpretation Code Description Data Sherice rce(s) Supporting Document(s) ID Date Data Source [id number] 08/17/2020 11:37:02 AM EDT [facility] Name Value Range Interpretation Code Description Data Sherice rce(s) Supporting Document(s) Progress Note [facility] JQFNFi8wCgXXBwZm68/VRCqeATRep2BjIGqiDFr5YHkcZSRsR8FhUAZ5dT5kDVP6EEvBNjAjNxFaKzN2 lbm [file] ICAgICAgICAgICAgICAgICAgICAgICAgICAgICAgIC BhGRHpRPXyRIHjZYJbQLGoGQLwUJMmLXLeOJYtPMIuITMkCEWeTAVrGVYmGPEgZVFvBA7HXPJjGPYgTI AgICAgICAgICAgICAgICAgICAgICAgICAgICAgICAgICAgICAgICAgICAgICAgICAgICAgICAgICAgIC AgICAgICAgICAgICAgICAgICAgICAgICAgICAgICAg GP0NWGExINWnPGVjEAMkQJJcSBPoRKQaVXCkCZOzUURvIUVmCQHgUSKkESFbAPSqMYNvCAYqBRMrNHPb EDJfGZYeKXGhWMPoUEUhVMBgBZBwHMEzQKMgXMSmDNLnSXWpJMDaCPWxXB3SODQoWQDhAWVmKIIrTAIf ICAgICAgICAgICAgICAgICAgICAgICAgICAgICAgIC GvSYMkKLZyTZOfXFMsNENpOFJfRPRgXZDaJQPcQYFrKQBxCMYoEPLnCUMxSQRnUIRbJSDfAZ0TCAPbYF AgICAgICAgICAgICAgICAgICAgICAgICAgICAgICAgICAgICAgICAgICAgICAgICAgICAgICAgICAgIC AgICAgICAgICAgICAgICAgICAgICAgICAgICAgICAg OYQxOY8VDLHrILYjBOLqVRYoKZEjVCHaSZVmDZXsLNEpADMxTNVpKHRfHVMaNUAjSVXiZIKyCVIfIBDb ZAJjVWNgEZCrQSSqGJRpDLHfCJIgRMDmTTXrGRWiQQFiTGJfUFNhFPBySEMkSE7GCPVlSRYqKCLkCMGe ICAgICAgICAgICAgICAgICAgICAgICAgICAgICAgIC TpTYNrIKYsSIOjNGEjMZStAUZcVDGyALVgHCQkFELhTAHpLRJdBXDmGZBpDHYfBVPbPEXvJSUfEX8WMY AgICAgICAgICAgICAgICAgICAgICAgICAgICAgICAgICAgICAgICAgICAgICAgICAgICAgICAgICAgIC AgICAgICAgICAgICAgICAgICAgICAgICAgICAgICAg VLCsOFXuWO9WIEKxMIIhFSNaNIUsPANiAMZeIVHwWSVxBDEdNCKsQFBgCLKgWFLiQPEbKHFeSJQyLKUa CGTkYPRwWHLtJXHzXFXuFKPiHJUoTHHjDGGvHKIdDUGpYXUqDJPiCLOnNGMzHWOzJX1SXAQcCNWeUJJw ICAgICAgICAgICAgICAgICAgICAgICAgICAgICAgIC AgICAgICAgICAgICAgICAgICAgICAgICAgICAgICAgICAgICAgICAgICAgICAgICAgICAgICAgICAgIA 6VQR92cIGrs6S5LRQaRO1glgf/Ce9RLNadxpTuvAEgFX5MDxWhSQ7lgi7BPaGtNE0arc1HRPhZCqEtP4 B2hUNsXMCdRISPIgGeA42kKKrhYo44UIegXSBiKtOm MNo4Yk7RCkHnX5lnEHGnKaU3QQCuFtIaWEbmHL2Ik5JlaBZzYSq+Gm7NGV4ma3EiJRboATToCM8utv5J TUiVGkNcK7MyfaT1MZI5BOYnXl8SGTFoDKPgdHAhFSPoAOEXSnBuF9QvpM37RDPXXj7+DQplbmRvYmoN IxC7BFMfy6XkOCp1NP7MZWJaYFg7bKZbPJAkR9Mfp2 NeXw04NIXgFivrBIUjKYwvJTFfHZTMXOyywnnpSp1tMBWoGu4cSh3sIBVjOPPdCqQ8PKXOCK9DMITdRZ MjfGSbEGUzMEICVQ6NGYgeDLB5GZWjomRzwTUkJKjpTF2HRLPrsqBrSYBnRKAFEHy+Dl7NAF4gu5VwMB qxXvAmBW6agc3TYMaHEcToJ2Y2gCIlM6K0OAzvVf2Y GDOsDWXdWIPhPLYFSSwoIY3SSE7pwkG1QU9NyYFjNHUiBQKtuIWwKXa7L33wmIKtAAwuYO1KIVP+Edgar+ Fs9SVDWhFBJtKMNoXbLaEVZGXsXrG7CwG0WEy2VuK3MfSE84iRqjcaIaAEmrQM6BQY3sEEQkOKEMHR9Q tCByyO8edjWmHLHsWNWGSkEgW14odMHwOSAxGXSyPO RiTw3DUXFcI1UdfwNptYlbbbPaQUVdAFHDEA4KBMcwdxGlcFEivRfcBC56tDuaUJ0SWk7ZXuFuGA5tol 4EuVIzAm3XHLAeTu0LIRYiZKKbYXDeOOG8ZFZyPnRqOTcdQSLsMWBdKBL1MIQkCFRnZM1GBaChDYCrBK S4ZYVfLARlFGVksz1WQBRqYFJwVkJkMZYzGFGpDBNf BDgmMIBqQNZsUYJ2JGOkLWIxNR7YLwTgHMKnLIS7HFGfCXVtIBIpbv6UJRUeDFXjAMr2DKAtCFClQADb CJbyQMYdFXIlFIL1WUIbUWHiBO7GEfOlZVJrHBNwMEOtCTGmCJQcwm7PWCJbVVOmZmZaPFFpIKDvBBMf UFhxYWMgMNU4PAxiAQVaULOuWT4FUiNuVQVjPOFiTT HiSTVrSHVxef9SCULwZIKaQLV0DUCoUBEmMFRyUYecPJRkNER2BIt0BUNdSIBlLR8VYtYoPQLvFPA1FK WzPAXgSNBxaa9IMIYsPQSpBnU7DVWxBMWbWLRqUAigZOPhKUI6AiV4HTVbTXLbRA0CYlXeIMsdRJYUHx s9PAuyC6n6BVCwRk1LB0Apa3BtJMGrPRQIPPepBJ8z mtFmOKZfYe1LB2tDUdm5JcZ6PNS0ShoxHYDdXQd7DvSgAKYkPIR6ScjwQxI2KK4ePQA1DdW1ZAMmXLZd DLS6TLpmWqO4HHOeWjq0WATlTpXzNnMoMX8PLk5EJpO9PJM0gPMzKv4RHjc7GG4FFJAHT7XGBj== ID Date Data Source [id number] 08/17/2020 11:26:47 AM EDT [facility] Name Value Range Interpretation Code Description Data Sherice rce(s) Supporting Document(s) Glucose [Mass/volume] in Capillary blood by Glucometer 116 mg/dL 70- 140 [facility] ID Date Data Source [id number] 08/17/2020 10:41:33 AM EDT [facility] XR PELVIS 1-2 VIEWS [id number] RESULTInt erpreted by:Maggie Chavez radiograph, single viewINDICATION: Postop evaluation.COMPARISON: Pelvic and right hip radiographs dated 05/10/2020.FINDINGS: Single portable view of the pelvis demonstrates a new noncemented right total hip arthroplasty. Hardware appears intact; alignment appears anatomic. No abnormal periprosthetic lucency or fracture. Postoperative changes including skin mary are noted.Again, there is significant diastases at the pubic symphysis in keeping with patient's history of bladder exstrophy. Midline catheter and surgical clips to the right of midline are noted.IMPRESSION: Status post right total hip arthroplasty. Hardware appears intact.This document has been electronically signed by Nathen Torres MD on 08/17/2020 10:39 AM Name Value Range Interpretation Code Description Data Sherice rce(s) Supporting Document(s) ID Date Data Source [id number] 08/17/2020 09:55:44 AM EDT [facility] Name Value Range Interpretation Code Description Data Sherice rce(s) Supporting Document(s) Glucose [Mass/volume] in Capillary blood by Glucometer 114 mg/dL 70- 140 [facility] ID Date Data Source [id number] 08/17/2020 09:48:32 AM EDT [facility] Name Value Range Interpretation Code Description Data Sehrice rce(s) Supporting Document(s) [facility] ALXFCc7lYhWMIaFg84/NKXqxYUVfi3BkZOubNTu1GAbnOAMvS7JjGAD3zX1kGMR9LMbZDoXmIdRcVwD4 lbm [file] ZTul0zr4IewQdF/0q6+Jose David/tKVSl8hq5+Zme5ZK1+G [file] V7RS4IHNCLG0TXCq== ID Date Data Source [id number] 08/18/2020 01:55:00 PM EDT [facility] Surgical Pathology ReportName: SHELBY MONTIELMRN: [id number] Number: [id number] Date: 08/17/2020 08:42Received Date: 08/17/2020 12:42Physician(s): SHELBY LEWIS TIMOTHY ASpecimen(s) ReceivedA: Right femoral headClinical HistoryOther secondary osteoarthritis of right hip, chronic right hip pain,bladder exstrophy.DiagnosisBONE, RIGHT HIP, ARTHROPLASTY: DEGENERATIVE JOINT DISEASE (GROSS ONLY). /pws Electronically Signed By Ana Maria Rocha M.D., Attending Pathologist08/18/2020 13:55:30Processed at [facility], [address] [place] [address]. Unless 'gross-only' is specified, the finaldiagnosis is based on a microscopic examination of representative personal service sectionsof tissue.Gross DescriptionThe specimen is received in formalin labeled with the patient's name"Shelby Montiel" and "right femoral head". It consists of a 4.8 x 4.8 x3.4 cm femoral head which displays up to 0.8 cm of attached femoral neck. The margin is linear. The articular surface is tee-pink, smooth, andfocally eburnated. The cut surface is yellow trabecular bone and corticalbone which ranges from absent to 0.4 cm thick. No discrete lesions areappreciated. Gross only. No cassettes are submitted. CTC/pws This report may include one or more immunohistochemical stain results thatuse analyte specific reagents. All positive and negative controls havebeen reviewed by the attending pathologist and are satisfactory. The testswere developed and their performance characteristics determined by [facility] Pathology department. They have not been cleared or approved by the USFood and Drug Administration. The FDA has determined that such clearanceor approval is not necessary. Name Value Range Interpretation Code Description Data Sherice rce(s) Supporting Document(s) ID Date Data Source [id number] 08/17/2020 07:34:11 AM EDT [facility] Name Value Range Interpretation Code Description Data [facility](s) Supporting Document(s) History and Physical [facility] WNTQXc4pZiHADrWn01/IRHjqHKKla2VqDFfsTTy0YTsgDYBsN0VtNTA4zI3sPYG2UPeTCmPoPaOpCmL6 lbm [file] ogICAgICAgICAgICAgICAgICAgICAgICAgICAgICAgICAgICAgICAgICAgICAgICAgICAgICAgICAgIC AgICAgICAgICAgICAgICAgICAgICAgICAgICAgICAg ICAgICAgICAgDQogICAgICAgICAgICAgICAgICAgICAgICAgICAgICAgICAgICAgICAgICAgICAgICAg ICAgICAgICAgICAgICAgICAgICAgICAgICAgICAgICAgICAgICAgICAgICAgICAgICAgDQogICAgICAg ICAgICAgICAgICAgICAgICAgICAgICAgICAgICAgIC AgICAgICAgICAgICAgICAgICAgICAgICAgICAgICAgICAgICAgICAgICAgICAgICAgICAgICAgICAgIC AgDQogICAgICAgICAgICAgICAgICAgICAgICAgICAgICAgICAgICAgICAgICAgICAgICAgICAgICAgIC AgICAgICAgICAgICAgICAgICAgICAgICAgICAgICAg ICAgICAgICAgICAgDQogICAgICAgICAgICAgICAgICAgICAgICAgICAgICAgICAgICAgICAgICAgICAg ICAgICAgICAgICAgICAgICAgICAgICAgICAgICAgICAgICAgICAgICAgICAgICAgICAgICAgDQogICAg ICAgICAgICAgICAgICAgICAgICAgICAgICAgICAgIC AgICAgICAgICAgICAgICAgICAgICAgICAgICAgICAgICAgICAgICAgICAgICAgICAgICAgICAgICAgIC AgICAgDQogICAgICAgICAgICAgICAgICAgICAgICAgICAgICAgICAgICAgICAgICAgICAgICAgICAgIC AgICAgICAgICAgICAgICAgICAgICAgICAgICAgICAg ICAgICAgICAgICAgICAgDQogICAgICAgICAgICAgICAgICAgICAgICAgICAgICAgICAgICAgICAgICAg ICAgICAgICAgICAgICAgICAgICAgICAgICAgICAgICAgICAgICAgICAgICAgICAgICAgICAgICAgDQog ICAgICAgICAgICAgICAgICAgICAgICAgICAgICAgIC AgICAgICAgICAgICAgICAgICAgICAgICAgICAgICAgICAgICAgICAgICAgICAgICAgICAgICAgICAgIC AgICAgICAgDQogICAgICAgICAgICAgICAgICAgICAgICAgICAgICAgICAgICAgICAgICAgICAgICAgIC AgICAgICAgICAgICAgICAgICAgICAgICAgICAgICAg HBQoGAPmCMTxVZMyERPaVZLfOMl2G0mvPKOjCWSnUO8xKBz6Xf8+ISxDVmFiGMA1ttOrcO6OJQ1rw9Ge WDwtYGDgh3IjTRs9NE7UYYIdXTojGD3FCVzxid5INMWpWCGvdQRIq8lzDzBkRRJ0WSRfSbfyES5HTDWa C6myswPzYWMfYXVBAT9VCvVeL7IeyH10XSGEXe0+DQ rcpuUsEoaSUcO6WAZcm8HyWEb8UX0BGMQiSoboo7XvKXspFDTJBNztVF1JSEC9XZC1BZFvSh4UIQSqX7 54vgMbVN3XLc4MAeMlNU1lbz8LPApxJEOtRixUZnd1GDpjRB3UyMObTIwXSySvJyhbMGleg7BriLZBOI HjcLFhccplOJEhYPQhGb9kAp8nOZThETW7RbHqPYOQ NY6LAGJzMAIinCYvOODpGZIXUT4LLBjrGWZ4QNSyaoKxfRWqHWwpVK2RFRQvtaQrXMxfPHMFGCp+Pg0K YC6de3IjBXvrUADvCC9mge5KQIsIPwFxE8V6nDCuX0T8XXumDy4OFOOwPFMkOVFwTXMUJXvmRU9TAS9i ctU3JB4GcUMzFLOiCFQepQUyILt6M89nzVKpEAfsIH 0KICA+Edgar+Zq9JMMHjKJTeVIWpFxCbOKWJLfKxX0EvY2OFp5RkA0XnBX73pYepphJiLVjhMM4ZVP5sIF XaGVZKGL9GxOEcjD0lhtXvPfZdCCSMTxOwW99thYMoARVjQXM3LZIfYo9MZIZvU4ZuljRlzUbqjzQtYU QhMFNNZL2QIZmeurGbrEVcjYjtYC63eMllHR8BXa2A BuMkID2kca8QzEJxKz8EVFWxOW7YQNKuEZZzLOFoRXX0BVVyMaIxCOdxWTEbBQZcFJA7BNIbWXLvRC5J UmHfIOBgISb5HVDeOGGcVNQbsn4YXKTnLETcZIN5ZoPsZBZeGFLjYLgjPYKhMILlANS5LAWlEQYbPT7B KvUvGFRjVUCzZiBcBVTdQXNdwd4FQHTiDVYxRzU2MF AjLCFpLOVzTQmaKVGrJAF2OzV0OMPjFHInMM5AOnMjHRMwMPF2JuYdPDPqCAJmee8AYOPvRHYlTBwnFk KtJLYlKMMsWNygURVdGOU5WqMhYWGcIKDjGP3NByOkNLVkOWF3IjNxLCTyRWKxuz3CRLTeYCRoPyW8AB YvCYLbNHGePTyqMRNuMSB5PZAgAHDsPJIzBO1QOeHc YHPjVOtmXEmhNKMiMKVbim3BYDDlBKVoOjC7KUWrBVThPEIdPDkeETXkFHV5YBNuXNAyXHRxIH1NNiSg CILfMFjmGJWsWHLpTVKclx4PDNLoIEWxPIXjAJHfJISiOLQuTTtcSIQfBMS5KDPoLMWpYGMdAM7CCaCy OAaiLOFDYjr1JNboA2r5KLLtIE5WA5Fhj4HlYRqbGO YLFBznDZ1bnwZcWAMqQd3UY5dGUsglGdWeEXprZVNfWkMmKDFoOjuoQoTdClUlKCv6NyRwPF6mIWZkFD RxOWLkOSW4RhTeHeZhSQNbERLjUDWeNzCtWCTnRlEsOC3LRv0UEcH0ELL3nYDcBs8YTNfeCV3BFWFLK2 YNCg== ID Date Data Source [id number] 08/17/2020 06:37:53 AM EDT [facility] Name Value Range Interpretation Code Description Data Sherice rce(s) Supporting Document(s) Glucose [Mass/volume] in Capillary blood by Glucometer 79 mg/dL 70- 140 [facility] ID Date Data Source [id number] 08/17/2020 08:07:54 AM EDT [facility] Name Value Range Interpretation Code Description Data Sherice rce(s) Supporting Document(s) ABO and Rh group [Type] in Blood [facility] Blood group antibody screen [Presence] in Serum or Plasma [facility] ID Date Data Source [id number] 08/13/2020 09:04:53 AM EST [facility] CT LOWER EXTREMITY WITHOUT CONTRAST 7370 0FINAL RESULTInterpreted by:Royal Iverson MDEXAM: CT right hipHISTORY: Preop MakoplastyCOMPARISON: 01/12/2020PROCEDURE: Axial images are obtained of the right hip. Multiplanar reconstructions are performed.One or more of the following dose reduction techniques were utilized in effectively lowering the radiation dose for this examination: Automated Exposure Control, Adjustment of the mA and/or kV according to patient size, or Iterative reconstruction. FINDINGS: Severe hypertrophic osteoarthritis with obliteration of superior joint space and subcortical cyst formation seen on both sides of the hip joint. There is no fracture. No lytic or blastic lesion of bone suspicious for primary or secondary malignancy. Degenerative hypertrophic osteoarthritis with a loose joint body is also noted at the SI joint. These findings constitute no significant interval change compared with 01/12/2020.IMPRESSION: Severe osteoarthritis with obliteration of joint space, eburnation, with acetabular and femoral subcortical cyst formation. This document has been electronically signed by Royal Iverson MD on 08/13/2020 9:02 AM Name Value Range Interpretation Code Description Data Sherice rce(s) Supporting Document(s) ID Date Data Source [id number] 08/12/2020 02:51:00 PM EST [facility] Name Value Range Interpretation Code Description Data Sherice rce(s) Supporting Document(s) SARS-CoV-2 RNA 2019 nCoV Real-Time RT-PCR: NOT DETECTED [facility] This lab was ordered by [facility] and reported by [facility]. ID Date Data Source [id number] 08/13/2020 02:38:59 PM 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 Service Cmnt XXX-Imp : NoneMicroorganism XXX Cult : Polymerase chain reaction assay was POSITIVE for methicillin-SUSCEPTIBLE Staphylococcus aureus (MSSA) AND NEGATIVE for methicillin resistant Staphylococcus aureus (MRSA). Name Value Range Interpretation Code Description Data Sherice rce(s) Supporting Document(s) ID Date Data Source [id number] 08/12/2020 04:03:54 PM [facility] Name Value Range Interpretation Code Description Data Sherice rce(s) Supporting Document(s) ABO and Rh group [Type] in Blood [facility] Blood group antibody screen [Presence] in Serum or Plasma [facility] Performed at [facility], Kacy Lares , HIEU BurnsBlood Type Confirmed ID Date Data Source [id number] 08/12/2020 02:21:49 PM [facility] Name Value Range Interpretation Code Description Data Sherice rce(s) Supporting Document(s) Leukocytes [#/volume] in Blood by Automated count 6.8 10*3/uL 4-10 [facility] Erythrocytes [#/volume] in Blood by Automated count 4.48 10*6/uL 4.6- 6.1 L [facility] Hemoglobin [Mass/volume] in Blood 13.7 g/dL 13.5-18 [facility] Hematocrit [Volume Fraction] of Blood by Automated count 41.6 % 4 1-53 [facility] Erythrocyte mean corpuscular volume [Entitic volume] by Auto mated count 92.8 fL 80-96 [facility] Erythrocyte mean corpuscular hemoglobin [Entitic mass] by Automated count 30.7 pg 27-33 [facility] Erythrocyte mean corpuscular hemoglobin concentration [Mass/volume] by Automated count 33.0 g/dL 32.0-[facility].0 [facility] width [Ratio] by Automated count 13.5 % 11.5-14.5 [facility] Platelets [#/volume] in Blood by Automated count 252 10*3/uL 150-400 [facility] Differential cell count method - Blood [facility] Neutrophils/100 leukocytes in Blood by Automated count 66 % [facility] Lymphocytes/100 leukocytes in Blood by Automated count 24 % [facility] Monocytes/100 leukocytes in Blood by Automated count 7 % [facility] Eosinophils/100 leukocytes in Blood by Automated count 3 % [facility] Basophils/100 leukocytes in Blood by Automated count 0 % [facility] Neutrophils [#/volume] in Blood by Automated count 4.45 10*3/uL 1.8-7 .0 [facility] Lymphocytes [#/volume] in Blood by Automated count 1.61 10*3/uL 1.2-4 .0 [facility] Monocytes [#/volume] in Blood by Automated count 0.48 10*3/uL 0-0.8 [facility] Eosinophils [#/volume] in Blood by Automated count 0.21 10*3/uL 0-0.5 [facility] Basophils [#/volume] in Blood by Automated count 0.01 10*3/uL 0-0.2 [facility] Nucleated erythrocytes/100 leukocytes [Ratio] in Blood by Automated count 0 /100{WBCs} 0-0 [facility] ID Date Data Source [id number] 08/12/2020 02:35:54 PM [facility] Name Value Range Interpretation Code Description Data Sherice rce(s) Supporting Document(s) Bicarbonate [Moles/volume] in Serum 12 mmol/L 22-29 L [facility] Chloride [Moles/volume] in Serum or Plasma 114 mmol/L 98-107 H [facility] Creatinine [Mass/volume] in Serum or Plasma 1.20 mg/dL 0.70-1.20 [facility] Glucose [Mass/volume] in Serum or Plasma 140 mg/dL 70-140 [facility] Potassium [Moles/volume] in Serum or Plasma 4.3 mmol/L 3.4-5.1 [facility] Hemolyzed Sodium [Moles/volume] in Serum or Plasma 138 mmol/L 136-145 [facility] Urea nitrogen [Mass/volume] in Serum or Plasma 50 mg/dL 8-23 H [facility] Anion gap 3 in Serum or Plasma 12 mmol/L 8-15 [facility] Osmolality of Serum or Plasma by calculation 302 mosm/kg 275-300 H [facility] Creatinine/Urea nitrogen [Mass Ratio] in Serum or Plasma 42 [facility] Calcium [Mass/volume] in Serum or Plasma 9.0 mg/dL 8.8-10.2 [facility] Glomerular filtration rate/1.73 sq M pre dicted among non-blacks [Volume Rate/Area] in Serum or Plasma by Creatinine-based formula (MDRD) 61 mL/min/1.73m2 >60 [facility] Glomerular filtration rate/1.73 sq M pre dicted among blacks [Volume Rate/Area] in Serum or Plasma by Creatinine-based formula (MDRD) 71 mL/min/1.73m2 >60 [facility] ID Date Data Source [id number] 08/10/2020 12:00:00 AM EST eCW1 ([facility]) Name Value Range Interpretation Code Description Data Sherice rce(s) Supporting Document(s) Hemoglobin A1c/Hemoglobin.total in Blood 7.4 HEMOGLOBIN A1c eCW1 ([facility]) ID Date Data Source CBC with Differential 08/10/2020 12:00:00 AM EST eCW1 ([facility]) Name Value Range Interpretation Code Description Data Sherice rce(s) Supporting Document(s) 6.8 4.0-10.0 WHITE BLOOD COUNT eCW1 ([facility]) 41.5 42.0-52.0 HEMATOCRIT eCW1 ([facility]) 13.3 13.5-17.5 HEMOGLOBIN eCW1 ([facility]) 4.36 4.30-6.10 RED BLOOD COUNT eCW1 ([facility]) 32.0 32.0-36.5 MEAN CORPUSCULAR HGB CONC eCW1 ([facility]) 30.5 27.0-33.0 MEAN CORPUSCULAR HEMOGLOB IN eCW1 ([facility]) 95.2 80.0-96.0 MEAN CORPUSCULAR VOLUME e CW1 ([facility]) 54.9 36.0-66.0 NEUTROPHILS % eCW1 ([facility]) 247 150-450 PLATELET COUNT, AUTOMATED eCW1 ([facility]) 13.0 11.5-14.5 RED CELL DISTRIBUTION WID TH eCW1 ([facility]) 8.7 2.0-8.0 MONO % eCW1 ([facility]) 3.4 0.0-3.0 EOS % eCW1 ([facility]) 32.4 24.0-44.0 LYMPH % eCW1 ([facility]) 2.2 1.5-5.0 LYMPH # eCW1 ([facility]) 3.7 1.5-8.5 NEUTROPHILS # eCW1 ([facility]) 0.3 0.0-1.0 BASO % eCW1 ([facility]) 0.6 0.0-0.8 MONO # eCW1 ([facility]) 0.0 0.0-0.2 BASO # eCW1 ([facility]) 0.2 0.0-0.5 EOS # eCW1 ([facility]) ID Date Data Source NT-[id number] 08/10/2020 12:00:00 AM EST W1 ([facility]) Name Value Range Interpretation Code Description Data Sherice rce(s) Supporting Document(s) 100 <125 NT-PRO BNP eCW1 ([facility]) ID Date Data Source [id number] 05/10/2020 11:03:32 AM EST [facility] XR HIP- UNILAT, 2-3 VIEWS [id number] RE SULTInterpreted by:Shelby Lewis MDIndication: Chronic right hip pain, history of bladder exstrophy with pubic diastasis, congenitalTechnique: 2 views pelvisComparison: September 23, 2019 filmsFindings: Marked pubic diastases consistent with history and unchanged. Severe right hip degenerative arthritis with ffbe-gn-fqdh changes, sclerosis, and subchondral cysts. Pseudosubluxation. No acute findings. Left hip shows moderate joint space narrowing.Impression: Severe uirj-zb-ywnd right hip degenerative arthritis. Pubic diastasis, unchanged.This document has been electronically signed by Shelby Lewis MD on 05/10/2020 11:03 AM Name Value Range Interpretation Code Description Data Sherice rce(s) Supporting Document(s) ID Date Data Source [id number] 05/10/2020 10:17:16 AM EST [facility] Name Value Range Interpretation Code Description Data Sherice rce(s) Supporting Document(s) Progress Note [facility] UQHWKm9nVhZIZwHm24/GBYmdEUQzj7VlDDomDNp7BXlzRFTuL1XrXPB2tK7vYQM6BFgEIeOsMhIoSqZ9 [facility] [file] ICAgICAgICAgICAgICAgICAgICAgICAgICAgICAgICAgICAgICAgICAgICAgICAgICAgICAgICAgICAg ICAgICAgICAgICAgICAgICAgICAgICAgICAgICAgIC AgDQogICAgICAgICAgICAgICAgICAgICAgICAgICAgICAgICAgICAgICAgICAgICAgICAgICAgICAgIC AgICAgICAgICAgICAgICAgICAgICAgICAgICAgICAgICAgICAgICAgICAgDQogICAgICAgICAgICAgIC AgICAgICAgICAgICAgICAgICAgICAgICAgICAgICAg ICAgICAgICAgICAgICAgICAgICAgICAgICAgICAgICAgICAgICAgICAgICAgICAgICAgICAgDQogICAg ICAgICAgICAgICAgICAgICAgICAgICAgICAgICAgICAgICAgICAgICAgICAgICAgICAgICAgICAgICAg ICAgICAgICAgICAgICAgICAgICAgICAgICAgICAgIC AgICAgDQogICAgICAgICAgICAgICAgICAgICAgICAgICAgICAgICAgICAgICAgICAgICAgICAgICAgIC AgICAgICAgICAgICAgICAgICAgICAgICAgICAgICAgICAgICAgICAgICAgICAgDQogICAgICAgICAgIC AgICAgICAgICAgICAgICAgICAgICAgICAgICAgICAg ICAgICAgICAgICAgICAgICAgICAgICAgICAgICAgICAgICAgICAgICAgICAgICAgICAgICAgICAgDQog ICAgICAgICAgICAgICAgICAgICAgICAgICAgICAgICAgICAgICAgICAgICAgICAgICAgICAgICAgICAg ICAgICAgICAgICAgICAgICAgICAgICAgICAgICAgIC AgICAgICAgDQogICAgICAgICAgICAgICAgICAgICAgICAgICAgICAgICAgICAgICAgICAgICAgICAgIC AgICAgICAgICAgICAgICAgICAgICAgICAgICAgICAgICAgICAgICAgICAgICAgICAgDQogICAgICAgIC AgICAgICAgICAgICAgICAgICAgICAgICAgICAgICAg ICAgICAgICAgICAgICAgICAgICAgICAgICAgICAgICAgICAgICAgICAgICAgICAgICAgICAgICAgICAg DQogICAgICAgICAgICAgICAgICAgICAgICAgICAgICAgICAgICAgICAgICAgICAgICAgICAgICAgICAg ICAgICAgICAgICAgICAgICAgICAgICAgICAgICAgIC NnIDMxXZOfROOmNIn6T3ghYXJgODHcOD6eJKv1Vb7+PWeQMwDhWIH2txPxeX6SXM2yj7DhBPquVALpg4 UwVId7HB5PIKYuPLyvCQ8NRLgbbz9TSCCsWBPvdLMDp9emUcUuJWN3BQZwTlsqJV6JEBMbQ7nlqkNeXL LaFFEMEJixULWGZD8BYcWyI0JdrX27DUGNFa1+DQpl bfZaIydNXeHuDKQjz1ZaZGt4HS1ICHZxKzznk3AnJeUwLTDORDhsPY0RFHJ2DMQoZCIoFc8KQLRkA166 ujNcJZ8OBs0UHiOcWO8gth3KGnEsPWLhGnbILtw5ZJbhIH3QwAOxWJmQon0dnyPtocSPk0KcbsObrBLV sRxdAICYIXVacDTytdeiZZAwZJMrMOZmBj2rOCFyEX C9BhVtZDRPMC5JHEGkDGNzpIMcBSDtPROFNN1SQVxcDJW5TMDhzdQxzCQsGZwfWM6ERYWfrhVnPlXuCU BSDQo+Sq4GYD9cg7DtDVapNkLsMA9tqy7JOYkNIhTcF2C0jIYfA2B6AKjgJq2YKPTnKHDxOMmaASMMGF rqHF8TCC2xaoL0MO1KsSTaINKhVSTpeJOuUSl3P36j jOKcEKfiDB3WIBL+Edgar+Ty7DLCCgEBQnIHGsLyZqTDVKIiFqA9JdQ6VRz7UnA9PmYB92lAzbxzUcODxu TN2RST0aBDMaFQWBIY9MsPJwvA2mvgFzRECiMMYSGlTyR78ykCXtJMTyGPBrFNQtKf3CKJIfJ3OypoLm yNfmvdCxCGTcHHXEVC8GEWhtmyJbyNCpsHsyTC68zF ngXI6HPt3YXeOnCC4evn6UcJSlCr0DTZQoXP4QPRNvRBYhZPEqWVT4MXXvJuZiCJsoEPAkWZRcTRK8LR KvNXTkSX2HCoPxYASpWxJ7YwlkJICiRNMqau3OLPAdHECyQES8KySgQWTmJEHxRYioYZPoBLUdWPM7KT ZkGZRkVF9ENeOhWSMnGVDnYQCxJWRdPDDkvk3UVQGa SEOfCJL6YbKrUZAfZBStHMsuSDXuFAR5FSGrVJVhFCKtFS3GSdYdOFFmWVc2AIWnHWLgZIRmcw6AAQAj DHTvTQrpTgHxSKJfLGMcZRbfBSQmFMZ2MNX0NKEpQLGkQD8PRtPdJBGpOZyfYEEjMDUrZAJvzf8LKNKx SNVaGAP9HBGjGZKcGSFlXOvuLVWpBJUgOkDoRTExCX VyGG5OWcRvRABdDED4FmkwXAAbSNDjgf8JSUOgGOOxTMv5DHDzSQWaDYMlPKyhXIPsHGViSIDfVSVvHA SxVP0ILeUbCYZjZrSiPSrsMWWwINNqrt3PITRxVBPyGuE4XCAyFGGrNPOlLDcmCFGaPHHqWdU3MIAgMM AxJA4KEwQdALSgIaJyFMAgODJqCVXkit4AKEAmUFQe PNC0BNZcQERoRKWeQVgxYLJqVVZ5ItJyLUEcWKKqEV1JHfGeZCWvIfP2BrVmDEPjXFEhwk5RuSIrcBoa aj1CSYpNOc1BkGxhKIY2JWeaIn9ddHEvWrWiROIMSn9EnqBsANNkQOPOPHkeLYJbWYt8NKisDcW7BRQo PoamBqF1WItsGOD5RctoLiohVQYySkT4Peo2XzRnQb uxWTIoApFtTtA6AJRdBuJbVPQ0GYXoK5N+AK1jVOl+Mm4Xw4PjfeR8uyVlOJdaCXZbLG2LZTLVS5VFRa == ID Date Data Source [id number] 05/10/2020 09:51:00 AM [facility] Name Value Range Interpretation Code Description Data Sherice rce(s) Supporting Document(s) Progress Note [facility] [id number]R8 lbm [file] 9GDQo= Procedure Social History Code Duration Value Status Description Data Source(s ) Smoking 04/22/2021 12:00:00 AM EST Never Smoker completed Never S moker eCW1 ([facility]) Smoking 04/22/2021 12:00:00 AM EST Never Smoker completed Never S moker eCW1 ([facility]) Smoking 04/14/2021 12:00:00 AM EST Never Smoker completed Never S moker eCW1 ([facility]) Smoking 04/14/2021 12:00:00 AM EST Never Smoker completed Never S moker eCW1 ([facility]) Smoking 04/14/2021 12:00:00 AM EST Never Smoker completed Never S moker eCW1 ([facility]) Smoking 04/14/2021 12:00:00 AM EST Never Smoker completed Never S moker eCW1 ([facility]) Smoking 03/23/2021 12:00:00 AM EDT Never Smoker completed Never S moker eCW1 ([facility]) Smoking 03/23/2021 12:00:00 AM EDT Never Smoker completed Never S moker eCW1 ([facility]) Alcohol intake 03/07/2021 12:00:00 AM EDT Current non-d rafaela of alcohol (finding) completed Current non-drinker of alcohol (finding) [facility] Smoking 02/24/2021 12:00:00 AM EDT Never Smoker completed Never S moker eCW1 ([facility]) Smoking 02/24/2021 12:00:00 AM EDT Never Smoker completed Never S moker eCW1 ([facility]) Smoking 02/24/2021 12:00:00 AM EDT Never Smoker completed Never S moker eCW1 ([facility]) Smoking 02/24/2021 12:00:00 AM EDT Never Smoker completed Never S moker eCW1 ([facility]) Smoking 02/10/2021 12:00:00 AM EDT Never Smoker completed Never S moker eCW1 ([facility]) Smoking 02/10/2021 12:00:00 AM EDT Never Smoker completed Never S moker eCW1 ([facility]) Smoking 02/10/2021 12:00:00 AM EDT Never Smoker completed Never S moker eCW1 ([facility]) Smoking 02/10/2021 12:00:00 AM EDT Never Smoker completed Never S moker eCW1 ([facility]) Smoking 01/18/2021 12:00:00 AM EDT Never Smoker completed Never S moker eCW1 ([facility]) Smoking 01/18/2021 12:00:00 AM EDT Never Smoker completed Never S moker eCW1 ([facility]) Smoking 01/18/2021 12:00:00 AM EDT Never Smoker completed Never S moker eCW1 ([facility]) Alcohol intake 12/31/2020 12:00:00 AM EDT Current drinker of al cohol (finding) completed Current drinker of alcohol (finding) [facility] Tobacco use and exposure 12/31/2020 12:00:00 AM EDT Never used co mpleted Never used [facility] Smoking 12/31/2020 12:00:00 AM EDT Never smoker completed Never s [facility] Alcohol intake 12/30/2020 12:00:00 AM EDT Current drinker of al cohol (finding) completed Current drinker of alcohol (finding) [facility] Smoking 12/27/2020 12:00:00 AM EDT Never Smoker completed Never S moker eCW1 ([facility]) Smoking 12/27/2020 12:00:00 AM EDT Never Smoker completed Never S moker eCW1 ([facility]) Smoking 12/27/2020 12:00:00 AM EDT Never Smoker completed Never S moker eCW1 ([facility]) Smoking 12/27/2020 12:00:00 AM EDT Never Smoker completed Never S moker eCW1 ([facility]) Smoking 12/27/2020 12:00:00 AM EDT Never Smoker completed Never S moker eCW1 ([facility]) Smoking 12/27/2020 12:00:00 AM EDT Never Smoker completed Never S moker eCW1 ([facility]) Smoking 12/24/2020 12:00:00 AM EDT Never Smoker completed Never S moker eCW1 ([facility]) Alcohol intake 12/13/2020 12:00:00 AM EDT Current drinker of al cohol (finding) completed Current drinker of alcohol (finding) [facility] Smoking 12/09/2020 12:00:00 AM EDT Never Smoker completed Never S moker eCW1 ([facility]) Smoking 12/09/2020 12:00:00 AM EDT Never Smoker completed Never S moker eCW1 ([facility]) Smoking 12/09/2020 12:00:00 AM EDT Never Smoker completed Never S moker eCW1 ([facility]) Smoking 12/09/2020 12:00:00 AM EDT Never Smoker completed Never S moker eCW1 ([facility]) Smoking 10/14/2020 12:00:00 AM EDT Never Smoker completed Never S moker eCW1 ([facility]) Smoking 10/14/2020 12:00:00 AM EDT Never Smoker completed Never S moker eCW1 ([facility]) Smoking 10/14/2020 12:00:00 AM EDT Never Smoker completed Never S moker eCW1 ([facility]) Smoking 10/14/2020 12:00:00 AM EDT Never Smoker completed Never S moker eCW1 ([facility]) Smoking 10/14/2020 12:00:00 AM EDT Never Smoker completed Never S moker eCW1 ([facility]) Smoking 10/14/2020 12:00:00 AM EDT Never Smoker completed Never S moker eCW1 ([facility]) Smoking 10/14/2020 12:00:00 AM EDT Never Smoker completed Never S moker eCW1 ([facility]) Smoking 10/14/2020 12:00:00 AM EDT Never Smoker completed Never S moker eCW1 ([facility]) Smoking 10/14/2020 12:00:00 AM EDT Never Smoker completed Never S moker eCW1 ([facility]) Smoking 10/14/2020 12:00:00 AM EDT Never Smoker completed Never S moker eCW1 ([facility]) Smoking 10/14/2020 12:00:00 AM EDT Never Smoker completed Never S moker eCW1 ([facility]) Alcohol intake 10/01/2020 12:00:00 AM EDT Current drinker of al cohol (finding) completed Current drinker of alcohol (finding) [facility] Alcohol intake 09/03/2020 12:00:00 AM EDT Current drinker of al cohol (finding) completed Current drinker of alcohol (finding) [facility] Alcohol intake 08/17/2020 12:00:00 AM EDT Current drinker of al cohol (finding) completed Current drinker of alcohol (finding) [facility] Smoking 08/10/2020 12:00:00 AM EST Never Smoker completed Never S moker eCW1 ([facility]) Smoking 08/10/2020 12:00:00 AM EST Never Smoker completed Never S moker eCW1 ([facility]) Smoking 08/10/2020 12:00:00 AM EST Never Smoker completed Never S moker eCW1 ([facility]) Smoking 08/10/2020 12:00:00 AM EST Never Smoker completed Never S moker eCW1 ([facility]) Smoking 08/10/2020 12:00:00 AM EST Never Smoker completed Never S moker eCW1 ([facility]) Smoking 08/10/2020 12:00:00 AM EST Never Smoker completed Never S moker eCW1 ([facility]) Alcohol intake 08/03/2020 12:00:00 AM EST No completed [facility] Smoking 08/03/2020 12:00:00 AM EST Never smoker completed Never s moker [facility] Smoking 07/15/2020 12:00:00 AM EST Never Smoker completed Never S moker eCW1 ([facility]) Smoking 07/15/2020 12:00:00 AM EST Never Smoker completed Never S moker eCW1 ([facility]) Smoking 07/15/2020 12:00:00 AM EST Never Smoker completed Never S moker eCW1 ([facility]) Smoking 07/15/2020 12:00:00 AM EST Never Smoker completed Never S moker eCW1 ([facility]) Smoking 07/15/2020 12:00:00 AM EST Never Smoker completed Never S moker eCW1 ([facility]) Smoking 05/31/2020 12:00:00 AM EST Never Smoker completed Never S moker eCW1 ([facility]) Smoking 05/31/2020 12:00:00 AM EST Never Smoker completed Never S moker eCW1 ([facility]) Smoking 05/31/2020 12:00:00 AM EST Never Smoker completed Never S moker eCW1 ([facility]) Smoking 05/31/2020 12:00:00 AM EST Never Smoker completed Never S moker eCW1 ([facility]) Smoking 05/31/2020 12:00:00 AM EST Never Smoker completed Never S moker eCW1 ([facility]) Alcohol intake 05/10/2020 12:00:00 AM EST Current non-d rafaela of alcohol (finding) completed Current non-drinker of alcohol (finding) [facility] Smoking 04/16/2020 12:00:00 AM EST Never Smoker completed Never S moker eCW1 ([facility]) Smoking 04/16/2020 12:00:00 AM EST Never Smoker completed Never S moker eCW1 ([facility]) Smoking 04/16/2020 12:00:00 AM EST Never Smoker completed Never S moker eCW1 ([facility]) Smoking 04/16/2020 12:00:00 AM EST Never Smoker completed Never S moker eCW1 ([facility]) Smoking 04/16/2020 12:00:00 AM EST Never Smoker completed Never S moker eCW1 ([facility]) Smoking 04/16/2020 12:00:00 AM EST Never Smoker completed Never S moker eCW1 ([facility]) Smoking 04/06/2020 12:00:00 AM EST Never Smoker completed Never S moker eCW1 ([facility]) Smoking 03/30/2020 12:00:00 AM EDT Never Smoker completed Never S moker eCW1 ([facility]) Vital Signs ID Date Data Source UNK Name Value Range Interpretation Code Description Data Source(s) Body weight 165.2 [lb_av] 165.2 [lb_av] eCW1 ([facility]) Body weight 74.93 kg 74.93 kg eCW1 ([facility]) Body height 64 [in_i] 64 [in_i] eCW1 ([facility]) Body mass index (BMI) [Ratio] 28.35 kg/m2 28.35 kg/m2 eCW1 ([facility]) Heart rate 88 /min 88 /min eCW1 ([facility]) Respiratory rate 18 /min 18 /min eCW1 ([facility]) Body temperature 97.0 [degF] 97.0 [degF] eCW1 ( [facility]) Systolic blood pressure 115 mm[Hg] 115 mm[Hg] e CW1 ([facility]) Diastolic blood pressure 68 mm[Hg] 68 mm[Hg] eCW1 ([facility]) Body weight 167 [lb_av] 167 [lb_av] eCW1 ([facility]) Body height 64 [in_i] 64 [in_i] eCW1 ([facility]) Body mass index (BMI) [Ratio] 28.66 kg/m2 28.66 kg/m2 eCW1 ([facility]) Heart rate 89 /min 89 /min eCW1 ([facility]) Respiratory rate 18 /min 18 /min eCW1 ([facility]) Body temperature 97.3 [degF] 97.3 [degF] eCW1 ( [facility]) Systolic blood pressure 124 mm[Hg] 124 mm[Hg] e CW1 ([facility]) Diastolic blood pressure 70 mm[Hg] 70 mm[Hg] eCW1 ([facility]) Body weight 162.2 [lb_av] 162.2 [lb_av] eCW1 ([facility]) Body weight 73.57 kg 73.57 kg eCW1 ([facility]) Body height 64 [in_i] 64 [in_i] eCW1 ([facility]) Body mass index (BMI) [Ratio] 27.84 kg/m2 27.84 kg/m2 eCW1 ([facility]) Heart rate 74 /min 74 /min eCW1 ([facility]) Respiratory rate 18 /min 18 /min eCW1 ([facility]) Body temperature 98.0 [degF] 98.0 [degF] eCW1 ( [facility]) Systolic blood pressure 115 mm[Hg] 115 mm[Hg] e CW1 ([facility]) Diastolic blood pressure 73 mm[Hg] 73 mm[Hg] eCW1 ([facility]) Systolic blood pressure 124 mm[Hg] 124 mm[Hg] [facility] Diastolic blood pressure 64 mm[Hg] 64 mm[Hg] [facility] Heart rate 90 /min 90 /min [facility] Body temperature 36.11 [place] 36.11 [place] [facility] Respiratory rate 16 /min 16 /min [facility] Body height 162.6 cm 162.6 cm [facility] Body weight 75.297 kg 75.297 kg [facility] Body mass index (BMI) [Ratio] 28.49 kg/m2 28.49 kg/m2 [facility] Oxygen saturation in Arterial blood by Pulse oximetry 98 % 98 % [facility] Body weight 75.75 kg 75.75 kg eCW1 ([facility]) Body weight 167 [lb_av] 167 [lb_av] eCW1 ([facility]) Respiratory rate 18 /min 18 /min eCW1 ([facility]) Body temperature 97.3 [degF] 97.3 [degF] eCW1 ( [facility]) Systolic blood pressure 116 mm[Hg] 116 mm[Hg] e CW1 ([facility]) Diastolic blood pressure 65 mm[Hg] 65 mm[Hg] eCW1 ([facility]) Body mass index (BMI) [Ratio] 28.66 kg/m2 28.66 kg/m2 eCW1 ([facility]) Heart rate 73 /min 73 /min eCW1 ([facility]) Body height 64 [in_i] 64 [in_i] eCW1 ([facility]) Body weight 165.8 [lb_av] 165.8 [lb_av] eCW1 ([facility]) Body weight 75.21 kg 75.21 kg eCW1 ([facility]) Body height 64 [in_i] 64 [in_i] eCW1 ([facility]) Body mass index (BMI) [Ratio] 28.46 kg/m2 28.46 kg/m2 eCW1 ([facility]) Heart rate 87 /min 87 /min eCW1 ([facility]) Respiratory rate 18 /min 18 /min eCW1 ([facility]) Body temperature 97.3 [degF] 97.3 [degF] eCW1 ( [facility]) Systolic blood pressure 130 mm[Hg] 130 mm[Hg] e CW1 ([facility]) Diastolic blood pressure 84 mm[Hg] 84 mm[Hg] eCW1 ([facility]) Body weight 160.2 [lb_av] 160.2 [lb_av] eCW1 ([facility]) Body weight 72.67 kg 72.67 kg eCW1 ([facility]) Body height 64 [in_i] 64 [in_i] eCW1 ([facility]) Body mass index (BMI) [Ratio] 27.50 kg/m2 27.50 kg/m2 eCW1 ([facility]) Heart rate 80 /min 80 /min eCW1 ([facility]) Respiratory rate 18 /min 18 /min eCW1 ([facility]) Body temperature 98.0 [degF] 98.0 [degF] eCW1 ( [facility]) Systolic blood pressure 132 mm[Hg] 132 mm[Hg] e CW1 ([facility]) Diastolic blood pressure 68 mm[Hg] 68 mm[Hg] eCW1 ([facility]) Body weight 157 [lb_av] 157 [lb_av] eCW1 ([facility]) Body weight 71.21 kg 71.21 kg eCW1 ([facility]) Body height 64 [in_i] 64 [in_i] eCW1 ([facility]) Body mass index (BMI) [Ratio] 26.95 kg/m2 26.95 kg/m2 eCW1 ([facility]) Heart rate 85 /min 85 /min eCW1 ([facility]) Respiratory rate 18 /min 18 /min eCW1 ([facility]) Body temperature 96.5 [degF] 96.5 [degF] eCW1 ( [facility]) Systolic blood pressure 142 mm[Hg] 142 mm[Hg] e CW1 ([facility]) Diastolic blood pressure 78 mm[Hg] 78 mm[Hg] eCW1 ([facility]) Body weight 164 [lb_av] 164 [lb_av] eCW1 ([facility]) Body height 64 [in_i] 64 [in_i] eCW1 ([facility]) Body mass index (BMI) [Ratio] 28.15 kg/m2 28.15 kg/m2 eCW1 ([facility]) Heart rate 79 /min 79 /min eCW1 ([facility]) Respiratory rate 18 /min 18 /min eCW1 ([facility]) Body temperature 96.3 [degF] 96.3 [degF] eCW1 ( [facility]) Systolic blood pressure 151 mm[Hg] 151 mm[Hg] e CW1 ([facility]) Diastolic blood pressure 85 mm[Hg] 85 mm[Hg] eCW1 ([facility]) Systolic blood pressure 124 mm[Hg] 124 mm[Hg] e CW1 ([facility]) Diastolic blood pressure 71 mm[Hg] 71 mm[Hg] eCW1 ([facility]) Body weight 164.8 [lb_av] 164.8 [lb_av] eCW1 ([facility]) Body height 64 [in_i] 64 [in_i] eCW1 ([facility]) Body mass index (BMI) [Ratio] 28.28 kg/m2 28.28 kg/m2 eCW1 ([facility]) Heart rate 70 /min 70 /min eCW1 ([facility]) Respiratory rate 17 /min 17 /min eCW1 ([facility]) Body temperature 98.4 [degF] 98.4 [degF] eCW1 ( [facility]) Systolic blood pressure 128 mm[Hg] 128 mm[Hg] e CW1 ([facility]) Diastolic blood pressure 59 mm[Hg] 59 mm[Hg] eCW1 ([facility]) Body weight 168.6 [lb_av] 168.6 [lb_av] eCW1 ([facility]) Body height 64 [in_i] 64 [in_i] eCW1 ([facility]) Body mass index (BMI) [Ratio] 28.94 kg/m2 28.94 kg/m2 eCW1 ([facility]) Heart rate 83 /min 83 /min eCW1 ([facility]) Respiratory rate 18 /min 18 /min eCW1 ([facility]) Body temperature 97.5 [degF] 97.5 [degF] eCW1 ( [facility]) Diastolic blood pressure 80 mm[Hg] 80 mm[Hg] eCW1 ([facility]) Body weight 166.4 [lb_av] 166.4 [lb_av] eCW1 ([facility]) Body height 64 [in_i] 64 [in_i] eCW1 ([facility]) Body mass index (BMI) [Ratio] 28.56 kg/m2 28.56 kg/m2 eCW1 ([facility]) Heart rate 109 /min 109 /min eCW1 ([facility]) Respiratory rate 18 /min 18 /min eCW1 ([facility]) Body temperature 98.2 [degF] 98.2 [degF] eCW1 ( [facility]) Systolic blood pressure 124 mm[Hg] 124 mm[Hg] e CW1 ([facility]) Body weight 166.4 [lb_av] 166.4 [lb_av] eCW1 ([facility]) Body height 64 [in_i] 64 [in_i] eCW1 ([facility]) Body mass index (BMI) [Ratio] 28.56 kg/m2 28.56 kg/m2 eCW1 ([facility]) Heart rate 67 /min 67 /min eCW1 ([facility]) Respiratory rate 17 /min 17 /min eCW1 ([facility]) Body temperature 97.9 [degF] 97.9 [degF] eCW1 ( [facility]) Systolic blood pressure 107 mm[Hg] 107 mm[Hg] e CW1 ([facility]) Diastolic blood pressure 59 mm[Hg] 59 mm[Hg] eCW1 ([facility]) Body weight 178.8 [lb_av] 178.8 [lb_av] eCW1 ([facility]) Body height 64 [in_i] 64 [in_i] eCW1 ([facility]) Body mass index (BMI) [Ratio] 30.69 kg/m2 30.69 kg/m2 eCW1 ([facility]) Heart rate 84 /min 84 /min eCW1 ([facility]) Respiratory rate 18 /min 18 /min eCW1 ([facility]) Body temperature 98.0 [degF] 98.0 [degF] eCW1 ( [facility]) Systolic blood pressure 128 mm[Hg] 128 mm[Hg] e CW1 ([facility]) Diastolic blood pressure 70 mm[Hg] 70 mm[Hg] eCW1 ([facility]) Systolic blood pressure 134 mm[Hg] 134 mm[Hg] [facility] Diastolic blood pressure 78 mm[Hg] 78 mm[Hg] [facility] Heart rate 64 /min 64 /min [facility] Body height 162.6 cm 162.6 cm [facility] Body weight 79.379 kg 79.379 kg [facility] Body mass index (BMI) [Ratio] 30.04 kg/m2 30.04 kg/m2 [facility] Oxygen saturation in Arterial blood by Pulse oximetry 96 % 96 % [facility] Body height 64 [in_i] 64 [in_i] eCW1 ([facility]) Body weight 165 [lb_av] 165 [lb_av] eCW1 ([facility]) Body mass index (BMI) [Ratio] 28.32 kg/m2 28.32 kg/m2 eCW1 ([facility]) Heart rate 110 /min 110 /min eCW1 ([facility]) Respiratory rate 18 /min 18 /min eCW1 ([facility]) Body temperature 97.9 [degF] 97.9 [degF] eCW1 ( [facility]) Systolic blood pressure 128 mm[Hg] 128 mm[Hg] e CW1 ([facility]) Diastolic blood pressure 82 mm[Hg] 82 mm[Hg] eCW1 ([facility]) Body weight 164.2 [lb_av] 164.2 [lb_av] eCW1 ([facility]) Body height 64 [in_i] 64 [in_i] eCW1 ([facility]) Body mass index (BMI) [Ratio] 28.18 kg/m2 28.18 kg/m2 eCW1 ([facility]) Heart rate 85 /min 85 /min eCW1 ([facility]) Respiratory rate 18 /min 18 /min eCW1 ([facility]) Body temperature 97.7 [degF] 97.7 [degF] eCW1 ( [facility]) Systolic blood pressure 148 mm[Hg] 148 mm[Hg] e CW1 ([facility]) Diastolic blood pressure 84 mm[Hg] 84 mm[Hg] eCW1 ([facility]) Body weight 169.2 [lb_av] 169.2 [lb_av] eCW1 ([facility]) Body height 64 [in_i] 64 [in_i] eCW1 ([facility]) Body mass index (BMI) [Ratio] 29.04 kg/m2 29.04 kg/m2 eCW1 ([facility]) Heart rate 87 /min 87 /min eCW1 ([facility]) Respiratory rate 18 /min 18 /min eCW1 ([facility]) Body temperature 97.7 [degF] 97.7 [degF] eCW1 ( [facility]) Systolic blood pressure 108 mm[Hg] 108 mm[Hg] e CW1 ([facility]) Diastolic blood pressure 64 mm[Hg] 64 mm[Hg] eCW1 ([facility]) Body height 64 [in_i] 64 [in_i] eCW1 ([facility]) Body weight 165 [lb_av] 165 [lb_av] eCW1 ([facility]) Body mass index (BMI) [Ratio] 28.32 kg/m2 28.32 kg/m2 eCW1 ([facility]) Heart rate 87 /min 87 /min eCW1 ([facility]) Respiratory rate 18 /min 18 /min eCW1 ([facility]) Body temperature 96.7 [degF] 96.7 [degF] eCW1 ( [facility]) Systolic blood pressure 122 mm[Hg] 122 mm[Hg] e CW1 ([facility]) Diastolic blood pressure mm[Hg] eCW1 ([facility]) Body weight 165.4 [lb_av] 165.4 [lb_av] eCW1 ([facility]) Body height 64 [in_i] 64 [in_i] eCW1 ([facility]) Body mass index (BMI) [Ratio] 28.39 kg/m2 28.39 kg/m2 eCW1 ([facility]) Heart rate 81 /min 81 /min eCW1 ([facility]) Respiratory rate 17 /min 17 /min eCW1 ([facility]) Body temperature 98.0 [degF] 98.0 [degF] eCW1 ( [facility]) Systolic blood pressure 147 mm[Hg] 147 mm[Hg] e CW1 ([facility]) Diastolic blood pressure 69 mm[Hg] 69 mm[Hg] eCW1 ([facility]) ID Date Data Source [id number] 12/16/2020 04:18:34 PM EDT [facility] Name Value Range Interpretation Code Description Data Source(s) WEIGHT RECORDED [address] [facility] Body height Measured 64 in 64 in [facility] ID Date Data Source [id number] [facility] Range Interpretation Code Description Data Source(s) PREFERRED NAME [facility] ID Date Data Source [id number] 10/01/2020 12:48:54 PM [facility] Name Value Range Interpretation Code Description Data Source(s) PREFERRED NAME [facility] PREFERRED NAME [facility] ID Date Data Source [id number] 10/01/2020 12:46:12 PM EDT [facility] Name Value Range Interpretation Code Description Data Source(s) PREFERRED NAME [facility] PREFERRED NAME [facility] ID Date Data Source [id number] 09/03/2020 11:45:22 AM [facility] Name Value Range Interpretation Code Description Data Source(s) PREFERRED NAME [facility] PREFERRED NAME [facility] ID Date Data Source [id number] 10/04[facility]2020 [facility]:55[facility] Name Value Range Interpretation Code Description Data Source(s) WEIGHT RECORDED [address] [facility] Body height Measured 64 in 64 in [facility] PREFERRED NAME [facility] ID Date Data Source [id number] 07/27/2020 09:40:10 AM [facility] Name Value Range Interpretation Code Description Data Source(s) PREFERRED NAME [facility] ID Date Data Source [id number] 08/13/2020 02:39:07 PM [facility] Name Value Range Interpretation Code Description Data Source(s) PREFERRED NAME [facility] PREFERRED NAME [facility] ID Date Data Source [id number] 08/13/2020 09:04:53 AM [facility] Name Value Range Interpretation Code Description Data Source(s) PREFERRED NAME [facility] PREFERRED NAME [facility] ID Date Data Source [id number] 08/13/2020 08:55:02 AM [facility] Name Value Range Interpretation Code Description Data Source(s) PREFERRED NAME [facility] PREFERRED NAME [facility] ID Date Data Source [id number] 07/27/2020 10:52:26 AM [facility] Name Value Range Interpretation Code Description Data Source(s) PREFERRED NAME [facility] ID Date Data Source [id number] 07/26/2020 04:34:44 PM [facility] Name Value Range Interpretation Code Description Data Source(s) PREFERRED NAME [facility] ID Date Data Source [id number] 08/13/2020 11:23:12 AM [facility] Name Value Range Interpretation Code Description Data Source(s) PREFERRED NAME [facility] ID Date Data Source [id number] 05/10/2020 11:03:32 AM [facility] Name Value Range Interpretation Code Description Data Source(s) PREFERRED NAME [facility] PREFERRED NAME [facility] Patient Treatment Plan of Care Planned Activity Planned Date Details Description Data Source (s) Acetaminophen 325 MG / Hydrocodone Bitartrate 10 MG Or al Tablet 03/17/2021 12:00:00 AM EDT eCW1 ([facility]) Aspirin 81 MG Delayed Release Oral Tablet 03/07/2021 12:00:00 AM ED T [facility] Acetaminophen 325 MG / Hydrocodone Bitartrate 10 MG Or al Tablet 02/10/2021 12:00:00 AM EDT eCW1 ([facility]) Acetaminophen 325 MG / Hydrocodone Bitartrate 10 MG Or al Tablet 02/10/2021 12:00:00 AM EDT eCW1 ([facility]) Acetaminophen 325 MG / Hydrocodone Bitartrate 10 MG Or al Tablet 02/10/2021 12:00:00 AM EDT eCW1 ([facility]) Acetaminophen 325 MG / Hydrocodone Bitartrate 10 MG Or al Tablet 02/10/2021 12:00:00 AM EDT eCW1 ([facility]) Acetaminophen 325 MG / Hydrocodone Bitartrate 10 MG Or al Tablet 01/06/2021 12:00:00 AM EDT eCW1 ([facility]) Acetaminophen 325 MG / Hydrocodone Bitartrate 10 MG Or al Tablet 01/06/2021 12:00:00 AM EDT eCW1 ([facility]) Acetaminophen 325 MG / Hydrocodone Bitartrate 10 MG Or al Tablet 01/06/2021 12:00:00 AM EDT eCW1 ([facility]) Methocarbamol 500 MG Oral Tablet 12/30/2020 12:00:00 AM [facility] Ciprofloxacin 500 MG Oral Tablet 12/19/2020 12:00:00 AM EDT [facility] Sodium Bicarbonate 325 MG Oral Tablet 12/16/2020 12:00:00 AM [facility] Ciprofloxacin 500 MG Oral Tablet 12/16/2020 12:00:00 AM [facility] Sodium Bicarbonate 325 MG Oral Tablet 12/16/2020 12:00:00 AM [facility] Ciprofloxacin 500 MG Oral Tablet 12/16/2020 12:00:00 AM [facility] Glucose 0.417 MG/MG Oral Gel 12/13/2020 02:52:39 AM [facility] dextrose 50 % IV solution 25 mL 12/13/2020 02:52:38 AM [facility] Glucagon 1 MG Injection 12/13/2020 02:52:38 AM [facility] Acetaminophen 325 MG / Hydrocodone Bitartrate 10 MG Or al Tablet 11/26/2020 12:00:00 AM EDT eCW1 ([facility]) Acetaminophen 325 MG / Hydrocodone Bitartrate 10 MG Or al Tablet 10/28/2020 12:00:00 AM EDT eCW1 ([facility]) Acetaminophen 325 MG / Hydrocodone Bitartrate 10 MG Or al Tablet 10/28/2020 12:00:00 AM EDT eCW1 ([facility]) Acetaminophen 325 MG / Hydrocodone Bitartrate 10 MG Or al Tablet 10/28/2020 12:00:00 AM EDT eCW1 ([facility]) Acetaminophen 325 MG / Hydrocodone Bitartrate 10 MG Or al Tablet 10/28/2020 12:00:00 AM EDT eCW1 ([facility]) Acetaminophen 325 MG / Hydrocodone Bitartrate 10 MG Or al Tablet 10/28/2020 12:00:00 AM EDT eCW1 ([facility]) Linagliptin 5 MG Oral Tablet [Tradjenta] 10/14/2020 12:00:00 AM [facility] Linagliptin 5 MG Oral Tablet [Tradjenta] 10/14/2020 12:00:00 AM EDT eCW1 ([facility]) Linagliptin 5 MG Oral Tablet [Tradjenta] 10/14/2020 12:00:00 AM EDT eCW1 ([facility]) Linagliptin 5 MG Oral Tablet [Tradjenta] 10/14/2020 12:00:00 AM EDT eCW1 ([facility]) Linagliptin 5 MG Oral Tablet [Tradjenta] 10/14/2020 12:00:00 AM EDT eCW1 ([facility]) Linagliptin 5 MG Oral Tablet [Tradjenta] 10/14/2020 12:00:00 AM EDT eCW1 ([facility]) Linagliptin 5 MG Oral Tablet [Tradjenta] 10/14/2020 12:00:00 AM EDT eCW1 ([facility]) Linagliptin 5 MG Oral Tablet [Tradjenta] 10/14/2020 12:00:00 AM EDT eCW1 ([facility]) Linagliptin 5 MG Oral Tablet [Tradjenta] 10/14/2020 12:00:00 AM EDT eCW1 ([facility]) Linagliptin 5 MG Oral Tablet [Tradjenta] 10/14/2020 12:00:00 AM EDT eCW1 ([facility]) Linagliptin 5 MG Oral Tablet [Tradjenta] 10/14/2020 12:00:00 AM EDT eCW1 ([facility]) Linagliptin 5 MG Oral Tablet [Tradjenta] 10/14/2020 12:00:00 AM EDT eCW1 ([facility]) Acetaminophen 325 MG / Hydrocodone Bitartrate 10 MG Or al Tablet 09/30/2020 12:00:00 AM EDT eCW1 ([facility]) Acetaminophen 325 MG / Hydrocodone Bitartrate 10 MG Or al Tablet 09/30/2020 12:00:00 AM EDT eCW1 ([facility]) rivaroxaban 10 MG Oral Tablet 08/22/2020 12:00:00 AM [facility] Acetaminophen 325 MG / Hydrocodone Bitartrate 5 MG Ora l Tablet 08/21/2020 08:43:02 AM [facility] Acetaminophen 325 MG / Hydrocodone Bitartrate 5 MG Ora l Tablet 08/21/2020 08:42:52 AM [facility] Capsaicin 0.25 MG/ML Topical Cream 08/20/2020 10:49:08 AM [facility] Acetaminophen 325 MG / Hydrocodone Bitartrate 10 MG Or al Tablet 08/20/2020 12:00:00 AM EDT eCW1 ([facility]) Acetaminophen 325 MG / Hydrocodone Bitartrate 10 MG Or al Tablet 08/20/2020 12:00:00 AM EDT eCW1 ([facility]) Acetaminophen 325 MG / Hydrocodone Bitartrate 10 MG Or al Tablet 08/20/2020 12:00:00 AM EDT eCW1 ([facility]) dextrose 50 % IV solution 25 mL 08/17/2020 11:15:24 AM [facility] Glucagon 1 MG Injection 08/17/2020 11:15:24 AM [facility] Glucose 0.417 MG/MG Oral Gel 08/17/2020 11:15:24 AM [facility] POLYETHYLENE GLYCOL 3350 142 MG/ML Oral Solution 08/17/2020 11:15:2 4 AM [facility] ondansetron (ZOFRAN) injection 4 mg 08/17/2020 11:15:24 AM [facility] Mupirocin 0.02 MG/MG Topical Ointment 08/09/2020 12:00:00 AM [facility] Acetaminophen 325 MG / Hydrocodone Bitartrate 10 MG Or al Tablet 07/29/2020 12:00:00 AM EST eCW1 ([facility]) Acetaminophen 325 MG / Hydrocodone Bitartrate 10 MG Or al Tablet 07/29/2020 12:00:00 AM EST eCW1 ([facility]) Acetaminophen 325 MG / Hydrocodone Bitartrate 10 MG Or al Tablet 06/25/2020 12:00:00 AM EST eCW1 ([facility]) Acetaminophen 325 MG / Hydrocodone Bitartrate 10 MG Or al Tablet 05/24/2020 12:00:00 AM EST eCW1 ([facility]) Acetaminophen 325 MG / Hydrocodone Bitartrate 10 MG Or al Tablet 04/16/2020 12:00:00 AM EST eCW1 ([facility]) Acetaminophen 325 MG / Hydrocodone Bitartrate 10 MG Or al Tablet 04/16/2020 12:00:00 AM EST eCW1 ([facility]) Acetaminophen 325 MG / Hydrocodone Bitartrate 10 MG Or al Tablet 04/16/2020 12:00:00 AM EST eCW1 ([facility]) Acetaminophen 325 MG / Hydrocodone Bitartrate 10 MG Or al Tablet 04/16/2020 12:00:00 AM EST eCW1 ([facility]) Acetaminophen 325 MG / Hydrocodone Bitartrate 10 MG Or al Tablet 04/16/2020 12:00:00 AM EST eCW1 ([facility]) tadalafil 20 MG Oral Tablet 03/30/2020 12:00:00 AM EDT eCW1 ([facility]) Acetaminophen 325 MG / Hydrocodone Bitartrate 10 MG Or al Tablet 03/16/2020 12:00:00 AM EDT eCW1 ([facility]) Acetaminophen 325 MG / Hydrocodone Bitartrate 10 MG Or al Tablet 03/16/2020 12:00:00 AM EDT eCW1 ([facility]) Acetaminophen 325 MG / Hydrocodone Bitartrate 10 MG Or al Tablet 03/16/2020 12:00:00 AM EDT eCW1 ([facility]) Acetaminophen 325 MG / Hydrocodone Bitartrate 10 MG Or al Tablet 03/16/2020 12:00:00 AM EDT eCW1 ([facility]) Acetaminophen 325 MG / Hydrocodone Bitartrate 10 MG Or al Tablet 03/16/2020 12:00:00 AM EDT eCW1 ([facility]) Aspirin 81 MG Delayed Release Oral Tablet 03/04/2020 12:00:00 AM ED T [facility] Mupirocin 0.02 MG/MG Topical Ointment 01/14/2020 12:00:00 AM EDT [facility] Hydroxychloroquine Sulfate 200 MG Oral Tablet 12/18/2019 12:00:00 A M EDT [facility] Ciprofloxacin 500 MG Oral Tablet [facility] 24 HR Glipizide 5 MG Extended Release Oral Tablet [facility] Ciprofloxacin 500 MG Oral Tablet [facility] Nitroglycerin 0.4 MG Sublingual Tablet [facility] Sodium Bicarbonate 325 MG Oral Tablet [facility] Sodium Bicarbonate 325 MG Oral Tablet [facility]
--- OUTSIDE RECORDS SUMMARY | 2021-05-09 17:15 | CCD ---
Author Author [facility] Organization [facility] Address Unknown Phone Unavailable Care Team Providers Care Sewer Head Name Role Phone Lexis Farr PT Unavailable Unavailable Yordan, R Tony [...] A Shelby MD Unavailable Unavailable Yaw, A Shleby MD Unavailable Unavailable Yaw, A Shelby MD [...] Corbin MD Unavailable Unavailable Thomas, C Zo COOK SHORT ORDER Unavailable Unavailable Thomas, C Zo COOK SHORT ORDER Unavailable Unavailable Thomas, C Zo COOK SHORT ORDER Unavailable Unavailable Thomas, C Zo COOK SHORT ORDER Unavailable Unavailable Thomas, C Zo COOK SHORT ORDER Unavailable Unavailable Thomas, C Zo COOK SHORT ORDER Unavailable Unavailable Thomas, C Zo COOK SHORT ORDER Unavailable Unavailable Thomas, C Zo COOK SHORT ORDER Unavailable Unavailable Thomas, C Zo COOK SHORT ORDER Unavailable Unavailable Thomas, C Zo COOK SHORT ORDER Unavailable Unavailable Thomas, C Zo COOK SHORT ORDER Unavailable Unavailable Thomas, C Zo COOK SHORT ORDER Unavailable Unavailable Thomas, C Zo COOK SHORT ORDER Unavailable Unavailable Thomas, C Zo COOK SHORT ORDER Unavailable Unavailable Thomas, C Zo COOK SHORT ORDER Unavailable Unavailable Thomas, C Zo COOK SHORT ORDER Unavailable Unavailable Thomas, C Zo COOK SHORT ORDER Unavailable Unavailable Thomas, C Zo COOK SHORT ORDER Unavailable Unavailable Thomas, C Zo COOK SHORT ORDER Unavailable Unavailable Thomas, C Zo COOK SHORT ORDER Unavailable Unavailable Thomas, C Zo COOK SHORT ORDER Unavailable Unavailable Thomas, C Zo COOK SHORT ORDER Unavailable Unavailable Thomas, C Zo COOK SHORT ORDER Unavailable Unavailable Thomas, C Zo COOK SHORT ORDER Unavailable Unavailable Thomas, C Zo COOK SHORT ORDER Unavailable Unavailable Thomas, C Zo COOK SHORT ORDER Unavailable Unavailable Thomas, C Zo COOK SHORT ORDER Unavailable Unavailable Thomas, C Zo COOK SHORT ORDER Unavailable Unavailable Thomas, C Zo COOK SHORT ORDER Unavailable Unavailable Thomas, C Zo COOK SHORT ORDER Unavailable Unavailable Frannie COX MD Unavailable Unavailable Frannie COX MD Unavailable Unavailable Frannie COX MD Unavailable Unavailable Frannie COX MD Unavailable Unavailable RAYA WALSH MD Unavailable Unavailable Jesus AlbertouoVILMA cshmidt ANP-C Unavailable [email or web address] [email or web address] VILMA Blevins ANP-C Unavailable [email or web address] [email or web address] VILMA Blevins ANP-C Unavailable [email or web address] [email or web address] VILMA Blevins ANP-C Unavailable [email or web address] [email or web address] VILMA Blevins ANP-C Unavailable tomaiuo [email or web address] Tomaiuoli, VILMA Janis ANP-C Unavailable tomaiuo Tomaiuoroxana [...] tomaiuo TomaiuoVILMA schmidt Janis ANP-C Unavailable tomaiuo Alexis, V SY PA-C Unavailable Unavailable Alexis, V SY PA-C Unavailable Unavailable Eric, V SY PA-C Unavailable Unavailable Alexis, V SY PA-C Unavailable Unavailable Alexis, V SY PA-C Unavailable Unavailable Alexis, V SY PA-C Unavailable Unavailable Eric, V SY PA-C Unavailable Unavailable Eric, V SY PA-C Unavailable Unavailable Alexis, V SY PA-C Unavailable Unavailable Alexis, V SY PA-C Unavailable Unavailable Eric, V SY PA-C Unavailable Unavailable Alexis, V SY PA-C Unavailable Unavailable Alexis, V SY PA-C Unavailable Unavailable Alexis, V SY PA-C Unavailable Unavailable PATRIC LIN [...] Unavailable Sita Michele MD Unavailable Unavailable Sita Mihcele MD Unavailable Unavailable Sita Michele MD Unavailable [...] is protected by Article 27-F of the [facility] Public Health law. If you continue you may have access to information: Regarding HIV / AIDS; Provided by facilities licensed or operated by the [facility] Office of Mental Health; or Provided by the [facility] Office for People With Developmental Disabilities. If such information is present, then the following [facility] mandated warning applies: This information has [...] law may result in a fine or fdc sentence or both. A general authorization for the release of medical or other information is NOT sufficient authorization for further disc losure. Allergies and Adverse Reactions Type Description Substance Reaction Status Data Source(s ) Environmental Allergy ENVIRONMENTAL [facility] Family History Family Member Name Family Member Gender Family Member Status Date o f Status Description Data Source(s) Unknown Unknown Problem [facility] ([facility]) Encounters Encounter Providers Location Date Indications Data Source(s ) Outpatient Attender: Shelby Lewis MD 06/06/2021 12:00:00 AM [facility] Outpatient Attender: Shelby Lewis MD 05/06/2021 12:00:00 AM [facility] Outpatient [address] [facility] [place] [address] 04/22/2021 12:00:00 AM EST eCW1 ([facility]) Outpatient [address] [facility] [place] [address] 04/14/2021 12:00:00 AM EST [facility]CW1 ([facility]) Unknown [address] [facility] [place] [address] 04/14/2021 12:00:00 AM EST eCW1 ([facility]) Outpatient [address] [facility] [place] [address] 03/23/2021 12:00:00 AM EDT eCW1 ([facility]) Unknown [address] [facility] [place] [address] 03/15/2021 12:00:00 AM EDT eCW1 ([facility]) Unknown [address] [facility] [place] [address] 03/15/2021 12:00:00 AM EDT eCW1 ([facility]) Unknown [address] [facility] [place] [address] 03/11/2021 12:00:00 AM EDT eCW1 ([facility]) Unknown [address] [facility] [place] [address] 03/08/2021 12:00:00 AM EDT eCW1 ([facility]) Outpatient Attender: Sita Michele MD [email or web address] 09/2020 12:00:00 AM EDT - 03/07/2021 10:24:24 AM EDT [facility] ([facility]) W/C Procedure [address] [place] [address] 02/28/2021 12:00:00 AM EDT eCW1 ([facility]) Unknown [address] [facility] [place] [address] 02/24/2021 12:00:00 AM EDT eCW1 ([facility]) Unknown [address] [facility] [place] [address] 02/21/2021 12:00:00 AM EDT eCW1 ([facility]) Outpatient [address] [facility] [place] [address] 02/10/2021 12:00:00 AM EDT eCW1 ([facility]) Unknown [address] [facility] [place] [address] 01/27/2021 12:00:00 AM EDT eCW1 ([facility]) Unknown [address] [facility] [place] [address] 01/27/2021 12:00:00 AM EDT eCW1 ([facility]) Unknown [address] [facility] [place] [address] 01/25/2021 12:00:00 AM EDT eCW1 ([facility]) Outpatient Attender: Tony Farr PT CPSCAORT-CPSCARHALINA 01:20:00 PM EDT - 01/24/2021 01:21:00 PM EDT [facility] Patient discharged. Unknown [address] [facility] [place] [address] 01/24/2021 12:00:00 AM EDT eCW1 ([facility]) Outpatient [address] [facility] [place] [address] 01/18/2021 12:00:00 AM EDT eCW1 ([facility]) Unknown [address] [facility] [place] [address] 01/18/2021 12:00:00 AM EDT eCW1 ([facility]) Outpatient [address] [facility] [place] [address] 01/13/2021 12:00:00 AM EDT [facility]CW1 ([facility]) Outpatient Attender: Janis LIRA-C 01/13/2021 12:00:00 AM [facility] Unknown [address] [facility] [place] [address] 01/06/2021 12:00:00 AM EDT [facility] Unknown [address] [facility] [place] [address] 01/05/2021 12:00:00 AM EDT [facility]CW1 [facility]) Outpatient Referrer: Shelby Lewis MD 12/31/2020 12 :00:00 AM EDT Presence of right artificial hip joint [facility] Presence of right artificial hip joint Outpatient Attender: Shelby Lewis MD [id number] 12/31/2020 12:00:0 0 AM [facility] Outpatient Attender: Jnais LIRA-C [id number] 12/30/2020 12:00:00 AM EDT [facility] Cervicalgia Outpatient Referrer: Janis LIRA-C 12/30 12:00:00 AM EDT [facility] Cervicalgia Outpatient [address] [facility] [place] [address] 12/27/2020 12:00:00 AM EDT [facility]CW1 [facility]) Outpatient [address] [facility] [place] [address] 12/24/2020 12:00:00 AM EDT eCW1 ([facility]) Unknown [address] [facility] [place] [address] 12/17/2020 12:00:00 AM EDT [facility]CW1 [facility]) Outpatient Attender: JAYSON COX MDReferrer: JAYSON COX MD 12/14/2020 12:00:00 AM [facility] Outpatient Attender: JAYSON COX MDReferrer: JAYSON COX MD 12/13/2020 12:00:00 AM [facility] Inpatient Attender: RAYA ABEL MDAttender: JAYSON COX MDAttender: Fannie Palencia MDAttender: PATRIC LIN MDAdmitter: JAYSON COX MDReferrer: JAYSON COX MD [id number] 12/12/2020 12:00:00 AM EDT - 12/16/2020 12:33:00 PM EDT 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 Unknown [address] [facility] [place] [address] 12/09/2020 12:00:00 AM EDT eCW1 ([facility]) Outpatient [address] [facility] [place] [address] 12/09/2020 12:00:00 AM EDT eCW1 ([facility]) Unknown [address] [facility] [place] [address] 12/08/2020 12:00:00 AM EDT eCW1 ([facility]) Outpatient Attender: Shelby Lewis MD [id number] 12/03/2020 12:00:0 0 AM EDT [facility] Unknown [address] [facility] [place] [address] 12/03/2020 12:00:00 AM EDT eCW1 ([facility]) Unknown [address] [facility] [place] [address] 12/01/2020 12:00:00 AM EDT [facility]CW1 [facility] [address] [facility] [place] [address] 11/30/2020 12:00:00 AM EDT eCW1 ([facility]) Unknown [address] [facility] [place] [address] 11/26/2020 12:00:00 AM EDT eCW1 ([facility] Unknown [address] [facility] [place] [address] 11/19/2020 12:00:00 AM EDT eCW1 ([facility]) Unknown [address] [facility] [place] [address] 11/11/2020 12:00:00 AM EDT eCW1 ([facility]) Unknown [address] [facility] [place] [address] 10/28/2020 12:00:00 AM EDT eCW1 ([facility]) Unknown [address] [facility] [place] [address] 10/28/2020 12:00:00 AM EDT eCW1 ([facility]) Unknown [address] [facility] [place] [address] 10/28/2020 12:00:00 AM EDT eCW1 ([facility]) Outpatient [address] [facility] [place] [address] 10/14/2020 12:00:00 AM EDT eCW1 ([facility]) Outpatient [address] [facility] [place] [address] 10/14/2020 12:00:00 AM EDT eCW1 ([facility]) Unknown [address] [facility] [place] [address] 10/07/2020 12:00:00 AM EDT eCW1 ([facility]) Unknown [address] [facility] [place] [address] 10/07/2020 12:00:00 AM EDT eCW1 ([facility]) Outpatient Referrer: Shelby Lewis MD 10/01/2020 12 :00:00 AM EDT Pain in right hip [facility] Pain in right hip Outpatient Attender: Shelby Lewis MD [id number] 10/01/2020 12 :00:00 AM EDT Presence of right artificial hip joint [facility] Presence of right artificial hip joint Unknown [address] [facility] [place] [address] 09/30/2020 12:00:00 AM EDT eCW1 ([facility]) Unknown [address] [facility] [place] [address] 09/24/2020 12:00:00 AM EDT eCW1 ([facility]) Unknown [address] [facility] [place] [address] 09/14/2020 12:00:00 AM EDT eCW1 ([facility]) Outpatient Attender: Shelby Lewis MD [id number] 09/03/2020 12 :00:00 AM EDT Pain in right hip [facility] Pain in right hip Unknown [address] [facility] [place] [address] 09/03/2020 12:00:00 AM EDT eCW1 ([facility]) Unknown [address] [facility] [place] [address] 08/25/2020 12:00:00 AM EDT eCW1 ([facility]) Unknown [address] [facility] [place] [address] 08/20/2020 12:00:00 AM EDT eCW1 ([facility]) Inpatient Attender: Shelby Lewis MDAdmitter: Shelby dang MD [id number] 08/17/2020 12:00:00 AM EDT - 08/21/2020 12:05:00 PM EDT Unilateral primary osteoarthritis, right [facility] Unilateral primary osteoarthritis, right hip Patient discharged. Outpatient 08/13/2020 12:00:00 AM [facility] Outpatient Attender: Zo Thomas FNPReferrer: Zo graves COOK SHORT ORDER 08/12/2020 12:00:00 AM EST - 08/13/2020 12:00:00 AM EST Encounter for screening for other viral diseases [facility] Encounter for screening for other viral diseases Outpatient Referrer: Shelby Lewis MD 08/12/2020 12 :00:00 AM EST Other unilateral secondary osteoarthritis of hip [facility] Other unilateral secondary osteoarthriti s of hip Outpatient Attender: Shelby Lewis MDReferrer: Shelby dang MD 08/12/2020 12:00:00 AM EST - 08/13/2020 12:00:[address] [facility] Outpatient 08/12/2020 12:00:00 AM [facility] Outpatient [address] [facility] [place] [address] 08/10/2020 12:00:00 AM EST eCW1 ([facility]) Outpatient 08/05/2020 12:00:00 AM EST [facility] Unknown [address] [facility] [place] [address] 08/04/2020 12:00:00 AM EST eCW1 ([facility]) Outpatient Attender: SY MATHEW-SJPTaliaRANDALL 07/2020 12:00:00 AM EST - 08/03/2020 08:35:38 AM EST [facility] Outpatient Attender: Tony Farr PT CPSCAORT-CPSCARHE 01:37:00 PM EST - 07/29/2020 01:38:00 PM EST [facility] Patient discharged. Unknown [address] [facility] [place] [address] 07/29/2020 12:00:00 AM EST eCW1 ([facility]) Unknown [address] [facility] [place] [address] 07/21/2020 12:00:00 AM EST eCW1 ([facility]) Outpatient [address] [facility] [place] [address] 07/15/2020 12:00:00 AM EST eCW1 ([facility]) Unknown [address] [facility] [place] [address] 06/25/2020 12:00:00 AM EST eCW1 ([facility]) Unknown [address] [facility] [place] [address] 06/17/2020 12:00:00 AM EST eCW1 ([facility]) Outpatient [address] [facility] [place] [address] 05/31/2020 12:00:00 AM EST eCW1 ([facility]) Unknown [address] [facility] [place] [address] 05/31/2020 12:00:00 AM EST eCW1 ([facility]) Unknown [address] [facility] [place] [address] 05/26/2020 12:00:00 AM EST eCW1 ([facility]) Unknown [address] [facility] [place] [address] 05/19/2020 12:00:00 AM EST eCW1 ([facility]) Outpatient Attender: Shelby Lewis MD [id number] 12/2019 12:00:00 AM EST - 05/10/2020 03:20:16 PM EST Other unilateral secondary osteoarthritis of hip [facility] Other unilateral secondary osteoarthriti s of hip Outpatient Referrer: Shelby Lweis MD 05/10/2020 12 :00:00 AM EST Pain in right hip [facility] Pain in right hip Unknown [address] [facility] [place] [address] 04/21/2020 12:00:00 AM EST eCW1 ([facility]) Unknown [address] [facility] [place] [address] 04/19/2020 12:00:00 AM EST eCW1 ([facility]) Outpatient [address] [facility] [place] [address] 04/16/2020 12:00:00 AM EST eCW1 ([facility]) Unknown [address] [facility] [place] [address] 04/16/2020 12:00:00 AM EST eCW1 ([facility]) Outpatient [address] [facility] [place] [address] 04/06/2020 12:00:00 AM EST eCW1 ([facility]) Outpatient [address] [facility] [place] [address] 03/30/2020 12:00:00 AM EDT eCW1 ([facility]) Unknown [address] [facility] [place] [address] 03/28/2020 12:00:00 AM EDT eCW1 ([facility]) Unknown [address] [facility] [place] [address] 03/26/2020 12:00:00 AM EDT eCW1 ([facility]) Unknown [address] [facility] [place] [address] 03/15/2020 12:00:00 AM EDT eCW1 ([facility]) Unknown [address] [facility] [place] [address] 03/15/2020 12:00:00 AM EDT eCW1 ([facility]) Unknown [address] [facility] [place] [address] 03/13/2020 12:00:00 AM EDT eCW1 ([facility]) Unknown [address] [facility] [place] [address] 03/12/2020 12:00:00 AM EDT eCW1 ([facility]) Medications Medication Brand Name Start Date Product [...] {tablets} active HYDROcodon e-Acetaminophen 10-325 MG eCW1 ([facility]) Acetaminophen 325 MG / Hydrocodone Guevara trate 10 MG Oral Tablet HYDROcodone- Acetaminophen 10-325 MG HYDROcodone-Acetaminophen 10-325 MG 03/17/2021 12:00:0 0 AM EDT 2.0 {tablets} active HYDROcodon e-Acetaminophen 10-325 MG eCW1 ([facility]) Acetaminophen 325 MG / Hydrocodone Guevara trate 10 MG Oral Tablet HYDROcodone- Acetaminophen 10-325 MG HYDROcodone-Acetaminophen 10-325 MG 03/17/2021 12:00:0 0 AM EDT 2.0 {tablets} active HYDROcodon e-Acetaminophen 10-325 MG eCW1 ([facility]) Acetaminophen 325 MG / Hydrocodone Guevara trate 10 MG Oral Tablet HYDROcodone- Acetaminophen 10-325 MG HYDROcodone-Acetaminophen 10-325 MG 03/17/2021 12:00:0 0 AM EDT 2.0 {tablets} active HYDROcodon e-Acetaminophen 10-325 MG eCW1 ([facility]) Acetaminophen 325 MG / Hydrocodone Guevara trate 10 MG Oral Tablet HYDROcodone- Acetaminophen 10-325 MG HYDROcodone-Acetaminophen 10-325 MG 03/17/2021 12:00:0 0 AM EDT 2.0 {tablets} active HYDROcodon e-Acetaminophen 10-325 MG eCW1 ([facility]) Acetaminophen 325 MG / Hydrocodone Guevara trate 10 MG Oral Tablet HYDROcodone- Acetaminophen 10-325 MG HYDROcodone-Acetaminophen 10-325 MG 03/17/2021 12:00:0 0 AM EDT 2.0 {tablets} active HYDROcodon e-Acetaminophen 10-325 MG eCW1 ([facility]) Acetaminophen 325 MG / Hydrocodone Guevara trate 10 MG Oral Tablet HYDROcodone- Acetaminophen 10-325 MG HYDROcodone-Acetaminophen 10-325 MG 03/17/2021 12:00:0 0 AM EDT 2.0 {tablets} active HYDROcodon e-Acetaminophen 10-325 MG eCW1 ([facility]) Acetaminophen 325 MG / Hydrocodone Guevara trate 10 MG Oral Tablet HYDROcodone- Acetaminophen 10-325 MG HYDROcodone-Acetaminophen 10-325 MG 03/17/2021 12:00:0 0 AM EDT 2.0 {tablets} active HYDROcodon e-Acetaminophen 10-325 MG eCW1 ([facility]) Acetaminophen 325 MG / Hydrocodone Guevara trate 10 MG Oral Tablet HYDROcodone- Acetaminophen 10-325 MG HYDROcodone-Acetaminophen 10-325 MG 03/17/2021 12:00:0 0 AM EDT 2.0 {tablets} active HYDROcodon e-Acetaminophen 10-325 MG eCW1 ([facility]) Aspirin 81 MG Delayed Release Oral Tablet aspirin EC 8 1 MG EC tablet aspirin EC 81 MG EC tablet 03/07/2021 12:00:00 AM EDT 81 mg Oral ac tive Take 1 tablet (81 mg total) by mouth daily [facility] Acetaminophen 325 MG / Hydrocodone Guevara trate 10 MG Oral Tablet HYDROcodone- Acetaminophen 10-325 MG HYDROcodone-Acetaminophen 10-325 MG 02/10/2021 12:00:0 0 AM EDT 2.0 {tablets} active HYDROcodon e-Acetaminophen 10-325 MG eCW1 ([facility]) Acetaminophen 325 MG / Hydrocodone Bitartrate [...] {tablets} active HYDROcodon e-Acetaminophen 10-325 MG eCW1 ([facility]) Acetaminophen 325 MG / Hydrocodone Guevara trate 10 MG Oral Tablet HYDROcodone- Acetaminophen 10-325 MG HYDROcodone-Acetaminophen 10-325 MG 02/10/2021 12:00:0 0 AM EDT 2.0 {tablets} active HYDROcodon e-Acetaminophen 10-325 MG eCW1 ([facility]) Acetaminophen 325 MG / Hydrocodone Guevara trate 10 MG Oral Tablet HYDROcodone- Acetaminophen 10-325 MG HYDROcodone-Acetaminophen 10-325 MG 02/10/2021 12:00:0 0 AM EDT 2.0 {tablets} active HYDROcodon e-Acetaminophen 10-325 MG eCW1 ([facility]) Acetaminophen 325 MG / Hydrocodone Guevara trate 10 MG Oral Tablet HYDROcodone- Acetaminophen 10-325 MG HYDROcodone-Acetaminophen 10-325 MG 02/10/2021 12:00:0 0 AM EDT 2.0 {tablets} active HYDROcodon e-Acetaminophen 10-325 MG eCW1 ([facility]) Acetaminophen 325 MG / Hydrocodone Guevara trate 10 MG Oral Tablet HYDROcodone- Acetaminophen 10-325 MG HYDROcodone-Acetaminophen 10-325 MG 02/10/2021 12:00:0 0 AM EDT 2.0 {tablets} active HYDROcodon e-Acetaminophen 10-325 MG eCW1 ([facility]) Acetaminophen 325 MG / Hydrocodone Guevara trate 10 MG Oral Tablet HYDROcodone- Acetaminophen 10-325 MG HYDROcodone-Acetaminophen 10-325 MG 02/10/2021 12:00:0 0 AM EDT 2.0 {tablets} active HYDROcodon e-Acetaminophen 10-325 MG eCW1 ([facility]) Acetaminophen 325 MG / Hydrocodone Bitartrate [...] {tablets} active HYDROcodon e-Acetaminophen 10-325 MG eCW1 ([facility]) Acetaminophen 325 MG / Hydrocodone Guevara trate 10 MG Oral Tablet HYDROcodone- Acetaminophen 10-325 MG HYDROcodone-Acetaminophen 10-325 MG 01/06/2021 12:00:0 0 AM EDT 2.0 {tablets} active HYDROcodon e-Acetaminophen 10-325 MG eCW1 ([facility]) Acetaminophen 325 MG / Hydrocodone Guevara trate 10 MG Oral Tablet HYDROcodone- Acetaminophen 10-325 MG HYDROcodone-Acetaminophen 10-325 MG 01/06/2021 12:00:0 0 AM EDT 2.0 {tablets} active HYDROcodon e-Acetaminophen 10-325 MG eCW1 ([facility]) Acetaminophen 325 MG / Hydrocodone Guevara trate 10 MG Oral Tablet HYDROcodone- Acetaminophen 10-325 MG HYDROcodone-Acetaminophen 10-325 MG 01/06/2021 12:00:0 0 AM EDT 2.0 {tablets} active HYDROcodon e-Acetaminophen 10-325 MG eCW1 ([facility]) Hydroxychloroquine Sulfate 200 MG Oral Tablet [...] {tablets} active HYDROcodon e-Acetaminophen 10-325 MG eCW1 ([facility]) Acetaminophen 325 MG / Hydrocodone Guevara trate 10 MG Oral Tablet HYDROcodone- Acetaminophen 10-325 MG HYDROcodone-Acetaminophen 10-325 MG 01/06/2021 12:00:0 0 AM EDT 2.0 {tablets} active HYDROcodon e-Acetaminophen 10-325 MG eCW1 ([facility]) Hydroxychloroquine Sulfate 200 MG Oral Tablet [...] {tablets} active HYDROcodon e-Acetaminophen 10-325 MG eCW1 ([facility]) Hydroxychloroquine Sulfate 200 MG Oral Tablet [...] as needed for up to 10 days [facility] 500 mg 12/19/2020 12:00:00 AM EDT tablet 10 TAKE ONE TABLET BY MOUTH TWICE A DAY FOR 5 DAYS TAKE ONE TABLET BY MOUTH TWICE A DAY FOR 5 DAYS SOLD: 2020 [facility] Ciprofloxacin 500 MG Oral Tablet ciprofloxacin (CIPRO) 500 MG tablet ciprofloxacin (CIPRO) 500 MG tablet 12/19/2020 12:00:00 AM EDT active Prn UTI [facility] Ciprofloxacin 500 MG Oral Tablet Ciprofloxacin HCl 500 MG Oral Tablet (CIPRO) Ciprofloxacin HCl 500 MG Oral Tablet (CIPRO) 12/16/2020 12:00:00 AM EDT 500 mg Oral aborted Take 1 tablet by mouth T wo Times Daily for 5 days [facility] Sodium Bicarbonate 325 MG Oral Tablet Sodium Bicarbonate 325 MG Oral Tablet 12/16/2020 12:00:00 AM EDT 650 mg Oral aborted Take 2 tablets by mouth Two Times Daily [facility] Ciprofloxacin 500 MG Oral Tablet Ciprofloxacin HCl 500 MG Oral Tablet (CIPRO) Ciprofloxacin HCl 500 MG Oral Tablet (CIPRO) 12/16/2020 12:00:00 AM EDT 500 mg Oral active Take 1 tablet by mouth T wo Times Daily for 5 days [facility] Sodium Bicarbonate 325 MG Oral Tablet Sodium Bicarbonate 325 MG Oral Tablet 12/16/2020 12:00:00 AM EDT 650 mg Oral active Take 2 tablets by mouth Two Times Daily [facility] Acetaminophen 325 MG / Hydrocodone Guevara [...] mg from all sources in 24 hours.
[facility] Medication administered onsite POLYETHYLENE GLYCOL 3350 59 MG/ML / Pota ssium Chloride 0.01 MEQ/ML / Sodium Bicarbonate 0.02 MEQ/ML / Sodium Chloride 0.025 MEQ/ML / sodium sulfate 0.04 MEQ/ML Oral Solution polyethylene glycol (GoLYTELY,NuLYTELY) suspension 4,000 mL polyethylene glycol (GoLYTELY,NuLYTELY) suspension 4,0 00 mL 12/14/2020 06:45:00 PM EDT 4000 mL Oral completed 4,000 mL, Oral, Once, On Sun12/14/20 at 1845, For 1 dose [facility] Medication administered onsite fentaNYL (SUBLIMAZE) (PF) injection 25 mcg [id number] 12/14/2020 02:12:50 PM EDT 25 ug Intravenous completed 25 mcg, Intravenous, Every 4 hours PRN, Moderate Pain (Pain Scale Score 4-6), Starting on Sun12/14/20 at 1412, For 24 hours [facility] Medication administered onsite Ceftriaxone 1000 MG Injection cefTRIAXone (ROCEPHIN) i nfusion 1 g (premix) cefTRIAXone (ROCEPHIN) infusion 1 g (premix) 12/14/2020 02:00:00 AM EDT 1 g Intravenous completed 1 g, Intraven ous, at 100 mL/hr, Every 24 hours, First dose on Sun12/14/20 at 0200, For 3 days
Discouraged Uses: Empiric treatment of post-surgical meningitis (ceftazidime preferred)
[facility] Medication administered onsite Sodium Bicarbonate 650 MG Oral Tablet sodium bicarbona te tablet 325 mg sodium bicarbonate tablet 325 mg 12/13/2020 09:00:00 PM EDT 325 mg Oral active 325 mg, Oral, 2 Times Daily, First dose on Sun12/13/20 at 2100, For 30 days [facility] Medication administered onsite insulin lispro (HumaLOG) injection LOW DOSE EATING INS ULIN patients 1-8 Units [id number] 12/13/2020 06:00:00 PM EDT U Subcutaneous active 1-8 Units, Subcutaneous, Three Times Daily-With Meals, First dose on Sun12/13/20 at 1800, For 30 days
Nursing MUST open the 'SQ Insulin Dosing Charts' Sidebar Report, or, the Patient Summary or Summary Report within the ED.
[facility] Medication administered onsite potassium chloride (K-DUR) dissolvable tablet 40 mEq 47854-0 99-01 12/13/2020 09:30:00 AM EDT 40 meq Oral completed 40 mEq, Oral, Once, On Sun12/13/20 at 0930, For 1 dose
May be dissolved in water for patients with a G- Tube or unable to swallow. If concern for clogging G-Tube, may contact Pharmacy to switch formulation to a powder packet.
[facility] Medication administered onsite heparin (porcine) 5000 UNIT/ML injection 5,000 Units [id number] 12/13/2020 09:00:00 AM EDT 5000 U Subcutaneous active 5,000 Units, Subcutaneous, Three Times Daily Standard, First dose on Sun12/13/20 at 0900, For 30 days [facility] Medication administered onsite Calcium Chloride 0.0014 MEQ/ML / Potassi um Chloride 0.004 MEQ/ML / Sodium Chloride 0.103 MEQ/ML / Sodium Lactate 0.028 MEQ/ML Injectable Solution lactated ringers infusion lactated ringers infusion 12/13/2020 03:45:00 AM EDT 75 mL/h Intravenous completed at 75 mL/hr, Intravenous, Continuous, Starting on Sun12/13/20 at 0345, For 12 hours [facility] Medication administered onsite Glucose 0.417 MG/MG Oral Gel glucose (GLUTOSE) 40 % or al gel 15 g glucose (GLUTOSE) 40 % oral gel 15 g 12/13/2020 02:52:39 AM EDT 15 g Oral active 15 g, Oral, PRN, Low blood s ugar, for gluose 55-69 mg/dl and able to take PO, Starting on Sun12/13/20 at 0252, For 30 days [facility] Medication administered onsite dextrose 50 % IV solution 25 mL [id number] 12/13/2020 02:52:38 AM E DT 25 mL Intravenous active 25 mL, Intrav enous, PRN, Other, blood glucose <55, Starting on Sun12/13/20 at 0252, For 30 days
Not for midline administration.
[facility] Medication administered onsite Glucagon 1 MG Injection glucagon (human recombinant) ( GLUCAGEN) injection 1 mg glucagon (human recombinant) (GLUCAGEN) injection 1 mg 12/13/2020 02:52:38 AM EDT 1 mg Intramuscular active 1 mg, Intramuscular, PRN, for glucose <55 without IV access, Starting on Sun12/13/20 at 0252, For 30 days [facility] Medication administered onsite fentaNYL (SUBLIMAZE) (PF) injection 25 mcg [id number] 12/13/2020 02:46:39 AM EDT 25 ug Intravenous aborted 25 m cg, Intravenous, Every 4 hours PRN, Moderate Pain (Pain Scale Score 4-6), Starting on Sun12/13/20 at 0246, For 2 days [facility] Medication administered onsite Ceftriaxone 1000 MG Injection cefTRIAXone (ROCEPHIN) i nfusion 1 g (premix) cefTRIAXone (ROCEPHIN) infusion 1 g (premix) 12/12/2020 11:15:00 PM EDT 1 g Intravenous completed 1 g, Intraven ous, at 100 mL/hr, Once, On 12/12/20 at 2315, For 1 dose
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
[facility] Medication administered onsite lactated ringers bolus 1,000 mL [id number] 12/12/2020 08:30:00 PM EDT 1000 mL Intravenous completed 1,000 mL , Intravenous, Once, On Sun12/12/20 at 2030, For 1 dose [facility] Medication administered onsite Acetaminophen 325 MG / [...] {tablets} active HYDROcodon e-Acetaminophen 10-325 MG eCW1 ([facility]) Acetaminophen 325 MG / Hydrocodone Guevara trate 10 MG Oral Tablet HYDROcodone- Acetaminophen 10-325 MG HYDROcodone-Acetaminophen 10-325 MG 11/26/2020 12:00:0 0 AM EDT 2.0 {tablets} active HYDROcodon e-Acetaminophen 10-325 MG eCW1 ([facility]) Acetaminophen 325 MG / Hydrocodone Guevara trate 10 MG Oral Tablet HYDROcodone- Acetaminophen 10-325 MG HYDROcodone-Acetaminophen 10-325 MG 11/26/2020 12:00:0 0 AM EDT 2.0 {tablets} active HYDROcodon e-Acetaminophen 10-325 MG eCW1 ([facility]) Acetaminophen 325 MG / Hydrocodone Guevara trate 10 MG Oral Tablet HYDROcodone- Acetaminophen 10-325 MG HYDROcodone-Acetaminophen 10-325 MG 11/26/2020 12:00:0 0 AM EDT 2.0 {tablets} active HYDROcodon e-Acetaminophen 10-325 MG eCW1 ([facility]) Acetaminophen 325 MG / Hydrocodone Guevara trate 10 MG Oral Tablet HYDROcodone- Acetaminophen 10-325 MG HYDROcodone-Acetaminophen 10-325 MG 11/26/2020 12:00:0 0 AM EDT 2.0 {tablets} active HYDROcodon e-Acetaminophen 10-325 MG eCW1 ([facility]) Acetaminophen 325 MG / Hydrocodone Guevara trate 10 MG Oral Tablet HYDROcodone- Acetaminophen 10-325 MG HYDROcodone-Acetaminophen 10-325 MG 11/26/2020 12:00:0 0 AM EDT 2.0 {tablets} active HYDROcodon e-Acetaminophen 10-325 MG eCW1 ([facility]) Acetaminophen 325 MG / Hydrocodone Guevara trate 10 MG Oral Tablet HYDROcodone- Acetaminophen 10-325 MG HYDROcodone-Acetaminophen 10-325 MG 11/26/2020 12:00:0 0 AM EDT 2.0 {tablets} active HYDROcodon e-Acetaminophen 10-325 MG eCW1 ([facility]) Acetaminophen 325 MG / Hydrocodone Guevara trate 10 MG Oral Tablet HYDROcodone- Acetaminophen 10-325 MG HYDROcodone-Acetaminophen 10-325 MG 11/26/2020 12:00:0 0 AM EDT 2.0 {tablets} active HYDROcodon e-Acetaminophen 10-325 MG eCW1 ([facility]) Acetaminophen 325 MG / Hydrocodone Bitartrate [...] {tablets} active Hydrocodon e-Acetaminophen 10-325 MG eCW1 ([facility]) Acetaminophen 325 MG / Hydrocodone Guevara trate 10 MG Oral Tablet HYDROcodone- Acetaminophen 10-325 MG HYDROcodone-Acetaminophen 10-325 MG 10/28/2020 12:00:0 0 AM EDT 2.0 {tablets} active HYDROcodon e-Acetaminophen 10-325 MG eCW1 ([facility]) Acetaminophen 325 MG / Hydrocodone Guevara trate 10 MG Oral Tablet Hydrocodone- Acetaminophen 10-325 MG Hydrocodone-Acetaminophen 10-325 MG 10/28/2020 12:00:0 0 AM EDT 2.0 {tablets} active Hydrocodon e-Acetaminophen 10-325 MG eCW1 ([facility]) Acetaminophen 325 MG / Hydrocodone Guevara trate 10 MG Oral Tablet HYDROcodone- Acetaminophen 10-325 MG HYDROcodone-Acetaminophen 10-325 MG 10/28/2020 12:00:0 0 AM EDT 2.0 {tablets} active HYDROcodon e-Acetaminophen 10-325 MG eCW1 ([facility]) Acetaminophen 325 MG / Hydrocodone Guevara trate 10 MG Oral Tablet Hydrocodone- Acetaminophen 10-325 MG Hydrocodone-Acetaminophen 10-325 MG 10/28/2020 12:00:0 0 AM EDT 2.0 {tablets} active eCW 1 ([facility]) Linagliptin 5 MG Oral Tablet [Tradjenta] Tradjenta 5 MG Trad jenta 5 MG 10/14/2020 12:00:00 AM EDT 1.0 {tablet} active Tradjenta 5 MG eCW1 ([facility]) Linagliptin 5 MG Oral Tablet [Tradjenta] Tradjenta 5 MG Trad jenta 5 MG 10/14/2020 12:00:00 AM EDT 1.0 {tablet} active Tradjenta 5 MG eCW1 ([facility]) Linagliptin 5 MG Oral Tablet [Tradjenta] Tradjenta 5 MG Trad jenta 5 MG 10/14/2020 12:00:00 AM EDT 1.0 {tablet} active Tradjenta 5 MG eCW1 ([facility]) Linagliptin 5 MG Oral Tablet [Tradjenta] Tradjenta 5 MG Oral Tablet (linagliptin) Tradjenta 5 MG Oral Tablet (linagliptin) 10/14/2020 12 :00:00 AM EDT active 1 [facility] Linagliptin 5 MG Oral Tablet [Tradjenta] Tradjenta 5 MG Trad jenta 5 MG 10/14/2020 12:00:00 AM EDT 1.0 {tablet} active Tradjenta 5 MG eCW1 ([facility]) Linagliptin 5 MG Oral Tablet [Tradjenta] Tradjenta 5 MG Trad jenta 5 MG 10/14/2020 12:00:00 AM EDT 1.0 {tablet} active Tradjenta 5 MG eCW1 ([facility]) Linagliptin 5 MG Oral Tablet [Tradjenta] Tradjenta 5 MG Trad jenta 5 MG 10/14/2020 12:00:00 AM EDT 1.0 {tablet} active Tradjenta 5 MG eCW1 ([facility]) Linagliptin 5 MG Oral Tablet [Tradjenta] Tradjenta 5 MG Trad jenta 5 MG 10/14/2020 12:00:00 AM EDT 1.0 {tablet} active Tradjenta 5 MG eCW1 ([facility]) Linagliptin 5 MG Oral Tablet [Tradjenta] Tradjenta 5 MG Trad jenta 5 MG 10/14/2020 12:00:00 AM EDT 1.0 {tablet} active Tradjenta 5 MG eCW1 ([facility]) Linagliptin 5 MG Oral Tablet [Tradjenta] Tradjenta 5 MG Trad jenta 5 MG 10/14/2020 12:00:00 AM EDT 1.0 {tablet} active eCW1 ([facility]) Linagliptin 5 MG Oral Tablet [Tradjenta] Tradjenta 5 MG Trad jenta 5 MG 10/14/2020 12:00:00 AM EDT 1.0 {tablet} active Tradjenta 5 MG eCW1 ([facility]) Linagliptin 5 MG Oral Tablet [Tradjenta] Tradjenta 5 MG Trad jenta 5 MG 10/14/2020 12:00:00 AM EDT 1.0 {tablet} active Tradjenta 5 MG eCW1 ([facility]) Linagliptin 5 MG Oral Tablet [Tradjenta] Tradjenta 5 MG Trad jenta 5 MG 10/14/2020 12:00:00 AM EDT 1.0 {tablet} active Tradjenta 5 MG eCW1 ([facility]) Linagliptin 5 MG Oral Tablet [Tradjenta] Tradjenta 5 MG Trad jenta 5 MG 10/14/2020 12:00:00 AM EDT 1.0 {tablet} active Tradjenta 5 MG eCW1 ([facility]) Linagliptin 5 MG Oral Tablet [Tradjenta] Tradjenta 5 MG Trad jenta 5 MG 10/14/2020 12:00:00 AM EDT 1.0 {tablet} active eCW1 ([facility]) Linagliptin 5 MG Oral Tablet [Tradjenta] Tradjenta 5 MG Trad jenta 5 MG 10/14/2020 12:00:00 AM EDT 1.0 {tablet} active Tradjenta 5 MG eCW1 ([facility]) Linagliptin 5 MG Oral Tablet [Tradjenta] Tradjenta 5 MG Trad jenta 5 MG 10/14/2020 12:00:00 AM EDT 1.0 {tablet} active Tradjenta 5 MG eCW1 ([facility]) Linagliptin 5 MG Oral Tablet [Tradjenta] Tradjenta 5 MG Trad jenta 5 MG 10/14/2020 12:00:00 AM EDT 1.0 {tablet} active Tradjenta 5 MG eCW1 ([facility]) Linagliptin 5 MG Oral Tablet [Tradjenta] Tradjenta 5 MG Trad jenta 5 MG 10/14/2020 12:00:00 AM EDT 1.0 {tablet} active Tradjenta 5 MG eCW1 ([facility]) Linagliptin 5 MG Oral Tablet [Tradjenta] Tradjenta 5 MG Trad jenta 5 MG 10/14/2020 12:00:00 AM EDT 1.0 {tablet} active Tradjenta 5 MG eCW1 ([facility]) Linagliptin 5 MG Oral Tablet [Tradjenta] Tradjenta 5 MG Trad jenta 5 MG 10/14/2020 12:00:00 AM EDT 1.0 {tablet} active Tradjenta 5 MG eCW1 ([facility]) Linagliptin 5 MG Oral Tablet [Tradjenta] Tradjenta 5 MG Trad jenta 5 MG 10/14/2020 12:00:00 AM EDT 1.0 {tablet} active Tradjenta 5 MG eCW1 ([facility]) Linagliptin 5 MG Oral Tablet [Tradjenta] Tradjenta 5 MG Trad jenta 5 MG 10/14/2020 12:00:00 AM EDT 1.0 {tablet} active Tradjenta 5 MG eCW1 ([facility]) Linagliptin 5 MG Oral Tablet [Tradjenta] Tradjenta 5 MG Trad jenta 5 MG 10/14/2020 12:00:00 AM EDT 1.0 {tablet} active Tradjenta 5 MG eCW1 ([facility]) Linagliptin 5 MG Oral Tablet [Tradjenta] Tradjenta 5 MG Trad jenta 5 MG 10/14/2020 12:00:00 AM EDT 1.0 {tablet} active Tradjenta 5 MG eCW1 ([facility]) Linagliptin 5 MG Oral Tablet [Tradjenta] Tradjenta 5 MG Trad jenta 5 MG 10/14/2020 12:00:00 AM EDT 1.0 {tablet} active Tradjenta 5 MG eCW1 ([facility]) Acetaminophen 325 MG / Hydrocodone Bitartrate [...] {tablets} active Hydrocodon e-Acetaminophen 10-325 MG eCW1 ([facility]) Acetaminophen 325 MG / Hydrocodone Guevara trate 10 MG Oral Tablet Hydrocodone- Acetaminophen 10-325 MG Hydrocodone-Acetaminophen 10-325 MG 09/30/2020 12:00:0 0 AM EDT 2.0 {tablets} active Hydrocodon e-Acetaminophen 10-325 MG eCW1 ([facility]) Acetaminophen 325 MG / Hydrocodone Guevara trate 10 MG Oral Tablet Hydrocodone- Acetaminophen 10-325 MG Hydrocodone-Acetaminophen 10-325 MG 09/30/2020 12:00:0 0 AM EDT 2.0 {tablets} active Hydrocodon e-Acetaminophen 10-325 MG eCW1 ([facility]) Acetaminophen 325 MG / Hydrocodone Guevara trate 10 MG Oral Tablet Hydrocodone- Acetaminophen 10-325 MG Hydrocodone-Acetaminophen 10-325 MG 09/30/2020 12:00:0 0 AM EDT 2.0 {tablets} active Hydrocodon e-Acetaminophen 10-325 MG eCW1 ([facility]) Acetaminophen 325 MG / Hydrocodone Guevara trate 10 MG Oral Tablet Hydrocodone- Acetaminophen 10-325 MG Hydrocodone-Acetaminophen 10-325 MG 09/30/2020 12:00:0 0 AM EDT 2.0 {tablets} active eCW 1 ([facility]) Acetaminophen 325 MG / Hydrocodone Guevara trate 10 MG Oral Tablet Hydrocodone- Acetaminophen 10-325 MG Hydrocodone-Acetaminophen 10-325 MG 09/30/2020 12:00:0 0 AM EDT 2.0 {tablets} active Hydrocodon e-Acetaminophen 10-325 MG eCW1 ([facility]) Acetaminophen 325 MG / Hydrocodone Guevara trate 10 MG Oral Tablet Hydrocodone- Acetaminophen 10-325 MG Hydrocodone-Acetaminophen 10-325 MG 09/30/2020 12:00:0 0 AM EDT 2.0 {tablets} active Hydrocodon e-Acetaminophen 10-325 MG eCW1 ([facility]) BLOOD SUGAR DIAGNOSTIC 09/18/2020 12:00:00 AM [...] Oral aborted Take 1 tablet by mouth [facility] Acetaminophen 325 MG / Hydrocodone Guevara trate [...] mg from all sources in 24 hours.
[facility] Medication administered onsite Acetaminophen 325 MG / [...] mg from all sources in 24 hours.
[facility] Medication administered onsite Capsaicin 0.25 MG/ML Topical Cream capsaicin (ZOSTRIX) 0.025 % cream capsaicin (ZOSTRIX) 0.025 % cream 08/20/2020 10:49:08 AM EDT Topical active Topical, 2 Times Daily PRN, pain to right foot, Starting 08/20/20 at 1049, For 2 days [facility] Medication administered onsite Acetaminophen 325 MG / Hydrocodone Guevara trate 10 MG Oral Tablet Hydrocodone- Acetaminophen 10-325 MG Hydrocodone-Acetaminophen 10-325 MG 08/20/2020 12:00:0 0 AM EDT 2.0 {tablets} active Hydrocodon e-Acetaminophen 10-325 MG eCW1 ([facility]) Acetaminophen 325 MG / Hydrocodone Guevara trate 10 MG Oral Tablet Hydrocodone- Acetaminophen 10-325 MG Hydrocodone-Acetaminophen 10-325 MG 08/20/2020 12:00:0 0 AM EDT 2.0 {tablets} active Hydrocodon e-Acetaminophen 10-325 MG eCW1 ([facility]) Acetaminophen 325 MG / Hydrocodone Guevara trate 10 MG Oral Tablet Hydrocodone- Acetaminophen 10-325 MG Hydrocodone-Acetaminophen 10-325 MG 08/20/2020 12:00:0 0 AM EDT 2.0 {tablets} active Hydrocodon e-Acetaminophen 10-325 MG eCW1 ([facility]) potassium chloride (K-DUR) dissolvable tablet 40 mEq 10522-1 99-08/19/2020 08:00:00 AM EDT 40 meq Oral completed 40 mEq, Oral, Once, [facility] 08/19/20 at 0800, For 1 dose
Do not crush or chew
[facility] Medication administered onsite Sodium Bicarbonate 325 MG Oral Tablet sodium bicarbona te tablet 325 mg sodium bicarbonate tablet 325 mg 08/18/2020 09:00:00 PM EDT 325 mg Oral active 325 mg, Oral, 2 Times Daily, First dose on Sun08/18/20 at 2100, For 30 days [facility] Medication administered onsite insulin lispro (HUMALOG) injection LOW D OSE CLEAR LIQUID INSULIN patients 1-8 Units [id number] 08/18/2020 01:00:00 PM EDT U Subcutaneous active 1-8 Units, Subcutaneous, Three Times Daily-With Meals, First dose on Sun08/18/20 at 1300, For 30 days
Nursing MUST open the 'SQ Insulin Dosing Charts' Sidebar Report, or, the Patient Summary or Summary Report within the ED.
[facility] Medication administered onsite multivitamin tablet 1 tablet [id number] 08/18/2020 09:00:00 AM EDT 1 {tbl} Oral active 1 tablet, Oral , Daily Standard, First dose on Sun08/18/20 at 0900, For 30 days [facility] Medication administered onsite rivaroxaban 10 MG Oral Tablet rivaroxaban (XARELTO) ta blet 10 mg rivaroxaban (XARELTO) tablet 10 mg 08/18/2020 09:00:00 AM EDT 10 mg Oral active 10 mg, Oral, Daily Standard, First dose on Sun08/18/20 at 0900, For 30 days [facility] Medication administered onsite potassium chloride (K-DUR) dissolvable tablet 40 mEq [id number] 99-08/18/2020 08:00:00 AM EDT 40 meq Oral completed 40 mEq, Oral, Once, Sun08/18/20 at 0800, For 1 dose
Do not crush or chew
[facility] Medication administered onsite Oxycodone Hydrochloride 5 MG Oral Tablet oxyCODONE (ROXICODONE) immediate release tablet 10 mg oxyCODONE (ROXICODONE) immediate release tablet 10 mg 08/18/2020 03:27:04 AM EDT 10 mg Oral aborted 10 mg, Oral, Every 4 hours PRN, Severe Pain (Pain Scale Score 7-10), or pre-painful procedure or activity, Starting Sun08/18/20 at 0327, For 3 days 6 hours
If no RUBBER MILL OPERATOR or when RUBBER MILL OPERATOR has been DC.
Oxycodone immediate release is limited to 10 mg per dose. Higher doses ( only) require Pain Service consultation and approval.
[facility] Medication administered onsite Oxycodone Hydrochloride 5 MG Oral Tablet oxyCODONE (ROXICODONE) immediate release tablet 5 mg oxyCODONE (ROXICODONE) immediate release tablet 5 mg 08/18/2020 03:27:01 AM EDT 5 mg Oral aborted 5 mg, Oral, Every 4 hours PRN, Moderate Pain (Pain Scale Score 4-6), Starting Sun08/18/20 at 0327, For 3 days 6 hours
If no RUBBER MILL OPERATOR or when RUBBER MILL OPERATOR has been DC.
Oxycodone immediate release is limited to 10 mg per dose. Higher doses ( only) require Pain Service consultation and approval.
[facility] Medication administered onsite sennosides, FPC 8.6 MG Oral Tablet senna tablet 2 tablet sen na tablet 2 tablet 08/17/2020 10:00:00 PM EDT 2 {tbl} Oral active 2 tablet, Oral, Nightly, First dose on Sun08/17/20 at 2200, For 30 days [facility] Medication administered onsite Hydroxychloroquine Sulfate 200 MG Oral T ablet hydroxychloroquine (PLAQUENIL) tablet 200 mg hydroxychloroquine (PLAQUENIL) tablet 200 mg 09:00:00 PM EDT 200 mg Oral active 200 mg, Oral, 2 Times Daily, First dose on Sun08/17/20 at 2100, For 7 days [facility] Medication administered onsite Docusate Sodium 100 MG Oral Capsule docusate sodium (C OLACE) capsule 100 mg docusate sodium (COLACE) capsule 100 mg 08/17/2020 09:00:00 PM EDT 100 mg Oral active 100 mg, Oral, 2 Times Daily, First dose on Sun08/17/20 at 2100, For 30 days [facility] Medication administered onsite vancomycin (VANCOCIN) 1,250 mg in sodium chloride 0.9 % IVPB 08/17/2020 06:30:00 PM EDT 1250 mg Intravenous completed 1,250 mg, Intravenous, Administer over 90 Minutes, Once, Sun08/17/20 at 1830, For 1 dose [facility] Medication administered onsite gabapentin 300 MG Oral Capsule gabapentin (NEURONTIN) capsule 300 mg gabapentin (NEURONTIN) capsule 300 mg 08/17/2020 05:00:00 PM EDT 300 mg Oral active 300 mg, Oral, Three Times D ahsan Standard, First dose on Sun08/17/20 at 1700, For 30 days [facility] Medication administered onsite dextrose 50 % IV solution 25 mL [id number] 08/17/2020 11:15:24 AM E DT 25 mL Intravenous active 25 mL, Intrav enous, PRN, Other, blood glucose <55, Starting Sun08/17/20 at 1115, For 30 days
Not for midline administration.
[facility] Medication administered onsite Glucagon 1 MG Injection glucagon (human recombinant) ( GLUCAGEN) injection 1 mg glucagon (human recombinant) (GLUCAGEN) injection 1 mg 08/17/2020 11:15:24 AM EDT 1 mg Intramuscular active 1 mg, Intramuscular, PRN, for glucose <55 without IV access, Starting Sun08/17/20 at 1115, For 30 days [facility] Medication administered onsite Acetaminophen 325 MG Oral [...] mg from all sources in 24 hours.
[facility] Medication administered onsite Oxycodone Hydrochloride 5 MG Oral Tablet oxyCODONE (ROXICODONE) immediate release tablet 2.5 mg oxyCODONE (ROXICODONE) immediate release tablet 2.5 mg 08/17/2020 11:15:24 AM EDT 2.5 mg Oral aborted 2.5 mg, Oral, Every 4 hours PRN, Moderate Pain (Pain Scale Score 4-6), Starting [facility] 08/17/20 at 1115, For 3 days
If no RUBBER MILL OPERATOR or when RUBBER MILL OPERATOR has been DC.
Oxycodone immediate release is limited to 10 mg per dose. Higher doses ( only) require Pain Service consultation and approval.
[facility] Medication administered onsite Glucose 0.417 MG/MG Oral Gel glucose (GLUTOSE) 40 % or al gel 15 g glucose (GLUTOSE) 40 % oral gel 15 g 08/17/2020 11:15:24 AM EDT 15 g Oral active 15 g, Oral, PRN, Low blood s ugar, for gluose 55-69 mg/dl and able to take PO, Starting 08/17/20 at 1115, For 30 days [facility] Medication administered onsite POLYETHYLENE GLYCOL 3350 142 MG/ML Oral Solution polyethylene glycol (MIRALAX) packet 17 g polyethylene glycol (MIRALAX) packet 17 g 08/17/2020 1 1:15:24 AM EDT 17 g Oral active 17 g, Or al, Daily PRN, As needed for Constipation, Starting [facility] 08/17/20 at 1115, For 30 days
Mix in 8 ounces of water, juice or milk. Avoid use in patients who require thickened liquids due to potential increased risk for aspiration.
[facility] Medication administered onsite ondansetron (ZOFRAN) injection 4 mg [id number] 08/17/2020 11:15:2 4 AM EDT 4 mg Intravenous active 4 mg, In travenous, Every 6 hours PRN, Nausea, Vomiting, Starting 08/17/20 at 1115, For 30 days [facility] Medication administered onsite Oxycodone Hydrochloride 5 MG Oral Tablet oxyCODONE (ROXICODONE) immediate release tablet 5 mg oxyCODONE (ROXICODONE) immediate release tablet 5 mg 08/17/2020 11:15:24 AM EDT 5 mg Oral aborted 5 mg, Oral, Every 4 hours PRN, Severe Pain (Pain Scale Score 7-10), or pre-painful procedure or activity, Starting [facility] 08/17/20 at 1115, For 3 days
If no RUBBER MILL OPERATOR or when RUBBER MILL OPERATOR has been DC.
Oxycodone immediate release is limited to 10 mg per dose. Higher doses ( only) require Pain Service consultation and approval.
[facility] Medication administered onsite metaxalone 800 MG Oral Tablet metaxalone (SKELAXIN) ta blet 800 mg metaxalone (SKELAXIN) tablet 800 mg 08/17/2020 11:15:24 AM EDT 800 mg Oral active 800 mg, Oral, Three Times Daily-PRN, Mu scle spasms, Starting Sun08/17/20 at 1115, For 30 days [facility] Medication administered onsite NaCl infusion 0.9 % [id number] 08/17/2020 10:15:00 AM EDT Intravenous active at 100 mL/hr, Intrav enous, Continuous, Starting Sun08/17/20 at 1015, For 30 days [facility] Medication administered onsite HYDROmorphone (DILAUDID) injection 0.5 mg [id number] 08/17/2020 09:43:28 AM EDT 0.5 mg Intravenous completed 0. 5 mg, Intravenous, Every 5 min PRN, Severe Pain (Pain Scale Score 7-10), Starting Sun08/17/20 at 0943, For 4 doses, Recovery [facility] Medication administered onsite vancomycin (VANCOCIN) in D5W infusion 1,000 mg/200 mL (premi x) [id number] 08/17/2020 06:15:00 AM EDT 1000 mg Intravenous completed 1,000 mg, Intravenous, Administer over 60 Minutes, Once, Sun08/17/20 at 0615, For 1 dose, Pre-op [facility] Medication administered onsite bupivacaine (MARCAINE) 0.25 % 50 mg, morphine sulfate (PF) 1 0 mg syringe 08/17/2020 06:15:00 AM EDT Infiltration complete d Infiltration, Once, Sun08/17/20 at 0615, For 1 dose, Pre-op [facility] Medication administered onsite Acetaminophen 325 MG Oral Tablet acetaminophen (TYLENO L) tablet 975 mg acetaminophen (TYLENOL) tablet 975 mg 08/17/2020 06:15:00 AM EDT 97 5 mg Oral completed 975 mg, Oral, O nce, Sun21 at 0615, For 1 dose
Maximum daily dose of acetaminophen is 3,000 mg from all sources in 24 hours.
Pre-op [facility] Medication administered onsite 325 mg 08/13/2020 12:00:00 AM EST tablet 180 TAKE ONE TABLET BY MOUTH TWICE A DAY TAKE ONE TABLET BY MOUTH TWICE A DAY SOLD: 08/26/2020 [facility] 500 mg 08/11/2020 12:00:00 AM EST tablet 14 TAKE ONE TABLET BY MOUTH TWICE A DAY NEEDED FOR UTI TAKE ONE TABLET BY MOUTH TWICE A DAY NEEDED FOR UTI SOLD: 08/26/2020 [facility] 2 % 08/10/2020 12:00:00 AM EST ointment 22 APPLY LIBERALLY TO EACH NOSTRIL TWO TIMES A DAY FOR 5 DAYS PRIOR TO SURGERY APPLY LIBERALLY TO EACH NOSTRIL TWO TIMES A DAY FOR 5 DAYS PRIOR TO SURGERY SOLD: 08/26/2020 [facility] Mupirocin 0.02 MG/MG Topical Ointment Mupirocin 2 % Ex ternal Ointment Mupirocin 2 % External Ointment 08/09/2020 12:00:00 AM EST aborted Apply liberally to each nostril two times per day for 5 days prior to surgery. [facility] Acetaminophen 325 MG / Hydrocodone Bitartrate 10 MG Or al Tablet 10-325 mg HYDROCODONE BITARTRATE/ACETAMINOPHEN 07/30/2020 12:00:00 AM EST tablet 120 TAKE TWO TABLETS BY MOUTH TWICE A DAY MAXIMUM DAILY DOSE = 4 TABLETS TAKE TWO TABLETS BY MOUTH TWICE A DAY MAXIMUM DAILY DOSE = 4 TABLETS SOLD: 07/31/2020 [facility] Acetaminophen 325 MG / Hydrocodone Guevara trate 10 MG Oral Tablet Hydrocodone- Acetaminophen 10-325 MG Hydrocodone-Acetaminophen 10-325 MG 07/29/2020 12:00:0 0 AM EST 2.0 {tablets} active Hydrocodon e-Acetaminophen 10-325 MG eCW1 ([facility]) Acetaminophen 325 MG / Hydrocodone Guevara trate 10 MG Oral Tablet Hydrocodone- Acetaminophen 10-325 MG Hydrocodone-Acetaminophen 10-325 MG 07/29/2020 12:00:0 0 AM EST 2.0 {tablets} active Hydrocodon e-Acetaminophen 10-325 MG eCW1 ([facility]) Acetaminophen 325 MG / Hydrocodone Guevara trate 10 MG Oral Tablet Hydrocodone- Acetaminophen 10-325 MG Hydrocodone-Acetaminophen 10-325 MG 07/29/2020 12:00:0 0 AM EST 2.0 {tablets} active Hydrocodon e-Acetaminophen 10-325 MG eCW1 ([facility]) 10-325 mg 07/02/2020 12:00:00 AM EST [...] {tablets} active Hydrocodon e-Acetaminophen 10-325 MG eCW1 ([facility]) Acetaminophen 325 MG / Hydrocodone Guevara trate 10 MG Oral Tablet Hydrocodone- Acetaminophen 10-325 MG Hydrocodone-Acetaminophen 10-325 MG 06/25/2020 12:00:0 0 AM EST 2.0 {tablets} active Hydrocodon e-Acetaminophen 10-325 MG eCW1 ([facility]) Acetaminophen 325 MG / Hydrocodone Guevara trate 10 MG Oral Tablet Hydrocodone- Acetaminophen 10-325 MG Hydrocodone-Acetaminophen 10-325 MG 06/25/2020 12:00:0 0 AM EST 2.0 {tablets} active Hydrocodon e-Acetaminophen 10-325 MG eCW1 ([facility]) Acetaminophen 325 MG / Hydrocodone Guevara trate 10 MG Oral Tablet Hydrocodone- Acetaminophen 10-325 MG Hydrocodone-Acetaminophen 10-325 MG 06/25/2020 12:00:0 0 AM EST 2.0 {tablets} active Hydrocodon e-Acetaminophen 10-325 MG eCW1 ([facility]) 10-325 mg 05/31/2020 12:00:00 AM EST [...] {tablets} active Hydrocodon e-Acetaminophen 10-325 MG eCW1 ([facility]) Acetaminophen 325 MG / Hydrocodone Guevara trate 10 MG Oral Tablet Hydrocodone- Acetaminophen 10-325 MG Hydrocodone-Acetaminophen 10-325 MG 05/24/2020 12:00:0 0 AM EST 2.0 {tablets} active Hydrocodon e-Acetaminophen 10-325 MG eCW1 ([facility]) Acetaminophen 325 MG / Hydrocodone Guevara trate 10 MG Oral Tablet Hydrocodone- Acetaminophen 10-325 MG Hydrocodone-Acetaminophen 10-325 MG 05/24/2020 12:00:0 0 AM EST 2.0 {tablets} active Hydrocodon e-Acetaminophen 10-325 MG eCW1 ([facility]) Acetaminophen 325 MG / Hydrocodone Guevara trate 10 MG Oral Tablet Hydrocodone- Acetaminophen 10-325 MG Hydrocodone-Acetaminophen 10-325 MG 05/24/2020 12:00:0 0 AM EST 2.0 {tablets} active Hydrocodon e-Acetaminophen 10-325 MG eCW1 ([facility]) Acetaminophen 325 MG / Hydrocodone Guevara trate 10 MG Oral Tablet Hydrocodone- Acetaminophen 10-325 MG Hydrocodone-Acetaminophen 10-325 MG 05/24/2020 12:00:0 0 AM EST 2.0 {tablets} active Hydrocodon e-Acetaminophen 10-325 MG eCW1 ([facility]) 10-325 mg 04/19/2020 12:00:00 AM EST [...] {tablets} active Hydrocodon e-Acetaminophen 10-325 MG eCW1 ([facility]) Acetaminophen 325 MG / Hydrocodone Guevara trate 10 MG Oral Tablet Hydrocodone- Acetaminophen 10-325 MG Hydrocodone-Acetaminophen 10-325 MG 04/16/2020 12:00:0 0 AM EST 2.0 {tablets} active Hydrocodon e-Acetaminophen 10-325 MG eCW1 ([facility]) Acetaminophen 325 MG / Hydrocodone Guevara trate 10 MG Oral Tablet Hydrocodone- Acetaminophen 10-325 MG Hydrocodone-Acetaminophen 10-325 MG 04/16/2020 12:00:0 0 AM EST 2.0 {tablets} active Hydrocodon e-Acetaminophen 10-325 MG eCW1 ([facility]) Acetaminophen 325 MG / Hydrocodone Guevara trate 10 MG Oral Tablet Hydrocodone- Acetaminophen 10-325 MG Hydrocodone-Acetaminophen 10-325 MG 04/16/2020 12:00:0 0 AM EST 2.0 {tablets} active Hydrocodon e-Acetaminophen 10-325 MG eCW1 ([facility]) Acetaminophen 325 MG / Hydrocodone Guevara trate 10 MG Oral Tablet Hydrocodone- Acetaminophen 10-325 MG Hydrocodone-Acetaminophen 10-325 MG 04/16/2020 12:00:0 0 AM EST 2.0 {tablets} active Hydrocodon e-Acetaminophen 10-325 MG eCW1 ([facility]) 100 mg 04/08/2020 12:00:00 AM EST [...] EDT active Tadalafil 20 MG e CW1 ([facility]) tadalafil 20 MG Oral Tablet Tadalafil 20 MG Tadalafil 20 MG 03/30/2020 12:00:00 AM EDT active Tadalafil 20 MG e CW1 ([facility]) tadalafil 20 MG Oral Tablet Tadalafil 20 MG Tadalafil 20 MG 03/30/2020 12:00:00 AM EDT active Tadalafil 20 MG e CW1 ([facility]) tadalafil 20 MG Oral Tablet Tadalafil 20 MG Tadalafil 20 MG 03/30/2020 12:00:00 AM EDT active Tadalafil 20 MG e CW1 ([facility]) tadalafil 20 MG Oral Tablet Tadalafil 20 MG Tadalafil 20 MG 03/30/2020 12:00:00 AM EDT active Tadalafil 20 MG e CW1 ([facility]) tadalafil 20 MG Oral Tablet Tadalafil 20 MG Tadalafil 20 MG 03/30/2020 12:00:00 AM EDT active Tadalafil 20 MG e CW1 ([facility]) tadalafil 20 MG Oral Tablet Tadalafil 20 MG Tadalafil 20 MG 03/30/2020 12:00:00 AM EDT active Tadalafil 20 MG e CW1 ([facility]) tadalafil 20 MG Oral Tablet Tadalafil 20 MG Tadalafil 20 MG 03/30/2020 12:00:00 AM EDT active Tadalafil 20 MG e CW1 ([facility]) tadalafil 20 MG Oral Tablet Tadalafil 20 MG Tadalafil 20 MG 03/30/2020 12:00:00 AM EDT active Tadalafil 20 MG e CW1 ([facility]) tadalafil 20 MG Oral Tablet Tadalafil 20 MG Tadalafil 20 MG 03/30/2020 12:00:00 AM EDT active Tadalafil 20 MG e CW1 ([facility]) tadalafil 20 MG Oral Tablet Tadalafil 20 MG Tadalafil 20 MG 03/30/2020 12:00:00 AM EDT active Tadalafil 20 MG e CW1 ([facility]) tadalafil 20 MG Oral Tablet Tadalafil 20 MG Tadalafil 20 MG 03/30/2020 12:00:00 AM EDT active Tadalafil 20 MG e CW1 ([facility]) tadalafil 20 MG Oral Tablet Tadalafil 20 MG Tadalafil 20 MG 03/30/2020 12:00:00 AM EDT active Tadalafil 20 MG e CW1 ([facility]) tadalafil 20 MG Oral Tablet Tadalafil 20 MG Tadalafil 20 MG 03/30/2020 12:00:00 AM EDT active Tadalafil 20 MG e CW1 ([facility]) tadalafil 20 MG Oral Tablet Tadalafil 20 MG Tadalafil 20 MG 03/30/2020 12:00:00 AM EDT active Tadalafil 20 MG e CW1 ([facility]) tadalafil 20 MG Oral Tablet Tadalafil 20 MG Tadalafil 20 MG 03/30/2020 12:00:00 AM EDT active Tadalafil 20 MG e CW1 ([facility]) tadalafil 20 MG Oral Tablet Tadalafil 20 MG Tadalafil 20 MG 03/30/2020 12:00:00 AM EDT active Tadalafil 20 MG e CW1 ([facility]) 5 mg 03/30/2020 12:00:00 AM EDT tablet extended release 24hr 90 TAKE ONE TABLET BY MOUTH EVERY DAY WITH FOOD TAKE ONE TABLET BY MOUTH EVERY DAY WITH FOOD SOLD: 04/01/2020 [facility] tadalafil 20 MG Oral Tablet Tadalafil 20 MG Tadalafil 20 MG 03/30/2020 12:00:00 AM EDT active Tadalafil 20 MG e CW1 ([facility]) tadalafil 20 MG Oral Tablet Tadalafil 20 MG Tadalafil 20 MG 03/30/2020 12:00:00 AM EDT active Tadalafil 20 MG e CW1 ([facility]) tadalafil 20 MG Oral Tablet Tadalafil 20 MG Tadalafil 20 MG 03/30/2020 12:00:00 AM EDT active Tadalafil 20 MG e CW1 ([facility]) tadalafil 20 MG Oral Tablet Tadalafil 20 MG Tadalafil 20 MG 03/30/2020 12:00:00 AM EDT active Tadalafil 20 MG e CW1 ([facility]) tadalafil 20 MG Oral Tablet Tadalafil 20 MG Tadalafil 20 MG 03/30/2020 12:00:00 AM EDT active Tadalafil 20 MG e CW1 ([facility]) tadalafil 20 MG Oral Tablet Tadalafil 20 MG Tadalafil 20 MG 03/30/2020 12:00:00 AM EDT active Tadalafil 20 MG e CW1 ([facility]) tadalafil 20 MG Oral Tablet Tadalafil 20 MG Tadalafil 20 MG 03/30/2020 12:00:00 AM EDT active Tadalafil 20 MG e CW1 ([facility]) tadalafil 20 MG Oral Tablet Tadalafil 20 MG Tadalafil 20 MG 03/30/2020 12:00:00 AM EDT active Tadalafil 20 MG e CW1 ([facility]) tadalafil 20 MG Oral Tablet Tadalafil 20 MG Tadalafil 20 MG 03/30/2020 12:00:00 AM EDT active Tadalafil 20 MG e CW1 ([facility]) tadalafil 20 MG Oral Tablet Tadalafil 20 MG Tadalafil 20 MG 03/30/2020 12:00:00 AM EDT active Tadalafil 20 MG e CW1 ([facility]) tadalafil 20 MG Oral Tablet Tadalafil 20 MG Tadalafil 20 MG 03/30/2020 12:00:00 AM EDT active Tadalafil 20 MG e CW1 ([facility]) tadalafil 20 MG Oral Tablet Tadalafil 20 MG Tadalafil 20 MG 03/30/2020 12:00:00 AM EDT active Tadalafil 20 MG e CW1 ([facility]) tadalafil 20 MG Oral Tablet Tadalafil 20 MG Tadalafil 20 MG 03/30/2020 12:00:00 AM EDT active Tadalafil 20 MG e CW1 ([facility]) tadalafil 20 MG Oral Tablet Tadalafil 20 MG Tadalafil 20 MG 03/30/2020 12:00:00 AM EDT active Tadalafil 20 MG e CW1 ([facility]) 5 mg 03/30/2020 12:00:00 AM EDT tablet extended release 24hr 90 TAKE ONE TABLET BY MOUTH EVERY DAY WITH FOOD TAKE ONE TABLET BY MOUTH EVERY DAY WITH FOOD SOLD: 10/06/2020 [facility] tadalafil 20 MG Oral Tablet Tadalafil 20 MG Tadalafil 20 MG 03/30/2020 12:00:00 AM EDT active Tadalafil 20 MG e CW1 ([facility]) tadalafil 20 MG Oral Tablet Tadalafil 20 MG Tadalafil 20 MG 03/30/2020 12:00:00 AM EDT active Tadalafil 20 MG e CW1 ([facility]) tadalafil 20 MG Oral Tablet Tadalafil 20 MG Tadalafil 20 MG 03/30/2020 12:00:00 AM EDT active Tadalafil 20 MG e CW1 ([facility]) tadalafil 20 MG Oral Tablet Tadalafil 20 MG Tadalafil 20 MG 03/30/2020 12:00:00 AM EDT active Tadalafil 20 MG e CW1 ([facility]) tadalafil 20 MG Oral Tablet Tadalafil 20 MG Tadalafil 20 MG 03/30/2020 12:00:00 AM EDT active Tadalafil 20 MG e CW1 ([facility]) tadalafil 20 MG Oral Tablet Tadalafil 20 MG Tadalafil 20 MG 03/30/2020 12:00:00 AM EDT active Tadalafil 20 MG e CW1 ([facility]) tadalafil 20 MG Oral Tablet Tadalafil 20 MG Tadalafil 20 MG 03/30/2020 12:00:00 AM EDT active Tadalafil 20 MG e CW1 ([facility]) tadalafil 20 MG Oral Tablet Tadalafil 20 MG Tadalafil 20 MG 03/30/2020 12:00:00 AM EDT active Tadalafil 20 MG e CW1 ([facility]) tadalafil 20 MG Oral Tablet Tadalafil 20 MG Tadalafil 20 MG 03/30/2020 12:00:00 AM EDT active eCW1 ([facility]) tadalafil 20 MG Oral Tablet Tadalafil 20 MG Tadalafil 20 MG 03/30/2020 12:00:00 AM EDT active Tadalafil 20 MG e CW1 ([facility]) tadalafil 20 MG Oral Tablet Tadalafil 20 MG Tadalafil 20 MG 03/30/2020 12:00:00 AM EDT active Tadalafil 20 MG e CW1 ([facility]) tadalafil 20 MG Oral Tablet Tadalafil 20 MG Tadalafil 20 MG 03/30/2020 12:00:00 AM EDT active Tadalafil 20 MG e CW1 ([facility]) tadalafil 20 MG Oral Tablet Tadalafil 20 MG Tadalafil 20 MG 03/30/2020 12:00:00 AM EDT active Tadalafil 20 MG e CW1 ([facility]) tadalafil 20 MG Oral Tablet Tadalafil 20 MG Tadalafil 20 MG 03/30/2020 12:00:00 AM EDT active Tadalafil 20 MG e CW1 ([facility]) tadalafil 20 MG Oral Tablet Tadalafil 20 MG Tadalafil 20 MG 03/30/2020 12:00:00 AM EDT active eCW1 ([facility]) tadalafil 20 MG Oral Tablet Tadalafil 20 MG Tadalafil 20 MG 03/30/2020 12:00:00 AM EDT active Tadalafil 20 MG e CW1 ([facility]) tadalafil 20 MG Oral Tablet Tadalafil 20 MG Tadalafil 20 MG 03/30/2020 12:00:00 AM EDT active Tadalafil 20 MG e CW1 ([facility]) tadalafil 20 MG Oral Tablet Tadalafil 20 MG Tadalafil 20 MG 03/30/2020 12:00:00 AM EDT active Tadalafil 20 MG e CW1 ([facility]) tadalafil 20 MG Oral Tablet Tadalafil 20 MG Tadalafil 20 MG 03/30/2020 12:00:00 AM EDT active Tadalafil 20 MG e CW1 ([facility]) tadalafil 20 MG Oral Tablet Tadalafil 20 MG Tadalafil 20 MG 03/30/2020 12:00:00 AM EDT active Tadalafil 20 MG e CW1 ([facility]) tadalafil 20 MG Oral Tablet Tadalafil 20 MG Tadalafil 20 MG 03/30/2020 12:00:00 AM EDT active Tadalafil 20 MG e CW1 ([facility]) 5 mg 03/30/2020 12:00:00 AM EDT tablet extended release 24hr 90 TAKE ONE TABLET BY MOUTH EVERY DAY WITH FOOD TAKE ONE TABLET BY MOUTH EVERY DAY WITH FOOD SOLD: 01/11/2021 [facility] tadalafil 20 MG Oral Tablet Tadalafil 20 MG Tadalafil 20 MG 03/30/2020 12:00:00 AM EDT active Tadalafil 20 MG e CW1 ([facility]) tadalafil 20 MG Oral Tablet Tadalafil 20 MG Tadalafil 20 MG 03/30/2020 12:00:00 AM EDT active Tadalafil 20 MG e CW1 ([facility]) tadalafil 20 MG Oral Tablet Tadalafil 20 MG Tadalafil 20 MG 03/30/2020 12:00:00 AM EDT active Tadalafil 20 MG e CW1 ([facility]) tadalafil 20 MG Oral Tablet Tadalafil 20 MG Tadalafil 20 MG 03/30/2020 12:00:00 AM EDT active Tadalafil 20 MG e CW1 ([facility]) tadalafil 20 MG Oral Tablet Tadalafil 20 MG Tadalafil 20 MG 03/30/2020 12:00:00 AM EDT active Tadalafil 20 MG e CW1 ([facility]) tadalafil 20 MG Oral Tablet Tadalafil 20 MG Tadalafil 20 MG 03/30/2020 12:00:00 AM EDT active Tadalafil 20 MG e CW1 ([facility]) tadalafil 20 MG Oral Tablet Tadalafil 20 MG Tadalafil 20 MG 03/30/2020 12:00:00 AM EDT active Tadalafil 20 MG e CW1 ([facility]) tadalafil 20 MG Oral Tablet Tadalafil 20 MG Tadalafil 20 MG 03/30/2020 12:00:00 AM EDT active Tadalafil 20 MG e CW1 ([facility]) tadalafil 20 MG Oral Tablet Tadalafil 20 MG Tadalafil 20 MG 03/30/2020 12:00:00 AM EDT active Tadalafil 20 MG e CW1 ([facility]) tadalafil 20 MG Oral Tablet Tadalafil 20 MG Tadalafil 20 MG 03/30/2020 12:00:00 AM EDT active Tadalafil 20 MG e CW1 ([facility]) tadalafil 20 MG Oral Tablet Tadalafil 20 MG Tadalafil 20 MG 03/30/2020 12:00:00 AM EDT active Tadalafil 20 MG e CW1 ([facility]) tadalafil 20 MG Oral Tablet Tadalafil 20 MG Tadalafil 20 MG 03/30/2020 12:00:00 AM EDT active Tadalafil 20 MG e CW1 ([facility]) tadalafil 20 MG Oral Tablet Tadalafil 20 MG Tadalafil 20 MG 03/30/2020 12:00:00 AM EDT active Tadalafil 20 MG e CW1 ([facility]) 10-325 mg 03/17/2020 12:00:00 AM EDT [...] {tablets} active Hydrocodon e-Acetaminophen 10-325 MG eCW1 ([facility]) Acetaminophen 325 MG / Hydrocodone Guevara trate 10 MG Oral Tablet Hydrocodone- Acetaminophen 10-325 MG Hydrocodone-Acetaminophen 10-325 MG 03/16/2020 12:00:0 0 AM EDT 2.0 {tablets} active Hydrocodon e-Acetaminophen 10-325 MG eCW1 ([facility]) Acetaminophen 325 MG / Hydrocodone Guevara trate 10 MG Oral Tablet Hydrocodone- Acetaminophen 10-325 MG Hydrocodone-Acetaminophen 10-325 MG 03/16/2020 12:00:0 0 AM EDT 2.0 {tablets} active Hydrocodon e-Acetaminophen 10-325 MG eCW1 ([facility]) Acetaminophen 325 MG / Hydrocodone Guevara trate 10 MG Oral Tablet Hydrocodone- Acetaminophen 10-325 MG Hydrocodone-Acetaminophen 10-325 MG 03/16/2020 12:00:0 0 AM EDT 2.0 {tablets} active Hydrocodon e-Acetaminophen 10-325 MG eCW1 ([facility]) Acetaminophen 325 MG / Hydrocodone Guevara trate 10 MG Oral Tablet Hydrocodone- Acetaminophen 10-325 MG Hydrocodone-Acetaminophen 10-325 MG 03/16/2020 12:00:0 0 AM EDT 2.0 {tablets} active Hydrocodon e-Acetaminophen 10-325 MG eCW1 ([facility]) Acetaminophen 325 MG / Hydrocodone Guevara trate 10 MG Oral Tablet Hydrocodone- Acetaminophen 10-325 MG Hydrocodone-Acetaminophen 10-325 MG 03/16/2020 12:00:0 0 AM EDT 2.0 {tablets} active Hydrocodon e-Acetaminophen 10-325 MG eCW1 ([facility]) Acetaminophen 325 MG / Hydrocodone Guevara trate 10 MG Oral Tablet Hydrocodone- Acetaminophen 10-325 MG Hydrocodone-Acetaminophen 10-325 MG 03/16/2020 12:00:0 0 AM EDT 2.0 {tablets} active Hydrocodon e-Acetaminophen 10-325 MG eCW1 ([facility]) Aspirin 81 MG Delayed Release Oral Tablet aspirin EC 8 1 MG EC tablet aspirin EC 81 MG EC tablet 03/04/2020 12:00:00 AM EDT 81 mg Oral ab orted Take 1 tablet (81 mg total) by mouth daily [facility] Mupirocin 0.02 MG/MG Topical Ointment Mupirocin 2 % Ex ternal Ointment Mupirocin 2 % External Ointment 01/14/2020 12:00:00 AM EDT aborted Apply liberally to each nostril two times per day for 5 days prior to surgery. [facility] Hydroxychloroquine Sulfate 200 MG Oral T ablet Hydroxychloroquine Sulfate 200 MG Oral Tablet (PLAQUENIL) Hydroxychloroquine Sulfate 200 MG Oral T ablet (PLAQUENIL) 12/18/2019 12:00:00 AM EDT 200 mg Oral aborte d Take 200 mg by mouth Two Times Daily [facility] 300 mg 11/26/2019 12:00:00 AM EDT capsule [...] 325 mg by mouth Two Times Daily [facility] Sodium Bicarbonate 325 MG Oral Tablet sodium bicarbona te 325 MG tablet sodium bicarbonate 325 MG tablet 325 mg Oral aborted Take 325 mg by mouth 4 (four) times a day [facility] Ciprofloxacin 500 MG Oral Tablet ciprofloxacin (CIPRO) 500 MG tablet ciprofloxacin (CIPRO) 500 MG tablet 500 mg Oral ab orted Take 500 mg by mouth 2 (two) times a day [facility] Nitroglycerin 0.4 MG Sublingual Tablet n itroglycerin (NITROSTAT) 0.4 MG SL tablet nitroglycerin (NITROSTAT) 0.4 MG SL tablet 0.[address] 0.4 mg under t he tongue every 5 (five) minutes as needed for chest pain [facility] Ciprofloxacin 500 MG Oral Tablet Ciprofloxacin HCl 500 MG Oral Tablet (CIPRO) Ciprofloxacin HCl 500 MG Oral Tablet (CIPRO) 500 mg Oral aborted Take 500 mg by mouth Two times daily as needed (UTI) [facility] 24 HR Glipizide 5 MG Extended Release Or al Tablet glipiZIDE ER 5 MG Oral Tablet Extended Release 24 Hour (GLUCOTROL) glipiZIDE ER 5 MG Oral Tablet Extended Release 24 Hour (GLUCOTROL) 5 mg Oral aborted Take 5 mg by mouth daily [facility] Insurance Providers Payer name Policy type / Coverage type Policy ID Covered democrat ID Covered democrat's relationship to [place] Policy [place] Plan Information [employer] Dominik [id number] [facility] [id number] JATIN CLAIMS ADMIN NCA Dominik [id number] [facility] [id number] UHC UNITED MEDICARE COMPLETE G [id number] Self [id number] MEDICARE A [id number] Self [id number] A UHC MEDICARE [id number] Cony [id number] [facility] MEDICARE [id number] Cony [id number] [facility] [id number] Self [id number] UHC UNITED MEDICARE COMPLETE G [id number] Self [id number] MEDICARE COMPLETE [id number] SP [id number] TODAYS OPTIONS [id number] SP [id number] TODAYS OPTIONS [id number] SP [id number] TODAYS OPTIONS [id number] SP [id number] AETNA MEDICARE MEBRPLQP Cony MEBRP LQP Aet[employer] Medicare F MEBRPLQP SELF MEBRP LQP AETNA MEDICARE Medicare [id number] xxxxxxxxxxxx [id number] AETNA MEDICARE [id number] Cony 10 [id number] AETNA MEDICARE MEBRPLQP Cony MEBRP LQP AETNA MEDICARE COMPLETE G MEBRPLQP Self MEBRPLQP AETNA MEDICARE COMPLETE G MEBRPLQP Self MEBRPLQP AETNA MEDICARE COMPLETE G MEBRPLQP Self MEBRPLQP AETNA MEDICARE COMPLETE G [id number] Self [id number] AETNA MEDICARE COMPLETE G [id number] Self [id number] ANS-Medicare Part B [id number] ANSI-Commercial [id number] ANS-Medicare Part B [id number] ANSI-Commercial [id number] ANS-Medicare Part B [id number] ANSI-Medicare Part B [id number] ANSI-Medicare Part B [id number] ANSI-Medicare Part B [id number] ANSI-Commercial [id number] ANSI-Medicare Part B [id number] ANSI-Commercial [id number] ANSI-Medicare Part B [id number] ANSI-Medicare Part B [id number] ANSI-Commercial [id number] ANSI-Medicare Part B [id number] ANSI-Medicare Part B [id number]-[id number] ANSI-Commercial [id number]-gs7g-[id number]-2ls2-65xf-ji9u-s348p615yx72 ANSI-Medicare Part B [id number]-[id number] uv5t77r1-9529-1k6t-[id number] ANSI-Medicare Part B [id number]-[id number]-37gy-[id number] ANSI-Commercial ouqk0flx-cw75-37y7-4200-[id number] wsoj0sje-pc74-10n1-5125-h7a5012po470 ANSI-Medicare Part B [id number] w79wnlh[id number] ANSI-Commercial [id number]-[id number] 2t195u04-66w7-1k19-72qk-jl7p3p01403h ANSI-Medicare Part B [id number]-x9p9-csqi9c6of440 3cfkoyv0-04u4-1911-i6f1-auvw5u8rn806 ANSI-Medicare Part B hmhgx88r-k7q2-8er9-[id number] tsyxe18f-i0l2-0vi7-y956-9r936367072p ANSI-Commercial 4o211135-bspc-16u7-829c-h0a2cl18t382 6i422918-mcab-44i3-598f-k4t5li56j504 ANSI-Medicare Part B [id number]-9666-31co-wyg1-4jnv00381167 3gl02n6l-4670-57fs-wvj3-7vbo54639512 ANSI-Medicare Part B 81dt27kg-h9k0-389a-5955-0603idf0by47 69qo80je-u1x5-346c-7217-1563crb6uo71 ANSI-Commercial m95c2m5f-s940-6uk4-qy3h-1j10d0600i7z y07p4m1m-x313-1cf5-ej8a-2n77v8785s4o ANSI-Medicare Part B cs2us912-v4ie-71wj-ia42-51okb1ps92k4 uk0lo379-y8la-92cr-zt89-12wld2ng02j2 ANSI-Medicare Part B x6v486hf-c48u-9u7o-5341-1j9r60xqmct0 i4k017uw-t49m-9l5n-9094-6f7x33mjgvu5 ANSI-Medicare Part B t3ps88rg-n3ss-9699-h300-n3hwl4609055 p2zn75rp-o2mh-0827-d490-f6qrw6195646 ANSI-Commercial 62ht6065-l046-8f6d-lgoj-g82035g7989e 70gp4176-x295-0p6a-lptn-e95627a4008l ANSI-Medicare Part B 78gx8345-3i53-30e0-7744-g11363o3zy7a 98vo0029-5w51-28n7-5996-l60999r1yi8w ANSI-Commercial x2v0224s-0bvn-0818-9j77-2g5636ti13gf x0g1053y-9nwi-3049-3y78-3j5852ft36qh ANSI-Medicare Part B 9j3owm46-xn7k-9n56-3910-136e6377u34t 8v2mkm60-qb1a-1n08-1507-656h3016m23a ANSI-Medicare Part B avzm91ha-6v55-9101-z212-8q969578a633 bwed18py-8t92-6851-j870-3t237771x652 ANSI-Commercial 90g50xn3-ud83-340t-n331-k907i4181111 93n13ko2-mv73-620q-u255-b570j4042131 ANSI-Medicare Part B 569m567z-5691-4659-49zr-4h1v23lo2548 948e392i-4043-5082-94ik-2s6w70nk6156 ANSI-Medicare Part B 98hnd7h1-l502-5590-86zs-3y00e4l2800f 93kzo7m3-u162-8890-11ni-2q35j5s4771y ANSI-Commercial 2me7z16e-0x04-3u9z-1413-hy4p07t57bz1 2dr5z21f-5y59-2u0e-9145-wx5j73i67sm0 ANSI-Medicare Part B 8rl3b88s-j504-486p-996e-2q346163c06r 0ps4e65p-w945-022i-419o-5n302783s48u ANSI-Medicare Part B 4668f45h-3204-2479-4yd4-64pq8z890175 8003l56j-3783-9387-8dg9-11pn6x785486 ANSI-Commercial z3g3524s-8f1r-11a3-6j80-0x6l226b7f1f t0f7534a-3a0u-56p0-7s77-4r3s294d3b1u ANSI-Medicare Part B 19518g65-47fi-26f8-76b7-48mgi48wl65i 82365n55-19ya-16h9-43j2-35ryd79hd98p ANSI-Medicare Part B [id number]-j86x-6832-v7h6-60h17b33r423 01x82065-q85b-0504-s8d8-17c58k30t955 Medicaid [facility] S D [id number] SELF [id number] Medicare C [id number] SELF [id number] A ANSI-Medicare Part B [id number]-4c2u-7r53-[id number] 2s4qdwvf-5q7h-5a40-q250-3zbe46h169o0 ANSI-Medicare Part B 005g170c-r5sz-40vz-6p8b-f454kf6nb6p9 729f213g-f9kx-06vb-7q0c-q317no8uy8q8 ANSI-Commercial 132n0j1z-2f7z-7w05-4381-y0h79s45owe7 970k6e6e-1f2z-2c93-3414-s7j30o86ons2 ANSI-Medicare Part B e487749a-z192-2jo6-iq75-617fx1933oic o479556o-b334-9jh8-kk56-061xz3473ugd ANSI-Commercial hz337908-00qh-3zpt-yi97-qw2gkb4edjei yj208127-65yj-6jfo-zb69-im0opd3sgorn ANSI-Medicare Part B [id number]-rf57v549780t 2e56n576-51o7-24a4-11r5-lv35f102530t ANSI-Medicare Part B b6h58e37-0325-2fg0-0i5j-43o50y1wt938 p6e64u04-7968-8ac7-7y0m-34g64p9gn004 ANSI-Medicare Part B o5z007lg-u49w-62g7-53wq-2092612gv269 h0r893an-v19v-02w6-70ai-4256914lb062 ANSI-Commercial 058oi9ff-6v47-2ge5-0997-1p037c0d63w2 144pv2px-4x79-6nh5-3539-7r844i9u46m2 ANSI-Commercial 97d048am-gn78-0069-4m82-102z467fu226 45t091vq-km87-8864-7z90-051t155um076 ANSI-Medicare Part B eoa9669f-21ad-4z01-0fh0-71y3kv7iq1d8 ymf1063a-36cv-6s05-9xk7-04g1na0vi0e0 ANSI-Medicare Part B 462uo569-96th-3280-6798-81xq7v06c3ks 867nk314-68md-5193-0597-72kf3d81c0rx ANSI-Commercial 1240e238-7at1-4en8-7190-528z8n951fl0 1658a127-6pq7-5xs9-3925-337e2l794fr6 ANSI-Medicare Part B 585485jp-9o52-0841-g1s8-t91sb1en00m6 255978hx-8m24-7592-f7i8-h35bl8eg35z3 ANSI-Commercial b84593o1-3815-648f-p107-37l661025v16 o45156f8-7820-913s-c445-38d019579w28 ANSI-Medicare Part B 13165n4n-702x-5820-36m3-8qudzvu721k3 11247f8n-798i-6470-15k4-7xxjnxm679j0 ANSI-Commercial 729m1b97-x6l3-83h1-5jx2-07634h0wi7cc 835k3j68-g8d8-58g1-2fs3-31861u7qu1ai ANSI-Medicare Part B w1301263-3o4p-0ms3-4901-81969304j2d4 p1156964-4k7t-6ow2-0480-39648825m5i7 ANSI-Medicare Part B 93y2p386-i8s9-0380-0350-4912e9ah22vq 50m8b267-b8n8-8283-3433-4379a2yo41ga ANSI-Commercial z04bos25-4164-7143-3z3w-4yu2di5d4018 f36otc51-0231-1532-1t4v-1yr0jb6d8412 ANSI-Commercial 59p66250-6430-9l7f-40z9-s5u6552ix437 60o41490-1802-3h5x-27m6-p1j3570hx070 ANSI-Medicare Part B [id number]-2xa0-02o8-60ws8ya1pcdu 77133122-8hlx-6rj3-27t4-72ju6my4pjpu ANSI-Commercial jw9q17g2-yl5o-622n-6j93-9788ul6f9799 fc0r26r6-cl5m-913o-5h92-2543yf5l0392 ANSI-Medicare Part B [id number]-ob95-80n335w45806 h4954206-5873-539n-zo89-79u950e78958 TODAYS OPTIONS [id number] Today's Option Medicare Commercial [id number] Self [id number] ANSI-Commercial 53d3e996-30sr-469q-d79s-172813o66yp5 73q0x088-83qp-664o-y78y-114477o54by1 ANSI-Medicare Part B 4g7apbm5-9471-927x-q7br-iyl626m45582 3q9dcru3-0860-280c-h9af-dnj801u19332 ANSI-Medicare Part B [id number]-y016-53x5f54y6vk4 028x0601-4108-9a7m-b161-94r7n48y9yn5 ANSI-Commercial 66x9f724-001t-80vx-qrz1-778x18a927k6 24e5q429-086g-94jv-qjr8-643j89x344s8 ANSI-Medicare Part B 386e53q5-6498-87mb-r594-673h6w0hzuu3 466i95c2-2003-61yi-t053-978e0r9rwbl6 ANSI-Commercial 98x547f4-s0l0-0132-5367-yu7t15o38117 87y592c2-a1d4-2822-3813-vo7t84e20456 ANSI-Commercial gs62w618-1574-3lyp-174w-7e7regw863l7 ut63t104-5205-9knn-128i-4h7jxkj305u3 ANSI-Medicare Part B y2u803zb-061n-1v4x-n576-88l42umc5919 x4o718ja-717r-0b3z-c074-24k91jmk7872 ANSI-Commercial no057hhw-s628-00d2-m16d-36i9emq3m9n9 lz342uoo-b628-83x1-f07w-12c3fod9d1a5 ANSI-Medicare Part B e297l94q-72k0-8o49-fk1v-5847073k5p29 f951o57y-53v9-9q92-io8i-6201923v9a20 ANSI-Commercial 07m2005y-541i-1uw6-g50q-675s3e763091 12w2488z-981p-8lw7-n23p-450l2k044418 ANSI-Medicare Part B [id number]-l3i2-7978-33a7-1p05lhn48060 f8955794-n7e6-2976-67x1-3p68pwi41699 [place] CLAIM ADMIN WORK COMP [id number] SP [id number] MEDICARE COMPLETE [id number] SP [id number] MEDICARE COMPLETE [id number] SP [id number] SPECIAL FUNDS [facility] [id number] SP [id number] ANSI-Medicare Part B 0zsp76cu-y817-543k-9rz8-4t5ggk0882d7 9jga74io-c957-627q-0lk8-8k5wmf0295j9 ANSI-Commercial eo94621x-26c4-9b40-8b2j-92490l146u3g ro79118o-40y6-5l77-1z4j-97261h300f2k ANSI-Medicare Part B fx8yz6j0-3r28-5zn0-q01t-1866o0n2h00u es3sy9v0-1p57-1uo9-f82w-1445d4k3b04g ANSI-Commercial f8x71214-e37h-40mk-ft58-0vy12b71ut23 v8q45100-f93l-87fb-jf40-3nf17b84xt33 ANSI-Medicare Part B 8316l048-wc7s-802o-en6g-1639379j5843 3602a213-ct1g-978a-iu8x-3645525a1010 ANSI-Commercial 783g3uij-z299-52h1-2581-293673yx10ms 854u9eoi-u621-50z7-1245-123559xj16eg ANSI-Medicare Part B [id number]-91314m6y6o9c 13424451-8792-4r04-751h-28457a6c8v4m ANSI-Commercial 417be317-5099-3m01-k366-5e13cv8sn927 764ee174-3477-6v95-a300-2w82mz7hu971 ANSI-Commercial 264w6kkl-0n0y-4azh-1998-q641071c0447 208b6qvu-1e8p-3egi-6486-b554455p9692 ANSI-Medicare Part B 80082135-1kcl-4eh7-env8-208o9928a5av 98543970-9akw-7sz4-ruw3-611n0406i1qc ANSI-Commercial i877991s-eoys-640e-o406-08cz37ucp640 z265872x-gbvv-432x-l174-70sr93ckz834 ANSI-Medicare Part B 6xld9149-z7n3-296e-z369-6z06153f0767 2dnh1331-u0k1-057q-f860-8t50180n9846 ANSI-Medicare Part B 4g4u455g-o0so-3u70-j087-572468584127 5y5g520p-d7kl-5b53-n599-322136561117 ANSI-Commercial 348u6myn-12cq-0yh2-9fr7-571446202615 503x2tsb-01bk-2ks2-5lp8-984649768640 ANSI-Commercial 98rl0if3-7049-5r0p-12f7-y05gq7d0l8c0 76xe0my5-1509-9w3o-76t3-y78ox7n3a2e6 ANSI-Medicare Part B 108fwf8e-h5hl-2szd-r595-8a20e9kn5953 635bxn8x-n2nj-0tqm-o568-1z50n6lq3121 SPECIAL FUNDS O [id number] S [id number] TODAYS OPTIONS/JORDANIAN O [id number] S [id number] ONE CALL CARE MANAGEMENT O [id number] S [id number] MEDICARE COMPLETE-[facility] O [id number] S [id number] SPECIAL FUNDS [employer] [id number] SP [id number] MEDICARE COMPLETE [id number] SP [id number] MEDICAID [id number] SP [id number] MEDICARE [id number] SP [id number] A SPECIAL FUNDS CONSERVATION-DEW NOT FOR TODAYS VISIT SP NOT FOR TODAYS VISIT [id number] [facility] ADMINISTRATORS [facility]# [id number] SP B# [id number] A [place] CLAIM ADMIN WORK COMP [facility]# [id number] SP [facility]# [id number] [employer] ADMINISTRATORS [id number] SP [id number] AETNA MEDICARE [id number] SP [id number] AETNA MEDICARE [id number] SP [id number] [facility] ADMINISTRATORS [facility]# [id number] SP [facility]# [id number] [employer] ADMINISTRATORS [id number] SP [id number] [place] CLAIM ADMIN WORK COMP [id number] SP [id number] [employer] ADMIN[employer]RAT[employer] [id number] SP [id number] AETNA MEDICARE ADVANTAGE [id number] S [id number] AETNA MEDICARE MEBRPLP SP MEBRP LP AETNA MEDICARE MEBRPLQP SP MEBRP LQP [employer] MEBRPLQP S MEB RPLQP Today's Option P UNAVAILABLE S RAISA VAILABLE AETNA MEDICARE MEBRPLQP SP MEBRP LQP AETNA MEDICARE ADVANTAGE MEBRPLQP S MEBRPLQP ANSI-Commercial ehx80343-ru96-4a5u-[id number] mkq80520-hw78-9t8o-c809-834tg2329794 ANSI-Medicare Part B [id number]-65a8-060f-6wg4-686447b36v3t 21b7qene-61w1-588s-7gw3-112906w67l4f ANSI-Medicare Part B lu2ojjda-ai10-67g8-f278-9a6s4121p9q8 fd1cxfrp-ta33-64u4-d151-1w1z6454x0p4 ANSI-Medicare Part B akr6qkd9-c331-9051-3s05-[id number] smo2des9-n127-1002-0i94-s0t7076t29qp ANSI-Commercial 5s0c76nx-1y01-5a1s-89zi-52inj575qqt8 4s4d58bx-5f49-1o5u-23xi-26gbf543fcc0 ANSI-Medicare Part B [id number]-d073-mf369v56bfc8 53ak9390-h0n2-2560-c828-pz630a43vaa6 Problems, Conditions, and Diagnoses Code Display Name Description Problem Type Effective Dates Data Source(s) E11.00 Type 2 diabetes mellitus wit h hyperosmolarity without nonketotic hyperglycemic-hyperosmolar coma ([facility]) Type 2 diabetes mellitus with hyperosmol Diagnosis 03/07/2021 09:45:59 AM EDT [facility] E78.5 Hyperlipidemia, unspecified Hyperlipidemia, unspecifie d Diagnosis 03/07/2021 09:45:59 AM EDT [facility] 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 Atherosclerotic heart disease of [place] Diagnosis 03/07/2021 09:45:59 AM EDT [facility] R76.8 Other specified abnormal immunological f indings in serum OTHER SPECIFIED ABNORMAL IMMUNOLOGICAL FINDINGS IN SERUM Diagnosis 01/24/2021 01:20:00 PM [facility] 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, multiple sites RHEUMATOID ARTHRITIS W/O RHEUMATOID FACTOR, MULTIPLE SITES Diagnosis 01/24 01:20:00 PM [facility] M25.50 Pain in unspecified joint PAIN IN UNSPECIFIED JOINT Di agnosis 01/24/2021 01:20:00 PM [facility] Z96.641 Presence of right artificial hip joint P resence of right artificial hip joint Diagnosis 12/31/2020 09:47:09 AM [facility] M54.2 Cervicalgia Cervicalgia Diagnosis 12/30/2020 09:25:53 AM [facility] 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 Diagno sis 12/12/2020 06:29:00 PM [facility] G89.29 Other chronic pain Other chronic pain Diagnosis 11:14:14 AM [facility] M25.551 Pain in right hip Pain in right hip Diagnosis 10/01 11:14:14 AM [facility] Q64.10 Exstrophy of urinary bladder, unspecifie d Exstrophy of urinary bladder, unspecified Diagnosis 08/17/2020 10:16:17 AM [facility] M16.11 Unilateral primary osteoarthritis, right hip Unilateral primary osteoarthritis, right hip Diagnosis 08/17/2020 10:07:58 AM [facility] R52 Pain, unspecified Pain, unspecified Diagnosis 08/17/2020 05:41:00 AM [facility] Bladder exstrophy [Q64.10] Bladder exstrophy [Q64.10] Diagnosis 08/17/2020 05:41:00 AM [facility] Chronic right hip pain [M25.551, G89.29] Chronic right hip pain [M25.551, G89.29] Diagnosis 08/17/2020 05:41:00 AM [facility] 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] Diagnosis 08/17/2020 05:41:00 AM E [facility] Z11.59 Encounter for screening for other viral diseases Encounter for screening for other viral diseases Diagnosis 08/12/2020 02:50:21 PM [facility] Z01.810 Encounter for preprocedural cardiovascul ar examination Encounter for preprocedural cardiovascul Diagnosis 08/03/2020 07:46:20 AM [facility] E11.59 Type 2 diabetes mellitus with other circ ulatory complications Type 2 diabetes mellitus with other circ Diagnosis 08/03/2020 07:46:20 AM [facility] R03.0 Elevated blood-pressure reading, without diagnosis of hypertension Elevated blood-pressure reading, without Diagnosis 08/03/2020 07:46:20 AM [facility] E78.2 Mixed hyperlipidemia Mixed hyperlipidemia Diagnosis 08/03/2020 07:46:20 AM [facility] I25.119 Atherosclerotic heart diseas [place] coronary artery with unspecified angina pectoris Atherosclerotic heart disease of [place] Diagnosis 08/03/2020 07:46:20 AM [facility] M16.7 Other unilateral secondary osteoarthriti s of hip Other unilateral secondary osteoarthritis of hip Diagnosis 05/10/2020 08:52:05 AM [facility] G89.29 [id number] Other chronic pain Problem 04/21/2021 12:00: 00 AM EST eCW1 ([facility]) M47.22 Cervical spondylosis without myelopathy Osteoarthritis of spine with radiculopathy, cervical region Problem 01/13/2021 12:00:00 AM EDT eC W1 ([facility]) S46.911S [id number] Strain of right shoulder, sequela Problem 01/13/2021 12:00:00 AM EDT eCW1 ([facility]) M50.10 Cervical radiculopathy Cervical disc dis order with radiculopathy, unspecified cervical region Problem 12/09/2020 12:00:00 AM EDT eCW1 ([facility]) M06.9 [id number] Rheumatoid arthritis , involving unspecified site, unspecified whether rheumatoid factor present Problem 10/14/2020 12:00:00 AM EDT eCW1 ([facility]) M47.812 Cervical spondylosis without myelopathy Spondylosis of cervical region without myelopathy or radiculopathy Problem 05/31/2020 12:00:[address] eCW1 ([facility]) Z98.890 Postprocedural states History of urinary diversion pro cedure Problem 04/06/2020 12:00:00 AM EST eCW1 ([facility]) 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 Erectile dys function, unspecified erectile dysfunction type Problem 03/30/2020 12:00:00 AM EDT eCW1 ([facility]) Surgeries/Procedures Procedure Description Date Indications Data Source(s) Pain Procedure Log 04/22/2021 12:00:00 AM EST [facility] ([facility]) Hospital outpatient clinic visit for assessment and ma nagement of a patient Hospital Outpatient Clinic Visit 01/24/2021 12:00:00 AM EDT [facility] POCT GLUCOSE, DOCKED <td>POCT GLUCOSE, DOCKED</td ><td>Routine</td><td>12/16/2020 8:52 AM EDT</td><td></td><td> </td> 12/16/2020 08:52:00 AM [facility] BASIC METABOLIC PANEL CALCIUM TOTAL <td>BASIC METABOLI C PANEL</td><td>Routine</td><td>12/16/2020 2:13 AM EDT</td><td></td><td> </td> 12/16/2020 02:13:00 AM [facility] BASIC METABOLIC PANEL CALCIUM TOTAL <td>BASIC METABOLI C PANEL</td><td>Routine</td><td>12/16/2020</td><td></td><td> </td> [facility] XCPT REAGENT STRIP <td>POCT GLUCOSE, DOCKED</td><td>Routine</td><td>12/15/2020 9:23 PM EDT</td><td></td><td> </td> 12/15/2020 09:23:00 PM [facility] GLUCOSE QUANTITATIVE BLOOD XCPT REAGENT STRIP <td>POCT GLUCOSE, DOCKED</td><td>Routine</td><td>12/15/2020 5:56 PM EDT</td><td></td><td> </td> 12/15/2020 05:56:00 PM [facility] SIGMOIDOSCOPY, FLEXIBLE DX, W/WO SPECIMENS, BRUSHING/W ASHING (SEP PROC) <td>SIGMOIDOSCOPY, FLEXIBLE DX, W/WO SPECIMENS, BRUSHING/WASHING (SEP PROC)</td><td></td><td>12/15/2020 12:04 PM EDT</td><td> Calculus at the junction of sigmoid colon and ureter</td><td></td> 12/15/2020 12:04:00 PM EDT - 12/15/2020 12:39:00 PM [facility] GLUCOSE QUANTITATIVE BLOOD XCPT REAGENT STRIP <td>POCT GLUCOSE, DOCKED</td><td>Routine</td><td>12/15/2020 8:44 AM EDT</td><td></td><td> </td> 12/15/2020 08:44:00 AM [facility] BASIC METABOLIC PANEL CALCIUM TOTAL <td>BASIC METABOLI C PANEL</td><td>Routine</td><td>12/15/2020 5:52 AM EDT</td><td></td><td> </td> 12/15/2020 05:52:00 AM [facility] FLEXIBLE SIGMOIDOSCOPY <td>FLEXIBLE SIGMOIDOSCOPY</ td><td></td><td>12/15/2020 12:00 AM EDT</td><td></td><td></td> 12/15/2020 12:00:00 AM [facility] GLUCOSE QUANTITATIVE BLOOD XCPT REAGENT STRIP <td>POCT GLUCOSE, DOCKED</td><td>Routine</td><td>12/14/2020 9:31 PM EDT</td><td></td><td> </td> 12/14/2020 09:31:00 PM [facility] GLUCOSE QUANTITATIVE BLOOD XCPT REAGENT STRIP <td>POCT GLUCOSE, DOCKED</td><td>Routine</td><td>12/14/2020 6:04 PM EDT</td><td></td><td> </td> 12/14/2020 06:04:00 PM [facility] GLUCOSE QUANTITATIVE BLOOD XCPT REAGENT STRIP <td>POCT GLUCOSE, DOCKED</td><td>Routine</td><td>12/14/2020 11:09 AM EDT</td><td></td><td> </td> 12/14/2020 11:09:00 AM [facility] US RETROPERITONEAL REAL TIME W/IMAGE COMPLETE <td>US R ENAL OR AORTA COMPLETE 11386</td><td>Routine</td><td>12/14/2020 10:44 AM EDT</td><td></td><td> </td> 12/14/2020 10:44:00 AM [facility] GLUCOSE QUANTITATIVE BLOOD XCPT REAGENT STRIP <td>POCT GLUCOSE, DOCKED</td><td>Routine</td><td>12/14/2020 7:11 AM EDT</td><td></td><td> </td> 12/14/2020 07:11:00 AM [facility] BASIC METABOLIC PANEL CALCIUM TOTAL <td>BASIC METABOLI C PANEL</td><td>Routine</td><td>12/14/2020 3:13 AM EDT</td><td></td><td> </td> 12/14/2020 03:13:00 AM [facility] GLUCOSE QUANTITATIVE BLOOD XCPT REAGENT STRIP <td>POCT GLUCOSE, DOCKED</td><td>Routine</td><td>12/14/2020 2:41 AM EDT</td><td></td><td> </td> 12/14/2020 02:41:00 AM [facility] GLUCOSE QUANTITATIVE BLOOD XCPT REAGENT STRIP <td>POCT GLUCOSE, DOCKED</td><td>Routine</td><td>12/13/2020 10:05 PM EDT</td><td></td><td> </td> 12/13/2020 10:05:00 PM [facility] GLUCOSE QUANTITATIVE BLOOD XCPT REAGENT STRIP <td>POCT GLUCOSE, DOCKED</td><td>Routine</td><td>12/13/2020 5:25 PM EDT</td><td></td><td> </td> 12/13/2020 05:25:00 PM [facility] GLUCOSE QUANTITATIVE BLOOD XCPT REAGENT STRIP <td>POCT GLUCOSE, DOCKED</td><td>Routine</td><td>12/13/2020 12:09 PM EDT</td><td></td><td> </td> 12/13/2020 12:09:00 PM [facility] GLUCOSE QUANTITATIVE BLOOD XCPT REAGENT STRIP <td>POCT GLUCOSE, DOCKED</td><td>Routine</td><td>12/13/2020 8:17 AM EDT</td><td></td><td> </td> 12/13/2020 08:17:00 AM [facility] PROTHROMBIN TIME <td>PROTIME INR</td><td>Rout ine</td><td>12/13/2020 4:30 AM EDT</td><td></td><td> </td> 12/13/2020 04:30:00 AM [facility] HEMOGLOBIN GLYCOSYLATED A1C <td>HEMOGLOBIN A1C</td><td>Routine</td><td>12/13/2020 4:30 AM EDT</td><td></td><td> </td> 12/13/2020 04:30:00 AM [facility] GLUCOSE QUANTITATIVE BLOOD XCPT REAGENT STRIP <td>POCT GLUCOSE, DOCKED</td><td>Routine</td><td>12/13/2020 4:19 AM EDT</td><td></td><td> </td> 12/13/2020 04:19:00 AM [facility] BLOOD COUNT COMPLETE AUTOMATED <td>CBC</td><td>Routine </td><td>12/13/2020 2:03 AM EDT</td><td></td><td> </td> 12/13/2020 02:03:00 AM [facility] BASIC METABOLIC PANEL CALCIUM TOTAL <td>BASIC METABOLI C PANEL</td><td>Routine</td><td>12/13/2020 2:03 AM EDT</td><td></td><td> </td> 12/13/2020 02:03:[address] [facility] [address] ABDOMEN & PELVIS W/O CONTRAST MATERIAL <td>CT ABDOM EN PELVIS WITHOUT CONTRAST 89037</td><td>STAT</td><td>12/12/2020 9:22 PM EDT</td><td></td><td> </td> 12/12/2020 09:22:10 PM [facility] RESPIRATORY PATHOGEN PANEL <td>RESPIRATORY PATHOGEN PANEL</td><td>Routine</td><td>12/12/2020 8:16 PM EDT</td><td></td><td> </td> 12/12/2020 08:16:00 PM [facility] COVID-19 PCR <td>COVID-19 PCR</td><td>Rou zonia</td><td>12/12/2020 8:16 PM EDT</td><td></td><td> </td> 12/12/2020 08:16:00 PM [facility] BLOOD COUNT COMPLETE AUTO&AUTO DIFRNTL WBC COUNT <td>C BC AND DIFFERENTIAL</td><td>Routine</td><td>12/12/2020 8:16 PM EDT</td><td></td><td> </td> 12/12/2020 08:16:00 PM [facility] LIPASE <td>LIPASE LEVEL</td><td>STA T</td><td>12/12/2020 8:16 PM EDT</td><td></td><td> </td> 12/12/2020 08:16:00 PM [facility] HEPATIC FUNCTION PANEL <td>HEPATIC FUNCTION PANEL A</td><td>STAT</td><td>12/12/2020 8:16 PM EDT</td><td></td><td> </td> 12/12/2020 08:16:00 PM [facility] BASIC METABOLIC PANEL CALCIUM TOTAL <td>BASIC METABOLI C PANEL</td><td>STAT</td><td>12/12/2020 8:16 PM EDT</td><td></td><td> </td> 12/12/2020 08:16:00 PM [facility] GLUCOSE QUANTITATIVE BLOOD XCPT REAGENT STRIP <td>POCT GLUCOSE, DOCKED</td><td>Routine</td><td>12/12/2020 6:59 PM EDT</td><td></td><td> </td> 12/12/2020 06:59:00 PM [facility] ECG ROUTINE ECG W/LEAST 12 LDS W/I&R 10/14/2020 12:00: 00 AM EDT [email or web address] ([facility]) URIC ACID BLOOD <td>URIC ACID</td><td>Routin e</td><td>08/21/2020 10:29 AM EDT</td><td></td><td> </td> 08/21/2020 10:29:00 AM [facility] POCT GLUCOSE, DOCKED <td>POCT GLUCOSE, DOCKED</td ><td>Routine</td><td>08/21/2020 8:21 AM EDT</td><td></td><td> </td> 08/21/2020 08:21:00 AM [facility] GLUCOSE QUANTITATIVE BLOOD XCPT REAGENT STRIP <td>POCT GLUCOSE, DOCKED</td><td>Routine</td><td>08/20/2020 9:30 PM EDT</td><td></td><td> </td> 08/20/2020 09:30:00 PM [facility] GLUCOSE QUANTITATIVE BLOOD XCPT REAGENT STRIP <td>POCT GLUCOSE, DOCKED</td><td>Routine</td><td>08/20/2020 5:21 PM EDT</td><td></td><td> </td> 08/20/2020 05:21:00 PM [facility] GLUCOSE QUANTITATIVE BLOOD XCPT REAGENT STRIP <td>POCT GLUCOSE, DOCKED</td><td>Routine</td><td>08/20/2020 12:26 PM EDT</td><td></td><td> </td> 08/20/2020 12:26:00 PM [facility] DUP-SCAN XTR VEINS UNILATERAL/LIMITED STUDY <td>US DOP PLER LOWER EXTREMITY UNILATERAL VENOUS LIMITED 62500</td><td>Urgent</td><td>08/20/2020 10:36 AM EDT</td><td></td><td> </td> 08/20/2020 10:36:26 AM [facility] GLUCOSE QUANTITATIVE BLOOD XCPT REAGENT STRIP <td>POCT GLUCOSE, DOCKED</td><td>Routine</td><td>08/20/2020 8:18 AM EDT</td><td></td><td> </td> 08/20/2020 08:18:00 AM [facility] BLOOD COUNT COMPLETE AUTOMATED <td>CBC</td><td>Routine </td><td>08/20/2020 5:03 AM EDT</td><td></td><td> </td> 08/20/2020 05:03:00 AM [facility] BASIC METABOLIC PANEL CALCIUM TOTAL <td>BASIC METABOLI C PANEL</td><td>Routine</td><td>08/20/2020 5:03 AM EDT</td><td></td><td> </td> 08/20/2020 05:03:00 AM [facility] GLUCOSE QUANTITATIVE BLOOD XCPT REAGENT STRIP <td>POCT GLUCOSE, DOCKED</td><td>Routine</td><td>08/19/2020 9:16 PM EDT</td><td></td><td> </td> 08/19/2020 09:16:00 PM [facility] GLUCOSE QUANTITATIVE BLOOD XCPT REAGENT STRIP <td>POCT GLUCOSE, DOCKED</td><td>Routine</td><td>08/19/2020 5:27 PM EDT</td><td></td><td> </td> 08/19/2020 05:27:00 PM [facility] RADEX FOOT COMPLETE MINIMUM 3 VIEWS <td>XR FOOT 3 OR M ORE VIEWS [id number]</td><td>Routine</td><td>08/19/2020 2:22 PM EDT</td><td></td><td> </td> 08/19/2020 02:22:18 PM [facility] GLUCOSE QUANTITATIVE BLOOD XCPT REAGENT STRIP <td>POCT GLUCOSE, DOCKED</td><td>Routine</td><td>08/19/2020 12:18 PM EDT</td><td></td><td> </td> 08/19/2020 12:18:00 PM [facility] GLUCOSE QUANTITATIVE BLOOD XCPT REAGENT STRIP <td>POCT GLUCOSE, DOCKED</td><td>Routine</td><td>08/19/2020 8:43 AM EDT</td><td></td><td> </td> 08/19/2020 08:43:00 AM [facility] BLOOD COUNT COMPLETE AUTOMATED <td>CBC</td><td>Routine </td><td>08/19/2020 5:30 AM EDT</td><td></td><td> </td> 08/19/2020 05:30:00 AM [facility] BASIC METABOLIC PANEL CALCIUM TOTAL <td>BASIC METABOLI C PANEL</td><td>Routine</td><td>08/19/2020 5:30 AM EDT</td><td></td><td> </td> 08/19/2020 05:30:00 AM [facility] GLUCOSE QUANTITATIVE BLOOD XCPT REAGENT STRIP <td>POCT GLUCOSE, DOCKED</td><td>Routine</td><td>08/18/2020 9:13 PM EDT</td><td></td><td> </td> 08/18/2020 09:13:00 PM [facility] [facility] GLUCOSE QUANTITATIVE BLOOD XCPT REAGENT STRIP <td>POCT GLUCOSE, DOCKED</td><td>Routine</td><td>08/18/2020 5:33 PM EDT</td><td></td><td> </td> 08/18/2020 05:33:00 PM [facility] POTASSIUM SERUM PLASMA/WHOLE BLOOD <td>POTASSIUM</td><td>Routine</td><td>08/18/2020 4:45 PM EDT</td><td></td><td> </td> 08/18/2020 04:45:00 PM [facility] HEMOGLOBIN GLYCOSYLATED A1C <td>HEMOGLOBIN A1C</td><td>Routine</td><td>08/18/2020 4:45 PM EDT</td><td></td><td> </td> 08/18/2020 04:45:00 PM [facility] GLUCOSE QUANTITATIVE BLOOD XCPT REAGENT STRIP <td>POCT GLUCOSE, DOCKED</td><td>Routine</td><td>08/18/2020 12:26 PM EDT</td><td></td><td> </td> 08/18/2020 12:26:00 PM [facility] GLUCOSE QUANTITATIVE BLOOD XCPT REAGENT STRIP <td>POCT GLUCOSE, DOCKED</td><td>Routine</td><td>08/18/2020 8:23 AM EDT</td><td></td><td> </td> 08/18/2020 08:23:00 AM [facility] HEPATITIS C ANTIBODY <td>HEPATITIS C ANTIBODY</td ><td>Routine</td><td>08/18/2020 5:22 AM EDT</td><td></td><td> </td> 08/18/2020 05:22:00 AM [facility] BLOOD COUNT COMPLETE AUTOMATED <td>CBC</td><td>Routine </td><td>08/18/2020 5:22 AM EDT</td><td></td><td> </td> 08/18/2020 05:22:00 AM [facility] BASIC METABOLIC PANEL CALCIUM TOTAL <td>BASIC METABOLI C PANEL</td><td>Routine</td><td>08/18/2020 5:22 AM EDT</td><td></td><td> </td> 08/18/2020 05:22:00 AM [facility] GLUCOSE QUANTITATIVE BLOOD XCPT REAGENT STRIP <td>POCT GLUCOSE, DOCKED</td><td>Routine</td><td>08/17/2020 9:34 PM EDT</td><td></td><td> </td> 08/17/2020 09:34:00 PM [facility] GLUCOSE QUANTITATIVE BLOOD XCPT REAGENT STRIP <td>POCT GLUCOSE, DOCKED</td><td>Routine</td><td>08/17/2020 5:26 PM EDT</td><td></td><td> </td> 08/17/2020 05:26:00 PM [facility] RESPIRATORY PATHOGEN PANEL <td>RESPIRATORY PATHOGEN PANEL</td><td>Routine</td><td>08/17/2020 11:55 AM EDT</td><td></td><td> </td> 08/17/2020 11:55:00 AM [facility] COVID-19 PCR <td>COVID-19 PCR</td><td>Rou zonia</td><td>08/17/2020 11:55 AM EDT</td><td></td><td> </td> 08/17/2020 11:55:00 AM [facility] GLUCOSE QUANTITATIVE BLOOD XCPT REAGENT STRIP <td>POCT GLUCOSE, DOCKED</td><td>Routine</td><td>08/17/2020 11:23 AM EDT</td><td></td><td> </td> 08/17/2020 11:23:00 AM [facility] RADIOLOGIC EXAMINATION PELVIS 1/2 VIEWS <td>XR PELVIS 1-2 VIEWS [id number]</td><td>STAT</td><td>08/17/2020 10:26 AM EDT</td><td></td><td> </td> 08/17/2020 10:26:29 AM [facility] GLUCOSE QUANTITATIVE BLOOD XCPT REAGENT STRIP <td>POCT GLUCOSE, DOCKED</td><td>Routine</td><td>08/17/2020 9:54 AM EDT</td><td></td><td> </td> 08/17/2020 09:54:00 AM [facility] LEVEL I SURG PATHOLOGY GROSS EXAMINATION ONLY <td>SURG ICAL PATHOLOGY EXAM ([facility] ONLY)</td><td>Routine</td><td>08/17/2020 8:42 AM EDT</td><td></td><td> </td> 08/17/2020 08:42:00 AM [facility] [id number] ARTHROPLASTY, ACETABULAR/PROXIMAL FEMORAL PROSTHETIC REPLACEMENT, W/WO AUTOGRAFT/ALLOGRAFT <td>[id number] ARTHROPLASTY, ACETABULAR/PROXI MAL FEMORAL PROSTHETIC REPLACEMENT, W/WO AUTOGRAFT/ALLOGRAFT</td><td></td><td>08/17/2020 7:30 AM EDT</td><td> Other secondary osteoarthritis of right hip Chronic right hip pain Bladder exstrophy</td><td></td> 08/17/2020 07:30:00 AM EDT - 08/17/2020 10:20:00 AM EDT Bladder exstrophyChronic right hip painO ther secondary osteoarthritis of right hip [facility] Bladder exstrophy Chronic right hip pain Other secondary osteoarthritis of right hip US GUIDED PERIPHERAL NERVE BLOCK (OR ONLY) <td>US GUID ED PERIPHERAL NERVE BLOCK (OR ONLY)</td><td>Routine</td><td>08/17/2020 6:47 AM EDT</td><td></td><td></td> 08/17/2020 06:47:00 AM EDT [facility] GLUCOSE QUANTITATIVE BLOOD XCPT REAGENT STRIP <td>POCT GLUCOSE, DOCKED</td><td>Routine</td><td>08/17/2020 6:33 AM EDT</td><td></td><td> </td> 08/17/2020 06:33:00 AM [facility] BLOOD TYPING ABO <td>TYPE AND SCREEN</td><td> Routine</td><td>08/17/2020 6:13 AM EDT</td><td></td><td> </td> 08/17/2020 06:13:00 AM [facility] ECG ROUTINE ECG W/LEAST 12 LDS W/I&R <td>POCT AMB EKG</td><td>Routine</td><td>08/03/2020 8:46 AM EST</td><td> Preoperative cardiovascular examination</td><td> </td> 08/03/2020 01:46:00 PM EST Preoperative cardiovascular examination [facility] Preoperative cardiovascular examination SURGERY CASE REQUEST OUTSIDE FACILITY ONLY <td>SURGERY CASE REQUEST OUTSIDE FACILITY ONLY</td><td>Routine</td><td>05/10/2020 9:46 AM EST</td><td> Other secondary osteoarthritis of right hip Chronic right hip pain Bladder exstrophy</td><td></td> 05/10/2020 09:46:03 AM EST Bladder exstrophyChronic right hip painOther secondary osteoarthritis of right hip [facility] Bladder exstrophy Chronic right hip pain Other secondary osteoarthritis of right hip Results ID Date Data Source [id number] 12/31/2020 07:04:12 PM EDT [facility] XR HIP- UNILAT, 2-3 VIEWS [id number] RE SULTInterpreted by:Shelby Lewis MDIndication: Status post [...] rce(s) Supporting Document(s) ID Date Data Source [id number] 12/31/2020 10:22:02 AM EDT [facility] Name Value Range Interpretation Code Description Data Sherice rce(s) Supporting Document(s) [facility] KHEXEt9dGfAEGbQx06/RZHebYQJrq0JsKWqkEMb8PGxeCLLxN6XjEMM4wY5dZSR9BQcOZvApHvBxGiHf lbm [file] AgICAgICAgICAgICAgICAgICAgICAgICAgICAgICAgICAgICAgICAgICAgICAgICAgDQogICAgICAgIC AgICAgICAgICAgICAgICAgICAgICAgICAgICAgICAg ICAgICAgICAgICAgICAgICAgICAgICAgICAgICAgICAgICAgICAgICAgICAgICAgICAgICAgICAgICAg DQogICAgICAgICAgICAgICAgICAgICAgICAgICAgICAgICAgICAgICAgICAgICAgICAgICAgICAgICAg ICAgICAgICAgICAgICAgICAgICAgICAgICAgICAgIC AgICAgICAgICAgDQogICAgICAgICAgICAgICAgICAgICAgICAgICAgICAgICAgICAgICAgICAgICAgIC AgICAgICAgICAgICAgICAgICAgICAgICAgICAgICAgICAgICAgICAgICAgICAgICAgICAgDQogICAgIC AgICAgICAgICAgICAgICAgICAgICAgICAgICAgICAg ICAgICAgICAgICAgICAgICAgICAgICAgICAgICAgICAgICAgICAgICAgICAgICAgICAgICAgICAgICAg ICAgDQogICAgICAgICAgICAgICAgICAgICAgICAgICAgICAgICAgICAgICAgICAgICAgICAgICAgICAg ICAgICAgICAgICAgICAgICAgICAgICAgICAgICAgIC AgICAgICAgICAgICAgDQogICAgICAgICAgICAgICAgICAgICAgICAgICAgICAgICAgICAgICAgICAgIC AgICAgICAgICAgICAgICAgICAgICAgICAgICAgICAgICAgICAgICAgICAgICAgICAgICAgICAgDQogIC AgICAgICAgICAgICAgICAgICAgICAgICAgICAgICAg ICAgICAgICAgICAgICAgICAgICAgICAgICAgICAgICAgICAgICAgICAgICAgICAgICAgICAgICAgICAg ICAgICAgDQogICAgICAgICAgICAgICAgICAgICAgICAgICAgICAgICAgICAgICAgICAgICAgICAgICAg ICAgICAgICAgICAgICAgICAgICAgICAgICAgICAgIC AgICAgICAgICAgICAgICAgDQogICAgICAgICAgICAgICAgICAgICAgICAgICAgICAgICAgICAgICAgIC AgICAgICAgICAgICAgICAgICAgICAgICAgICAgICAgICAgICAgICAgICAgICAgICAgICAgICAgICAgDQ d6R6beOVBnHYFgQF5fYLh1Jv1+VMpDBdQgINU4jnMs gE0XGG6iu2HlLXyrHMBya1GmIHk9JD2BCNBwBLbhNG4BVXhntb7UBPYdNGIsuCOCh6opDvVkQFH7YOVp UgcqJM9KKJVcY6frhgWxTBIbHSWUVKezWAIBUY7ZGsVgE5XjqR44TLFGGj5+RWqbjpWySsaTNfP0EQRj f7TuHHc2UB4MBWZaByfyo9EjHgQcAYUYKFkqKZ5HYV P7SUV1ZQHyLq2AJFSuZ115mrOdDU4NWv7QAgSiXO4ran0JGcEdITZrXtnEIbm7BEjeAN5ThFYnIZnXqm 7vmpPgmiGQw2DnryHpzFXOZP3mmcTJTEZwwDxxIDzJEFvxDOVoBSGhLr7lIY2mRJVzTYB9AqP0AUWVTR 3BPSSaPNGiuJJgYDUcBFSZCU0YRCkiKMZ2ISKyyeOo tOKbOGsjNO9NONIugnLhNkXzTAVOMWa+Ec9VRO8nl7ZdWAodOiGgNI4hsj9DFHfVRoMbL9A5jAHgJ6S7 CIdzCc9QHBHzNPYxNpEvNZUAXReqNJ5SMQ2jfaH3PX4OkEBnQFBkPVVxwGPlPXj3T30vwMSqOEklBY0S ICA+Edgar+Xt6IETVyAYZcMMYtGtDxQSEAEsBlA8SsJ0 EOw9GrV1LhGT24bRkuzsVrIAnrTE7MXX0pIQEmKLJTWT2LbBRwfS6sszRwMWSuLQHPNdShQ61smQGaUN AgLTCwEPCiNp0CBCUmU7XywmCycTujdvNnQCHvHRQWDV6FKAqgtdNofKLoaYadYG38rUvoKQ4MAd1TUj KcBF3vii0NiVIdCs0HSPXoZy1AHMDtKVWqUSKnPPA3 FQZvGxRfCXjaGMIfAFGdMOZ8VPVfKDYbWP4JNkMgDBDjXeF4XFQpQEQcHYZohf2QJGDfGSTpTBG7BZCj HNXzCRCdEDrfSYRtGBRjNPY3NHRoQMIdWW4SEpKoYTZrFAX1UFUxGFHjNDSlnl9REQZhGRXvCQQ7MBLr BLGaUMPcZExqYLAtJRQ9BGR4VVTwDMBvCR9OIuOaPI CcOGQsAUwvGZMdLIBvmg3NWROrRIOgRcf7PQYzEPIwBIHdBLcsRODiAKM9DHQ6JJQaWTYtZH2JXfXvGX McKZguNTAoHWHcXFWzwb4FBMEuGOSrIICkGHSrTXBzCMAgVHupQXJyKTM6DWN3CHBqRUOnFC2TFdIfJR YtARe8DUWfYKSjSXHbnf5RUERtFQWhEJv1MRZzYMNp CGYnQBzdLYLaJYCiYsA5CIEhOHIjAD4ORnYfHYWoUeT5IgXkOUEwLAXsow3CFQWrQFCiLLIlXsWoBCHd DWWvVFiyYWPqRBVuJQiuEWNaILAiZG6ECuZdKLMpJfUzSmzeIWWmATFlft8WLKNcRCAhVgQeDLWqZLWm KYAuTIagNCEqJZHsCPwzEKPdCNNxGA5VJcAfHHGrXf R7DHDfMZIuETPwhh5JEJKzZLFlKEN5SYRmRHKpYKWoQYdgVWLfQJQ3IZY6ZFVvYRQjES8NTgDtRUAuAs I1IeghBEWnWLIdwp8GrIDusLexzk2LDZaZSh2DqRyuTPE0EWajFu5ftEMfSgKaURKVSe5HpmLrMMDpIA BSDQovSURbPGJiYmQzZmExNzljNWQyNjNjZDEzMDJj XjMrCTAcAyG8KmR8ZhDrGBSfMSZ9WIN4WHC2X9JpQYVoUvIfGdXxUYMpZvQ+QG8vWRs+Qz3Fo4CdhdK5 zvXyHSkxUWolKU8UXCOHL0ONLp== ID Date Data Source [id number] 12/31/2020 07:12:36 AM EDT [facility] XR SPINE CERV 4 OR MORE VIEWS [id number] RESULTInterpreted by:ENMANUEL JohnstonERVICAL SPINECLINICAL STATEMENT: Neck pain [...] rce(s) Supporting Document(s) ID Date Data Source [id number] 12/30/2020 01:38:13 PM EDT [facility] Name Value Range Interpretation Code Description Data Sherice rce(s) Supporting Document(s) [facility] Note [facility] HZHUZl8wJdGUToCe43/HNJtsPAJnj5YlZBaaROi7WOidZXPtV9CpBJQ2mS0sBEH4HUqNTrPkWvVbEjX6 lbm [file] AgICAgICAgICAgICAgICAgICAgICAgICAgICAgICAgICAgICAgICAgICAgICAgICAgICAgICAgICAgIC AgICANCiAgICAgICAgICAgICAgICAgICAgICAgICAg ICAgICAgICAgICAgICAgICAgICAgICAgICAgICAgICAgICAgICAgICAgICAgICAgICAgICAgICAgICAg ICAgICAgICAgICAgICANCiAgICAgICAgICAgICAgICAgICAgICAgICAgICAgICAgICAgICAgICAgICAg ICAgICAgICAgICAgICAgICAgICAgICAgICAgICAgIC AgICAgICAgICAgICAgICAgICAgICAgICANCiAgICAgICAgICAgICAgICAgICAgICAgICAgICAgICAgIC AgICAgICAgICAgICAgICAgICAgICAgICAgICAgICAgICAgICAgICAgICAgICAgICAgICAgICAgICAgIC AgICAgICANCiAgICAgICAgICAgICAgICAgICAgICAg ICAgICAgICAgICAgICAgICAgICAgICAgICAgICAgICAgICAgICAgICAgICAgICAgICAgICAgICAgICAg ICAgICAgICAgICAgICAgICANCiAgICAgICAgICAgICAgICAgICAgICAgICAgICAgICAgICAgICAgICAg ICAgICAgICAgICAgICAgICAgICAgICAgICAgICAgIC AgICAgICAgICAgICAgICAgICAgICAgICAgICANCiAgICAgICAgICAgICAgICAgICAgICAgICAgICAgIC AgICAgICAgICAgICAgICAgICAgICAgICAgICAgICAgICAgICAgICAgICAgICAgICAgICAgICAgICAgIC AgICAgICAgICANCiAgICAgICAgICAgICAgICAgICAg ICAgICAgICAgICAgICAgICAgICAgICAgICAgICAgICAgICAgICAgICAgICAgICAgICAgICAgICAgICAg ICAgICAgICAgICAgICAgICAgICANCiAgICAgICAgICAgICAgICAgICAgICAgICAgICAgICAgICAgICAg ICAgICAgICAgICAgICAgICAgICAgICAgICAgICAgIC AgICAgICAgICAgICAgICAgICAgICAgICAgICAgICANCiAgICAgICAgICAgICAgICAgICAgICAgICAgIC AgICAgICAgICAgICAgICAgICAgICAgICAgICAgICAgICAgICAgICAgICAgICAgICAgICAgICAgICAgIC AgICAgICAgICAgICANCjw/jXYqQ1klpJLypnX5R1bf Yq7FQv3PWK0yw9BeZPIrUMcjkkUcMgtXBbUuPAEgDynWFev7IGbpJN2ClYCxL1TqM9ApKUimIL8MFBVc DPKgfAZqGENgPSUeLwS0AGOqWBdbVV6ZhJGdHAtjFXOcKGZlMaNcRIJjLD1NMFFeM151mxWrXj7YCg4U ZpDjHM4mkc0MPfQvANLeFdtXQek6BDvqPX6CrJQoeF LoUyBiUPCVOpIaK8dat0PgQkFkSDKTQYgsNI5Ev5IptMSnIRn+Wc4YND8va9YlWFmwLzZoBV3zbv9TQO hJUfJcY7AbjFdqPRQkm9hkBPDdVR3ouZNeJCF4XQUvnRmmuxssMISIGYCqdBTasK4imTvaXaTnCZGrZs 2hNW4wJWCeVGB2RiScFACHTT9NVXLrLEFgrWXfTNVt RCNOWS5WBCrqEGK3WEMgfaEftTDhWKdmXQ7PBEFayzQaRxMfBHTVVYp+Sv0BNI2lf9NlGEvtXyTuMG8m rg2PELaISdAjB3J2sMGfJ9V8CNgjFd4BJRQbNXMnZZyvOVXQONzoLZ5XXO0balF5KV9VnORwNRAqOVLs xOQaLRg5A09hzXYyGLuySM7ZXNZ+Edgar+Oe0VHTFzMS HlNGEqOnEjZMAKQcVyH7OfZ4ZJs4XdA6FiGO05fPckwjAvYXcgEF2FGW3wRTQgPCYLDW0LuVDaoG2zia MeJQJzFIIUFeNnP26gyOYoBCWcGMPtQIDlBd6OANXpO0SomtLcqRtgdzZdFWUiJLCLAA6SENdyxjPqtY JliZthBV60gNzfWP0OWa5MFuVrUO1umy9WxEAkHj9Q FZGySC3MQLWbEVVzQDBcHCL0TUOhQkErLHuzBKTnEXOzGSB7QKCuKUMyRH7NOdStCXCpWvTeKTEyGRRu BLKnll4FQXVuLLVtABo2RXNpBECyNGGjAOmpIUSgZLLeFAD8XLZsHMWlKF3UOeUtNMLdCEDkVAbzNZTf UFNkfq1RENFdQUTmGMR5ZeYeLGBbVFZcSDdhRVCtUQ S6SOi9CBAwJBDeVQ8ADoPmXTCpKVtjCidvOZOqRKHrfi4PYXLbZKChHWMvDIYrZFOmRPWhYDnvVIKnWI U2YjE5SDJlGZIfXY9SGzVkDTBzWZc8KVXoWFVbGHHniq1AJRDyLIGvQNZ0AWCsLPWxHLTkDRfcWQClUK YfHdo9CSBqUECgIJ7UCpUaMLCkNOV3CwNiCFMtCRMj pm5TPVUkVPVtZbZdQMKiDZSpDZGsZQqcPWBtJIMeFHG3SGLzIVFoQT8WBcJtALNlHiZ0YIQsRIWzPAGb mo7GTJCdOKQlYkm6JNYxHBNqKOJcUGtsIASuJJTxUFFmQQWtPDWjJY7YHxXfHZVpInK7NhRiCPOkUGAr iw9PUESeOGHhKTt4NRDbJWXpTLQxOJrcCOTlBXJ6GG F0GEYbQDCkNY1EPcFxVWGlVeLaTKNoLCRqXIHswy7RoYNtvHmpfo6NEWeUUj0QmMsnSGK8LPzhZe0niV SgFlEvBGLYLc1BosTyTBIhCBIUTEpvOJGhIOamSHg9OLCyXOplUYXvO5DdSGhqTbJfW1FxAwTpT7CdKa R7NYN6BBK7MIP0WEFtXsWaVRJpV4FyQVB3PhBcITYn YjI+PT8pNVa+Gw1On4KjshD8tvZzPPzpSDM8Up2RRSRPV6SYHh== ID Date Data Source [id number] 12/16/2020 04:18:34 PM EDT [facility] Name Value Range Interpretation Code Description Data Sherice rce(s) Supporting Document(s) Discharge Summary [facility] FPITZu5fHgXOLeOh83/TJUglRYPvh0UpOEyjZSx7JWdhJEOfV5MuIXI8oR1bQEP7NErQYoGfZuZjYjH4 lbm [file] ZYviHwZ4XrZ+ZF6eSLi+Xi8Yo0XoppQ2pcNeCFxvZKc8WF8TFXTWU4GPNq== ID Date Data Source [id number] 12/16/2020 08:55:59 AM EDT [facility] Name Value Range Interpretation Code Description Data Sherice rce(s) Supporting Document(s) Glucose [Mass/volume] in Capillary blood by Glucometer 106 mg/dL 70- 140 [facility] ID Date Data Source [id number] 12/16/2020 03:35:17 AM EDT [facility] Name Value Range Interpretation Code Description Data Sherice rce(s) Supporting Document(s) Bicarbonate [Moles/volume] in Serum 13 mmol/L 22-29 L [facility] Chloride [Moles/volume] in Serum or Plasma 114 mmol/L 98-107 H [facility] Creatinine [Mass/volume] in Serum or Plasma 1.22 mg/dL 0.70-1.20 H [facility] Glucose [Mass/volume] in Serum or Plasma 81 mg/dL 70-140 [facility] Potassium [Moles/volume] in Serum or Plasma 4.1 mmol/L 3.4-5.1 [facility] Sodium [Moles/volume] in Serum or Plasma 139 mmol/L 136-145 [facility] Urea nitrogen [Mass/volume] in Serum or Plasma 28 mg/dL 8-23 H [facility] Anion gap 3 in Serum or Plasma 12 mmol/L 8-15 [facility] Osmolality of Serum or Plasma by calculation 293 mosm/kg 275-300 [facility] Creatinine/Urea nitrogen [Mass Ratio] in Serum or Plasma 23 [facility] Calcium [Mass/volume] in Serum or Plasma 9.4 mg/dL 8.8-10.2 [facility] Glomerular filtration rate/1.73 sq M pre dicted among non-blacks [Volume Rate/Area] in Serum or Plasma by Creatinine-based formula (MDRD) 59 mL/min/1.73m2 >60 L [facility] Glomerular filtration rate/1.73 sq M pre dicted among blacks [Volume Rate/Area] in Serum or Plasma by Creatinine-based formula (MDRD) 69 mL/min/1.73m2 >60 [facility] ID Date Data Source [id number] 12/16/2020 12:33:00 AM EDT [facility] Name Value Range Interpretation Code Description Data Sherice rce(s) Supporting Document(s) ED Provider Note [facility] EQGRDv7uCxCFYyBc98/AYGpeFBSxe1SlFYfgNUe1GFqmLYJmR5OqEKG4yA4cTLG3VYiVTlPoRfVuNmJ7 lbm OnGmoIFiAbVEBgSuoRAnLqVSrjYjlblQPvHS6MbJT9MWXgE12mLIRuBCTlW4WpMKBoCqN+Hi5ZECVxyQ UsHY0QNijY9Y1fs1o6HY2lHT3GM23lpN1Bi7+tEXfAfcF0ITz9+1N4J7HA25howYoIaon/woqYKZ4b+D AViiSXWpn9WlTj5W45CHiLi//30q0OfKUNN/+7/adrian [file] client services [file] [employer]+VDNzVPmSleMcQHTZaPlencTwoo8Hdwd6Meqh51p/BGKNy27bWD4s1cOQUvAuh1CZ+X4VmM1UoPsSq [file] N+i3vnwrPvkRGqWjqlXvFGdY26Y/wASoUTeoR5 [file] Mz1qR7dadv5na2SKzl9rq0YrbQaT/0q6+Jose David/pZTPh [file] ICAgICAgICAgICAgICAgICAgICAgICAgICAgICAgIC AgICAgICAgICAgICAgICAgICAgICAgICAgICAgICAgICAgICAgICAgICAgICAgICAgICAgDQogICAgIC AgICAgICAgICAgICAgICAgICAgICAgICAgICAgICAgICAgICAgICAgICAgICAgICAgICAgICAgICAgIC AgICAgICAgICAgICAgICAgICAgICAgICAgICAgICAg ICAgDQogICAgICAgICAgICAgICAgICAgICAgICAgICAgICAgICAgICAgICAgICAgICAgICAgICAgICAg ICAgICAgICAgICAgICAgICAgICAgICAgICAgICAgICAgICAgICAgICAgICAgDQogICAgICAgICAgICAg ICAgICAgICAgICAgICAgICAgICAgICAgICAgICAgIC AgICAgICAgICAgICAgICAgICAgICAgICAgICAgICAgICAgICAgICAgICAgICAgICAgICAgICAgDQogIC AgICAgICAgICAgICAgICAgICAgICAgICAgICAgICAgICAgICAgICAgICAgICAgICAgICAgICAgICAgIC AgICAgICAgICAgICAgICAgICAgICAgICAgICAgICAg ICAgICAgDQogICAgICAgICAgICAgICAgICAgICAgICAgICAgICAgICAgICAgICAgICAgICAgICAgICAg ICAgICAgICAgICAgICAgICAgICAgICAgICAgICAgICAgICAgICAgICAgICAgICAgDQogICAgICAgICAg ICAgICAgICAgICAgICAgICAgICAgICAgICAgICAgIC AgICAgICAgICAgICAgICAgICAgICAgICAgICAgICAgICAgICAgICAgICAgICAgICAgICAgICAgICAgDQ ogICAgICAgICAgICAgICAgICAgICAgICAgICAgICAgICAgICAgICAgICAgICAgICAgICAgICAgICAgIC AgICAgICAgICAgICAgICAgICAgICAgICAgICAgICAg ICAgICAgICAgDQogICAgICAgICAgICAgICAgICAgICAgICAgICAgICAgICAgICAgICAgICAgICAgICAg ICAgICAgICAgICAgICAgICAgICAgICAgICAgICAgICAgICAgICAgICAgICAgICAgICAgDQogICAgICAg ICAgICAgICAgICAgICAgICAgICAgICAgICAgICAgIC AgICAgICAgICAgICAgICAgICAgICAgICAgICAgICAgICAgICAgICAgICAgICAgICAgICAgICAgICAgIC PeMMk0H6ueBLOcQGIvAN2cZTo3Do5+CLuPEfJdBQJ2zwOzoW1FQY3eh3XzAFshHWEcj3IiKRn6VF0ZLK PuJXucCB1WPKqexm5MHWTtVADheBLMa0kqWzSnAEA6 VFAnXvcbLO6UCLNyO6prhgMrTBGaYRIYEEzzIZQPRIflVEHSXVVySSGeKvPlSuEuENZeYIOgSHBVRRH9 GGLiXzOjVHFzWLSpNfWyDSQYVHZnDVNmKyDkBUyqPF4Xx6UopGSoHX4XAg5JMkRkKW5sjm8GJRubSNPi ApfKQju9FSzdKF2PhAUxfBN4WBYcVYAZKiRrP5foj4 AzQBLwIPIDITslXL6Ov5ZewTT5VWt+Pv5FOV7gx0TzHKk6HWIxDY1kot5QOVmQPuScZ5VxkZlvCUPLLT Fbh0EiDFQlEZ9bjIXvJNE9RFezxjC5dXSxOOw8ctCrTS4QIDS5YAjwVQZdDlFfCYQxZlg5ZbCXSHdVPa PiW9Qer9CgVeX8OTOiLrUqHYlzEMMkGpVeMC67rHal XR6EQCUbSNMfSW18QVL6PDBuRb1QNMLxXzQ4aLN3XKVtKOBLAk2+CMwbpdRjYjlOWcEyTAKzb8DsKZs9 KC0QSQHyLVj3eBAvTIJdPOVexaanKMAzOi69VPPmQmefSu7kZREwCX2nXTXcIZceZBYzDMPgEq5xKA8q OLIwRGK0AiEcPCDYKH6XMNScDEHktTMbWQFqFNIdOr QhOXtpRLMgAcO7KX84uYzoMC2ODQMiRCZiKB65EXV5ATFcXy6EJITlWYZctcV2DKGtEFVZBsErN94klP QgNTEgMCBSDQo+Nn3DVF2zc9XcBCu2XDJnQV7gnk0KFDgQBuTvH5FzpFmpBCTPEV2qdALpKLP5GZDcvX DfWKQMKQFpz9qiPIHOWJ8nQIOuUx8wAA0oQDHvAFCx YnB9HNXKGB2IQYUbBDXodUNtWBVcYFJsXuFgIDnkWOCnTVlfWL24qIenMV7UCIXwDNCgFJ23EYN9GERa Gd3AITDiZORvirH3NOQpAYRJGbSiQ59urCBiIMXiWRBARLu+Zj8DDE9xy6VbRWk2UaVtHB8ezj9BHRoH BhKfU2VkbYcuHLZXWH4zvRDeWFY5JMAcrxXvZvDRgg FuGAJ4LHbcIm6qSQNiDl2jQQ7iWMTfGTT3PeTtBWCYVL5BTLTmYELdvMFgVHDrDZJvXwGlMSkgVWFhDH a5NN57hKowXS5BPBDhRAOeOB13SMK8QYQwHn4JDBHkPEXdbyA7CCCzOQBHVpPtQ97dcVTrPIRjQJLHXL o+Qt7VXF1gk0XiAWr1YjXuLB0hwl7AXGlGSvJqK3Qv oBziCHENFTXpgWQwANQOz3ZkhlDreQVJBD0psUSuUgDqv84tXRSRPHQ2YNrrBVNpTtEjCYAbSmqiXPHF HYoMEgUhL6Shw2CiKtRaOtFnEVJjZ4pUWzDmMQY6RpSlaSrbGQ5APuCwS0NpzeSntTS9MWYsDWXRFjMc C4QzGLYxKXKbXDEKTDa+Of4DVA7lx7YsGKa8GNJgST 4cvw2UMGmWEqVlY0U8gCGeA2O5QPryTb0VEJMtYVKxIYRfEOCGOExgCK5VDM3cbeX6HT8YvISzTLFuLZ XnyKMeZXt9Y63amUUfELaqPA1JVYC+Edgar+Id2YLUGvCHVgQOGnHbZbFNQCVqIaT2ViO3CQn5IfI9KfPC 32gLxwtdKmPNciMM2RKW2vDSQgPCIUJO6OzSPbbM1z ktK3KDLeTPUHZdUkP82alHGrGAEdVDD7FHXuEd7ZNQCnE7AqmsMnmKtlyhRdJUCqTHQARD1ZTLztgwBb eCHpxKwiQP76fVnoSQ2MRu0ZRcAoRY5btv7FqCJmYx6NJDA6MQ0QQAWbHLGuBCBgRNS2VXIxCqNaNWvb SAHvMUCuPNR8CUUuGLClCI7NGzPpWOKkCgv0PXsrCF GdDSEjez3AOVUjMTI3OBy8ONIhSKCxCAKwBMqkVTDdSCBgTGS9ADBmUQVkSE1RViJaONHrCMZ9XYYdCL JeEASlcg6LSGOlUBBcAvdhYWQcXBSoHUAeQLfhOEFjQWF4Huk5YUBfGBSxLZ7RIaVbPVUzLCG0OXRyYG WtXQPbud6CTRYdDKYgJAW2BQYfEGHnEKIhQFjpRVZj FCZ7AqJ1OXQuUDTcVB4QAtWdKBSaKCI7IUPiAQLzLEDhhf8XYVHsSNWwGqq9QFXeHPAxKJHxXGhkULMd SRB6CNxvDLYzFZXdYB9NVhXyFTZrYMGtEHVoMROvOYCymn1THXGeNZSlLJA6CnBfWWSiELCyZRkiBTFl RMC1IrwxMVSvUBIhNV1NZhIxODUdIdJ6OViyJHNvBW Fwse9NKYCcWZJsONqbSqRhUYVsQMDpPOckTYWmOWK8PSc8RZQaRFHwBO8KVxCzIYGhQoT2OZHtQHXrHU Pnvu1UXRRiHLRsXWSrQjAnKLGfWJXfFPxcZKXaGME7LMKeGGWtWFUoFC5SVgTxYBLzEnO2AzFpSSIyOZ Tost1HHBIeTGAhLVlxNbRzCODjIPNoGBcvPHCrCEYi GFw4EPGkYFNzNO0GMyZqJRYcKcAcNNWjBFDvOUUzhx7QWXLmTBYrAsU1UtItIPKaVCHzXPeoCDUmXJWk GxO7VDCdZPQyWS7VWbKnLSWbMzH9RuxnCVBzNUVegw5NRFIiCXGuYyTpFUTaSKXdXIGaWIcmGFGgRUQd XXQeYWIqRPLpLM6ZEdSvGDNiNOPpIZTzJDJdIKQcht 1DMEDrVPS1MBZ8YIUbHZVmTWXpNTaxPGZkYDB4XWJ3DNZeWRVfGO9OSkLkDNEvKDJxJrLvFIFlTEBuki 4PYERfUSO0EbTzBxXqVTLfHHJpQQciEPZhISJ0POj1NSAjCGKiEI3EUaVhDBPiPLRpJjvcERSnXVToph 2ZJPOsZQG8Mxg6TDByIOQfAZTbFDmdIMAoLWB2APmv GQAsKLIvZJ2FZsScUHNyTcnyOLPgMZJaZBJeyo5EENZjGCU7GJMfOKFqIMBwSBTnUQhvCQWuXWV9HyF1 RGScQOScQP9TSbOwHVOlMag7STPyECOiPRGzub7QOHGgVMG6TFe6BENhCQVnKNFfTOwlEGSgDEX0GKh5 EDCqOAQbEP6OElWhQJNqVvQ0MiDnECUeIXQkju5HCH GzHCJ1KIunKCZqYFRlLXIaHCecEJFdKTfuMKi8IBPzPBXkWC0BZrRiXVMoZhSnVhSgNLZtOPPxst2PCU UyEFO9NjM5HfMhLSStDYZjWTqtBMHoTQygPXC7VRPzGKVpUB8YRgSsVBExUoX1ZTTmOZJgXTFeqf6BHR ToHQQ6Xtv3OkYyQHIwBIVkCBv3yuOzkMThJWy1SN1J R8RsdhPzGLCFCw9Na813WQV2ALWlUi8DI8osZo3nGBCwGKHMGs8IIVk6Bwi1UkWlODU8NdhgLMPdQRm7 YTNjZGVkNjMxYTNkODQ+XAzhNQAqInMmEmviLtF7EzJ3YqicH0QfFRL3QsFiH5X4UH9yIJDDRc2+DQpz yFUcnSmdGIKVSkanIBKoULpkEVSJVx6K ID Date Data Source [id number] 12/15/2020 09:38:09 PM EDT [facility] Value Range Interpretation Code Description Data Sherice rce(s) Supporting Document(s) Glucose [Mass/volume] in Capillary blood by Glucometer 128 mg/dL 70- 140 [facility] ID Date Data Source [id number] 12/15/2020 05:58:11 PM EDT [facility] Value Range Interpretation Code Description Data Sherice rce(s) Supporting Document(s) Glucose [Mass/volume] in Capillary blood by Glucometer 150 mg/dL 70- 140 [facility] ID Date Data Source [id number] 12/15/2020 12:16:29 PM EDT [facility] Value Range Interpretation Code Description Data Sherice rce(s) Supporting Document(s) History and Physical [facility] NHQWUo6eRcLTAbXp62/JHGewDGEkn9FgQDhlDZm0AVrtVZJoR3ZcHKL7cV6cIEB3YDhIVbDjOxLcCrX4 lbm [file] AgICAgICAgICAgICAgICAgICAgICAgICAgICAgICAg OPJeKZSwMXGjZEEwJNTvOPIaUU7ZJUMnMAChYXTkLKVgFOPvZWRzTXDtJBVpYHGdZWRhINWwBOJfYOJp ICAgICAgICAgICAgICAgICAgICAgICAgICAgICAgICAgICAgICAgICAgICAgICAgICAgICAgICAgICAg RF9QJNGuYBEeQROhWRYsWHSbYRBsROYlZTQbMCUiSM AgICAgICAgICAgICAgICAgICAgICAgICAgICAgICAgICAgICAgICAgICAgICAgICAgICAgICAgICAgIC NyLUJiTUJtPKCeHI5ASMRhZFOwMQTyGDFpEEVgWEVhAWAlFNKlWBOgJGXmYDEpTBXqVJBvSBEgQSZqJO AgICAgICAgICAgICAgICAgICAgICAgICAgICAgICAg ZLVgUZSfOYKiANSzPWNfUEMqXHEwEI7OETKhDPRtZTVgGDGiOVAuQMThUDQyTGVzOPMxYSZsVUOgJVPj ICAgICAgICAgICAgICAgICAgICAgICAgICAgICAgICAgICAgICAgICAgICAgICAgICAgICAgICAgICAg NBRwOA8FRWJrLDJaTCNwOTXaZJZxZYKfSRKrCFUaOL AgICAgICAgICAgICAgICAgICAgICAgICAgICAgICAgICAgICAgICAgICAgICAgICAgICAgICAgICAgIC KbXAQfYZHsNYBxSNZbMO8JMDCnUGCyROOtLAWiWRSkALVjKYOcBFHoPPUfGWVgSPClQKEuHUMaGGXxOT AgICAgICAgICAgICAgICAgICAgICAgICAgICAgICAg QEDwNWVeWOJrHLSyCABkQDBpWKEsWTAcLV7PYSCfAIKuAZSfQGQiIPMjUAMjNEUxUTZyLBHiXEFkHQFf ICAgICAgICAgICAgICAgICAgICAgICAgICAgICAgICAgICAgICAgICAgICAgICAgICAgICAgICAgICAg PAZoXKRmVZ8KGTVfEWSxZPFaRHOpKGFrLGFwJVTrCD AgICAgICAgICAgICAgICAgICAgICAgICAgICAgICAgICAgICAgICAgICAgICAgICAgICAgICAgICAgIC FwLPVgOCJqMJZwUTGzOEXnKI3EOPPtWFKwSTFeMBYhSXQqSTAgEXChQBIxTVKnMMTfMGQnOVToDWFjQR AgICAgICAgICAgICAgICAgICAgICAgICAgICAgICAg ZNDnGBFuPHSvMSAaTNNoALMyHSLdXSLeJCQnWE5BKU00vNDnu5O3CAYhPC5nsio/Ov5CCJvhyaLzmAJi FX1AFxScKN3cje7CGbVjNH2kwf3BCDhTNwPgO7Q2kHCzUOXeBDVPQsDkG43zPUbbBs96PZvoYNZsOiJa ERt7Qy3BNeQlI5awAPQoTqR1YUEpArQ6BLXvMbH3ES BfUrEtUHujIP9Ir7MnlHZvHEo+Kr3RFT4ys3ZgDMssIIScEG6caq5NLKuZKiDfH9AlikU9IYLrNMGyPs 6BWWYdRMQdzYKpTDRiIOSCVeIcI8ZqbR76EIXMNn1+KBltwpAeMrbXPmOlHIVgj6CjUAs1RV1TWRQcED o1fRZbAXAUYVF5NHB3mnn3bKUwV7IcNSWkbdSffLkz AQ4JQlGjESKpJk9xQb7qAKTnPFP7GaT1HCXIUW2XRCAlQDUnlFMcBUNnKMBGQT9VFZrsWJU0XJAinqLh hQIcDDdaYZ9OJTJdhaTkDshiTULSCWh+Nd8DYB7go3UrJXjrZHUqJA3gtl2QEWvOGxIzD0R3tMRlL8M2 VZrmOe7TIMVrEPVfCobsRUTVUAhnYD7TPA7hpqO6GW 0ByTNfFPKsGTGvcASfVBv5M16beDOxADqkID7XVQO+Edgar+In7FJAXiFRLiZGYxQdQfDSZSEwSkV8GyQ1 NOs5SiS1GhAB63aKtttfAfVDhlFQ1VSM8mOPAeBTSXEY6AbNYisY8zpcTeMRHpMGVISpOaF93rvQLyUX RdWCO9WMRtKh8VCFQtL9NsflAskOsqfqMoAMIsDUBJ KM0ATJtfanOkdEZwuSytEF05sLkyWC6LIk0KOmIbSK0dod6TsJVbJo3ULAEeHg0IQTQaDFRsEGJeRYV6 QOQuFbXzKVgcQUKjFFQjFBM9NVVlTIYgWU9TTtAcCVQlBrYoWWctIPTjJNZnvp2RMCCiXSSmCpr1CEEy UZNhVXFuDUulGZQfBPVbKXD8IMUdHUDgGH4EHlOsUY KrXUQaUKsxHFZlRCFwyr8LFVNpCFHoPrD4DzSeRRKfSCOtUQbkAZDuSQD8Sqh3XHKzGFUiLR0LKcPbUQ UbLBK8YZRgIBTiFNFuac7EPRVpNZPaROWnQTXaMDSdKYNrVMfaNGOiWSZ1VAM6JWUfKAWvLF6UYtDwOW AuUPp6FCozNSNvZHOnzm2BGOYlVXKlBIO3XxMwEDNn EWXlXPqfZIEsBLJ4EPz7ITJjQEGxKN6WAwWbLHLfRRW4HfykWEMfJPStwn1BUEHcTFXtULK5QOKkSNIh BZHmFLnwSZYyYGBwHmZ2PMRsYGBwVI1WIaGuMTElWFGuPXsvJOOhZOFfrz0XLHYvUQPbElL3WBSzKKPv SPOeXIfyUKBsIBAyZTT8LDBaUKQcOR6JLeWrGFIxJz F8IBOnMJHdNDPapk6XXWKmSGSrUKH3KFWdWGTfAJHdDLhdAQAgQMZ2GCzdNHZbMPOdRO6RGqJcGNBjIz R8FNcpRNQeIKHpkm2JEORcYMCfMYj5KNTjZYKmQUHrMRsjCEXoQXE6ZVF3XSZnIBHnDT6DTjKhDDMiVl Z2PRsiTGHcYUCnmp8YFEWqJSOgJkD7RESeZTGlOOMp YQneUWYhGCL2CeF1RRFbWDTkII1LKdDkFWQdUyitFYvqCFPmTEOhzs4DOAXqDOErZXDjVHRdBBMwHNAy TQzhTQJoSTK9Tqm1FYFuEUOgVU4PTnLuRKreWEAXPwg5LAnoK0w4HQOrOz9FF4Qcj7BnOcTqQDTNIRrg WM7mayDhABSiCj3JY9bAWgk0USGuJJD3QhGbWASjVJ glIPH8SERxSdqwERgcOgZ9YK7yISHxHNC6PQTfXLZ6ZITeE2G9CMZaXHXjNGDjQ1K0RQc2PvGgPD3WLm 3BTqG6IZX7nRZaFs2JWzd8TSyDGeDqWF6QMAp= ID Date Data Source [id number] 12/15/2020 12:16:13 PM EDT [facility] [facility] Value Range Interpretation Code Description Data Sherice rce(s) Supporting Document(s) Consultation [facility] TSLPXj8iPmFSEiWr18/MZAsrNBFmr6VvCAtaQHu6MEebJRZpJ5BrVLJ2dF8kJWX5BXoIBkXsVjSdKnO2 lbm [file] ogICAgICAgICAgICAgICAgICAgICAgICAgICAgICAgICAgICAgICAgICAgICAgICAgICAgICAgICAgIC AgICAgICAgICAgICAgICAgICAgICAgICAgICAgICAg ICAgICAgICAgDQogICAgICAgICAgICAgICAgICAgICAgICAgICAgICAgICAgICAgICAgICAgICAgICAg ICAgICAgICAgICAgICAgICAgICAgICAgICAgICAgICAgICAgICAgICAgICAgICAgICAgDQogICAgICAg ICAgICAgICAgICAgICAgICAgICAgICAgICAgICAgIC AgICAgICAgICAgICAgICAgICAgICAgICAgICAgICAgICAgICAgICAgICAgICAgICAgICAgICAgICAgIC AgDQogICAgICAgICAgICAgICAgICAgICAgICAgICAgICAgICAgICAgICAgICAgICAgICAgICAgICAgIC AgICAgICAgICAgICAgICAgICAgICAgICAgICAgICAg ICAgICAgICAgICAgDQogICAgICAgICAgICAgICAgICAgICAgICAgICAgICAgICAgICAgICAgICAgICAg ICAgICAgICAgICAgICAgICAgICAgICAgICAgICAgICAgICAgICAgICAgICAgICAgICAgICAgDQogICAg ICAgICAgICAgICAgICAgICAgICAgICAgICAgICAgIC AgICAgICAgICAgICAgICAgICAgICAgICAgICAgICAgICAgICAgICAgICAgICAgICAgICAgICAgICAgIC AgICAgDQogICAgICAgICAgICAgICAgICAgICAgICAgICAgICAgICAgICAgICAgICAgICAgICAgICAgIC AgICAgICAgICAgICAgICAgICAgICAgICAgICAgICAg ICAgICAgICAgICAgICAgDQogICAgICAgICAgICAgICAgICAgICAgICAgICAgICAgICAgICAgICAgICAg ICAgICAgICAgICAgICAgICAgICAgICAgICAgICAgICAgICAgICAgICAgICAgICAgICAgICAgICAgDQog ICAgICAgICAgICAgICAgICAgICAgICAgICAgICAgIC AgICAgICAgICAgICAgICAgICAgICAgICAgICAgICAgICAgICAgICAgICAgICAgICAgICAgICAgICAgIC AgICAgICAgDQogICAgICAgICAgICAgICAgICAgICAgICAgICAgICAgICAgICAgICAgICAgICAgICAgIC AgICAgICAgICAgICAgICAgICAgICAgICAgICAgICAg OUPkBTGmNASwQOPrECJzDEOrJTj5Q6hcAKMqOHJxJY5eKBq2Pq7+MTcGMhTrHZO2hhCzlR1GMM4bn9Lf ZCtpGSVqi0ScWIm6IL6ZBNLwDCyjVJ5ZLLrtrl7NIVDvRNAnvHHHf6bnHmCfJAJ5NCOdGhsuAL5AKURr U8uqrhYiJJWoERLKNYvgVDTMSIqkXRQLDTBmXFAmMi PrIcJdXPEfKB8JQYEpX408nlViIR1MVi3VKhNnID8icw0OTqBzNEDpJgvCCot0HSnfRW7LpKGiuGIaRB AdYKLZKlPaQ8rdy4DaJuOaXKMCZQsnOE4Na5ShlTQhXHn+Jd9BFT0ts9RlPXarZMNcUY9iry2NJWkNKw BeN9UhtAkyIWCymqS0bYZvSRS0KV1ecOChXLzqViOF lv53ADMEWdAtsYK6TuKvHeKtOuAeYWE6FEloML7pXLhnMN6SGGK6MLfdXKRbZEIfM5rKQcGpOJGoBATr tQyoFL1LUfFpL4GgcqBwuBUtDuVeHMUNUq6+LZnnuzLjObaXTbT0YQDwc3BbIBx1FA1AZQGoQVewHH4R XWYhnK5vTRkrWT7ZZuQlCEQlCRIAZxQaF45owHWgLO p9L2SuJuGvFNRxFtfxWUExRDbpEzYoZLHaBoFmGUkxYX8+ID4+FYdxSU5WVYhwlmEsTGCxUd6TUJGjBI IwWX3tENYyIALcB0O6oGmiICXCWoVqB4gqdlvxDM3zZUMnJ385aRgeuwYiRLVeNTKnZy3ISJHoFWN0DG NplEFcTfQnOXJLCPgsFP7CdBMoHJW0nL0lETrmZKJv HCUwE6eDQwVhgDzrDO65tMucjeRhkTDoYXe+Tg5BGU1lc4ZdUJg5fvFzXLzuZMT7NRybSJCjTIWuYWTe MMX7VTC3WIWNGhJiHDKwXZJpADyqIGSdQKDtzf1XDAGpWIQxFvX9ASAgUQRlKIGzRPdoNZNkOXI7SjMg RSTtOLSvTD2NVwScMCTkTVWvHCdrDQSvZWPbmz3NBK KxZPBuVLM9WPZzLHCcZBJfKOtfZLXhQOP2ApkuBBEfMESlRE0TMkRfZOIeSWjxJimvBFVfHNBwyz1FNJ TsZJLkHbI6GLMhLZWyRHXpKMowZYMvBMJvAXVoAITcARCsRD1VSyZrBHJoIOXlIVLrFZCuGJOcxu2SHM LoSRJdNMZ7XPZrYVHfPZAhYTipORJgWDF4ANn2AZSd ZQNwHM2UCeYzEJCkFBb1KdCvSFRjSEVbjs6DOSSjVBDyETzcYDXnCYRkBBAgDEzlGSTjJUB9DohbJLWj RUPnWU7WSgTaRXZvTWj5XHrpAEPfFLHbmg8AOCKbXATrAEG4CZFcZDOyOBIcUIpiSVTiQXHtANNrDIQy HIYoLP3ELuTgAANfMwEuYdKeEFDvUAPbvu2NFSWnYA CmIKYePXOkICFzYQKzVJitXUKbMJKsXLeiSFRbOQMuHZ6GGkZnGKBoEqR3NxlrGXHdMXYicd8JFBTsYH DjBqk8RIBeQVPeGFPcLGnhGAHuDPJ7GbF7TKWhGGKuJQ3YMzNzBQXrBxU8FbKbCBJoORYzmg9AZXCwBH QiMVz8OvSpEXUtCUPbUByjTVXkUAL5ZWCyCXVrPEFa XP4IGbGtRQDhTlHkIXomYACrNPQnjh5YWIPiXNPzCzUrUZAjNLGuJEKdAFmzMIPcPLV4Jrj7IOHyWWZs UJ0IWiYnYHArWpE5OtgrVLHuXXVidr9AENAtPMVwZeqwYNCwBFVgBFSaKMupYWXnYYW9TdG0YCNeCUCb FQ9WDjJdQHMvIgq5NdCiJBZsLODero6RUKUwLKUaPV B0KIVvYKBdRLOzRXj1wkKfcHIvOGj7SA7HT0MdafAkThWZRu6Cz671EXU2MVLcBw7KV1mjOz0cETBsTX LHRe8JYJx3BXghYZWeDmN2BCopEeC1ADZnMYa8TDKyEmM6InBhIAz+JNmsANTcSrHdCxqbW1HmChmwVa CnXXq5BGW7HantMTC3RX6eBECVVa6+KHtnnJFrkRfuBVITQwE8GTKsCMjqOEVLMp8U ID Date Data Source [id number] 12/15/2020 08:49:05 AM [facility] Name Value Range Interpretation Code Description Data Sherice rce(s) Supporting Document(s) Glucose [Mass/volume] in Capillary blood by Glucometer 110 mg/dL 70- 140 [facility] ID Date Data Source [id number] 12/15/2020 08:28:49 AM [facility] Name Value Range Interpretation Code Description Data Sherice rce(s) Supporting Document(s) Bicarbonate [Moles/volume] in Serum 13 mmol/L 22-29 L [facility] Chloride [Moles/volume] in Serum or Plasma 112 mmol/L 98-107 H [facility] Creatinine [Mass/volume] in Serum or Plasma 1.29 mg/dL 0.70-1.20 H [facility] Glucose [Mass/volume] in Serum or Plasma 86 mg/dL 70-140 [facility] Potassium [Moles/volume] in Serum or Plasma 3.7 mmol/L 3.4-5.1 [facility] Sodium [Moles/volume] in Serum or Plasma 137 mmol/L 136-145 [facility] Urea nitrogen [Mass/volume] in Serum or Plasma 34 mg/dL 8-23 H [facility] Anion gap 3 in Serum or Plasma 12 mmol/L 8-15 [facility] Osmolality of Serum or Plasma by calculation 291 mosm/kg 275-300 [facility] Creatinine/Urea nitrogen [Mass Ratio] in Serum or Plasma 26 [facility] Calcium [Mass/volume] in Serum or Plasma 9.3 mg/dL 8.8-10.2 [facility] Glomerular filtration rate/1.73 sq M pre dicted among non-blacks [Volume Rate/Area] in Serum or Plasma by Creatinine-based formula (MDRD) 55 mL/min/1.73m2 >60 L [facility] Glomerular filtration rate/1.73 sq M pre dicted among blacks [Volume Rate/Area] in Serum or Plasma by Creatinine-based formula (MDRD) 64 mL/min/1.73m2 >60 [facility] ID Date Data Source [id number] 12/14/2020 09:38:41 PM EDT [facility] Name Value Range Interpretation Code Description Data Sherice rce(s) Supporting Document(s) Glucose [Mass/volume] in Capillary blood by Glucometer 156 mg/dL 70- 140 [facility] ID Date Data Source [id number] 12/14/2020 06:08:49 PM [facility] Name Value Range Interpretation Code Description Data Sherice rce(s) Supporting Document(s) Glucose [Mass/volume] in Capillary blood by Glucometer 98 mg/dL 70- 140 [facility] ID Date Data Source [id number] 12/14/2020 12:17:08 PM T [facility] US RENAL OR AORTA COMPLETE [id number] RE SULTInterpreted by:Yaakov Mckeon III, MDPROCEDURE INFORMATION: [...] 600 COMPARISON: CT ABDOMEN PELVIS WITHOUT CONTRAST [id number] 12/12/2020 9:00 PM FINDINGS: Right kidney: Prior [...] rce(s) Supporting Document(s) ID Date Data Source [id number] 12/14/2020 11:12:11 AM EDT [facility] Name Value Range Interpretation Code Description Data Sherice rce(s) Supporting Document(s) Glucose [Mass/volume] in Capillary blood by Glucometer 120 mg/dL 70- 140 [facility] ID Date Data Source [id number] 12/14/2020 08:36:43 AM EDT [facility] Name Value Range Interpretation Code Description Data Sherice rce(s) Supporting Document(s) [facility] DRTOAx5hVvASImSq59/XWXxxKNOoi7TwLLneYMo6OGdlUYYgY9IlGAY2aF7qPDV1XKaOCkLtAzQmLiPv [facility] [file] [id number]= ID Date Data Source [id number] 12/14/2020 07:13:13 AM [facility] Name Value Range Interpretation Code Description Data Sherice rce(s) Supporting Document(s) Glucose [Mass/volume] in Capillary blood by Glucometer 120 mg/dL 70- 140 [facility] ID Date Data Source [id number] 12/14/2020 05:03:14 AM [facility] Name Value Range Interpretation Code Description Data Sherice rce(s) Supporting Document(s) Bicarbonate [Moles/volume] in Serum 12 mmol/L 22-29 L [facility] Chloride [Moles/volume] in Serum or Plasma 115 mmol/L 98-107 [facility] Creatinine [Mass/volume] in Serum or Plasma 1.60 mg/dL 0.70-1.20 H [facility] Glucose [Mass/volume] in Serum or Plasma 108 mg/dL 70-140 [facility] Potassium [Moles/volume] in Serum or Plasma 3.9 mmol/L 3.4-5.1 [facility] Sodium [Moles/volume] in Serum or Plasma 139 mmol/L 136-145 [facility] Urea nitrogen [Mass/volume] in Serum or Plasma 51 mg/dL 8-23 H [facility] Anion gap 3 in Serum or Plasma 12 mmol/L 8-15 [facility] Osmolality of Serum or Plasma by calculation 302 mosm/kg 275-300 [facility] Creatinine/Urea nitrogen [Mass Ratio] in Serum or Plasma 32 [facility] Calcium [Mass/volume] in Serum or Plasma 9.1 mg/dL 8.8-10.2 [facility] Glomerular filtration rate/1.73 sq M pre dicted among non-blacks [Volume Rate/Area] in Serum or Plasma by Creatinine-based formula (MDRD) 43 mL/min/1.73m2 >60 L [facility] Glomerular filtration rate/1.73 sq M pre dicted among blacks [Volume Rate/Area] in Serum or Plasma by Creatinine-based formula (MDRD) 49 mL/min/1.73m2 >60 L [facility] ID Date Data Source [id number] 12/14/2020 02:43:36 AM EDT [facility] Name Value Range Interpretation Code Description Data Sherice rce(s) Supporting Document(s) Glucose [Mass/volume] in Capillary blood by Glucometer 112 mg/dL 70- 140 [facility] ID Date Data Source [id number] 12/13/2020 10:10:38 PM EDT [facility] Value Range Interpretation Code Description Data Sherice rce(s) Supporting Document(s) Glucose [Mass/volume] in Capillary blood by Glucometer 84 mg/dL 70- 140 [facility] ID Date Data Source [id number] 12/13/2020 05:29:36 PM EDT [facility] Value Range Interpretation Code Description Data Sherice rce(s) Supporting Document(s) Glucose [Mass/volume] in Capillary blood by Glucometer 98 mg/dL 70- 140 [facility] ID Date Data Source [id number] 12/13/2020 04:20:21 PM EDT [facility] Value Range Interpretation Code Description Data Sherice rce(s) Supporting Document(s) History and Physical [facility] MAGTLx1sQmLGWnXf62/PICvpHEFrh6QoBTfbPHb6RAgqDTUjI7XeMJJ5hR3dFTO8DJgAFvHmQyZbCkCc lbm [file] ICAgICAgICAgICAgICAgICAgICAgICAgICAgICAgIC QfVELfQKFxCINmASMiEGCaDTEoPJRaGYLhLMVwSWDcZRMyNU1TEIOrJEReVMQyDAJcNYYnFNUvANIpUK AgICAgICAgICAgICAgICAgICAgICAgICAgICAgICAgICAgICAgICAgICAgICAgICAgICAgICAgICAgIC JaELNrJUVgZDLwICKfOOPvTI0CNTRvZYLtMCTzPRZu ICAgICAgICAgICAgICAgICAgICAgICAgICAgICAgICAgICAgICAgICAgICAgICAgICAgICAgICAgICAg WHFwXXJjJFGgXOWjMLFaLEKyCCTtAEYeBBOlNP4VKOLzMNGsJYQpNCPgQKHbHZNjAEUcXBDtIWQhLSXw ICAgICAgICAgICAgICAgICAgICAgICAgICAgICAgIC FmYVLmNVRzZSAiKCMhGQRdQRCsYMWjOBAkQVVvOWQjVVDoSCZoOS3UOCQtUTYyBQLoRWBmSMIyLRKlDO AgICAgICAgICAgICAgICAgICAgICAgICAgICAgICAgICAgICAgICAgICAgICAgICAgICAgICAgICAgIC ZiYBArQGSqNNZsMOTaFUYfXMWzCS9FCGMyPWZzKXTr ICAgICAgICAgICAgICAgICAgICAgICAgICAgICAgICAgICAgICAgICAgICAgICAgICAgICAgICAgICAg BTZhHVZkLYZjWKWjZCHxIANzHRShPKZbKLBbXQWkIM3EULBlLPQhIKSzQHIwAKYbSKOrQXMpGOKxXOVn ICAgICAgICAgICAgICAgICAgICAgICAgICAgICAgIC AbGCWnGRAlHSLnOIJvQMWeBMPdGLSkASGeVQIdPBKgVIVpVPOdZUUzFI9CNOAbIKAzMZGuYUBoZGYaTY AgICAgICAgICAgICAgICAgICAgICAgICAgICAgICAgICAgICAgICAgICAgICAgICAgICAgICAgICAgIC AjDSUcEYNvMUWsGFOrSZEzYSYaCSMzIL9PDXEyCYPj ICAgICAgICAgICAgICAgICAgICAgICAgICAgICAgICAgICAgICAgICAgICAgICAgICAgICAgICAgICAg XKThUQUiINXzDCKnFMHgJFZgRDLiKCVjWVNmAULvWDLoCD9MKCPeILWrXWUgZESoITTdFZPxWCIoCPXl ICAgICAgICAgICAgICAgICAgICAgICAgICAgICAgIC GeQLXmVYWaEBNsYPHsAJHmWAPoFYWoQDJdYUHfRVClZDYiNJNvFJJhHCXaKE9UDK03rDJgx0C2DSRcJT 0ndyc/Kh5XWAsbfeVkdNOwOQ9DLnKnNX3xqc0TByEmVC5fdc6AKJiJYvOfB2K2vEAeONZbSLTCRjQyH1 8iQPbfCs00NFdpGQGzJmVrNHr7Uf4WMfZwJ4keTINf PtE9BPDzYnF2VVJiGcN8ZYEhQdPiGRVlJMEdXWLcKCNLEVR9OJPqDdKbYGoqXB9Ct2QswUU6YNx+Pg0K QS2xl0XqUKccWMPsSC4sbn3EPFsUHoXjS7UvvrB0TJC2RISgZw9HPDDtCQGpzFQnMXXhKBHUXxIdI1Zx wZ83JHWUYm2+MKcwbvShFniKTgL4XWGbd9CfMTs7RN 9SZERmZOy1gWBqUYMZBYX2VNEszQRlKK5prteyVHRwWLPaVo9pOf1pKULzBJZdKoX1CVGWWI9UFYHwAG KelLZzTAJhOTSALZ9YXXnjVHK2HFLrfmRxsGEvZHhfMW6EEUUyliKyYbcrCALAIAj+Fv4RVQ3ya6NaRZ y2AXFnIC5ent6SZQuYFzEcZ2M5qPLgE9M4JEfiQx9Z HMBeQNFvUrKqCLIUTWmdIG3TNZ4nhwY0SE3YbNUjSMAcFXYguCCzRAi6Z79bdYPwZTgpEW5APWD+Edgar+ Zn7WEBYrJRYdCIBcXeMoYWMSZiRhP3RpJ1NCn1AzI1VjVL79nQtpgrFwFJzzSQ4PMO5vOJWqLYMDHH0D uZLpfR5avaQsZPFcXBDKQdKuQ59jwIGtEYFnUKK0WO SxYg9PADHfB4DrhzTkrGylvfAeIMPiGEHKMU1MDZrwxfGhqLVouWobYJ05vFblEP5YOt6EChDjIF5jtm 5TxOSbIf3ODMQ1MA8SOMOoCLKzCNNsFDG0FHKrMyLrKLlyEYGpCWVlAIB2GJCjTDSqPI3TPzYeTVVuAL JaJIxvELTyVSZmzv0DRGVuHHD7CnU8XEGtSVWaDCTc QPdiFRXoNRKlRDD3MAOiIEQdMD3EPdLcEHCgMUH6HLuwZEPnUQToia4JWVAfVSOwZbjbGpRgTHEmUGYh ZUqvVXCqHQF0YyF0TBIkNWPnDM8PAfHqREVkADk7ZtTsJQRpPQEohh9PALExICZiTKh2KcNmMUXeDPIl FXmfGWUfERZjKOt5GTEsCEEhOV4ITeXeHVBaPEV8SQ SsTZPvNOVhwf4LWPYqPFLcMTQ3NcVoXLEvNKNjDTmhJFQbJWI6JSD5ZEHyKKSwHA4DVxAwBMFrEQq8Sl DsZLReAEUcxf0FMUTwVWMnHPA8BWOpEMImHSZiQTzbUHAoTPKlPycwRYTrFBQtFI5XNwJxSOUmYzBtNM QcGWMeINRtcl9QXBYjKKGuJuBdYmRgKFJgLMLsACrd XHIaBDDuCbPyBDLmTMCwWX9JGcRdFUBwKgQ3KvieUTXiFPCwgu4CYUXiXVKdWja1RARjQDYpCSVjEUcj WIHrPJYiNZH3FFLxNKZmKJ5IScSdMCVaBgL3FourIMWgIAQnsv9SLNZuGOPgFYSiNXBoFMVmZBCwAOfi YIRhRAD6CwO9ARAcJTAwZM6AWtIzBOHhPtXcMwlzNM ZuSTMtje0ASQIgTVQwUgO3IJPhQLYzWCLpKYlvDMVtXXH5XxP6VNYiZFTaKJ0JBpFwALUdJvzeCCNtJV AsNPOpvd7UBCNyBRBiKJX6RSLkFNCvGNEzCUgtWGNcQDH8REklQFHtYACaFP1YUiEsJMIqHbg8ZTpzSK SkTGHqcx0APJKrPMTxVWs9ZHFfSCWsHOWzYAsySPPo FHR9RPm3RTFuDXQeWL9HRjUoXGJoLGHdTSpcCKUgBKLkhe8LDTJbGUB4YBG9FZQmDOWlCFZfXWmhYVXy NCAbMkL0WFEuTCShLL3XOgKnETTyCIUyFJSuBOTqGADrgy2MUMBiORM0EwY2HdNsGQMiLJGaZNfxSSEi NQPuZpf4SIAzEAYkJE4HEeXaXNvpQYWRRyr6LXutK4 u0CDV3NJ4VJ2Xsc3DwWIZzFOEGHQrqMO3xptGtXXQjJd1QZ6sEUby1B1QoTnY6AHJ5Ikz4GISgJHyiEO EsUfEpDsOnMgQ8LG7lJWUsUWQtOpioYAXlISx6NpX2STM9XtUwLHDlZKVcJqolDeQbNU7LPv4PYtJ7IM F0bZLcNd1OZCT9CtBFOcYnJZ2HODw= ID Date Data Source [id number] 12/13/2020 12:15:07 PM EDT [facility] Name Value Range Interpretation Code Description Data Sherice rce(s) Supporting Document(s) Glucose [Mass/volume] in Capillary blood by Glucometer 109 mg/dL 70- 140 [facility] ID Date Data Source [id number] 12/13/2020 08:19:17 AM EDT [facility] Value Range Interpretation Code Description Data Sherice rce(s) Supporting Document(s) Glucose [Mass/volume] in Capillary blood by Glucometer 87 mg/dL 70- 140 [facility] ID Date Data Source [id number] 12/13/2020 05:18:18 AM EDT [facility] Name Value Range Interpretation Code Description Data Sherice rce(s) Supporting Document(s) Hemoglobin A1c/Hemoglobin.total in Blood by HPLC 7.2 % 4.0-6.0 H [facility] (NOTE)<5.7% Average risk of diabetes (ADA)5.7-6.4% Increased risk of diabetes(ADA)>/= 6.5% Diagnostic for diabetes(ADA) Glucose mean value [Mass/volume] in Blood Estimated fr om glycated hemoglobin 160 mg/dL <126 H [facility] ID Date Data Source [id number] 12/13/2020 05:13:56 AM [facility] Name Value Range Interpretation Code Description Data Sherice rce(s) Supporting Document(s) Prothrombin time (PT) 14.1 s 11.6-14.0 H [facility] INR in Platelet poor plasma by Coagulation assay 1.13 [facility] Routine intensity oral anticoagulation I NR is typically 2.0-3.0. Target INR must be clinically individualized. ID Date Data Source [id number] 12/13/2020 04:35:58 AM [facility] Value Range Interpretation Code Description Data Sherice rce(s) Supporting Document(s) Glucose [Mass/volume] in Capillary blood by Glucometer 92 mg/dL 70- 140 [facility] ID Date Data Source [id number] 12/13/2020 02:36:23 AM [facility] Value Range Interpretation Code Description Data Sherice rce(s) Supporting Document(s) Leukocytes [#/volume] in Blood by Automated count 8.8 10*3/uL 4-10 [facility] Erythrocytes [#/volume] in Blood by Automated count 4.48 10*6/uL 4.6- 6.1 L [facility] Hemoglobin [Mass/volume] in Blood 12.4 g/dL 13.5-18 L [facility] Hematocrit [Volume Fraction] of Blood by Automated count 38.3 % 4 1-53 L [facility] Erythrocyte mean corpuscular volume [Entitic volume] by Auto mated count 85.5 fL 80-96 [facility] Erythrocyte mean corpuscular hemoglobin [Entitic mass] by Automated count 27.7 pg 27-33 [facility] Erythrocyte mean corpuscular hemoglobin concentration [Mass/volume] by Automated count 32.4 g/dL 32[facility]0-[facility] distribution width [Ratio] by Automated count 15.2 % 11.5-14.5 H [facility] Platelets [#/volume] in Blood by Automated count 247 10*3/uL 150-400 [facility] ID Date Data Source [id number] 12/13/2020 02:54:37 AM EDT [facility] Name Value Range Interpretation Code Description Data Sherice rce(s) Supporting Document(s) Bicarbonate [Moles/volume] in Serum 14 mmol/L 22-29 L [facility] Chloride [Moles/volume] in Serum or Plasma 109 mmol/L 98-107 H [facility] Creatinine [Mass/volume] in Serum or Plasma 1.76 mg/dL 0.70-1.20 H [facility] Glucose [Mass/volume] in Serum or Plasma 89 mg/dL 70-140 [facility] Potassium [Moles/volume] in Serum or Plasma 3.6 mmol/L 3.4-5.1 [facility] Sodium [Moles/volume] in Serum or Plasma 135 mmol/L 136-145 L [facility] Urea nitrogen [Mass/volume] in Serum or Plasma 65 mg/dL 8-23 H [facility] Anion gap 3 in Serum or Plasma 13 mmol/L 8-15 [facility] Osmolality of Serum or Plasma by calculation 298 mosm/kg 275-300 [facility] Creatinine/Urea nitrogen [Mass Ratio] in Serum or Plasma 37 [facility] Calcium [Mass/volume] in Serum or Plasma 9.1 mg/dL 8.8-10.2 [facility] Glomerular filtration rate/1.73 sq M pre dicted among non-blacks [Volume Rate/Area] in Serum or Plasma by Creatinine-based formula (MDRD) 38 mL/min/1.73m2 >60 L [facility] Glomerular filtration rate/1.73 sq M pre dicted among blacks [Volume Rate/Area] in Serum or Plasma by Creatinine-based formula (MDRD) 44 mL/min/1.73m2 >60 L [facility] ID Date Data Source [id number] 12/12/2020 10:30:50 PM EDT [facility] CT ABDOMEN PELVIS WITHOUT CONTRAST [id number] FINAL RESULTInterpreted by:Garfield Crouch, MDPROCEDURE INFORMATION: Exam: [...] rce(s) Supporting Document(s) ID Date Data Source [id number] 12/12/2020 08:16:00 PM EDT [facility] Name Value Range Interpretation Code Description Data Sherice rce(s) Supporting Document(s) SARS-CoV-2 RNA 2019 nCoV Real-Time RT-PCR: NOT DETECTED [facility] This lab was ordered by [facility] and reported by [facility]. ID Date Data Source [id number] 12/12/2020 10:13:55 PM EDT [facility] Service Cmnt XXX-Imp : NoneRespiratory P CR Panel : PCR ResultsMicroorganism XXX Cult : See Labs Tab for 2019 nCoV RT-PCR resultsHAdV DNA QI CLAIRE+non-probe : Not DetectedHCoV [id number] Nph QI CLAIRE+non-probe : Not DetectedHCoV [id number] Nph QI CLAIRE+non-probe : Not [id number] RNA Nph QI CLAIRE+non-probe : Not [id number] RNA Upper resp QI CLAIRE+probe : Not [...] DNA Nph Q CLAIRE+non-probe : Not DetectedB [id number] DNA Nph CLAIRE+non-probe : Not Detected Name Value Range Interpretation Code Description Data Sherice rce(s) Supporting Document(s) ID Date Data Source [id number] 12/12/2020 10:13:30 PM EDT [facility] Name Value Range Interpretation Code Description Data Sherice rce(s) Supporting Document(s) Specimen source [Identifier] of Unspecified specimen [facility] SARS-CoV-2 RNA 2019 nCoV Real-Time RT-PCR: NOT DETECTED [facility] Assay Performed [facility] Patients first test for [facility] 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 [facility] Patient has symptoms related to [facility] When did you start to experience these symptoms [Date and time] [Phen X] [facility] Patient was hospitalized because of this condition [facility] patient was admitted to ICU for [facility] Patient resides in a congregate care setting [facility] status [facility] ID Date Data Source [id number] 12/12/2020 08:41:26 PM EDT [facility] Name Value Range Interpretation Code Description Data Sherice rce(s) Supporting Document(s) Leukocytes [#/volume] in Blood by Automated count 12.2 10*3/uL 4-10 H [facility] Erythrocytes [#/volume] in Blood by Automated count 4.72 10*6/uL 4.6- 6.1 [facility] Hemoglobin [Mass/volume] in Blood 13.2 g/dL 13.5-18 L [facility] Hematocrit [Volume Fraction] of Blood by Automated count 41.0 % 4 1-53 [facility] Erythrocyte mean corpuscular volume [Entitic volume] by Auto mated count 86.7 fL 80-96 [facility] Erythrocyte mean corpuscular hemoglobin [Entitic mass] by Automated count 28.0 pg 27-33 [facility] Erythrocyte mean corpuscular hemoglobin concentration [Mass/volume] by Automated count 32.3 g/dL 32.0-36.0 [facility] Erythrocyte distribution width [Ratio] by Automated count 15.3 % 11.5-14.5 H [facility] Platelets [#/volume] in Blood by Automated count 268 10*3/uL 150-400 [facility] Differential cell count method - Blood [facility] Neutrophils/100 leukocytes in Blood by Automated count 81 % [facility] Lymphocytes/100 leukocytes in Blood by Automated count 11 % [facility] Monocytes/100 leukocytes in Blood by Automated count 8 % [facility] Eosinophils/100 leukocytes in Blood by Automated count 0 % [facility] Basophils/100 leukocytes in Blood by Automated count 0 % [facility] Neutrophils [#/volume] in Blood by Automated count 9.89 10*3/uL 1.8-7 .0 H [facility] Lymphocytes [#/volume] in Blood by Automated count 1.30 10*3/uL 1.2-4 .0 [facility] Monocytes [#/volume] in Blood by Automated count 0.99 10*3/uL 0-0.8 H [facility] Eosinophils [#/volume] in Blood by Automated count 0.02 10*3/uL 0-0.5 [facility] Basophils [#/volume] in Blood by Automated count 0.03 10*3/uL 0-0.2 [facility] Nucleated erythrocytes/100 leukocytes [Ratio] in Blood by Automated count 0 /100{WBCs} 0-0 [facility] ID Date Data Source [id number] 12/12/2020 09:03:24 PM [facility] Name Value Range Interpretation Code Description Data Sherice rce(s) Supporting Document(s) Lipase [Enzymatic activity/volume] in Serum or Plasma 46 U/L 13-6 0 [facility] ID Date Data Source [id number] 12/12/2020 09:03:24 PM [facility] Name Value Range Interpretation Code Description Data Sherice rce(s) Supporting Document(s) Albumin [Mass/volume] in Serum or Plasma by Bromocresol green (BCG) dye binding method 4.1 g/dL 3.5-5.2 [facility] al Bilirubin.total [Mass/volume] in Serum or Plasma 0.7 mg/dL <1.2 [facility] Bilirubin.direct [Mass/volume] in Serum or Plasma <0.3 [facility] Hemolyzed Alkaline phosphatase [Enzymatic activity/volume] in Serum or Plasma 128 U/L 40-129 [facility] Aspartate aminotransferase [Enzymatic activity/volume] in Serum or Plasma 22 U/L <40 [facility] Hemolyzed Alanine aminotransferase [Enzymatic activity/volume] in Seru m or Plasma 22 U/L <41 [facility] Protein [Mass/volume] in Serum or Plasma 7.2 g/dL 6.4-8.3 [facility] ID Date Data Source [id number] 12/12/2020 09:03:24 PM EDT [facility] Name Value Range Interpretation Code Description Data Sherice rce(s) Supporting Document(s) Bicarbonate [Moles/volume] in Serum 13 mmol/L 22-29 L [facility] Chloride [Moles/volume] in Serum or Plasma 108 mmol/L 98-107 [facility] Creatinine [Mass/volume] in Serum or Plasma 1.80 mg/dL 0.70-1.20 [facility] Glucose [Mass/volume] in Serum or Plasma 113 mg/dL 70-140 [facility] Potassium [Moles/volume] in Serum or Plasma 4.2 mmol/L 3.4-5.1 [facility] Hemolyzed Sodium [Moles/volume] in Serum or Plasma 137 mmol/L 136-145 [facility] Urea nitrogen [Mass/volume] in Serum or Plasma 65 mg/dL 8-23 [facility] Anion gap 3 in Serum or Plasma 16 mmol/L 8-15 [facility] Osmolality of Serum or Plasma by calculation 303 mosm/kg 275-300 [facility] Creatinine/Urea nitrogen [Mass Ratio] in Serum or Plasma 36 [facility] Calcium [Mass/volume] in Serum or Plasma 9.3 mg/dL 8.8-10.2 [facility] Glomerular filtration rate/1.73 sq M pre dicted among non-blacks [Volume Rate/Area] in Serum or Plasma by Creatinine-based formula (MDRD) 37 mL/min/1.73m2 >60 L [facility] Glomerular filtration rate/1.73 sq M pre dicted among blacks [Volume Rate/Area] in Serum or Plasma by Creatinine-based formula (MDRD) 43 mL/min/1.73m2 >60 L [facility] ID Date Data Source [id number] 12/12/2020 07:02:15 PM EDT [facility] Name Value Range Interpretation Code Description Data Sherice rce(s) Supporting Document(s) Glucose [Mass/volume] in Capillary blood by Glucometer 135 mg/dL 70- 140 [facility] ID Date Data Source [id number] 12/07/2020 01:09:56 PM EDT [facility] Name Value Range Interpretation Code Description Data Sherice rce(s) Supporting Document(s) [facility] EKWTUr3rUnNMRxNj75/VENanDOHfg3WlQAijBWn4MHapUMWvB7QkNBJ1tM5wNED5EUtKRdXaJeZfPgR2 lbm [file] AgICAgICAgICAgICAgICAgICAgICAgICAgICAgICAg ICAgICAgICAgICAgICAgICAgICAgICAgICAgICAgICAgICAgICAgICAgICAgICAgICAgICAgICAgICAg UMPbCXKcNB8HVRGvWXGwRGUlYBCrCAHaWEPySKBuKAKyZAWvSDGwXUCyYGRaXRKxHMTpKJEeBBBqIWUa ICAgICAgICAgICAgICAgICAgICAgICAgICAgICAgIC YvUFIbSNMjAIGqPOSrVIJvHW0VNHIbYWJnNMXyNIFlWFVnMROgBYWlBZVlYADtOVKwGBKoMZAqHAPwET AgICAgICAgICAgICAgICAgICAgICAgICAgICAgICAgICAgICAgICAgICAgICAgICAgICAgICAgICAgIA 0KICAgICAgICAgICAgICAgICAgICAgICAgICAgICAg ICAgICAgICAgICAgICAgICAgICAgICAgICAgICAgICAgICAgICAgICAgICAgICAgICAgICAgICAgICAg EZEiRWHsVUWfGK5VIOUaIYWqBLJcLKLfLYHyEUMkPKXaWPQyBURqIKMaBNGnXIPfNSHfZVHdHNNjFVLi ICAgICAgICAgICAgICAgICAgICAgICAgICAgICAgIC ZlAKJvLKZaUSUzTPVtHBOrDAFbJT6UFNAbURHjDWVkOZIxEXAxDBGdONFvXKMjTFUbXYBhVPDgCKZvXX AgICAgICAgICAgICAgICAgICAgICAgICAgICAgICAgICAgICAgICAgICAgICAgICAgICAgICAgICAgIC TvET7PENMaWCGuJSCmTBXaTSDzQOXrKXPgYIUcJFBa ICAgICAgICAgICAgICAgICAgICAgICAgICAgICAgICAgICAgICAgICAgICAgICAgICAgICAgICAgICAg LMTwREMhOTQnEOQqSN4YPNZgJQVaBKPiLOTzBMGjKGMrTJFmANKwIESrOWSiVLFcXIFwMEPgRAZpWNLz ICAgICAgICAgICAgICAgICAgICAgICAgICAgICAgIC RoPDGzXWZwWNNqAJSdSSHuVTEiOBUeFI7NRNIpVRTqHPUeQQDsCGMfRHYnXWJiDYPoJFVpIWDzALEuOA AgICAgICAgICAgICAgICAgICAgICAgICAgICAgICAgICAgICAgICAgICAgICAgICAgICAgICAgICAgIC GcVSMqUJ8MHHZvSPJxUIIlTSNoFSQoUWDpHNEkGWDz ICAgICAgICAgICAgICAgICAgICAgICAgICAgICAgICAgICAgICAgICAgICAgICAgICAgICAgICAgICAg CGBcSVFwGORxMKPeGLPpSM2ZTH84yHMot8H0QVYtUA4bcqv/Gs7YBIrplbEfvPSjRU8FLdDdIC7ups8P WsDzZA5xzm6XQAiAHjOqL6N9qVMmRDPxSTXBMlMfW0 2xAFlfYn73KMtbVNViAxMeKMb9Kd3KQlQmV3rhPYDnHxP5MPLnJdUbCMuiZD1Ul9BjwYNzTSi+Pg0KZW 4nl7InMMxxGDZdFW2clc2NKFwVLpQmN6XdnlT6BITjVKSwVp8BKHUoSCCiaQBoYXMdSRAPBgKaH1HgvH 81OWULOh6+XHqugfVnFqvUBjUySJEyd8FyWUv6NR9F LGVmVQw3cJNxEVLeI7Hdk5KaGg91YXRhBlmiM244sjAmCJjoXmyoT3lsPAkkzvqfXFHWBUI3VKzvNc4b WQDaMNH6FjG8MUQYUG2NIPInYSRelRReCPVnDDWSZS8FRIphUOH6ZRNjdnEutJHnZZooPQ5ZYLLkpyVq MTkgMCBSDQo+Ge0XAW8hd0HwWLyoGHUbOZ7div9KGI qXDdVnM3A4iNCdN3V1IIipCf4EBXOoECOoRBeaBWRCQFlrGK2EBI2iyyW7EV3HzHUkHOGxQLMbhNRfUE i5X84ekCQcWJguPX8DQDE+Edgar+Fu5WSMEsZZJnMIUdFnJxGFYFVkXtC5KsJ7QAz8KhS3FkVX07mWtqml BdXXxoTP5BVA7rGDHdYHFMPN7WqFJjjO0avzCmHRJa DOCVXeByR33dkTUhCXNaRFL3VNVpOr3NQBMfC9ZotkDjlOkizvVlNPIaUATXIX1SJZtfwzYmiWCbzSsu OB02dIepGR8XRh5QMlVxKO3lwd5LlICfZr5LJMLsAh7IJKUaCYSaEARuRKA2EZIiCsJhBYopDFQqDSOo WQN1CRBqHFRjNG3EHbVzMRVfJWG0WMEyJTRhGETfqi 5PKGWkWEGjEVNcRjNvDXEePLTjFFidKVNsZEQhYYL8ZGQuBJNtZF7ZZeZzJLCtQFP8CZIuBBLwQEQhtk 7KMAGdTYDwSTgqLSDoFLQuXTGbKVdpQKVqQIBeLNo5RMYbFUBpJV0BOwZgGBDpXKAvIkEnVPNmJHQktx 6WRVNaTPGfUwW1ZXBsZRFaHFAnOJhjCNRdTMG4BzY0 FMVyPXBhBE7EXyOiSLCiNWX6ZXMyWTLySPQaob0SFYXnVYBfCUP5WaHyNCCoAHPxJZtkNKAiISO8EMCq IQPtPABiZN0PUlXeIVDkHWZuUcepKFKjOIUkzf7WRHVzOTAiUbA1FdVxWAErBHPyPCfhKEMnUUW1RwF0 BTQdCMLlEP4BEwTiPOIqASE7WiHsKWKsRWUlcc4EOK MkDKYqPeB6NsTlTZPiLLGmVXzyKMDkOBF5XlCbDHWdJCRgVB3AMjPxVODtKMa5GvEfVQWdSVCrvl9XFS YmBXPgXZwmKwOdOJSwZQClEHw9qrWohOSjAHm9TS6WZ3FdzsGtAcJYLc1Lm954CRUvBOGnLn4PN8veTd 7dSZWsKUHCUj9LVOr8MPXlSGXnDPCkINL8VFIzH1K0 WYo4KMG3BkvnSDmnWzZ+VTsqL9VtDUToWTV1XWC2OhAcCGVmTCCwZtluF6K9P8PnGL3wGATHQi7+DQpz eOZwdMrkUTNBZpX9PUfbTNmiCCKYVe9N ID Date Data Source [id number] 12/02/2020 10:52:22 AM EDT [facility] Name Value Range Interpretation Code Description Data Sherice rce(s) Supporting Document(s) [facility] ZVWEOq3sOuRSIqRg02/LBDvqQCYig5CfMJvdAZa4IIxuQMEfG2IwYIG2lL7mXOJ5XBcKHwJsRkLxJtPd lbm [file] ICAgICAgICAgICAgICAgICAgICAgICAgICAgICAgIC AgICAgICAgICAgICAgICAgICAgICAgICAgICAgICAgICAgICAgICAgICAgICAgICAgICAgICAgICAgIC KmGSJbPF4GRZXxUQZbBMIxSQObTDKcRYEuBMShSRGrZDAoNGFvIEQvTRYpMLIpIQUzVIRnZMAwEJYgMJ AgICAgICAgICAgICAgICAgICAgICAgICAgICAgICAg FBUiNTMyBUFlRMXoVUGeLA6FUYQaSCSiTUSgZFKjZOEbPTPcFWOtITPfPMQvUIHgBCKnZXFcOAOfCKKh SYUpZVBwESTjTXRzPOJtKZYqXUOpLDOlOYAcLGHyBLDuGMFmAMFoZRRpHSJsNJRtGDZpGLGrDLOcBY9O ICAgICAgICAgICAgICAgICAgICAgICAgICAgICAgIC AgICAgICAgICAgICAgICAgICAgICAgICAgICAgICAgICAgICAgICAgICAgICAgICAgICAgICAgICAgIC AeMGSsQAQdTM8CUMKpIROoLGDnXUKdXPXyLSDbEBToTZMrQDYqYXYyYWJhWSSpJPTzKOGdJVEyTOQvCZ AgICAgICAgICAgICAgICAgICAgICAgICAgICAgICAg QGCgWAKvUQXzHXUyHXEpLKVyOV8DAIMaLXFoIHQaGYXyDBIiONDtYBBoUYTmKKSwPCOzEEFmZLRjHPLx ICAgICAgICAgICAgICAgICAgICAgICAgICAgICAgICAgICAgICAgICAgICAgICAgICAgICAgICAgICAg EH6DJNTaLRHrUTGwUDDkFGRwURCaWEFuSGRuRSWkYI AgICAgICAgICAgICAgICAgICAgICAgICAgICAgICAgICAgICAgICAgICAgICAgICAgICAgICAgICAgIC WfZWVwWEAzCIIwYL4EIEQrCTLqOSXwZUWzXCBaPQSaKVEeCTLfJMXrRSBaLTXnCXCsYAEkBFYvSJCxEE AgICAgICAgICAgICAgICAgICAgICAgICAgICAgICAg JYJdUHXpFHRfNLJhZTEhCMUbUIZoVF0HNIBhJQDlVQMfMRNtPIJqOHAcJAJmWGBlEEJfPACiMOAlDOVm ICAgICAgICAgICAgICAgICAgICAgICAgICAgICAgICAgICAgICAgICAgICAgICAgICAgICAgICAgICAg QFRuZT9QSP63oUZcy9W6WRZzHL1pcyu/Ss2KJFftav SsxMTtUG2NHeRkCI8yfl2UUnBwIN5uey5DOXgNLhKgX0M0kCRoGKTkTSXIGxCoN16vDEfsXc18VCoiVR SgSuHdVAu6Fw0HRkLkG0nlKWYiCkQ7XBIqOxG3ZWMxNkPzGWrcSH5Cz7LzxVSkHEy+Fy6ASU7ey3VaKY zrESFrVV7eib5WAGfEQyCiY9XznsE5LCPiHSFqFm2U ZYByLLCbxLKjQdZxMUCSQiBnF5HduD91ZXBBEa3+IDzlfcRoLxeOTrNhDFBdc3MfTHz8FO9VNOAhPIx8 iMOiFTBnA6Yey0QqFe38CFPqEanaJpHjGLVeDfTTR9ztfjEFYTzkMG7UVUN9CVrqTa8jAOQvMRJ2BvB1 OMOGTF4TZNFnMBKfoLZbHMYcACRCSB0JPQkmDQC5HV XclzVllDKqGTbnXM7QEPRqrqIoQgZxAKUJGUc+Og6QLH3am6FcQNebQxBtSO2pmn8JKPeHHdDdT5H8yX BbG5V5JZguZi1ICPWyLFDhGLpzXOYTUJupGS9UAG9fhgU0VS2LbZNqVTCvZQSwaUOaPEm7E08mcBUnJN vrZQ3PWBL+Edgar+Zj1PQFGlZIMfHMEvOoMjNZLFFwDq C7TiW3RYi9XdS7WcAD84sUiclnNwCOdoUS2WLH5wIYDqQNRHCE6DdRIeaS5puzLdZMLwSKXTVfLeY04l aWXdAFHbKYCzCTGjYb1IWJDbT1OdasNkgWxuxtKnFPOjCDLYBE1LTYzeszNzoEFddCchUD75fHwnIZ8O Xc2COmTgHO5vdn6GrWQqVh1JDPIyRC7HJRTmJGYcUT AsMJL1PLCbSnRxEJedHTVrABLqSXA7WINlJMJbOJ4RSdCbBNNeJlWvAIMeUIPiBNWsnh9DQTZlIDHsVr gkEzCuZPTkMVGrQZpbUKQrAGRvFAO0WNMxRSVwFZ7CYvNyOHImSPG8GkpyDXSiPXWyol9CREXxUDKiUj f4JTCwJSSkXCBnXKuqAODtYGC5GbJwNVHiPPJeTX7M NuYaWIOmMAY1HxHcSIYvWSEdoe2YNJDqGKBpNXx4GUOyMYQiZOXdOGwbAEVjWOZ3LBpzQJFzBXUbQB8S MiJoTEZbZZIgZtRpLYSdMKNyjy7PEHBrNDYhWpDoRPDqHTVxZSJvGNqgDMYmWNM6NlYdUYNwQZLrHK1Y EeBvLOJqXLy5DMRwVFKoCAFnvd3MSUHiXEXuEQV4IH VbTJHuMUQdHMkqZVGiXJMuBPKgRWIuERYoHZ7NOpCrKCUjMhE3CaVqRDYrPATgty5YBHKrPTBcTAhzDR FrQERzAUMuUNycTQQmGKTeUQMyDZMqUEZgRE0BSvVcDDLfXiK9QzKoBRWdVLTmgq5KTRVhOAAbJslpJb ZnYNKuZVQwRPfiWGZhHQRpTNl2MOMcLXMuIR8VItMe VMPlZsFqRagnJZOjPGJbsl9DgFSfbUwxdv7PXUkJQg8WoUvhGIZ2ENbbEq8ejPUaLvNoAMYBNf4LjxNd CHUcAPBCSHaqLAWaKECgQKV4LCHwMyK1FgXzTgOwOJTzIqEsGJl4TictRyMoKzQ4EbWiRSS5WXHcSVVt FWU9XbFeLAK2ZqWmYBzmZGLwHzL+DQ4cUJd+Ot1Ir3RupiV5yyUjIWwaIAC9Xs4TXNVST8DSEu== ID Date Data Source [id number] 10/01/2020 12:48:54 PM EDT [facility] XR HIP- UNILAT, 2-3 VIEWS [id number] RE SULTInterpreted by:Shelby Lewis MDIndication: Status post [...] rce(s) Supporting Document(s) ID Date Data Source [id number] 10/01/2020 12:46:12 PM EDT [facility] Name Value Range Interpretation Code Description Data Sherice rce(s) Supporting Document(s) [facility] VRUHKk6mRmEKUyGm42/YMGizGLWyv5FgDWjmBMo1BTgmIIOgH2BnZUX7tC4jRPW3ZCxPRmIsUmBvANMw lbm [file] s62VFACZ0On5v8TOLUq6VYu7sc5Tbra+CONTROL SYSTEMS ENGINEER+BfC1HY9x9S/+0k5Gp6l9Mi8+wCQ4CYQ1QpWz9SBpkne4M [file] AgICAgICAgICAgICAgICAgICAgICAgICAgICAgICAg ICAgICAgICAgICAgICAgICAgICAgICAgICAgICAgICAgICAgICAgICAgICAgICAgICAgICAgICAgICAg ICAgICAgICANCiAgICAgICAgICAgICAgICAgICAgICAgICAgICAgICAgICAgICAgICAgICAgICAgICAg ICAgICAgICAgICAgICAgICAgICAgICAgICAgICAgIC AgICAgICAgICAgICAgICAgICANCiAgICAgICAgICAgICAgICAgICAgICAgICAgICAgICAgICAgICAgIC AgICAgICAgICAgICAgICAgICAgICAgICAgICAgICAgICAgICAgICAgICAgICAgICAgICAgICAgICAgIC ANCiAgICAgICAgICAgICAgICAgICAgICAgICAgICAg ICAgICAgICAgICAgICAgICAgICAgICAgICAgICAgICAgICAgICAgICAgICAgICAgICAgICAgICAgICAg ICAgICAgICAgICANCiAgICAgICAgICAgICAgICAgICAgICAgICAgICAgICAgICAgICAgICAgICAgICAg ICAgICAgICAgICAgICAgICAgICAgICAgICAgICAgIC AgICAgICAgICAgICAgICAgICAgICANCiAgICAgICAgICAgICAgICAgICAgICAgICAgICAgICAgICAgIC AgICAgICAgICAgICAgICAgICAgICAgICAgICAgICAgICAgICAgICAgICAgICAgICAgICAgICAgICAgIC AgICANCiAgICAgICAgICAgICAgICAgICAgICAgICAg ICAgICAgICAgICAgICAgICAgICAgICAgICAgICAgICAgICAgICAgICAgICAgICAgICAgICAgICAgICAg ICAgICAgICAgICAgICANCiAgICAgICAgICAgICAgICAgICAgICAgICAgICAgICAgICAgICAgICAgICAg ICAgICAgICAgICAgICAgICAgICAgICAgICAgICAgIC AgICAgICAgICAgICAgICAgICAgICAgICANCiAgICAgICAgICAgICAgICAgICAgICAgICAgICAgICAgIC AgICAgICAgICAgICAgICAgICAgICAgICAgICAgICAgICAgICAgICAgICAgICAgICAgICAgICAgICAgIC AgICAgICANCiAgICAgICAgICAgICAgICAgICAgICAg ICAgICAgICAgICAgICAgICAgICAgICAgICAgICAgICAgICAgICAgICAgICAgICAgICAgICAgICAgICAg ICAgICAgICAgICAgICAgICANCjw/jNWtF8tdaHFzkmR9L5khZa0BSv5UDT5vd6EcWZBxOIopjhIfApdW KuCoPJRmJbyAPta1HBhpBZ8ToQCbM3RhD8MrAMpmYI 8RZHWsROPixSAdWBBwYSIhUyX1BSPcBZfhLP8ExXYiMEsvPXDuYQMtNlXaCFJlBF7JSTFbQ311wjMjIq 9LVm9SFyVjEH1via5NKoWtQNPnJyvNKyf1XGglYF3GnEUdxQFkRUHaTRTDZeJcQ5bwc8XcOiPvHTBVXP blIQ0Qj8BzsPGdCYi+Zs3MDL5hy3NxVChoKGZdWZ1r vh5JCEjETkWyQ1UtuZatHDZhb7ikINQnIL4qoNKqDOJ9ZSPoN2ptqbBoZGKDiMMrTK1kLXtsYUGaKGIl TD5vEC4bORGfJUKxPhGuKTJNHZ9KLOCcWTEyvXOfMXIoQDUSDP9KMKiwQCO7GAJlfcJkvUQvRCdgTH2C YXJlbnQgMjQgMCBSDQo+Si1OXP1ly4ZcYDwtKqKxIW 4poj2VXQtFOaBaQ5Y0cQRoD8C6DUyeAr6OOTYoBMSsFgYgSLBMBUjzBT9XRK0lhvE2GS0QcSRnBWJtMO NsdCBsPIv9Y11rpIBpBFnvKL3APFV+Edgar+Nf8VMGPjLCWyDHBtXdGhBZUOUeNlS0UyO6JLe6VyB4OhMF 66dHjhtrUjEIvmUJ8LRP7rDMRtXSDIIO0RmAEueR6j qeMaMYCgQVWNNbBwC52mqHMkSPZlCWMcROZjRw6VKGKdB1WarfCowBvsevYxRPPvKDYLYQ9EJSvazhAk aCCugIqsOA23cQmsFC0XQd9XDtAuAJ3nid2LdXGhHd6DYQJwRs9DMUNrLYVpPVAlSSU7XNZnKwDtEQes KTIiVQLeENZ7LMXkZUJgCG0WJpHnJZRqJlY8ElqeDT EaGFWtvi7RLIBiSHQfMKS8MvVoOVLyHLFpHQixIBVpJUAnTRP3DOYrQADjLU1QHuAdILNcGZX1NNSwHS GhWNUhuv3VBIPbRUUeAvr6WMMgHUChNVXcFDyuLZNoNES0AHo8GNSuDAYlQS5JCePpYEGmTUBpTCKpGX IiXOHxss0UCBUiEFCfXkI2SCVcDXVsWUCxQWlwKFNa HAA5InB9XFRiMDQdSA9WLpPbUURkSKO6GdzjTZUtLWHbkq9FRGVpGPYbQtB7DwAlJQRfYJYiNPolOSBd AFI0Bum7KBRmEDMtCD3MElCiCZTiJEh8YiKqBBFdPYUyio9LBOUcYCCrDLO2KCPyMUIlXKRyNViqSYWr LOAjVNS6OTLnQLRzCA7GPdBgSJRuJtNvCBFdWKIoKJ Vlrz4CZLKoBVIbYhX5WXAgCPEvWKPfMJueMFQvESDyEZF9SEYfHAKlEO9JQxKoIGGhEgY3NREgVEMfBG Ruos3CHXTtUIRrYeEoLNHkQSJdYTFuTTaxNPXbYTKdPEC3TNZuIBSlXL1TReTwZMBvIhSmBuFtSJOjPS Oven0JCHOoMKUuGOX5OfGhSGDxMBKsJOslWEEvXGS6 RoN6VEBwMHOfJR4VAoXaFTFyXtM7VHUkFQIjYFMeur2IxNWsvCqrva7COVuCFy5BxDkvTUJ9IVreMb6b nQOkNwJnGEDGDr3YafWcVEAuBJNMUJzzVPWpCOG2WIA4Lxe8URVyPTB4DQR2OLG8YMygZOonUvI9NoEo RoZ5GUgkFszdCBh4ApSlAOv9FDboSlbeJRH3VKEwMe cyM2Q+BW3dQAv+Ew1Wn7ClauH1gmZbYNmeKyH4DA9OPOPVV9JIFu== ID Date Data Source [id number] 09/03/2020 11:45:22 AM EDT [facility] Name Value Range Interpretation Code Description Data Sherice rce(s) Supporting Document(s) [facility] WQLORy0bFmJNJmWv18/FEGsrVKFae0KxSSanBGc5MUwaJDWsG7HmJGD4gX8eKVM3VVpAEzErEnRbNAYj lbm [file] mVdVuHj+/s03x55qkC3Gq5AUcyt0T38tfJ4wwKeM+OQs480cK3+wFdm7IUTY7cIPi81LFLWgouKk/production weigher [file] 95q72aGeaDA0z6mERusBDjqA5pa89MNPH8D37g318i kqorOc2S0MRs6sSqRC66AKcTDey73HNJWL7Mo4d6XCUKt8LHy4qd7Ilda+CONTROL SYSTEMS ENGINEER+NgJ9HN9x2A/+3u1Xn2y 0Hl4+hTY8IPE8YvDz1ZLvjru8NbxUTqb3pL/ThxgTclmwrXGsuywOhfxQ6IzqN1NiuDfZx7K4LVRp2Tx aPuEgoXZXGHCQfmF9c0aQ3Ia5PXDVEHGDR4yQZQLI6 [file] H6DJN9fDKtWt0PNiF2AULNRtDnDC7LKHw= ID Date Data Source [id number] 08/23/2020 06:32:52 PM EDT [facility] Name Value Range Interpretation Code Description Data Sherice e(s) Supporting Document(s) Discharge Summary [facility] TGRNVw2nQwAZBdBq28/EWVpvDQDgk4ZwKUpzHGx3NZqrNELjG6QwOMI6uL0iNEO7GApLUeWdVmAyFpOs lbm [file] ZIQkEP3RTQPCZ4XJIu== ID Date Data Source [id number] 08/21/2020 11:03:13 AM [facility] Name Value Range Interpretation Code Description Data Sherice rce(s) Supporting Document(s) Urate [Mass/volume] in Serum or Plasma 2.8 mg/dl 3.4-7.0 L [facility] ID Date Data Source [id number] 08/21/2020 09:52:03 AM [facility] Name Value Range Interpretation Code Description Data Sherice rce(s) Supporting Document(s) Glucose [Mass/volume] in Capillary blood by Glucometer 120 mg/dL 70- 140 [facility] ID Date Data Source [id number] 08/20/2020 09:33:10 PM [facility] Name Value Range Interpretation Code Description Data Sherice rce(s) Supporting Document(s) Glucose [Mass/volume] in Capillary blood by Glucometer 154 mg/dL 70- 140 [facility] ID Date Data Source [id number] 08/20/2020 05:28:18 PM [facility] Name Value Range Interpretation Code Description Data Sherice rce(s) Supporting Document(s) Glucose [Mass/volume] in Capillary blood by Glucometer 137 mg/dL 70- 140 [facility] ID Date Data Source [id number] 08/20/2020 12:30:30 PM [facility] Name Value Range Interpretation Code Description Data Sherice rce(s) Supporting Document(s) Glucose [Mass/volume] in Capillary blood by Glucometer 154 mg/dL 70- 140 [facility] ID Date Data Source [id number] 08/20/2020 11:18:21 AM [facility] US DOPPLER LOWER EXTREMITY UNILATERAL VE NOUS LIMITED [id number] RESULTInterpreted by:ALTHEA Albertrocedure: Right lower extremity venous Doppler ultrasound, 08/20/2020History: [id number] male status post right total hip arthroplasty, [...] rce(s) Supporting Document(s) ID Date Data Source [id number] 08/20/2020 08:34:41 AM [facility] Name Value Range Interpretation Code Description Data Sherice rce(s) Supporting Document(s) Glucose [Mass/volume] in Capillary blood by Glucometer 119 mg/dL 70- 140 [facility] ID Date Data Source [id number] 08/20/2020 05:21:12 AM [facility] Value Range Interpretation Code Description Data Sherice rce(s) Supporting Document(s) Leukocytes [#/volume] in Blood by Automated count 11.1 10*3/uL 4-10 H [facility] Erythrocytes [#/volume] in Blood by Automated count 3.42 10*6/uL 4.6- 6.1 [facility] Hemoglobin [Mass/volume] in Blood 10.6 g/dL 13.5-18 [facility] Hematocrit [Volume Fraction] of Blood by Automated count 31.7 % 4 1-53 [facility] Erythrocyte mean corpuscular volume [Entitic volume] by Auto mated count 92.5 fL 80-96 [facility] Erythrocyte mean corpuscular hemoglobin [Entitic mass] by Automated count 30.8 pg 27-33 [facility] Erythrocyte mean corpuscular hemoglobin concentration [Mass/volume] by [facility] 33.3 g/dL [facility]0-[facility] width [Ratio] by Automated count 14.0 % 11.5-14.5 [facility] Platelets [#/volume] in Blood by Automated count 201 10*3/uL 150-400 [facility] ID Date Data Source [id number] 08/20/2020 05:42:17 AM [facility] Value Range Interpretation Code Description Data Sherice rce(s) Supporting Document(s) Bicarbonate [Moles/volume] in Serum 18 mmol/L 22-29 L [facility] Chloride [Moles/volume] in Serum or Plasma 109 mmol/L 98-107 H [facility] Creatinine [Mass/volume] in Serum or Plasma 1.20 mg/dL 0.70-1.20 [facility] Glucose [Mass/volume] in Serum or Plasma 123 mg/dL 70-140 [facility] Potassium [Moles/volume] in Serum or Plasma 3.5 mmol/L 3.4-5.1 [facility] Sodium [Moles/volume] in Serum or Plasma 137 mmol/L 136-145 [facility] Urea nitrogen [Mass/volume] in Serum or Plasma 28 mg/dL 8-23 H [facility] Anion gap 3 in Serum or Plasma 10 mmol/L 8-15 [facility] Osmolality of Serum or Plasma by calculation 291 mosm/kg 275-300 [facility] Creatinine/Urea nitrogen [Mass Ratio] in Serum or Plasma 24 [facility] Calcium [Mass/volume] in Serum or Plasma 8.8 mg/dL 8.8-10.2 [facility] Glomerular filtration rate/1.73 sq M pre dicted among non-blacks [Volume Rate/Area] in Serum or Plasma by Creatinine-based formula (MDRD) 61 mL/min/1.73m2 >60 [facility] Glomerular filtration rate/1.73 sq M pre dicted among blacks [Volume Rate/Area] in Serum or Plasma by Creatinine-based formula (MDRD) 71 mL/min/1.73m2 >60 [facility] ID Date Data Source [id number] 08/19/2020 09:24:29 PM EDT [facility] Name Value Range Interpretation Code Description Data Sherice rce(s) Supporting Document(s) Glucose [Mass/volume] in Capillary blood by Glucometer 139 mg/dL 70- 140 [facility] ID Date Data Source [id number] 08/19/2020 05:32:04 PM [facility] Name Value Range Interpretation Code Description Data Sherice rce(s) Supporting Document(s) Glucose [Mass/volume] in Capillary blood by Glucometer 133 mg/dL 70- 140 [facility] ID Date Data Source [id number] 08/19/2020 03:01:13 PM [facility] XR FOOT 3 OR MORE VIEWS [id number] RESUL TInterpreted by:Cristina Chavez foot radiographs, 4 [...] rce(s) Supporting Document(s) ID Date Data Source [id number] 08/19/2020 12:27:00 PM [facility] Value Range Interpretation Code Description Data Sherice rce(s) Supporting Document(s) Glucose [Mass/volume] in Capillary blood by Glucometer 156 mg/dL 70- 140 [facility] ID Date Data Source [id number] 08/19/2020 08:52:00 AM [facility] Value Range Interpretation Code Description Data Sherice rce(s) Supporting Document(s) Glucose [Mass/volume] in Capillary blood by Glucometer 153 mg/dL 70- 140 [facility] ID Date Data Source [id number] 08/19/2020 06:11:41 AM [facility] Value Range Interpretation Code Description Data Sherice rce(s) Supporting Document(s) Leukocytes [#/volume] in Blood by Automated count 12.7 10*3/uL 4-10 [facility] Erythrocytes [#/volume] in Blood by Automated count 3.77 10*6/uL 4.6- 6.1 [facility] Hemoglobin [Mass/volume] in Blood 11.8 g/dL 13.5-18 [facility] Hematocrit [Volume Fraction] of Blood by Automated count 34.3 % 4 1-53 [facility] Erythrocyte mean corpuscular volume [Entitic volume] by Auto mated count 90.9 fL 80-96 [facility] Erythrocyte mean corpuscular hemoglobin [Entitic mass] by Automated count 31.2 pg 27-33 [facility] Erythrocyte mean corpuscular hemoglobin concentration [Mass/volume] by Autom[facility] 34.3 g/[facility].0[facility] width [Ratio] by Automated count 14.2 % 11.5-14.5 [facility] Platelets [#/volume] in Blood by Automated count 206 10*3/uL 150-400 [facility] ID Date Data Source [id number] 08/19/2020 06:28:51 AM EDT [facility] Name Value Range Interpretation Code Description Data Sherice rce(s) Supporting Document(s) Bicarbonate [Moles/volume] in Serum 16 mmol/L 22-29 [facility] Chloride [Moles/volume] in Serum or Plasma 111 mmol/L 98-107 [facility] Creatinine [Mass/volume] in Serum or Plasma 1.15 mg/dL 0.70-1.20 [facility] Glucose [Mass/volume] in Serum or Plasma 124 mg/dL 70-140 [facility] Potassium [Moles/volume] in Serum or Plasma 3.1 mmol/L 3.4-5.1 [facility] Sodium [Moles/volume] in Serum or Plasma 140 mmol/L 136-145 [facility] Urea nitrogen [Mass/volume] in Serum or Plasma 31 mg/dL 8-23 [facility] Anion gap 3 in Serum or Plasma 13 mmol/L 8-15 [facility] Osmolality of Serum or Plasma by calculation 298 mosm/kg 275-300 [facility] Creatinine/Urea nitrogen [Mass Ratio] in Serum or Plasma 27 [facility] Calcium [Mass/volume] in Serum or Plasma 9.2 mg/dL 8.8-10.2 [facility] Glomerular filtration rate/1.73 sq M pre dicted among non-blacks [Volume Rate/Area] in Serum or Plasma by Creatinine-based formula (MDRD) 64 mL/min/1.73m2 >60 [facility] Glomerular filtration rate/1.73 sq M pre dicted among blacks [Volume Rate/Area] in Serum or Plasma by Creatinine-based formula (MDRD) 74 mL/min/1.73m2 >60 [facility] ID Date Data Source [id number] 08/18/2020 09:16:04 PM EDT [facility] Name Value Range Interpretation Code Description Data Sherice rce(s) Supporting Document(s) Glucose [Mass/volume] in Capillary blood by Glucometer 137 mg/dL 70- 140 [facility] ID Date Data Source [id number] 08/18/2020 05:44:28 PM EDT [facility] Value Range Interpretation Code Description Data Sherice rce(s) Supporting Document(s) Glucose [Mass/volume] in Capillary blood by Glucometer 156 mg/dL 70- 140 [facility] ID Date Data Source [id number] [facility] Code Description Data Sherice rce(s) Supporting Document(s) Hemoglobin A1c/Hemoglobin.total in Blood by HPLC 7.3 % 4.0-6.0 [facility] Glucose mean value [Mass/volume] in Blood Estimated fr om glycated hemoglobin 163 mg/dL <126 [facility] ID Date Data Source [id number] 08/18/2020 06:23:18 PM [facility] Value Range Interpretation Code Description Data Sherice rce(s) Supporting Document(s) Potassium [Moles/volume] in Serum or Plasma 3.4 mmol/L 3.4-5.1 [facility] ID Date Data Source [id number] 08/18/2020 01:01:05 PM [facility] Value Range Interpretation Code Description Data Sherice rce(s) Supporting Document(s) Glucose [Mass/volume] in Capillary blood by Glucometer 213 mg/dL 70- 140 [facility] ID Date Data Source [id number] 08/18/2020 11:43:09 AM [facility] Value Range Interpretation Code Description Data Sherice rce(s) Supporting Document(s) [facility] ZKPBZj4lAlZTIhQo98/GQUptSKRgl2BnTEwlBVv4POqmCWWzL6DrGOX0aF7zXFD0GPyCJcPhOwPtPpY2 [facility] [file] AgICAgICAgICAgICAgICAgICAgICAgICAgICAgICAgICAgICAgICAgICAgICAgICAgICAgICAgICAgIC AgICAgDQogICAgICAgICAgICAgICAgICAgICAgICAg ICAgICAgICAgICAgICAgICAgICAgICAgICAgICAgICAgICAgICAgICAgICAgICAgICAgICAgICAgICAg ICAgICAgICAgICAgICAgDQogICAgICAgICAgICAgICAgICAgICAgICAgICAgICAgICAgICAgICAgICAg ICAgICAgICAgICAgICAgICAgICAgICAgICAgICAgIC AgICAgICAgICAgICAgICAgICAgICAgICAgDQogICAgICAgICAgICAgICAgICAgICAgICAgICAgICAgIC AgICAgICAgICAgICAgICAgICAgICAgICAgICAgICAgICAgICAgICAgICAgICAgICAgICAgICAgICAgIC AgICAgICAgDQogICAgICAgICAgICAgICAgICAgICAg ICAgICAgICAgICAgICAgICAgICAgICAgICAgICAgICAgICAgICAgICAgICAgICAgICAgICAgICAgICAg ICAgICAgICAgICAgICAgICAgDQogICAgICAgICAgICAgICAgICAgICAgICAgICAgICAgICAgICAgICAg ICAgICAgICAgICAgICAgICAgICAgICAgICAgICAgIC AgICAgICAgICAgICAgICAgICAgICAgICAgICAgDQogICAgICAgICAgICAgICAgICAgICAgICAgICAgIC AgICAgICAgICAgICAgICAgICAgICAgICAgICAgICAgICAgICAgICAgICAgICAgICAgICAgICAgICAgIC AgICAgICAgICAgDQogICAgICAgICAgICAgICAgICAg ICAgICAgICAgICAgICAgICAgICAgICAgICAgICAgICAgICAgICAgICAgICAgICAgICAgICAgICAgICAg ICAgICAgICAgICAgICAgICAgICAgDQogICAgICAgICAgICAgICAgICAgICAgICAgICAgICAgICAgICAg ICAgICAgICAgICAgICAgICAgICAgICAgICAgICAgIC AgICAgICAgICAgICAgICAgICAgICAgICAgICAgICAgDQogICAgICAgICAgICAgICAgICAgICAgICAgIC AgICAgICAgICAgICAgICAgICAgICAgICAgICAgICAgICAgICAgICAgICAgICAgICAgICAgICAgICAgIC ErWXWlWREnUPZiQJWrBGe6W6ygTAJvPFNpFX7jIXc5 Jz8+AVtAMcMyTQB2yzUelE0GQS1av1KxOPjzTWUjx1SeZIa3BX3FTYXiYOvjUY7DNLwsrf8DNMTuILUa gMUCu5euGwOrRAB1SUZiDtpyYF5NUYBtR0cmdmSyZKJhOYVCNQqgVDCRERyoOBARJU9LKiBjS4GcwY39 IDMNCj4+TBlkzeWlJckGGtXtHTBye0IlHHh5NA0UTC DfGpqrl5OdHeEqTFULACzaTE9CFYS0UISvFYJgZv0MQGYuA442wmDyIQ1LEw1OFxNpMQ4fqa1GLiIuWV XyPoqXAzu8IAfsGT2AyCVlFGdLkr4dvqJzjtYOp7NfpePjqHITNLO7tVGmTAMeX1T1z1MiKHeaEAZjXA WeZq3rQd9cAASpHGMsNvMsIVKAUK8AZAGuXUYhqGIh EZSsXEATFK8HLZfrPZR6YGBgfuWdfSKzBPvtZR0OJYFdawJqPwJrXJNUNVw+Uo7BII0qc1SnPQmiJuLx NV2die1BWSwHRmFnK2A2qENqZ2M7BSnbXk8FWHHqAHJeJQktYEGOAKgoYJ0XAO4wulE8WO1BaBQuJREl SBFwyZQxGEw4W73sgHZuRZfiJA7QDEE+Edgar+Pg0KIC YyQBRfCFDeBhKuQXJEWpJjJ7EwH3QYu5DsS6CmJH75sFoefdEdHZffOK5IWK6rPGKfZXJDSF7MtZZpsL 1warOiCGMbYQGRNdQjE52dmETuKPTrBMGcAKMvBg0UOETfS7ZumdZamXuonkNxUOZrBBZCSI0NCWozoz SgqXYvrJzeRH95oSmbIW8XTq8AXtRsKO2flb4ZjQMy Ox1TMNNyQV2UWPYdLCFpKHSkEWA5YEMzWdAwRFuhIEJjJTWhIUK6SLItWLYgTY7WKgDoJRHaXKG0VVKf NKWuYYRabz4PILApSRZfQKC4OMIvHFOuHEBfYYvgFYViJZSkAIT1KOPdFAPiGR9FDpRqPKEkQOB5SBMo ZXTgMZEzla9QPVMvODItHhm6RIDqCWTmKYDoWMseNZ QvPFB2YgT9AVSuLKKkQZ7WHyWsQVOtLVD3NjToWLFvEEWltv8AINNoQTLvANH5BSOeQBBqXNAaEUrsZO VyTPI2WrlwJLGwHXXiWS2LZdLbISDoYUK1LdUiLMRfZLGhvq9COSXhXCSaSJxfAODpSQKiYDZsCVcpLS SjIVXlMYTbABHfYKOkTV7ZTgMnFDGkHYG1JoUrMIOb JDPxhw7DATTlVKQsViU5LGDsHMEyVQKiAHluPSYrYIOlWnLrXGYdHMOdIS2CPnMeRAHxOHCwQgSkWAZn FKOszh5RTPYgKLJuQiHnAzUjMHQvMGLgSIkgYHTjTPHvUgG8OKOjEYDdYZ6FYlJlJWCiIFErBvcbWULl DCRibt3TQXXuNLYnQOR6OAXtHZHdSYJuXDefHWVsWC T0PzKrOALzWNOuNS8QNkMlHGPeNBM0NFHpALDtZVGeai5MxUPudXmgku5APQzWQd6ZmHrjUGI2WVlvPz 0oeENtSwSsPKXJCx0ZqpGzCOSdPKALMFumMYSiUPSzBfI0E9A0DvHeXeG6ThIuUcCzOGp5FZVlZnGxAd BtOvG4ByUuSklhFTWoFTXmKSsyWEA1GEH1BEskRuZo NDMyZjM+MP4rHRr+St4Ys3DokaK5jtMdLZgiUvI1Ji2DBUAMV7PVEl== ID Date Data Source [id number] 08/18/2020 11:23:52 AM EDT [facility] Name Value Range Interpretation Code Description Data Sherice rce(s) Supporting Document(s) [facility] XSDXXu6vRvELZdWx84/IUZtoDKNep6KfSPtxNWb2EIdmRBQsI4OeSYW9nP6fUJT7VIgABfSzZlKfHeJ5 lbm [file] AgICAgICAgICAgICAgICAgICAgICAgICAgICAgICAg ICAgICAgICAgICAgICAgICAgICAgICAgICAgICAgICAgICAgICAgICAgICAgICANCiAgICAgICAgICAg ICAgICAgICAgICAgICAgICAgICAgICAgICAgICAgICAgICAgICAgICAgICAgICAgICAgICAgICAgICAg ICAgICAgICAgICAgICAgICAgICAgICAgICAgICANCi AgICAgICAgICAgICAgICAgICAgICAgICAgICAgICAgICAgICAgICAgICAgICAgICAgICAgICAgICAgIC AgICAgICAgICAgICAgICAgICAgICAgICAgICAgICAgICAgICAgICANCiAgICAgICAgICAgICAgICAgIC AgICAgICAgICAgICAgICAgICAgICAgICAgICAgICAg ICAgICAgICAgICAgICAgICAgICAgICAgICAgICAgICAgICAgICAgICAgICAgICAgICANCiAgICAgICAg ICAgICAgICAgICAgICAgICAgICAgICAgICAgICAgICAgICAgICAgICAgICAgICAgICAgICAgICAgICAg ICAgICAgICAgICAgICAgICAgICAgICAgICAgICAgIC ANCiAgICAgICAgICAgICAgICAgICAgICAgICAgICAgICAgICAgICAgICAgICAgICAgICAgICAgICAgIC AgICAgICAgICAgICAgICAgICAgICAgICAgICAgICAgICAgICAgICAgICANCiAgICAgICAgICAgICAgIC AgICAgICAgICAgICAgICAgICAgICAgICAgICAgICAg ICAgICAgICAgICAgICAgICAgICAgICAgICAgICAgICAgICAgICAgICAgICAgICAgICAgICANCiAgICAg ICAgICAgICAgICAgICAgICAgICAgICAgICAgICAgICAgICAgICAgICAgICAgICAgICAgICAgICAgICAg ICAgICAgICAgICAgICAgICAgICAgICAgICAgICAgIC AgICANCiAgICAgICAgICAgICAgICAgICAgICAgICAgICAgICAgICAgICAgICAgICAgICAgICAgICAgIC AgICAgICAgICAgICAgICAgICAgICAgICAgICAgICAgICAgICAgICAgICAgICANCiAgICAgICAgICAgIC AgICAgICAgICAgICAgICAgICAgICAgICAgICAgICAg ICAgICAgICAgICAgICAgICAgICAgICAgICAgICAgICAgICAgICAgICAgICAgICAgICAgICAgICANCjw/ sXScK2hliYJiwaO9O2pdMk3LAs1FSP6me6VdJDHsKVnllxYaIqgAUuFjLXObMdjDDfu1AUplSY7VfPPq A4PmY9UuDZusOZ2VSNKnHAQvcAJqQPEqPVCzKhF8GZ KbCMszML3LtRCbOVoxTMVlILBoSoFoEXRwGP8BXAEgH631ldByYh2FGj3DKlIgCJ5wop4WZXWnHCMeFy sMNez8JLinYX8JlLCgvPCxUmWnDTENAsNxK3asj0RbQGiyHEHOFRvrQC8Yn8MegJTgIJo+Zz0MEE0mk6 XuFSvoZuAyDM9ova7CSAkYPxYoL0FguNufGPXlw0qe UGNkEX2hiMHpNDG1JFSpykqqdMyxRLBOt6LvWXSknxlsXf8dRRDzCe6kJg7hGEEkOGWdUkA6CWYAMD2Z YKLaVNGplCJmJGOuKFJKGC3CKMuxFVC2RFDnqnWthNVkOGwxUR5QBBFnhkJwKJQaJWDXANq+Hi6FFN2u q7NtQHkdYTZtQM8bve3VUUlAIcBdT7T2iPEzR3U8HH ffMm2YGBYbESGbQOPtTNCWBXkdEH0FEZ5vxsP5SM6IxTCgDAWfJBFpqRPnQAd8B35geCNbDGzmHC6YLI A+Edgar+Cc9PUCPdLTXzKKWbFnPaMUKPGzFjC6XgS7IWb1YvW8BbAQ88dBtmeaUfIJqrQO4AGV8yGRMzXE NQJG9IfTCnrH1cjsOmKpXwCVPLQvZwE11faQSoRIGv HMQ7BGBdCr3EJEShT0SfyiCzlVxcbhFxOMFgTCRXSA7YIPkhhpTmdWTvfQknVR00vXthJJ3VAr3TRtXj JX8rua1FsOHpSk4OEETaCY6PYCSoUUDkKLPfCLM9OJOoRsEpMMznUMXcDFQnYHM7FKAuYQHrAH3GNkAq RCJcHYs8BUWxLPOzJREyjf1DUFLzGCNmEMdlTBArBP WkMRIiFCpzIXHxZXVkQWK0WDKhSGMfIS5TKhNuDAToXMCkQPMrKEScNYMftr7XHGQoAPBkEkY3DMFeIJ RfVWUkJQtfZVSaHZR2OTzkFJVtGYGmDE2SSeKqNYSyFRPnHkZpTMPdVMCaom2MPCJeVSGmAbMmAKQjRZ NsUYIfLYdnCNJqFWI1YJBpOORiNSHfZX7UHzJrLWSi FBu2BWCqDSYgHQDbed8WEAOyNUGaTAY1XKQwUPNaNYPxYBiyHBRcTXZ0DkqwZWBgJYCvTX9VTgQeRQKs NPn8ExHfVGSvDUFbal4GVLLsWSMmBVK7EQAfRYTlPZTvYQrkGZZsNSRrBMC0AFKaWUOoCE8NGmIxBQUo PIZ9ESIcVARnXNRlgs0PAQOtZVLqRGXdFuPaEWFdDH XdHIc9oaQkjNQjNKd0KW5GT5ErtgDzFRxFBe4Pv923PBP5GHXrAk1GF2ejJy3bFSUhFYGBLl0UCJq2Km h6OID0CyK6BxJjBlT3WYY0KzgvOgPhXsJyFYH3RqU+ZFmxGYwpQgX2HatwYFZpFUNnOkr0MGDcFRBiKL CwHfnxUU7cELNOCf7+JFvvxSXmiNrfJSYRLzJiPvt0KJazHVIQQv8H ID Date Data Source [id number] 08/18/2020 08:31:04 AM [facility] Name Value Range Interpretation Code Description Data Sherice rce(s) Supporting Document(s) Glucose [Mass/volume] in Capillary blood by Glucometer 134 mg/dL 70- 140 [facility] ID Date Data Source [id number] 08/18/2020 09:13:20 AM [facility] Name Value Range Interpretation Code Description Data Sherice rce(s) Supporting Document(s) Hepatitis C virus Ab [Presence] in Serum or Plasma by Immuno assay Non Reactive [facility] No serological evidence of active infect ion. If recent exposure is suspected, test for HCV RNA. ID Date Data Source [id number] 08/18/2020 06:07:56 AM [facility] Name Value Range Interpretation Code Description Data Sherice rce(s) Supporting Document(s) Bicarbonate [Moles/volume] in Serum 16 mmol/L 22-29 [facility] Chloride [Moles/volume] in Serum or Plasma 115 mmol/L 98-107 [facility] Creatinine [Mass/volume] in Serum or Plasma 1.18 mg/dL 0.70-1.20 [facility] Glucose [Mass/volume] in Serum or Plasma 147 mg/dL 70-140 [facility] Potassium [Moles/volume] in Serum or Plasma 3.0 mmol/L 3.4-5.1 [facility] Sodium [Moles/volume] in Serum or Plasma 142 mmol/L 136-145 [facility] Urea nitrogen [Mass/volume] in Serum or Plasma 51 mg/dL 8-23 [facility] Anion gap 3 in Serum or Plasma 12 mmol/L 8-15 [facility] Osmolality of Serum or Plasma by calculation 310 mosm/kg 275-300 [facility] Creatinine/Urea nitrogen [Mass Ratio] in Serum or Plasma 43 [facility] Calcium [Mass/volume] in Serum or Plasma 8.7 mg/dL 8.8-10.2 [facility] Glomerular filtration rate/1.73 sq M pre dicted among non-blacks [Volume Rate/Area] in Serum or Plasma by Creatinine-based formula (MDRD) 62 mL/min/1.73m2 >60 [facility] Glomerular filtration rate/1.73 sq M pre dicted among blacks [Volume Rate/Area] in Serum or Plasma by Creatinine-based formula (MDRD) 72 mL/min/1.73m2 >60 [facility] ID Date Data Source [id number] 08/18/2020 06:04:34 AM EDT [facility] Name Value Range Interpretation Code Description Data Sherice rce(s) Supporting Document(s) Leukocytes [#/volume] in Blood by Automated count 11.5 10*3/uL 4-10 H [facility] Erythrocytes [#/volume] in Blood by Automated count 3.95 10*6/uL 4.6- 6.1 L [facility] Hemoglobin [Mass/volume] in Blood 12.1 g/dL 13.5-18 L [facility] Hematocrit [Volume Fraction] of Blood by Automated count 35.9 % 4 1-53 L [facility] Erythrocyte mean corpuscular volume [Entitic volume] by Auto mated count 90.9 fL 80-96 [facility] Erythrocyte mean corpuscular hemoglobin [Entitic mass] by Automated count 30.8 pg 27-33 [facility] Erythrocyte mean corpuscular hemoglobin concentration [Mass/volume] by [facility] 33.9 g[facility] width [Ratio] by Automated count 13.9 % 11.5-14.5 [facility] Platelets [#/volume] in Blood by Automated count 233 10*3/uL 150-400 [facility] ID Date Data Source [id number] 08/17/2020 10:52:37 PM EDT [facility] Name Value Range Interpretation Code Description Data Sherice rce(s) Supporting Document(s) [facility] VQXRIj5oCmDKTzYk34/SXQqkNVQfm6VhFTfdKGc7GCngJSVnC1MbBQQ1tW8pSPN9GCjLQoLvMtXhUoJ9 [facility] [file] ICAgICAgICAgICAgICAgICAgICAgICAgICAgICAgICAgICAgICAgICAgICAgICAgICAgICAgICAgICAg ICAgICAgICAgICAgICAgICAgICAgICAgDQogICAgIC AgICAgICAgICAgICAgICAgICAgICAgICAgICAgICAgICAgICAgICAgICAgICAgICAgICAgICAgICAgIC AgICAgICAgICAgICAgICAgICAgICAgICAgICAgICAgICAgDQogICAgICAgICAgICAgICAgICAgICAgIC AgICAgICAgICAgICAgICAgICAgICAgICAgICAgICAg ICAgICAgICAgICAgICAgICAgICAgICAgICAgICAgICAgICAgICAgICAgICAgDQogICAgICAgICAgICAg ICAgICAgICAgICAgICAgICAgICAgICAgICAgICAgICAgICAgICAgICAgICAgICAgICAgICAgICAgICAg ICAgICAgICAgICAgICAgICAgICAgICAgICAgDQogIC AgICAgICAgICAgICAgICAgICAgICAgICAgICAgICAgICAgICAgICAgICAgICAgICAgICAgICAgICAgIC AgICAgICAgICAgICAgICAgICAgICAgICAgICAgICAgICAgICAgDQogICAgICAgICAgICAgICAgICAgIC AgICAgICAgICAgICAgICAgICAgICAgICAgICAgICAg ICAgICAgICAgICAgICAgICAgICAgICAgICAgICAgICAgICAgICAgICAgICAgICAgDQogICAgICAgICAg ICAgICAgICAgICAgICAgICAgICAgICAgICAgICAgICAgICAgICAgICAgICAgICAgICAgICAgICAgICAg ICAgICAgICAgICAgICAgICAgICAgICAgICAgICAgDQ ogICAgICAgICAgICAgICAgICAgICAgICAgICAgICAgICAgICAgICAgICAgICAgICAgICAgICAgICAgIC AgICAgICAgICAgICAgICAgICAgICAgICAgICAgICAgICAgICAgICAgDQogICAgICAgICAgICAgICAgIC AgICAgICAgICAgICAgICAgICAgICAgICAgICAgICAg ICAgICAgICAgICAgICAgICAgICAgICAgICAgICAgICAgICAgICAgICAgICAgICAgICAgDQogICAgICAg ICAgICAgICAgICAgICAgICAgICAgICAgICAgICAgICAgICAgICAgICAgICAgICAgICAgICAgICAgICAg ICAgICAgICAgICAgICAgICAgICAgICAgICAgICAgIC IjBIo1H8tpDJXsBLPeVK7jDUf8Qc7+LQuTVdRyVSY8uqLsvH3FVL6ct0SeBYblMPQgg3ZcUNn4QO2ZPU JnEKrnAN8SIOzuwi4LSCWsMLEkvLGRv6laYvYhNCD0LFRiTblrBP9FKHZmZ0yerdAgLWEhWTCEXO9EUh FzX0XqbV94TWYBYg7+WBzhvdWtOwfRCkT4FJXep3Rj TWb8DR4GUYTmYxaky7SgMKZiSMSAINapQV6JKOM0IAH9ZIReIk6LOFDhT218tyCjQW3TMw8BYmCjQO2z dm0ANWLkAWRyGbzEEya3BYqoUI8YoZXtWEwZif4hrnTmmaCRq4JicfXyjJGKhGsjBfUyPhr9rArtKq5x JHZlAe7xQw5mXJWaZYGfRgE1UHRUQS7PAWWpHQEsjZ KjJTIdBAXMAX0YUVgiBNY9DPDtywOjaODxEQrzLW7BGQSqbzDfLRHeUWRJAKm+Um0WZF7ie1PeBFzlHf XwPQ7kll1ANYfNJkOmI0P3aCRsZ7Q0DCigSk0ASHUcYYQjTOShLEEEDQvnSM7DGZ7dymK9XV7CqEEvDS EeDAHnpKKkMCq2L66crYNwAKckYV6ZQAT+Edgar+Pg0K HYBkADFnBJMfPrIiWTPTDtMxA2CmC3EQo1DnB1GpCX38kIqeygZvZBisYD8HJA1bCPQuEAQCOX9JzGHh fV4izeGjXMSnHMORLwRvP19fgJAkKAZiXXIkENXwMc5OGPWdW9IhzuGeoQheknMyOBGpIKOXJR0NKJsd nnYnsUStlUjsCM47wZipJA3BGb1RMfKdWR6vpn6AuI WcGx7EVUEnSp7JTSTbGEAjMZIbSLN8XPRdZeSnYJkeSZWbEJVrMWQ2XEXeHNLzVD4PNyQoHYBlBAT0HI FlCQQoOAHnty5UQLGbVKDuBaZ7SCDsXRHyAZGcDLovBIQzMSQbXLJ5AYWtDUFzPY4PZaYnXOJgZRV3Zq ZqLVUkJWBpgw4JAGTdXYNgMhEhROJpLYRpTXSrOQuq BTLrTHIdLEcqFZHeHYEyLJ9ODbXsMJFsRIYhUGwuZDXmBRRioa4QJNQeMQQrBnK4XBMtQLYbZBRwSHde PYCbYCC6HPC5JLUsMMEyPY8OWoYzETAnGCM3GqslEJJvDTRzme1CPZRvDSAvEVngLzNeWMSgBYBjYThi OEZqAEE1BpSvDCNpTKGgGH0DYoPeVXRbHLU7SUwqHU ChENZawp6KVDBqEYPbDnyiOFUmCJSsCDErXPgrAQFzMMQ6KAk9KQMkGGUzWT5WFeGrVWwuTIRVHhr3BY ibL1z9JXZoDs6LX4Ymf8PsHKEmRZXLEIqzVM8pceJhABLlZm2MI0lJVpsnEPIoAiKfYIV0YgErTNU0CO Y6PHLtWFKyACYtCDR9US9gBJQ7VwVwMPZ1LkDrRiRu Hwu7ZhSbRKO0FyTqXERoMxh3RgZvVK6GAd4CCbA0LZL0jQBuZp4FKeDpPD5PQOPBE3FVNw== ID Date Data Source [id number] 08/17/2020 09:59:47 PM EDT [facility] Name Value Range Interpretation Code Description Data Sherice rce(s) Supporting Document(s) Glucose [Mass/volume] in Capillary blood by Glucometer 133 mg/dL 70- 140 [facility] ID Date Data Source [id number] 08/17/2020 05:28:16 PM EDT [facility] Name Value Range Interpretation Code Description Data Sherice rce(s) Supporting Document(s) Glucose [Mass/volume] in Capillary blood by Glucometer 137 mg/dL 70- 140 [facility] ID Date Data Source [id number] 08/17/2020 12:56:14 PM EDT [facility] Name Value Range Interpretation Code Description Data Sherice rce(s) Supporting Document(s) [facility] NOHKOn5yZjIDMuZx07/BXIlaEYEvl9EcHEllHUq9GWdpXXOsS5XzROJ8eQ2kPJK5UVnWCcQoDlIqKkP8 lbm [file] ICAgICAgICAgICAgICAgICAgICAgICAgICAgICAgIC AgICAgICAgICAgICAgICAgICAgICAgDQogICAgICAgICAgICAgICAgICAgICAgICAgICAgICAgICAgIC AgICAgICAgICAgICAgICAgICAgICAgICAgICAgICAgICAgICAgICAgICAgICAgICAgICAgICAgICAgIC AgICAgDQogICAgICAgICAgICAgICAgICAgICAgICAg ICAgICAgICAgICAgICAgICAgICAgICAgICAgICAgICAgICAgICAgICAgICAgICAgICAgICAgICAgICAg ICAgICAgICAgICAgICAgDQogICAgICAgICAgICAgICAgICAgICAgICAgICAgICAgICAgICAgICAgICAg ICAgICAgICAgICAgICAgICAgICAgICAgICAgICAgIC AgICAgICAgICAgICAgICAgICAgICAgICAgDQogICAgICAgICAgICAgICAgICAgICAgICAgICAgICAgIC AgICAgICAgICAgICAgICAgICAgICAgICAgICAgICAgICAgICAgICAgICAgICAgICAgICAgICAgICAgIC AgICAgICAgDQogICAgICAgICAgICAgICAgICAgICAg ICAgICAgICAgICAgICAgICAgICAgICAgICAgICAgICAgICAgICAgICAgICAgICAgICAgICAgICAgICAg ICAgICAgICAgICAgICAgICAgDQogICAgICAgICAgICAgICAgICAgICAgICAgICAgICAgICAgICAgICAg ICAgICAgICAgICAgICAgICAgICAgICAgICAgICAgIC AgICAgICAgICAgICAgICAgICAgICAgICAgICAgDQogICAgICAgICAgICAgICAgICAgICAgICAgICAgIC AgICAgICAgICAgICAgICAgICAgICAgICAgICAgICAgICAgICAgICAgICAgICAgICAgICAgICAgICAgIC AgICAgICAgICAgDQogICAgICAgICAgICAgICAgICAg ICAgICAgICAgICAgICAgICAgICAgICAgICAgICAgICAgICAgICAgICAgICAgICAgICAgICAgICAgICAg ICAgICAgICAgICAgICAgICAgICAgDQogICAgICAgICAgICAgICAgICAgICAgICAgICAgICAgICAgICAg ICAgICAgICAgICAgICAgICAgICAgICAgICAgICAgIC CtGYAoXCIfZFJsQLCkASKoPLYaQLEyZMRcDHQmCHTnBAm9J4erARGiORVsXQ4fGOa5Ui2+DQoNCmVuZH I0jlEgzN9SHS7xm8CgUCzpEMHez0MxGUt5EF5ULRToTRkhGL6WJUddet6YAROiWPEtlYFYs5mjJfTtZH P3PHXcOpygNN9PYWItJ0meneKbMXHvOIWETYdpIQQG HP4MEuFuC2DhrL95SDRLUi1+GBoecmGwOsaFGeL0KWWfd4WvLGe6CA3UXYZaXeheu3TjWfVdBEJOGNjb DN2EPNC0ZOEaWNZsUv4GYNYtU788xvXrJR6JWt2MUsLwPN0rxc5SQwVeHNZrSouXGqu9CSeeMM7OiMYm FNlFze1nzkVzxzFVt4FnhgTodDBPbfpmFRUgWFLXpQ 0iYYrpMLzuSNJbMCNbTy3pYs4jKTMhMWKjKxWeEVCZND0CKYSwUTCpcZQcYXXoKFZDYT1SBJxxVUG9LY EuhkArsVEvJOgaBP8QLSNisiHuZAubHTVIGNy+Sl0RKZ9ev3JiLJonTBWaUH9cbg3QDVpVWeOqJ8O8wK FbG6B2THdmNb7FXAOnGQEhUEeqFYBYZXyiRI1TAT7a niG5MT9DoRVsNQNaCFWigDPhXBi1D66ukQIcTKxoDA1XESP+Edgar+Ub8AKAApBTDaXXAoJfCvUPYUWyZa J6EkJ8XAn8WoW0XoCO59aIxkivExJUowDL4TKX2wRTPwXNHWNQ2AaKHnaW4xndKrZAOqTVRZViEmE10l cSIxWZUdSSD3FAWaYn3ZUPKlU0SmfnTaqQnqowGbDF FcMXRUHQ5OOVihkfFpnRUvzYnbYC84ySjePB7BVb3MYaOaVR6rpm1MkNBmFm9NWJNuHt6IRKCpIFUsJW ZqIKM7FCCdVvIjJZyvNJWeXTLtAHA9KHFyRLKaVB4FPiYbGGCzDVtyPIQeHFIqNZTnjh2EPMGaBWFfQM kiUzZtNIJpVQEvSUguLKYbPDLnQBY2QGAxCXFoBA7N YdGpPLYaJJLxUTQhMTVnZWXxhq2YJMQzFCCoJlR4VCWpLMXcZVFjPVixNUKiVMA4PNHbBSOmATVsHC6O IxHlEKScXOClYKLvTXTpZALaqe4TCQLoBCPbKqFmWgAtISQkYUQrJGhjGBPzEES8XKh1GKOgMHEkNA1V CnOhOMKiEEHmUCVuBBUnUDQktg6QECYnDZEaArYvRE FiMCVmJPTqVAhjNAOdEDR1CGGaMYEvTTReBV5XAtGrPLLzEPr1EbtuSWTeTGVxpr6IRMNaKVTvVPO7CE FdYNHkMJHkJCglUVMgFCB5BKh4NOWmMUTlZT1RHpFnYRSfLKexWxvaITFwMJGjcn7MRDScRIZfCIT6Eb VoREGaUUMsIUzjBDPhMANoHXA4QCCoLCEnXG4MGzTm ZJQzVFNoZZyuPNZsKRMpwt0MSQJeCRJwUFJ8JPDbVGHdGHQpQQr8rsDodSTlHSn4YA4GB2FwcwRsTeDN Ny1Na886WZVjQOGdYx0JJ6krIn5fBFAsNDBBMq7JOYf7FGIiS9JtFzC5PyRjBtLaYgU5VYM6AAQpXzMw IUT1MZa+JJrqOVJ0XdBgHAh5ESG9DRThQuQuSzw1Wg EySAF8YziuPj6gNSIRQi2+QKyhgFEuwVqcKUCPUsGhWEMiAUptCEJQEp5Z ID Date Data Source [id number] 08/17/2020 11:55:00 AM EDT [facility] Name Value Range Interpretation Code Description Data Sherice rce(s) Supporting Document(s) SARS-CoV-2 RNA 2019 nCoV Real-Time RT-PCR: NOT DETECTED [facility] This lab was ordered by [facility] and reported by [facility]. 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[facility] Patient has symptoms related to condition [facility] When did you start to experience these symptoms [Date and time] [Phen X] [facility] Patient was hospitalized because of this condition [facility] patient was admitted to ICU for [facility] Patient resides in a congregate care setting [facility] status [facility] ID Date Data Source [id number] 08/17/2020 01:09:55 PM EDT [facility] Service Cmnt XXX-Imp : NoneRespiratory P CR Panel : PCR ResultsMicroorganism XXX Cult : See Labs Tab for 2019 nCoV RT-PCR resultsHAdV DNA QI CLAIRE+non-probe : Not DetectedHCoV [id number] Nph QI CLAIRE+non-probe : Not DetectedHCoV [id number] Nph QI CLAIRE+non-probe : Not TeeyrlftXPdJSA31 RNA Nph QI CLAIRE+non-probe : Not PtpcxlidMLqJCF02 RNA Upper resp QI CLAIRE+probe : Not [...] DNA Nph Q CLAIRE+non-probe : Not DetectedB [id number] DNA Nph CLAIRE+non-probe : Not Detected Name Value Range Interpretation Code Description Data Sherice rce(s) Supporting Document(s) ID Date Data Source [id number] 08/17/2020 11:37:02 AM EDT [facility] Name Value Range Interpretation Code Description Data Sherice rce(s) Supporting Document(s) [facility] MCYZWy9dCiVBJvXc46/CXJboPTBlx7BrBZiiCCs4PCiqDEAfX8CoSJC9nD9zZGZ5LDdRLcWqYtRvYdV5 lbm [file] ICAgICAgICAgICAgICAgICAgICAgICAgICAgICAgIC NlVXYpOVOoDRSvIGEpJDTvBESaSYEgYQOpXCVfDUXgIAEgPYFyIHJmNQThJQLkLYFwGC6SUHYaHDKxFF AgICAgICAgICAgICAgICAgICAgICAgICAgICAgICAgICAgICAgICAgICAgICAgICAgICAgICAgICAgIC AgICAgICAgICAgICAgICAgICAgICAgICAgICAgICAg UZ8HFDKkWWLoNQUwOKUsBGSfVPDtSTKiOABtIXXuIOCxEKBzMNZlHVSfPRTrKFBxTNCcWEDkMECbNYZj KFQiBHZlNXQrRFEpSQEuARVtXKQyYFLfWTGwROUfFCXwPLKfUZAnOTXbHJ7SHSLyHMMqKAGrVUNqCJPo ICAgICAgICAgICAgICAgICAgICAgICAgICAgICAgIC WuRYMwKHOxEOWnJHGmEOLdGWSpXLQjUFAbBQDeNIXuXVBsSRMyMOZaKQJyYCDvGJOzLROhHA2UKGIiQT AgICAgICAgICAgICAgICAgICAgICAgICAgICAgICAgICAgICAgICAgICAgICAgICAgICAgICAgICAgIC AgICAgICAgICAgICAgICAgICAgICAgICAgICAgICAg QQTmCI1ICBTySMEpWGMeIRTgKJEoOBLgXBAfZRAvKVNpZSOrISWiUZWwGUGcAIEoROLjKQZsMNVaVXIt TGEmHSEpNJLuCLFaPPTbWCThJALzVKJzHVNxUQWtSJVqZVLbLLAkYYMwDQYsRZ9MRTBkPIJqEREhYGGy ICAgICAgICAgICAgICAgICAgICAgICAgICAgICAgIC DeEADlLMPtWUGpZQRdIHFrAICdPLTjCWAeDGXuUMRaZIRkPHDsTDKmEGBzHQYvSDXpZHXvDAGtJQ5HNO AgICAgICAgICAgICAgICAgICAgICAgICAgICAgICAgICAgICAgICAgICAgICAgICAgICAgICAgICAgIC AgICAgICAgICAgICAgICAgICAgICAgICAgICAgICAg XZAwUCLvCK6LPCVwEJEsVHPeEIQwTBDdGQDbUMQkZVLeITXlEHPcTOUdMOHkIJQnUPMxJSMcZHAiALUx KZZvLKCdOKUwBZNkNDIiAYFpQWYwXMApCPRvBBJqYFYzNYHtHWOeTOLuAHGgHPAsZA6RQNBmXEWiWHCj ICAgICAgICAgICAgICAgICAgICAgICAgICAgICAgIC AgICAgICAgICAgICAgICAgICAgICAgICAgICAgICAgICAgICAgICAgICAgICAgICAgICAgICAgICAgIA 3QUO64jYWrs7G5NPZyKT4bmqj/Im0PDWydcoMkfQCiNS9KHmTzNX5ygu9TTqJzXK8gim4HBUuRMiDlS8 J6sBRcBZEsOCTBYrPxW07mTIlfDx93TSxuVENtRyCw OLl0Sp8IMpAnM6zxIVWmOvB8ODEdApRwMZgkQK0Zx1BkcJBcVGr+Py1PZG5es9ZcNSfoYKLcSM0onz7M GDfCVpAoV0ErquP5SAA0LNQfUx9NGBZsAWIgxWQrERFxDFTAWdPtR7UadU29ULQYPh9+DQplbmRvYmoN UjD8KONio3GbIYj4WO6FVYUeGHu8hCUuTMLlY8Psi9 TmAa50OBUcFplmOZYmOHsjPRBzRWRLENarocmgXm9uWMTdLv6fDu9wLFRsMTPgIkM6ERACZN3PIOKzXE BtgXUfUQUbFWOTXJ3PJDbgYEX9VZCuzkHrrRTkLVpaYW6WOFEwfnMlLNJvYJCYCBn+Hz4MGL1qo8HiOI fmFqKkKI6byh8EUPvZNaXcX7R3nXWdN2S3BNbzSp7P NQHoRIDwCHAxCECYTEejGQ0ASJ3zgqR5DR8DbRCtVYJcBTQkjEZoSJi3G58tcAAwKTlaSR3VHPD+Edgar+ Ph3ODMRuJBSvCARfNeLyCOSYWpObI7MvF7FFp8WiL6LtED08qIpswxJpQSwxDE8EVL1cUZXcYDJOGS3A rGZcpJ1avpPmBTJrXOFWDaQyP29yaNEbYHUkCEKyZE MkEg5ERABpH1QowqKyaRctxvMlOUHzIGSDCM3RRRmynqUayNDsuAsfCT59wXuuZZ9SMp3MDxVlKS6sbj 9QpVWvWu0DZTNjWc6ZBXKnXSBiXIMpLDD9FIRpHnMtIKuqHJOjQQHzZVP1KKRbQZFiBX9YCwLsGAWsZD R6KNAzDLMkVUOczu7XPPWmCWPpZoAdJJSzNGIhGSFy RGfaUWPwLUVjJXX9IBQcVZWbTQ6VUvKpZDLzDYI7XUFeRONjIZXfba0OFSPmIYOmOWe5WIGdFCDqXKLk FIyeTCBlLBQqXPA5NPKuRYKqFS7ESsWxYEDkEIElSKOyGSQfFXOtji6URMLfCDQgLlNxYIJkUXPuAGJn LAgsFBTcLTL4EPpgVPSnFPIvTU1KMvRwPRAoTYZpTW RsVSKfALFfao0CPAHzUXPcIDQ4BDZpEODzFPMuPJsxNYJuJPH8KWa0YCEhAWMsSE9BVoDaBYNqMXP2JF ElUXPkGMLbbs5JZRJkSQLwCbJ7BOPpHFQoIZQaBRmgCVTyDJM4AqN8ZIQgPXLkOA0WTfXnPFbvPJJHVp c3KKwvP0k6GQTlYd6WD9Blw9GlNXWdXVFPGWuiSQ8v cvGaCTSpQz7ST2wSMui5ElB2TTW1IdqhXLAxCQj5KsDpXUIwRND4VcedNeL8VU8tATZ2CbM4HFMgFJJb JED0OMfoKbT2XBPgTas5PUZyItZtRuHfTH0NNg7GVuP2FFU8aADmYv9YOxf1CS8NJSIGQ6YRQp== ID Date Data Source [id number] 08/17/2020 11:26:47 AM EDT [facility] Name Value Range Interpretation Code Description Data Sherice rce(s) Supporting Document(s) Glucose [Mass/volume] in Capillary blood by Glucometer 116 mg/dL 70- 140 [facility] ID Date Data Source [id number] 08/17/2020 10:41:33 AM EDT [facility] XR PELVIS 1-2 VIEWS [id number] RESULTInt erpreted by:Maggie Chavez radiograph, single viewINDICATION: [...] rce(s) Supporting Document(s) ID Date Data Source [id number] 08/17/2020 09:55:44 AM EDT [facility] Name Value Range Interpretation Code Description Data Sherice rce(s) Supporting Document(s) Glucose [Mass/volume] in Capillary blood by Glucometer 114 mg/dL 70- 140 [facility] ID Date Data Source [id number] 08/17/2020 09:48:32 AM EDT [facility] Name Value Range Interpretation Code Description Data Sherice rce(s) Supporting Document(s) [facility] DZEXLr1pRyVUPoEs97/ZXPtfKZWnl7IkRBwlEJq2SOggPNUfF9YmPUA3mG2nYVH3YAvSYxGgDxWvUkF2 lbm [file] FIhx1if0VixTwN/0q6+Jose David/hRQGs9cp6+Vgc0US5+G [file] G2XY6EUVONX3QHKv== ID Date Data Source [id number] 08/18/2020 01:55:00 PM EDT [facility] Surgical Pathology ReportName: SHELBY MONTIELMRN: [id number] Number: [id number] Date: 08/17/2020 08:42Received Date: 08/17/2020 12:42Physician(s): SHELBY LEWIS TIMOTHY ASpecimen(s) ReceivedA: Right femoral headClinical HistoryOther secondary osteoarthritis of right hip, chronic right hip pain,bladder exstrophy.DiagnosisBONE, RIGHT HIP, ARTHROPLASTY: DEGENERATIVE JOINT DISEASE (GROSS ONLY). /pws Electronically Signed By Ana Maria Rocha M.D., Attending Pathologist08/18/2020 13:55:30Processed at [facility], [address] [place] [address]. Unless 'gross-only' is specified, the finaldiagnosis is based on a microscopic examination of compliance representative sectionsof tissue.Gross DescriptionThe specimen is received in [...] developed and their performance characteristics determined by [facility] Pathology department. They have not been cleared or approved by the USFood and Drug Administration. The FDA has determined that such clearanceor approval is not necessary. Name Value Range Interpretation Code Description Data Sherice rce(s) Supporting Document(s) ID Date Data Source [id number] 08/17/2020 07:34:11 AM EDT [facility] Name Value Range Interpretation Code Description Data [facility](s) Supporting Document(s) History and Physical [facility] GSEMCa7iZfDJUwCp00/VVUjjNBTvq5IjBYfeYDb8XHtlUUKqW4XbIVW8uA2mRAN5OYbWZxToExMxVzM4 lbm [file] ogICAgICAgICAgICAgICAgICAgICAgICAgICAgICAgICAgICAgICAgICAgICAgICAgICAgICAgICAgIC AgICAgICAgICAgICAgICAgICAgICAgICAgICAgICAg ICAgICAgICAgDQogICAgICAgICAgICAgICAgICAgICAgICAgICAgICAgICAgICAgICAgICAgICAgICAg ICAgICAgICAgICAgICAgICAgICAgICAgICAgICAgICAgICAgICAgICAgICAgICAgICAgDQogICAgICAg ICAgICAgICAgICAgICAgICAgICAgICAgICAgICAgIC AgICAgICAgICAgICAgICAgICAgICAgICAgICAgICAgICAgICAgICAgICAgICAgICAgICAgICAgICAgIC AgDQogICAgICAgICAgICAgICAgICAgICAgICAgICAgICAgICAgICAgICAgICAgICAgICAgICAgICAgIC AgICAgICAgICAgICAgICAgICAgICAgICAgICAgICAg ICAgICAgICAgICAgDQogICAgICAgICAgICAgICAgICAgICAgICAgICAgICAgICAgICAgICAgICAgICAg ICAgICAgICAgICAgICAgICAgICAgICAgICAgICAgICAgICAgICAgICAgICAgICAgICAgICAgDQogICAg ICAgICAgICAgICAgICAgICAgICAgICAgICAgICAgIC AgICAgICAgICAgICAgICAgICAgICAgICAgICAgICAgICAgICAgICAgICAgICAgICAgICAgICAgICAgIC AgICAgDQogICAgICAgICAgICAgICAgICAgICAgICAgICAgICAgICAgICAgICAgICAgICAgICAgICAgIC AgICAgICAgICAgICAgICAgICAgICAgICAgICAgICAg ICAgICAgICAgICAgICAgDQogICAgICAgICAgICAgICAgICAgICAgICAgICAgICAgICAgICAgICAgICAg ICAgICAgICAgICAgICAgICAgICAgICAgICAgICAgICAgICAgICAgICAgICAgICAgICAgICAgICAgDQog ICAgICAgICAgICAgICAgICAgICAgICAgICAgICAgIC AgICAgICAgICAgICAgICAgICAgICAgICAgICAgICAgICAgICAgICAgICAgICAgICAgICAgICAgICAgIC AgICAgICAgDQogICAgICAgICAgICAgICAgICAgICAgICAgICAgICAgICAgICAgICAgICAgICAgICAgIC AgICAgICAgICAgICAgICAgICAgICAgICAgICAgICAg LFEcLSWsHQRaIFWcSLArRJDwGGf6L5kbSHHcQOLrLL1kZXj2Ox1+VLfIPmZnAQT2caGtpY7VFN7lv0Tk GTmbOFTou3OyQJi1QI1VKGUfKIuvYJ2HTCgcbx0LPMIqDNQmvBYNu5rvLiPuYEG1YKXvGpulVY2DHJFx I2ibozDwSJZlTHHRCS3QXdHpE8BzxB71JMBJEm6+DQ vxrwAuBxwTOmC8CWZtf0ZoDQo3FE7HWOOqYbzcj8CfSNocOKMMYVjeQD6VAWK0DNJ4QVOjRf1VZITuA2 79fzVxUN4DKg7RVgSoXB0opc9JSEnaHGDbAipFVwm0RHhbXS8AtZKvSQnEQdWqUfyqVSapp3XliUCCVS NmlEZwcooeZFMrNJIuHm0vTz5fQVDqRCW1MuTqUYPL VT6DDUDnILVziHOeYOVrJUKSQI8DEAijKVH2JEQwxrIwuYVtFFnoBD7JYPUuwbMtBKqtKOYPTRw+Pg0K WJ9hp5YxNGilFHIoDU1ugr0CDQuAIeUsC3U1nDSwT5D9RNyqEt1TYSWnZAFiOPErXVRYKPauWJ4TXJ2i brB6FJ0QoTGaCQMcZTUspQNnVJp7Y18jcLWeDYqyHM 0KICA+Edgar+Pv1HAEFrQEOgXSLrDxLxXZSACoOcK7IsN5BWh7VvL0ApKG72mIxhvtHwUOhcEB3OTT6iDS EtPVTBZH2NrFYsqO7wxiTrMoAbRKOQAnPbI82ulVMoHFIzXCW7JWUsCv0VVSGgL9MbboLojUovodYbWR IiVLHFLU2XYAocinZppFRydTdnUE53vYklCN0DDs9N KzMdCJ0rfd8CtAZgHv5EXHHdNJ5OBTZuTJNkWETyBRR2VTIaUgNbTEdjHVOdCURpYKB5EIRyFFPyUP4X UlJjPKWwTWb0MNKmXTJlRFEbbe0RSWQgPXIpZBS9LuUfWPWfXDTtMSiaYZUlWKXwWAY3NGZtGIQhEU9N AzMqNISvDLYtAkAoOPSyFJDghb4RMUGnJMKvLkW6SX GnFFZkPOPzIIroAMNsNNG6PfI1XYTwJIBzHI2DIrWoUIIrZXF1DjVpTANpKMJxgl2CVWZzZBHpVWztGm GeRZRoGOCvDEauASLrIUL5CbRiTKBwWNElKJ3DUlCvGPVgKSC5HsHmZKFiLHNffw6WSKYyYJJrGwT5UO JfLBTfAZFrZNcfJCGdMPD1AGBsAIDbYLLlSA9SYrEe UPOtQBtvYOeiAUIzFWWxfd8PVEIeLMZhLuY2BZQkZRNuMESrWRvoMYOrLAH3IBJaNSYnBJDjTD0ZLsKj LOWxKXejXJMhDRNdEBNlxx8ELLWiLZPbUYPcLQCxPYXgUVWqZFluFHFeJRR9KAYkVSDaOYWvHJ9KJuGh VSrqRSGILav7PCvnN6i1ADKbEP2LE7Smp0FtBXiuHY ZTUHvfNX4ynqDgMAXtCe6YV9hRJmoaBcVvRKyaSDEgFpCaSCHmXymcSfHxAnVdQWv5QePqCJ4gBAShTV WzUJWkITH2VuRqOvXmFKVbBOIdBIYuOlPzVOAaPhTxUW9TSi6BJiU6AIB4tOClIn9IFWcmKX8BSDQOD4 YNCg== ID Date Data Source [id number] 08/17/2020 06:37:53 AM EDT [facility] Name Value Range Interpretation Code Description Data Sherice rce(s) Supporting Document(s) Glucose [Mass/volume] in Capillary blood by Glucometer 79 mg/dL 70- 140 [facility] ID Date Data Source [id number] 08/17/2020 08:07:54 AM EDT [facility] Name Value Range Interpretation Code Description Data Sherice rce(s) Supporting Document(s) ABO and Rh group [Type] in Blood [facility] Blood group antibody screen [Presence] in Serum or Plasma [facility] ID Date Data Source [id number] 08/13/2020 09:04:53 AM EST [facility] CT LOWER EXTREMITY WITHOUT CONTRAST 7370 [...] rce(s) Supporting Document(s) ID Date Data Source [id number] 08/12/2020 02:51:00 PM EST [facility] Name Value Range Interpretation Code Description Data Sherice rce(s) Supporting Document(s) SARS-CoV-2 RNA 2019 nCoV Real-Time RT-PCR: NOT DETECTED [facility] This lab was ordered by [facility] and reported by [facility]. 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 [facility] Patient has symptoms related to [facility] When did you start to experience these symptoms [Date and time] [Phen X] [facility] Patient was hospitalized because of this condition [facility] patient was admitted to ICU for [facility] Patient resides in a congregate care setting [facility] status [facility] ID Date Data Source [id number] 08/13/2020 04:44:30 AM [facility] Service Cmnt XXX-Imp : NoneMicroorganism XXX Cult : Polymerase chain reaction assay was POSITIVE for methicillin-SUSCEPTIBLE Staphylococcus aureus (MSSA) AND NEGATIVE for methicillin resistant Staphylococcus aureus (MRSA). Name Value Range Interpretation Code Description Data Sherice rce(s) Supporting Document(s) ID Date Data Source [id number] 08/12/2020 04:03:54 PM [facility] Name Value Range Interpretation Code Description Data Sherice rce(s) Supporting Document(s) ABO and Rh group [Type] in Blood [facility] Blood group antibody screen [Presence] in Serum or Plasma [facility] Performed at [facility], Kacy Lares , HIEU BurnsBlood Type Confirmed ID Date Data Source [id number] 08/12/2020 02:21:49 PM [facility] Name Value Range Interpretation Code Description Data Sherice rce(s) Supporting Document(s) Leukocytes [#/volume] in Blood by Automated count 6.8 10*3/uL 4-10 [facility] Erythrocytes [#/volume] in Blood by Automated count 4.48 10*6/uL 4.6- 6.1 L [facility] Hemoglobin [Mass/volume] in Blood 13.7 g/dL 13.5-18 [facility] Hematocrit [Volume Fraction] of Blood by Automated count 41.6 % 4 1-53 [facility] Erythrocyte mean corpuscular volume [Entitic volume] by Auto mated count 92.8 fL 80-96 [facility] Erythrocyte mean corpuscular hemoglobin [Entitic mass] by Automated count 30.7 pg 27-33 [facility] Erythrocyte mean corpuscular hemoglobin concentration [Mass/volume] by [facility] 33.0 g[facility].0[facility] width [Ratio] by Automated count 13.5 % 11.5-14.5 [facility] Platelets [#/volume] in Blood by Automated count 252 10*3/uL 150-400 [facility] Differential cell count method - Blood [facility] Neutrophils/100 leukocytes in Blood by Automated count 66 % [facility] Lymphocytes/100 leukocytes in Blood by Automated count 24 % [facility] Monocytes/100 leukocytes in Blood by Automated count 7 % [facility] Eosinophils/100 leukocytes in Blood by Automated count 3 % [facility] Basophils/100 leukocytes in Blood by Automated count 0 % [facility] Neutrophils [#/volume] in Blood by Automated count 4.45 10*3/uL 1.8-7 .0 [facility] Lymphocytes [#/volume] in Blood by Automated count 1.61 10*3/uL 1.2-4 .0 [facility] Monocytes [#/volume] in Blood by Automated count 0.48 10*3/uL 0-0.8 [facility] Eosinophils [#/volume] in Blood by Automated count 0.21 10*3/uL 0-0.5 [facility] Basophils [#/volume] in Blood by Automated count 0.01 10*3/uL 0-0.2 [facility] Nucleated erythrocytes/100 leukocytes [Ratio] in Blood by Automated count 0 /100{WBCs} 0-0 [facility] ID Date Data Source [id number] 08/12/2020 02:35:54 PM [facility] Name Value Range Interpretation Code Description Data Sherice rce(s) Supporting Document(s) Bicarbonate [Moles/volume] in Serum 12 mmol/L 22-29 L [facility] Chloride [Moles/volume] in Serum or Plasma 114 mmol/L 98-107 H [facility] Creatinine [Mass/volume] in Serum or Plasma 1.20 mg/dL 0.70-1.20 [facility] Glucose [Mass/volume] in Serum or Plasma 140 mg/dL 70-140 [facility] Potassium [Moles/volume] in Serum or Plasma 4.3 mmol/L 3.4-5.1 [facility] Hemolyzed Sodium [Moles/volume] in Serum or Plasma 138 mmol/L 136-145 [facility] Urea nitrogen [Mass/volume] in Serum or Plasma 50 mg/dL 8-23 H [facility] Anion gap 3 in Serum or Plasma 12 mmol/L 8-15 [facility] Osmolality of Serum or Plasma by calculation 302 mosm/kg 275-300 H [facility] Creatinine/Urea nitrogen [Mass Ratio] in Serum or Plasma 42 [facility] Calcium [Mass/volume] in Serum or Plasma 9.0 mg/dL 8.8-10.2 [facility] Glomerular filtration rate/1.73 sq M pre dicted among non-blacks [Volume Rate/Area] in Serum or Plasma by Creatinine-based formula (MDRD) 61 mL/min/1.73m2 >60 [facility] Glomerular filtration rate/1.73 sq M pre dicted among blacks [Volume Rate/Area] in Serum or Plasma by Creatinine-based formula (MDRD) 71 mL/min/1.73m2 >60 [facility] ID Date Data Source [id number] 08/10/2020 12:00:00 AM EST eCW1 ([facility]) Name Value Range Interpretation Code Description Data Sherice rce(s) Supporting Document(s) Hemoglobin A1c/Hemoglobin.total in Blood 7.4 HEMOGLOBIN A1c eCW1 ([facility]) ID Date Data Source CBC with Differential 08/10/2020 12:00:00 AM EST eCW1 ([facility]) Name Value Range Interpretation Code Description Data Sherice rce(s) Supporting Document(s) 6.8 4.0-10.0 WHITE BLOOD COUNT eCW1 ([facility]) 41.5 42.0-52.0 HEMATOCRIT eCW1 ([facility]) 13.3 13.5-17.5 HEMOGLOBIN eCW1 ([facility]) 4.36 4.30-6.10 RED BLOOD COUNT eCW1 ([facility]) 32.0 32.0-36.5 MEAN CORPUSCULAR HGB CONC eCW1 ([facility]) 30.5 27.0-33.0 MEAN CORPUSCULAR HEMOGLOB IN eCW1 ([facility]) 95.2 80.0-96.0 MEAN CORPUSCULAR VOLUME e CW1 ([facility]) 54.9 36.0-66.0 NEUTROPHILS % eCW1 ([facility]) 247 150-450 PLATELET COUNT, AUTOMATED eCW1 ([facility]) 13.0 11.5-14.5 RED CELL DISTRIBUTION WID TH eCW1 ([facility]) 8.7 2.0-8.0 MONO % eCW1 ([facility]) 3.4 0.0-3.0 EOS % eCW1 ([facility]) 32.4 24.0-44.0 LYMPH % eCW1 ([facility]) 2.2 1.5-5.0 LYMPH # eCW1 ([facility]) 3.7 1.5-8.5 NEUTROPHILS # eCW1 ([facility]) 0.3 0.0-1.0 BASO % eCW1 ([facility]) 0.6 0.0-0.8 MONO # eCW1 ([facility]) 0.0 0.0-0.2 BASO # eCW1 ([facility]) 0.2 0.0-0.5 EOS # eCW1 ([facility]) ID Date Data Source [id number] 08/10/2020 12:00:00 AM EST W1 ([facility]) Name Value Range Interpretation Code Description Data Sherice rce(s) Supporting Document(s) 100 <125 NT-PRO BNP eCW1 ([facility]) ID Date Data Source [id number] 05/10/2020 11:03:32 AM EST [facility] XR HIP- UNILAT, 2-3 VIEWS [id number] RE SULTInterpreted by:Shelby Lewis MDIndication: Chronic right hip pain, history of bladder exstrophy with pubic diastasis, congenitalTechnique: 2 views pelvisComparison: September 23, 2019 filmsFindings: Marked pubic diastases consistent with history and unchanged. Severe right hip degenerative arthritis with blle-xv-maep changes, sclerosis, and subchondral cysts. Pseudosubluxation. No acute findings. Left hip shows moderate joint space narrowing.Impression: Severe [id number] right hip degenerative arthritis. Pubic diastasis, unchanged.This document has been electronically signed by Shelby Lewis MD on 05/10/2020 11:03 AM Name Value Range Interpretation Code Description Data Sherice rce(s) Supporting Document(s) ID Date Data Source [id number] 05/10/2020 10:17:16 AM EST [facility] Name Value Range Interpretation Code Description Data Sherice rce(s) Supporting Document(s) [facility] Note [facility] YWGYAz3eZiFNQiCo23/DRMefGRJia9AlNGwlZGt1AJvzOVIiG0IdZQT3uH4eUWR0LYhFOcNvKcSmXbP8 [facility] [file] ICAgICAgICAgICAgICAgICAgICAgICAgICAgICAgICAgICAgICAgICAgICAgICAgICAgICAgICAgICAg ICAgICAgICAgICAgICAgICAgICAgICAgICAgICAgIC AgDQogICAgICAgICAgICAgICAgICAgICAgICAgICAgICAgICAgICAgICAgICAgICAgICAgICAgICAgIC AgICAgICAgICAgICAgICAgICAgICAgICAgICAgICAgICAgICAgICAgICAgDQogICAgICAgICAgICAgIC AgICAgICAgICAgICAgICAgICAgICAgICAgICAgICAg ICAgICAgICAgICAgICAgICAgICAgICAgICAgICAgICAgICAgICAgICAgICAgICAgICAgICAgDQogICAg ICAgICAgICAgICAgICAgICAgICAgICAgICAgICAgICAgICAgICAgICAgICAgICAgICAgICAgICAgICAg ICAgICAgICAgICAgICAgICAgICAgICAgICAgICAgIC AgICAgDQogICAgICAgICAgICAgICAgICAgICAgICAgICAgICAgICAgICAgICAgICAgICAgICAgICAgIC AgICAgICAgICAgICAgICAgICAgICAgICAgICAgICAgICAgICAgICAgICAgICAgDQogICAgICAgICAgIC AgICAgICAgICAgICAgICAgICAgICAgICAgICAgICAg ICAgICAgICAgICAgICAgICAgICAgICAgICAgICAgICAgICAgICAgICAgICAgICAgICAgICAgICAgDQog ICAgICAgICAgICAgICAgICAgICAgICAgICAgICAgICAgICAgICAgICAgICAgICAgICAgICAgICAgICAg ICAgICAgICAgICAgICAgICAgICAgICAgICAgICAgIC AgICAgICAgDQogICAgICAgICAgICAgICAgICAgICAgICAgICAgICAgICAgICAgICAgICAgICAgICAgIC AgICAgICAgICAgICAgICAgICAgICAgICAgICAgICAgICAgICAgICAgICAgICAgICAgDQogICAgICAgIC AgICAgICAgICAgICAgICAgICAgICAgICAgICAgICAg ICAgICAgICAgICAgICAgICAgICAgICAgICAgICAgICAgICAgICAgICAgICAgICAgICAgICAgICAgICAg DQogICAgICAgICAgICAgICAgICAgICAgICAgICAgICAgICAgICAgICAgICAgICAgICAgICAgICAgICAg ICAgICAgICAgICAgICAgICAgICAgICAgICAgICAgIC HzKBQjWTGqATQnNOw0Y2szKNUgQGVzTA6lVHa8Gw0+MMfNZkAuWSO9htRhjI0RCH1jb5OxEWnjPFJft3 ZvJAg5OE0HXJFiAHopXK9AINdgep2RDPWkZFDcaXFLe8ffMiUbDVF0TPNcJdhuYR7EILXsT2oiovBaYI PvVDECKJucJBTEVW3QImYfU9MxvB04NDCYXv9+DQpl qoYmFtxJZhNfDVIqz3BeHIt2VO9UZVQyUxdjb3DkDpKaJZVXGDxgPF8WCIY6SOTcYJXuDr8IJABvE100 uxTzYP1ZEd0YQzPxIV8ent4XQoPqMAJaSliFSgi2HFgpYP7MmLBmCGhCzp0esgAyctSRg8GtqoQwdBZB wJpqYQFWGNRlgRMipjyfNAXiYJRwYXIlEy8mBILrJA D9KjBkLRKZCE5YKOYhUHNzvKRyXTPmVNOUIC6IYLidKRK1VBFfjbUyrDVvQVvgRY3WLSRnerDtUwLgRQ BSDQo+Mu2TIY2dm4JoPSrvVuTnRO3una4JPTvBSxAfX6Y4yGCjE9Z7HCtuIl3JRWLnQSGoAHntWJJELT ewQD8RQH4vijY3LD4MsAVfKDKoZVHajZZvEPg8G87n qQFqBNajEC4ZYDM+Edgar+So4HSOMwMNLvKYQlEhCnYMHWPnNsL5TqE9FVn0MkV3CqXU89zZtfgfIeDYrx EV0SEE1kCAFkCNKWEA9KwSTolS1iodUpSNAmUKTVMvKtL38luISlJNJwLRTkTCDgLk5RYNKwZ0RmedRu bZonuaVaVJMtDHCLQM2BFLpptjVufWLitRsoRO48wX nlAQ4JCz3NIvCrGO5cba5OaOAxHi1NZPHwHA8YWBXlGUFiOUYcQTX1EEWmStVgXNgaJDQpYHMcVPQ2DU RnPFNdRM5BShGoOFLvJwI1UseiXFWkVBLhig5IYQAwVKXuLYG3ByWqEMDxWQAaXFkeLFIiDJFhHLA7OO UkHZVlLC3QQaYoCFXcEHPrXVQrARFxNIPplo0XJABv ZYSoOMS4YeMvOVWlBSKwRAkuJAKwVBA4ONKwKHDxQJIyFH3AMdIyHWHuVEz8LLHhUBTzELTkfx5ENWFm AMFjRLduOiTyNZTcMCCzTTmyWZYeJFO4PPJ4BLQmHSYbJS6VGvTlOJVuCNtnXOPoSASdAIQcno4KVQVn IRBwTIG6ZZPuEWXbKEXtAWkzGHEgIECsFvUoARJuYS ZzYZ7HCvVxAXHpPBR4LsjtPMVlDEGmkr9JWIPnVCQdRWo3ZOCeQNMeOPXwSYihFJVpAJJrDFCjFUCeFB LpGP0AYtJzPXFiCcPdVBchAIIkOQRiui4GSGZbQRRzBxD8UBXxKDObPMNeSZddBVCtWTSmXlE0UKNrVN OpXT0EStFvPVPcAnIaBVGnOIReAXEdrr9KVHFmWTIx XBJ5LRSaTHVuKFOwQSfrRLChVDZ1IcVmUZZqAWYwCI0SWuZhPUKvErN9YdPvXVCmZEOsis8SkXAwiBqk vv2FTXkBOm2BlBjnXGC2ZElhAf0sxACoVnUcLFKKBk1AetIaCPRiJZYMCJyuWBFyVCf2RLwpPaO4VHXa PokdEtH7HJrjOID2GjncPjgiNJBrMyC8Cjz7IrXmYf tbGQEtItXbPqT7LPDoTyOhWQS7ICZvM5D+OV8aYPa+Uk1Qs6XdcmR5niTsUDisTIHoLN5XKVXQM2KXOa == ID Date Data Source [id number] 05/10/2020 09:51:00 AM [facility] Name Value Range Interpretation Code Description Data Sherice rce(s) Supporting Document(s) Progress Note Health system SJQFBp2iZkQTSfVw18/ANUglYJDib1XkXQndDRj9RJsoEETtO0LkUFR1aZ4mUUB8KLuRZoLkYgPgCpZ4 lbm [file] 9GDQo= Procedure Social History Code Duration Value Status Description Data Source(s ) Smoking 04/22/2021 12:00:00 AM EST Never Smoker completed Never S moker eCW1 ([facility]) Smoking 04/22/2021 12:00:00 AM EST Never Smoker completed Never S moker eCW1 ([facility]) Smoking 04/14/2021 12:00:00 AM EST Never Smoker completed Never S moker eCW1 ([facility]) Smoking 04/14/2021 12:00:00 AM EST Never Smoker completed Never S moker eCW1 ([facility]) Smoking 04/14/2021 12:00:00 AM EST Never Smoker completed Never S moker eCW1 ([facility]) Smoking 04/14/2021 12:00:00 AM EST Never Smoker completed Never S moker eCW1 ([facility]) Smoking 03/23/2021 12:00:00 AM EDT Never Smoker completed Never S moker eCW1 ([facility]) Smoking 03/23/2021 12:00:00 AM EDT Never Smoker completed Never S moker eCW1 ([facility]) Alcohol intake 03/07/2021 12:00:00 AM EDT Current non-d rafaela of alcohol (finding) completed Current non-drinker of alcohol (finding) [facility] Smoking 02/24/2021 12:00:00 AM EDT Never Smoker completed Never S moker eCW1 ([facility]) Smoking 02/24/2021 12:00:00 AM EDT Never Smoker completed Never S moker eCW1 ([facility]) Smoking 02/24/2021 12:00:00 AM EDT Never Smoker completed Never S moker eCW1 ([facility]) Smoking 02/24/2021 12:00:00 AM EDT Never Smoker completed Never S moker eCW1 ([facility]) Smoking 02/10/2021 12:00:00 AM EDT Never Smoker completed Never S moker eCW1 ([facility]) Smoking 02/10/2021 12:00:00 AM EDT Never Smoker completed Never S moker eCW1 ([facility]) Smoking 02/10/2021 12:00:00 AM EDT Never Smoker completed Never S moker eCW1 ([facility]) Smoking 02/10/2021 12:00:00 AM EDT Never Smoker completed Never S moker eCW1 ([facility]) Smoking 01/18/2021 12:00:00 AM EDT Never Smoker completed Never S moker eCW1 ([facility]) Smoking 01/18/2021 12:00:00 AM EDT Never Smoker completed Never S moker eCW1 ([facility]) Smoking 01/18/2021 12:00:00 AM EDT Never Smoker completed Never S moker eCW1 ([facility]) Alcohol intake 12/31/2020 12:00:00 AM EDT Current drinker of al cohol (finding) completed Current drinker of alcohol (finding) [facility] Tobacco use and exposure 12/31/2020 12:00:00 AM EDT Never used co mpleted Never used [facility] Smoking 12/31/2020 12:00:00 AM EDT Never smoker completed Never s [facility] Alcohol intake 12/30/2020 12:00:00 AM EDT Current drinker of al cohol (finding) completed Current drinker of alcohol (finding) [facility] Smoking 12/27/2020 12:00:00 AM EDT Never Smoker completed Never S moker eCW1 ([facility]) Smoking 12/27/2020 12:00:00 AM EDT Never Smoker completed Never S moker eCW1 ([facility]) Smoking 12/27/2020 12:00:00 AM EDT Never Smoker completed Never S moker eCW1 ([facility]) Smoking 12/27/2020 12:00:00 AM EDT Never Smoker completed Never S moker eCW1 ([facility]) Smoking 12/27/2020 12:00:00 AM EDT Never Smoker completed Never S moker eCW1 ([facility]) Smoking 12/27/2020 12:00:00 AM EDT Never Smoker completed Never S moker eCW1 ([facility]) Smoking 12/24/2020 12:00:00 AM EDT Never Smoker completed Never S moker eCW1 ([facility]) Alcohol intake 12/13/2020 12:00:00 AM EDT Current drinker of al cohol (finding) completed Current drinker of alcohol (finding) [facility] Smoking 12/09/2020 12:00:00 AM EDT Never Smoker completed Never S moker eCW1 ([facility]) Smoking 12/09/2020 12:00:00 AM EDT Never Smoker completed Never S moker eCW1 ([facility]) Smoking 12/09/2020 12:00:00 AM EDT Never Smoker completed Never S moker eCW1 ([facility]) Smoking 12/09/2020 12:00:00 AM EDT Never Smoker completed Never S moker eCW1 ([facility]) Smoking 10/14/2020 12:00:00 AM EDT Never Smoker completed Never S moker eCW1 ([facility]) Smoking 10/14/2020 12:00:00 AM EDT Never Smoker completed Never S moker eCW1 ([facility]) Smoking 10/14/2020 12:00:00 AM EDT Never Smoker completed Never S moker eCW1 ([facility]) Smoking 10/14/2020 12:00:00 AM EDT Never Smoker completed Never S moker eCW1 ([facility]) Smoking 10/14/2020 12:00:00 AM EDT Never Smoker completed Never S moker eCW1 ([facility]) Smoking 10/14/2020 12:00:00 AM EDT Never Smoker completed Never S moker eCW1 ([facility]) Smoking 10/14/2020 12:00:00 AM EDT Never Smoker completed Never S moker eCW1 ([facility]) Smoking 10/14/2020 12:00:00 AM EDT Never Smoker completed Never S moker eCW1 ([facility]) Smoking 10/14/2020 12:00:00 AM EDT Never Smoker completed Never S moker eCW1 ([facility]) Smoking 10/14/2020 12:00:00 AM EDT Never Smoker completed Never S moker eCW1 ([facility]) Smoking 10/14/2020 12:00:00 AM EDT Never Smoker completed Never S moker eCW1 ([facility]) Alcohol intake 10/01/2020 12:00:00 AM EDT Current drinker of al cohol (finding) completed Current drinker of alcohol (finding) [facility] Alcohol intake 09/03/2020 12:00:00 AM EDT Current drinker of al cohol (finding) completed Current drinker of alcohol (finding) [facility] Alcohol intake 08/17/2020 12:00:00 AM EDT Current drinker of al cohol (finding) completed Current drinker of alcohol (finding) [facility] Smoking 08/10/2020 12:00:00 AM EST Never Smoker completed Never S moker eCW1 ([facility]) Smoking 08/10/2020 12:00:00 AM EST Never Smoker completed Never S moker eCW1 ([facility]) Smoking 08/10/2020 12:00:00 AM EST Never Smoker completed Never S moker eCW1 ([facility]) Smoking 08/10/2020 12:00:00 AM EST Never Smoker completed Never S moker eCW1 ([facility]) Smoking 08/10/2020 12:00:00 AM EST Never Smoker completed Never S moker eCW1 ([facility]) Smoking 08/10/2020 12:00:00 AM EST Never Smoker completed Never S moker eCW1 ([facility]) Alcohol intake 08/03/2020 12:00:00 AM EST No completed [facility] Smoking 08/03/2020 12:00:00 AM EST Never smoker completed Never s moker [facility] Smoking 07/15/2020 12:00:00 AM EST Never Smoker completed Never S moker eCW1 ([facility]) Smoking 07/15/2020 12:00:00 AM EST Never Smoker completed Never S moker eCW1 ([facility]) Smoking 07/15/2020 12:00:00 AM EST Never Smoker completed Never S moker eCW1 ([facility]) Smoking 07/15/2020 12:00:00 AM EST Never Smoker completed Never S moker eCW1 ([facility]) Smoking 07/15/2020 12:00:00 AM EST Never Smoker completed Never S moker eCW1 ([facility]) Smoking 05/31/2020 12:00:00 AM EST Never Smoker completed Never S moker eCW1 ([facility]) Smoking 05/31/2020 12:00:00 AM EST Never Smoker completed Never S moker eCW1 ([facility]) Smoking 05/31/2020 12:00:00 AM EST Never Smoker completed Never S moker eCW1 ([facility]) Smoking 05/31/2020 12:00:00 AM EST Never Smoker completed Never S moker eCW1 ([facility]) Smoking 05/31/2020 12:00:00 AM EST Never Smoker completed Never S moker eCW1 ([facility]) Alcohol intake 05/10/2020 12:00:00 AM EST Current non-d rafaela of alcohol (finding) completed Current non-drinker of alcohol (finding) [facility] Smoking 04/16/2020 12:00:00 AM EST Never Smoker completed Never S moker eCW1 ([facility]) Smoking 04/16/2020 12:00:00 AM EST Never Smoker completed Never S moker eCW1 ([facility]) Smoking 04/16/2020 12:00:00 AM EST Never Smoker completed Never S moker eCW1 ([facility]) Smoking 04/16/2020 12:00:00 AM EST Never Smoker completed Never S moker eCW1 ([facility]) Smoking 04/16/2020 12:00:00 AM EST Never Smoker completed Never S moker eCW1 ([facility]) Smoking 04/16/2020 12:00:00 AM EST Never Smoker completed Never S moker eCW1 ([facility]) Smoking 04/06/2020 12:00:00 AM EST Never Smoker completed Never S moker eCW1 ([facility]) Smoking 03/30/2020 12:00:00 AM EDT Never Smoker completed Never S moker eCW1 ([facility]) Vital Signs ID Date Data Source UNK Name Value Range Interpretation Code Description Data Source(s) Body weight 165.2 [lb_av] 165.2 [lb_av] eCW1 ([facility]) Body weight 74.93 kg 74.93 kg eCW1 ([facility]) Body height 64 [in_i] 64 [in_i] eCW1 ([facility]) Body mass index (BMI) [Ratio] 28.35 kg/m2 28.35 kg/m2 eCW1 ([facility]) Heart rate 88 /min 88 /min eCW1 ([facility]) Respiratory rate 18 /min 18 /min eCW1 ([facility]) Body temperature 97.0 [degF] 97.0 [degF] eCW1 ( [facility]) Systolic blood pressure 115 mm[Hg] 115 mm[Hg] e CW1 ([facility]) Diastolic blood pressure 68 mm[Hg] 68 mm[Hg] eCW1 ([facility]) Body weight 167 [lb_av] 167 [lb_av] eCW1 ([facility]) Body height 64 [in_i] 64 [in_i] eCW1 ([facility]) Body mass index (BMI) [Ratio] 28.66 kg/m2 28.66 kg/m2 eCW1 ([facility]) Heart rate 89 /min 89 /min eCW1 ([facility]) Respiratory rate 18 /min 18 /min eCW1 ([facility]) Body temperature 97.3 [degF] 97.3 [degF] eCW1 ( [facility]) Systolic blood pressure 124 mm[Hg] 124 mm[Hg] e CW1 ([facility]) Diastolic blood pressure 70 mm[Hg] 70 mm[Hg] eCW1 ([facility]) Body weight 162.2 [lb_av] 162.2 [lb_av] eCW1 ([facility]) Body weight 73.57 kg 73.57 kg eCW1 ([facility]) Body height 64 [in_i] 64 [in_i] eCW1 ([facility]) Body mass index (BMI) [Ratio] 27.84 kg/m2 27.84 kg/m2 eCW1 ([facility]) Heart rate 74 /min 74 /min eCW1 ([facility]) Respiratory rate 18 /min 18 /min eCW1 ([facility]) Body temperature 98.0 [degF] 98.0 [degF] eCW1 ( [facility]) Systolic blood pressure 115 mm[Hg] 115 mm[Hg] e CW1 ([facility]) Diastolic blood pressure 73 mm[Hg] 73 mm[Hg] eCW1 ([facility]) Systolic blood pressure 124 mm[Hg] 124 mm[Hg] [facility] Diastolic blood pressure 64 mm[Hg] 64 mm[Hg] [facility] Heart rate 90 /min 90 /min [facility] Body temperature 36.11 [place] 36.11 [place] [facility] Respiratory rate 16 /min 16 /min [facility] Body height 162.6 cm 162.6 cm [facility] Body weight 75.297 kg 75.297 kg [facility] Body mass index (BMI) [Ratio] 28.49 kg/m2 28.49 kg/m2 [facility] Oxygen saturation in Arterial blood by Pulse oximetry 98 % 98 % [facility] Body weight 167 [lb_av] 167 [lb_av] eCW1 ([facility]) Body weight 75.75 kg 75.75 kg eCW1 ([facility]) Body height 64 [in_i] 64 [in_i] eCW1 ([facility]) Body mass index (BMI) [Ratio] 28.66 kg/m2 28.66 kg/m2 eCW1 ([facility]) Heart rate 73 /min 73 /min eCW1 ([facility]) Respiratory rate 18 /min 18 /min eCW1 ([facility]) Body temperature 97.3 [degF] 97.3 [degF] eCW1 ( [facility]) Systolic blood pressure 116 mm[Hg] 116 mm[Hg] e CW1 ([facility]) Diastolic blood pressure 65 mm[Hg] 65 mm[Hg] eCW1 ([facility]) Body weight 165.8 [lb_av] 165.8 [lb_av] eCW1 ([facility]) Body weight 75.21 kg 75.21 kg eCW1 ([facility]) Body height 64 [in_i] 64 [in_i] eCW1 ([facility]) Body mass index (BMI) [Ratio] 28.46 kg/m2 28.46 kg/m2 eCW1 ([facility]) Heart rate 87 /min 87 /min eCW1 ([facility]) Respiratory rate 18 /min 18 /min eCW1 ([facility]) Body temperature 97.3 [degF] 97.3 [degF] eCW1 ( [facility]) Systolic blood pressure 130 mm[Hg] 130 mm[Hg] e CW1 ([facility]) Diastolic blood pressure 84 mm[Hg] 84 mm[Hg] eCW1 ([facility]) Body weight 160.2 [lb_av] 160.2 [lb_av] eCW1 ([facility]) Body weight 72.67 kg 72.67 kg eCW1 ([facility]) Body height 64 [in_i] 64 [in_i] eCW1 ([facility]) Body mass index (BMI) [Ratio] 27.50 kg/m2 27.50 kg/m2 eCW1 ([facility]) Heart rate 80 /min 80 /min eCW1 ([facility]) Respiratory rate 18 /min 18 /min eCW1 ([facility]) Body temperature 98.0 [degF] 98.0 [degF] eCW1 ( [facility]) Systolic blood pressure 132 mm[Hg] 132 mm[Hg] e CW1 ([facility]) Diastolic blood pressure 68 mm[Hg] 68 mm[Hg] eCW1 ([facility]) Body weight 157 [lb_av] 157 [lb_av] eCW1 ([facility]) Body weight 71.21 kg 71.21 kg eCW1 ([facility]) Body height 64 [in_i] 64 [in_i] eCW1 ([facility]) Body mass index (BMI) [Ratio] 26.95 kg/m2 26.95 kg/m2 eCW1 ([facility]) Heart rate 85 /min 85 /min eCW1 ([facility]) Respiratory rate 18 /min 18 /min eCW1 ([facility]) Body temperature 96.5 [degF] 96.5 [degF] eCW1 ( [facility]) Systolic blood pressure 142 mm[Hg] 142 mm[Hg] e CW1 ([facility]) Diastolic blood pressure 78 mm[Hg] 78 mm[Hg] eCW1 ([facility]) Body weight 164 [lb_av] 164 [lb_av] eCW1 ([facility]) Body height 64 [in_i] 64 [in_i] eCW1 ([facility]) Body mass index (BMI) [Ratio] 28.15 kg/m2 28.15 kg/m2 eCW1 ([facility]) Heart rate 79 /min 79 /min eCW1 ([facility]) Respiratory rate 18 /min 18 /min eCW1 ([facility]) Body temperature 96.3 [degF] 96.3 [degF] eCW1 ( [facility]) Systolic blood pressure 151 mm[Hg] 151 mm[Hg] e CW1 ([facility]) Diastolic blood pressure 85 mm[Hg] 85 mm[Hg] eCW1 ([facility]) Body weight 164.8 [lb_av] 164.8 [lb_av] eCW1 ([facility]) Body height 64 [in_i] 64 [in_i] eCW1 ([facility]) Body mass index (BMI) [Ratio] 28.28 kg/m2 28.28 kg/m2 eCW1 ([facility]) Heart rate 70 /min 70 /min eCW1 ([facility]) Respiratory rate 17 /min 17 /min eCW1 ([facility]) Body temperature 98.4 [degF] 98.4 [degF] eCW1 ( [facility]) Systolic blood pressure 124 mm[Hg] 124 mm[Hg] e CW1 ([facility]) Diastolic blood pressure 71 mm[Hg] 71 mm[Hg] eCW1 ([facility]) Body weight 168.6 [lb_av] 168.6 [lb_av] eCW1 ([facility]) Body height 64 [in_i] 64 [in_i] eCW1 ([facility]) Body mass index (BMI) [Ratio] 28.94 kg/m2 28.94 kg/m2 W1 ([facility]) Heart rate 83 /min 83 /min eCW1 ([facility]) Respiratory rate 18 /min 18 /min eCW1 ([facility]) Body temperature 97.5 [degF] 97.5 [degF] eCW1 ( [facility]) Systolic blood pressure 128 mm[Hg] 128 mm[Hg] e CW1 ([facility]) Diastolic blood pressure 59 mm[Hg] 59 mm[Hg] eCW1 ([facility]) Body weight 166.4 [lb_av] 166.4 [lb_av] eCW1 ([facility]) Body height 64 [in_i] 64 [in_i] eCW1 ([facility]) Body mass index (BMI) [Ratio] 28.56 kg/m2 28.56 kg/m2 eCW1 ([facility]) Heart rate 109 /min 109 /min eCW1 ([facility]) Respiratory rate 18 /min 18 /min eCW1 ([facility]) Body temperature 98.2 [degF] 98.2 [degF] eCW1 ( [facility]) Systolic blood pressure 124 mm[Hg] 124 mm[Hg] e CW1 ([facility]) Diastolic blood pressure 80 mm[Hg] 80 mm[Hg] eCW1 ([facility]) Body weight 166.4 [lb_av] 166.4 [lb_av] eCW1 ([facility]) Body height 64 [in_i] 64 [in_i] eCW1 ([facility]) Body mass index (BMI) [Ratio] 28.56 kg/m2 28.56 kg/m2 eCW1 ([facility]) Heart rate 67 /min 67 /min eCW1 ([facility]) Respiratory rate 17 /min 17 /min eCW1 ([facility]) Body temperature 97.9 [degF] 97.9 [degF] eCW1 ( [facility]) Systolic blood pressure 107 mm[Hg] 107 mm[Hg] e CW1 ([facility]) Diastolic blood pressure 59 mm[Hg] 59 mm[Hg] eCW1 ([facility]) Body weight 178.8 [lb_av] 178.8 [lb_av] eCW1 ([facility]) Body height 64 [in_i] 64 [in_i] eCW1 ([facility]) Body mass index (BMI) [Ratio] 30.69 kg/m2 30.69 kg/m2 eCW1 ([facility]) Heart rate 84 /min 84 /min eCW1 ([facility]) Respiratory rate 18 /min 18 /min eCW1 ([facility]) Body temperature 98.0 [degF] 98.0 [degF] eCW1 ( [facility]) Systolic blood pressure 128 mm[Hg] 128 mm[Hg] e CW1 ([facility]) Diastolic blood pressure 70 mm[Hg] 70 mm[Hg] eCW1 ([facility]) Systolic blood pressure 134 mm[Hg] 134 mm[Hg] [facility] Diastolic blood pressure 78 mm[Hg] 78 mm[Hg] [facility] Heart rate 64 /min 64 /min [facility] Body height 162.6 cm 162.6 cm [facility] Body weight 79.379 kg 79.379 kg [facility] Body mass index (BMI) [Ratio] 30.04 kg/m2 30.04 kg/m2 [facility] Oxygen saturation in Arterial blood by Pulse oximetry 96 % 96 % [facility] Body weight 165 [lb_av] 165 [lb_av] eCW1 ([facility]) Body height 64 [in_i] 64 [in_i] eCW1 ([facility]) Body mass index (BMI) [Ratio] 28.32 kg/m2 28.32 kg/m2 eCW1 ([facility]) Heart rate 110 /min 110 /min eCW1 ([facility]) Respiratory rate 18 /min 18 /min eCW1 ([facility]) Body temperature 97.9 [degF] 97.9 [degF] eCW1 ( [facility]) Systolic blood pressure 128 mm[Hg] 128 mm[Hg] e CW1 ([facility]) Diastolic blood pressure 82 mm[Hg] 82 mm[Hg] eCW1 ([facility]) Body weight 164.2 [lb_av] 164.2 [lb_av] eCW1 ([facility]) Body height 64 [in_i] 64 [in_i] eCW1 ([facility]) Body mass index (BMI) [Ratio] 28.18 kg/m2 28.18 kg/m2 eCW1 ([facility]) Heart rate 85 /min 85 /min eCW1 ([facility]) Respiratory rate 18 /min 18 /min eCW1 ([facility]) Body temperature 97.7 [degF] 97.7 [degF] eCW1 ( [facility]) Systolic blood pressure 148 mm[Hg] 148 mm[Hg] e CW1 ([facility]) Diastolic blood pressure 84 mm[Hg] 84 mm[Hg] eCW1 ([facility]) Body weight 169.2 [lb_av] 169.2 [lb_av] eCW1 ([facility]) Body height 64 [in_i] 64 [in_i] eCW1 ([facility]) Body mass index (BMI) [Ratio] 29.04 kg/m2 29.04 kg/m2 eCW1 ([facility]) Heart rate 87 /min 87 /min eCW1 ([facility]) Respiratory rate 18 /min 18 /min eCW1 ([facility]) Body temperature 97.7 [degF] 97.7 [degF] eCW1 ( [facility]) Systolic blood pressure 108 mm[Hg] 108 mm[Hg] e CW1 ([facility]) Diastolic blood pressure 64 mm[Hg] 64 mm[Hg] eCW1 ([facility]) Body weight 165 [lb_av] 165 [lb_av] eCW1 ([facility]) Body height 64 [in_i] 64 [in_i] eCW1 ([facility]) Body mass index (BMI) [Ratio] 28.32 kg/m2 28.32 kg/m2 eCW1 ([facility]) Heart rate 87 /min 87 /min eCW1 ([facility]) Respiratory rate 18 /min 18 /min eCW1 ([facility]) Body temperature 96.7 [degF] 96.7 [degF] eCW1 ( [facility]) Systolic blood pressure 122 mm[Hg] 122 mm[Hg] e CW1 ([facility]) Diastolic blood pressure mm[Hg] eCW1 ([facility]) Body weight 165.4 [lb_av] 165.4 [lb_av] eCW1 ([facility]) Body height 64 [in_i] 64 [in_i] eCW1 ([facility]) Body mass index (BMI) [Ratio] 28.39 kg/m2 28.39 kg/m2 eCW1 ([facility]) Heart rate 81 /min 81 /min eCW1 ([facility]) Respiratory rate 17 /min 17 /min eCW1 ([facility]) Body temperature 98.0 [degF] 98.0 [degF] eCW1 ( [facility]) Systolic blood pressure 147 mm[Hg] 147 mm[Hg] e CW1 ([facility]) Diastolic blood pressure 69 mm[Hg] 69 mm[Hg] eCW1 ([facility]) ID Date Data Source [id number] 12/16/2020 04:18:34 PM EDT [facility] Name Value Range Interpretation Code Description Data Source(s) WEIGHT RECORDED 165 lb 165 lb [facility] Body height Measured 64 in 64 in [facility] ID Date Data Source [id number] [facility] Interpretation Code Description Data Source(s) PREFERRED NAME [facility] ID Date Data Source [id number] 10/01/2020 12:48:54 PM [facility] Name Value Range Interpretation Code Description Data Source(s) PREFERRED NAME [facility] PREFERRED NAME [facility] ID Date Data Source [id number] 10/01/2020 12:46:12 PM EDT [facility] Name Value Range Interpretation Code Description Data Source(s) PREFERRED NAME [facility] PREFERRED NAME [facility] ID Date Data Source [id number] 09/03/2020 11:45:22 AM [facility] Name Value Range Interpretation Code Description Data Source(s) PREFERRED NAME [facility] PREFERRED NAME [facility] ID Date Data Source [id number] 10/04/[facility]:55[facility] Name Value Range Interpretation Code Description Data Source(s) WEIGHT RECORDED 175 lb 175 lb [facility] Body height Measured 64 in 64 in [facility] PREFERRED NAME [facility] Hospital ID Date Data Source [id number] 07/27/2020 09:40:10 AM [facility] Name Value Range Interpretation Code Description Data Source(s) PREFERRED NAME [facility] ID Date Data Source [id number] 08/13/2020 02:39:07 PM [facility] Name Value Range Interpretation Code Description Data Source(s) PREFERRED NAME [facility] PREFERRED NAME [facility] Hospital ID Date Data Source [id number] 08/13/2020 09:04:53 AM [facility] Name Value Range Interpretation Code Description Data Source(s) PREFERRED NAME [facility] PREFERRED NAME [facility] ID Date Data Source [id number] 08/13/2020 08:55:02 AM [facility] Name Value Range Interpretation Code Description Data Source(s) PREFERRED NAME [facility] PREFERRED NAME [facility] Hospital ID Date Data Source [id number] 07/27/2020 10:52:26 AM [facility] Name Value Range Interpretation Code Description Data Source(s) PREFERRED NAME [facility] ID Date Data Source [id number] 07/26/2020 04:34:44 PM [facility] Name Value Range Interpretation Code Description Data Source(s) PREFERRED NAME [facility] ID Date Data Source [id number] 08/13/2020 11:23:12 AM [facility] Name Value Range Interpretation Code Description Data Source(s) PREFERRED NAME [facility] ID Date Data Source [id number] 05/10/2020 11:03:32 AM [facility] Name Value Range Interpretation Code Description Data Source(s) PREFERRED NAME [facility] PREFERRED NAME [facility] Patient Treatment Plan of Care Planned Activity Planned Date Details Description Data Source (s) Acetaminophen 325 MG / Hydrocodone Bitartrate 10 MG Or al Tablet 03/17/2021 12:00:00 AM EDT eCW1 ([facility]) Aspirin 81 MG Delayed Release Oral Tablet 03/07/2021 12:00:00 AM ED T [facility] Acetaminophen 325 MG / Hydrocodone Bitartrate 10 MG Or al Tablet 02/10/2021 12:00:00 AM EDT eCW1 ([facility]) Acetaminophen 325 MG / Hydrocodone Bitartrate 10 MG Or al Tablet 02/10/2021 12:00:00 AM EDT eCW1 ([facility]) Acetaminophen 325 MG / Hydrocodone Bitartrate 10 MG Or al Tablet 02/10/2021 12:00:00 AM EDT eCW1 ([facility]) Acetaminophen 325 MG / Hydrocodone Bitartrate 10 MG Or al Tablet 02/10/2021 12:00:00 AM EDT eCW1 ([facility]) Acetaminophen 325 MG / Hydrocodone Bitartrate 10 MG Or al Tablet 01/06/2021 12:00:00 AM EDT eCW1 ([facility]) Acetaminophen 325 MG / Hydrocodone Bitartrate 10 MG Or al Tablet 01/06/2021 12:00:00 AM EDT eCW1 ([facility]) Acetaminophen 325 MG / Hydrocodone Bitartrate 10 MG Or al Tablet 01/06/2021 12:00:00 AM EDT eCW1 ([facility]) Methocarbamol 500 MG Oral Tablet 12/30/2020 12:00:00 AM [facility] Ciprofloxacin 500 MG Oral Tablet 12/19/2020 12:00:00 AM EDT [facility] Sodium Bicarbonate 325 MG Oral Tablet 12/16/2020 12:00:00 AM [facility] Ciprofloxacin 500 MG Oral Tablet 12/16/2020 12:00:00 AM [facility] Sodium Bicarbonate 325 MG Oral Tablet 12/16/2020 12:00:00 AM [facility] Ciprofloxacin 500 MG Oral Tablet 12/16/2020 12:00:00 AM [facility] Glucose 0.417 MG/MG Oral Gel 12/13/2020 02:52:39 AM [facility] dextrose 50 % IV solution 25 mL 12/13/2020 02:52:38 AM [facility] Glucagon 1 MG Injection 12/13/2020 02:52:38 AM [facility] Acetaminophen 325 MG / Hydrocodone Bitartrate 10 MG Or al Tablet 11/26/2020 12:00:00 AM EDT eCW1 ([facility]) Acetaminophen 325 MG / Hydrocodone Bitartrate 10 MG Or al Tablet 10/28/2020 12:00:00 AM EDT eCW1 ([facility]) Acetaminophen 325 MG / Hydrocodone Bitartrate 10 MG Or al Tablet 10/28/2020 12:00:00 AM EDT eCW1 ([facility]) Acetaminophen 325 MG / Hydrocodone Bitartrate 10 MG Or al Tablet 10/28/2020 12:00:00 AM EDT eCW1 ([facility]) Acetaminophen 325 MG / Hydrocodone Bitartrate 10 MG Or al Tablet 10/28/2020 12:00:00 AM EDT eCW1 ([facility]) Acetaminophen 325 MG / Hydrocodone Bitartrate 10 MG Or al Tablet 10/28/2020 12:00:00 AM EDT eCW1 ([facility]) Linagliptin 5 MG Oral Tablet [Tradjenta] 10/14/2020 12:00:00 AM [facility] Linagliptin 5 MG Oral Tablet [Tradjenta] 10/14/2020 12:00:00 AM EDT eCW1 ([facility]) Linagliptin 5 MG Oral Tablet [Tradjenta] 10/14/2020 12:00:00 AM EDT eCW1 ([facility]) Linagliptin 5 MG Oral Tablet [Tradjenta] 10/14/2020 12:00:00 AM EDT eCW1 ([facility]) Linagliptin 5 MG Oral Tablet [Tradjenta] 10/14/2020 12:00:00 AM EDT eCW1 ([facility]) Linagliptin 5 MG Oral Tablet [Tradjenta] 10/14/2020 12:00:00 AM EDT eCW1 ([facility]) Linagliptin 5 MG Oral Tablet [Tradjenta] 10/14/2020 12:00:00 AM EDT eCW1 ([facility]) Linagliptin 5 MG Oral Tablet [Tradjenta] 10/14/2020 12:00:00 AM EDT eCW1 ([facility]) Linagliptin 5 MG Oral Tablet [Tradjenta] 10/14/2020 12:00:00 AM EDT eCW1 ([facility]) Linagliptin 5 MG Oral Tablet [Tradjenta] 10/14/2020 12:00:00 AM EDT eCW1 ([facility]) Linagliptin 5 MG Oral Tablet [Tradjenta] 10/14/2020 12:00:00 AM EDT eCW1 ([facility]) Linagliptin 5 MG Oral Tablet [Tradjenta] 10/14/2020 12:00:00 AM EDT eCW1 ([facility]) Acetaminophen 325 MG / Hydrocodone Bitartrate 10 MG Or al Tablet 09/30/2020 12:00:00 AM EDT eCW1 ([facility]) Acetaminophen 325 MG / Hydrocodone Bitartrate 10 MG Or al Tablet 09/30/2020 12:00:00 AM EDT eCW1 ([facility]) rivaroxaban 10 MG Oral Tablet 08/22/2020 12:00:00 AM [facility] Acetaminophen 325 MG / Hydrocodone Bitartrate 5 MG Ora l Tablet 08/21/2020 08:43:02 AM [facility] Acetaminophen 325 MG / Hydrocodone Bitartrate 5 MG Ora l Tablet 08/21/2020 08:42:52 AM [facility] Capsaicin 0.25 MG/ML Topical Cream 08/20/2020 10:49:08 AM [facility] Acetaminophen 325 MG / Hydrocodone Bitartrate 10 MG Or al Tablet 08/20/2020 12:00:00 AM EDT eCW1 ([facility]) Acetaminophen 325 MG / Hydrocodone Bitartrate 10 MG Or al Tablet 08/20/2020 12:00:00 AM EDT eCW1 ([facility]) Acetaminophen 325 MG / Hydrocodone Bitartrate 10 MG Or al Tablet 08/20/2020 12:00:00 AM EDT eCW1 ([facility]) dextrose 50 % IV solution 25 mL 08/17/2020 11:15:24 AM [facility] Glucagon 1 MG Injection 08/17/2020 11:15:24 AM [facility] Glucose 0.417 MG/MG Oral Gel 08/17/2020 11:15:24 AM [facility] POLYETHYLENE GLYCOL 3350 142 MG/ML Oral Solution 08/17/2020 11:15:2 4 AM [facility] ondansetron (ZOFRAN) injection 4 mg 08/17/2020 11:15:24 AM [facility] Mupirocin 0.02 MG/MG Topical Ointment 08/09/2020 12:00:00 AM [facility] Acetaminophen 325 MG / Hydrocodone Bitartrate 10 MG Or al Tablet 07/29/2020 12:00:00 AM EST eCW1 ([facility]) Acetaminophen 325 MG / Hydrocodone Bitartrate 10 MG Or al Tablet 07/29/2020 12:00:00 AM EST eCW1 ([facility]) Acetaminophen 325 MG / Hydrocodone Bitartrate 10 MG Or al Tablet 06/25/2020 12:00:00 AM EST eCW1 ([facility]) Acetaminophen 325 MG / Hydrocodone Bitartrate 10 MG Or al Tablet 05/24/2020 12:00:00 AM EST eCW1 ([facility]) Acetaminophen 325 MG / Hydrocodone Bitartrate 10 MG Or al Tablet 04/16/2020 12:00:00 AM EST eCW1 ([facility]) Acetaminophen 325 MG / Hydrocodone Bitartrate 10 MG Or al Tablet 04/16/2020 12:00:00 AM EST eCW1 ([facility]) Acetaminophen 325 MG / Hydrocodone Bitartrate 10 MG Or al Tablet 04/16/2020 12:00:00 AM EST eCW1 ([facility]) Acetaminophen 325 MG / Hydrocodone Bitartrate 10 MG Or al Tablet 04/16/2020 12:00:00 AM EST eCW1 ([facility]) Acetaminophen 325 MG / Hydrocodone Bitartrate 10 MG Or al Tablet 04/16/2020 12:00:00 AM EST eCW1 ([facility]) tadalafil 20 MG Oral Tablet 03/30/2020 12:00:00 AM EDT eCW1 ([facility]) Acetaminophen 325 MG / Hydrocodone Bitartrate 10 MG Or al Tablet 03/16/2020 12:00:00 AM EDT eCW1 ([facility]) Acetaminophen 325 MG / Hydrocodone Bitartrate 10 MG Or al Tablet 03/16/2020 12:00:00 AM EDT eCW1 ([facility]) Acetaminophen 325 MG / Hydrocodone Bitartrate 10 MG Or al Tablet 03/16/2020 12:00:00 AM EDT eCW1 ([facility]) Acetaminophen 325 MG / Hydrocodone Bitartrate 10 MG Or al Tablet 03/16/2020 12:00:00 AM EDT eCW1 ([facility]) Acetaminophen 325 MG / Hydrocodone Bitartrate 10 MG Or al Tablet 03/16/2020 12:00:00 AM EDT eCW1 ([facility]) Aspirin 81 MG Delayed Release Oral Tablet 03/04/2020 12:00:00 AM ED T [facility] Mupirocin 0.02 MG/MG Topical Ointment 01/14/2020 12:00:00 AM EDT [facility] Hydroxychloroquine Sulfate 200 MG Oral Tablet 12/18/2019 12:00:00 A M EDT [facility] Ciprofloxacin 500 MG Oral Tablet [facility] 24 HR Glipizide 5 MG Extended Release Oral Tablet [facility] Ciprofloxacin 500 MG Oral Tablet [facility] Nitroglycerin 0.4 MG Sublingual Tablet [facility] Sodium Bicarbonate 325 MG Oral Tablet [facility] Sodium Bicarbonate 325 MG Oral Tablet [facility]
[2021-05-09 18:14] LABS: BASO % 0.2 % (0.0-1.0); EOS # 0.1 10^3/uL (0.0-0.5); EOS % 1.2 % (0.0-3.0); HEMATOCRIT 44.8 % (42.0-52.0); HEMOGLOBIN 14.4 g/dl (13.5-17.5); LYMPH # 1.7 10^3/uL (1.5-5.0); LYMPH % 25.2 % (24.0-44.0); MEAN CORPUSCULAR HEMOGLOBIN 29.4 pg (27.0-33.0); MEAN CORPUSCULAR HGB CONC 32.1 g/dl (32.0-36.5); MEAN CORPUSCULAR VOLUME 91.6 fl (80.0-96.0); MONO # 0.5 10^3/uL (0.0-0.8); MONO % 6.9 % (2.0-8.0); NEUTROPHILS # 4.4 10^3/uL (1.5-8.5); NEUTROPHILS % 66.3 % (36.0-66.0); PLATELET COUNT, AUTOMATED 259 10^3/uL (150-450); RED BLOOD COUNT 4.89 10^6/uL (4.30-6.10); WHITE BLOOD COUNT 6.6 10^3/uL (4.0-10.0)
[2021-05-09 18:37] LABS: ALBUMIN 3.7 GM/DL (3.2-5.2); BILIRUBIN,DIRECT 0.1 MG/DL (0.0-0.2); BILIRUBIN,TOTAL 0.6 MG/DL (0.2-1.0); CREATININE FOR GFR 1.34 MG/DL (0.70-1.30); GLOMERULAR FILTRATION RATE 56.4 (>49); POTASSIUM SERUM 4.2 MEQ/L (3.5-5.1); TOTAL PROTEIN 7.6 GM/DL (6.4-8.2)
--- NOTE | 2021-05-09 20:37 | REPVR ---
PROCEDURE INFORMATION: Exam: MR Lumbar Spine Without Contrast Exam date and time: 05/09/2021 8:11 PM Age: 70 years old Clinical indication: Low back pain; Additional info: [place] ue parasthesias worsening, incontinence of bowel TECHNIQUE: Imaging protocol: Multiplanar magnetic resonance images of the lumbar spine without intravenous contrast. COMPARISON: CT ABD PELVIS W/O CONTRAST 10/05/2017 9:08 AM FINDINGS: Vertebrae: Unremarkable. Spinal cord: Normal signal. No cord compression. L1-L2: Mild bulging annulus at L1-L2 without spinal stenosis. L2-L3: Diffusely bulging annulus L2-L3 without significant spinal stenosis. Mild bilateral facet joint arthropathy. L3-L4: There is a moderate degenerative central spinal stenosis at L3-L4 secondary to diffuse annular bulging, thickened ligamentum flavum with moderate bilateral facet joint arthropathy. Moderate bilateral foraminal stenosis. L4-L5: There is a moderate to severe degenerative central spinal stenosis at L4-L5 secondary to diffuse annular bulging, thickened ligamentum flavum with moderate bilateral facet joint arthropathy. Moderate bilateral foraminal stenosis. L5-S1: Bulging annulus L5-S1 without spinal stenosis. Mild bilateral facet joint arthropathy. No significant foraminal compromise. Soft tissues: Unremarkable. Kidneys and ureters: Moderate to severe hydronephrosis left kidney partially visualized. IMPRESSION: 1. Degenerative spondylosis with a moderate central spinal stenosis at L3-L4, moderate to severe central spinal stenosis L4-L5. Bulging annuli demonstrated at L1-L2, L2-L3 and L5-S1 without spinal stenosis. Mild bilateral facet joint arthropathy at L5-S1. 2. No acute findings. Electronically signed by: Darrel Dubose On 05/09/2021 20:37:11 PM
--- NOTE | 2021-05-09 20:43 | REPVR ---
PROCEDURE INFORMATION: Exam: MR Cervical Spine Without Contrast Exam date and time: 05/09/2021 8:11 PM Age: 70 years old Clinical indication: Neck pain; Additional info: [place] ue parasthesias worsening, incontinence of bowel TECHNIQUE: Imaging protocol: Multiplanar magnetic resonance images of the cervical spine without contrast. COMPARISON: CT Spine,cervical w/o contrast 03/10/2021 7:06 AM FINDINGS: Vertebrae: Slight anterolisthesis of C7 on T1. Straightened cervical lordosis. Alignment otherwise unremarkable. Spinal cord: Normal signal. C1-C2: There are degenerative changes demonstrated in the atlantoaxial joint at C1-C2 with osteophytes and joint space narrowing. The transverse ligament is thickened. C2-C3: Moderate foraminal stenosis on the right at C2-C3. Diffuse disc desiccation. No significant disc disease. C3-C4: Broad posterior disc protrusion at C3-C4 effaces the ventral subarachnoid space without cord impingement. There is severe foraminal stenosis on the left and moderate foraminal stenosis on the right. C4-C5: Broad posterior disc protrusion at C4-C5 effaces the ventral subarachnoid space without cord impingement. There is mild foraminal stenosis on the right. C5-C6: Broad posterior disc protrusion at C5-C6 effaces the ventral subarachnoid space with mild cord impingement. There is moderate to severe bilateral foraminal stenosis. C6-C7: Broad posterior disc protrusion at C6-C7 effaces the ventral subarachnoid space with mild left hemicord impingement. There is mild foraminal narrowing on the left. C7-T1: Diffusely bulging annulus at C7-T1 with a central disc protrusion effaces the ventral subarachnoid space with mild mid cord impingement. Soft tissues: See "C1-C2" finding. Vertebral arteries: Expected flow voids in the vertebral arteries. IMPRESSION: 1. Degenerative spondylosis in the cervical spine as described above. 2. Disc bulging and desiccation from C3-C4 to C7-T1 varying degrees of effacement of the ventral subarachnoid space. Mild cord impingement is demonstrated at C5-C6, left hemicord impingement at C6-C7, and mild mid cord impingement at C7-T1. 3. Multilevel foraminal stenosis as described above. 4. No abnormal cord signal demonstrated pleural Electronically signed by: Darrel Dbuose On 05/09/2021 20:43:23 PM
[2021-05-09 21:48] VITALS: BP 177/96
== END 2021-05-09 21:49 | disposition home or self-care (01) ==
LOC: M ED 14:38
DX: M48.02 Spinal stenosis, cervical region (principal); M48.061 Spinal stenosis, lumbar region without neurogenic claudication; M50.21 Other cervical disc displacement, high cervical region; M51.86 Other intervertebral disc disorders, lumbar region; M51.87 Other intervertebral disc disorders, lumbosacral region; M47.812 Spondylosis without myelopathy or radiculopathy, cervical region; M47.816 Spondylosis without myelopathy or radiculopathy, lumbar region; E78.5 Hyperlipidemia, unspecified; I25.2 Old myocardial infarction; Z88.0 Allergy status to penicillin; Z90.5 Acquired absence of kidney; Z96.641 Presence of right artificial hip joint

== ENCOUNTER → 2021-06-29 | Outpatient (REF) | payer MEDICARE, OTHER | LOC: M LAB REF 16:39 | PROVIDERS: ATTEND Internal Medicine Nephrology | DX: N18.2 Chronic kidney disease, stage 2 (mild) (principal) ==

== ENCOUNTER 2021-07-23 20:10 | Emergency (ER) | payer MEDICARE, OTHER ==
[~2021-07-23] VITALS: Ht 160 cm; Wt 70.5 kg
[2021-07-23] MEDS ORDERED: ASPIRIN 81 MG CHEW TABLET PO ONE (20:35)
[2021-07-23 20:36] LABS: BASO % 0.1 % (0.0-1.0); EOS # 0.2 10^3/uL (0.0-0.5); EOS % 2.3 % (0.0-3.0); HEMATOCRIT 42.8 % (42.0-52.0); HEMOGLOBIN 13.8 g/dl (13.5-17.5); LYMPH # 3.5 10^3/uL (1.5-5.0); MEAN CORPUSCULAR HEMOGLOBIN 29.6 pg (27.0-33.0); MEAN CORPUSCULAR HGB CONC 32.2 g/dl (32.0-36.5); MEAN CORPUSCULAR VOLUME 91.6 fl (80.0-96.0); MONO % 10.1 % (2.0-8.0); NEUTROPHILS # 5.2 10^3/uL (1.5-8.5); NEUTROPHILS % 52.2 % (36.0-66.0); PLATELET COUNT, AUTOMATED 276 10^3/uL (150-450); RED BLOOD COUNT 4.67 10^6/uL (4.30-6.10)
[2021-07-23] MEDS: NITROGLYCERIN 0.4 MG SUBL TABLET SL PRN ×3 (20:36→20:48)
[2021-07-23] MEDS ORDERED: MORPHINE 4 MG/ML 1ML VIAL/SYRINGE (J2270) As Ordered ONE (20:43)
[2021-07-23] MEDS ORDERED: MORPHINE 4 MG/ML 1ML VIAL/SYRINGE (J2270) IV ONE (20:45)
[2021-07-23 20:48] VITALS: BP 141/84
[2021-07-23 20:48] LABS: PROTHROMBIN TIME 13.6 SECONDS (12.7-14.5)
[2021-07-23] MEDS ORDERED: CLOPIDOGREL 300 MG TAB (PLAVIX) PO ONE (21:00)
[2021-07-23] MEDS ORDERED: HEPARIN SOD (PORCINE) 5000UNITS/ML 1ML VIAL/SYRINGE IV ONE (21:00)
[2021-07-23] MEDS ORDERED: HEPARIN DRIP 25,000 UNITS in IV 1 EA IV SCH (21:00)
[2021-07-23 21:09] LABS: CALCIUM LEVEL 8.6 MG/DL (8.8-10.2); CREATININE FOR GFR 1.55 MG/DL (0.70-1.30); GLOMERULAR FILTRATION RATE 47.7 (>49); POTASSIUM SERUM 3.7 MEQ/L (3.5-5.1)
[2021-07-23 21:13] LABS: CK-MB VALUE MASS 47.1 NG/ML (<3.6); MB/CK RELATIVE INDEX 12.66 (< OR =4)
[2021-07-23 21:37] LABS: RSV AMPLIFICATION NEGATIVE (NEGATIVE)
[2021-07-23 21:42] LABS: PARTIAL THROMBOPLASTIN TIME 29.5 SECONDS (25.9-37.0)
[2021-07-23 22:00] VITALS: BP 110/66
== END 2021-07-23 22:12 | disposition short-term general hospital (02) ==
LOC: M ED 20:10
DX: I21.4 Non-ST elevation (NSTEMI) myocardial infarction (principal); R94.31 Abnormal electrocardiogram [ECG] [EKG]; E11.9 Type 2 diabetes mellitus without complications; I25.2 Old myocardial infarction; E78.5 Hyperlipidemia, unspecified; Z88.0 Allergy status to penicillin; Z86.79 Personal history of other diseases of the circulatory system; Z95.5 Presence of coronary angioplasty implant and graft
CPT/HCPCS: 71045; 80048; 82550; 82553; 83880; 84484; 85025; 85610; 85730; 87631; 93005; 93041; 94760; 96365; 96375; 99285; J1644; J2270

== ENCOUNTER → 2021-09-14 | Outpatient (CLI) | payer OTHER | LOC: M PAIN 11:30 | PROVIDERS: ATTEND Anesthesiology | DX: M54.2 Cervicalgia (principal); M79.18 Myalgia, other site; E11.9 Type 2 diabetes mellitus without complications; E55.9 Vitamin D deficiency, unspecified; Z86.14 Personal history of Methicillin resistant Staphylococcus aureus infection; Z90.5 Acquired absence of kidney; Z96.641 Presence of right artificial hip joint; Z88.1 Allergy status to other antibiotic agents; Z79.01 Long term (current) use of anticoagulants; Z79.84 Long term (current) use of oral hypoglycemic drugs; Z79.891 Long term (current) use of opiate analgesic; Z79.899 Other long term (current) drug therapy ==

== ENCOUNTER 2021-10-09 18:07 | Emergency (ER) | payer OTHER, MEDICARE ==
[~2021-10-09] VITALS: Ht 165.1 cm; Wt 76.9 kg
[2021-10-09] MEDS ORDERED: CIPR500T39 PO (18:16)
[2021-10-09] MEDS ORDERED: BRIL90TA PO (18:16)
[2021-10-09 19:39] LABS: BASO % 0.2 % (0.0-1.0); EOS # 0.1 10^3/uL (0.0-0.5); EOS % 1.5 % (0.0-3.0); HEMATOCRIT 36.7 % (42.0-52.0); HEMOGLOBIN 12.2 g/dl (13.5-17.5); LYMPH # 1.4 10^3/uL (1.5-5.0); LYMPH % 16.6 % (24.0-44.0); MEAN CORPUSCULAR HEMOGLOBIN 29.8 pg (27.0-33.0); MEAN CORPUSCULAR HGB CONC 33.2 g/dl (32.0-36.5); MEAN CORPUSCULAR VOLUME 89.5 fl (80.0-96.0); MONO # 0.8 10^3/uL (0.0-0.8); MONO % 9.2 % (2.0-8.0); NEUTROPHILS # 6.3 10^3/uL (1.5-8.5); NEUTROPHILS % 72.2 % (36.0-66.0); PLATELET COUNT, AUTOMATED 263 10^3/uL (150-450); WHITE BLOOD COUNT 8.7 10^3/uL (4.0-10.0)
[2021-10-09 19:50] LABS: PROTHROMBIN TIME 13.6 SECONDS (12.7-14.5)
[2021-10-09 19:51] LABS: PARTIAL THROMBOPLASTIN TIME 32.2 SECONDS (25.9-37.0)
[2021-10-09] MEDS ORDERED: NS 500 ML IV ONE (19:55)
[2021-10-09 20:06] LABS: MB/CK RELATIVE INDEX 5.43 (< OR =4)
[2021-10-09 23:15] VITALS: BP 112/67
== END 2021-10-09 23:21 | disposition home or self-care (01) ==
LOC: M ED 18:07
DX: R53.83 Other fatigue (principal); M50.120 Mid-cervical disc disorder, unspecified level; E78.5 Hyperlipidemia, unspecified; Z86.79 Personal history of other diseases of the circulatory system; Z79.899 Other long term (current) drug therapy; Z88.0 Allergy status to penicillin

== ENCOUNTER → 2021-10-13 | Outpatient (CLI) | payer MEDICARE ==
[~2021-10-13] MED LIST changes: +BRIL90TA PO; +CIPR500T39 PO
[2021-10-13 16:11] LABS: HEMOGLOBIN A1c 6.6 %
== END ==
LOC: M PLALAB 13:58
PROVIDERS: ATTEND Student in an Organized Health Care Education/Training Program
DX: E11.9 Type 2 diabetes mellitus without complications (principal)

== ENCOUNTER → 2022-11-23 | Outpatient (CLI) | payer MEDICARE, OTHER ==
[~2022-11-23] MED LIST changes: -HYDR200T3 PO; +HYDR200T46 PO
[2022-11-23 17:56] LABS: BASO % 0.4 % (0.0-1.0); EOS # 0.2 10^3/uL (0.0-0.5); EOS % 2.3 % (0.0-3.0); HEMATOCRIT 46.6 % (42.0-52.0); HEMOGLOBIN 14.5 g/dl (13.5-17.5); LYMPH # 2.2 10^3/uL (1.5-5.0); LYMPH % 28.3 % (24.0-44.0); MEAN CORPUSCULAR HEMOGLOBIN 29.4 pg (27.0-33.0); MEAN CORPUSCULAR HGB CONC 31.1 g/dl (32.0-36.5); MEAN CORPUSCULAR VOLUME 94.3 fl (80.0-96.0); MONO # 0.7 10^3/uL (0.0-0.8); MONO % 8.9 % (2.0-8.0); NEUTROPHILS # 4.6 10^3/uL (1.5-8.5); NEUTROPHILS % 59.3 % (36.0-66.0); PLATELET COUNT, AUTOMATED 304 10^3/uL (150-450); RED BLOOD COUNT 4.94 10^6/uL (4.30-6.10); WHITE BLOOD COUNT 7.7 10^3/uL (4.0-10.0)
[2022-11-23 18:00] LABS: ALBUMIN 3.9 G/DL (3.2-5.2); BILIRUBIN,TOTAL 0.5 MG/DL (0.3-1.2); CALCIUM LEVEL 9.3 MG/DL (8.3-10.6); CHOLESTEROL RISK RATIO 5.79 (<5); CREATININE FOR GFR 1.3 MG/DL (0.70-1.30); GLOMERULAR FILTRATION RATE 58.1 (>42); HDL CHOLESTEROL 39.5 MG/DL (>40); LDL CHOLESTEROL 158.1 MG/DL (<100); NON-HDL-C 189.5 MG/DL; POTASSIUM SERUM 5.3 MMOL/L (3.5-5.1)
[2022-11-23 18:03] LABS: HEMOGLOBIN A1c 6.9 % (4.0-6.0)
== END ==
LOC: M WUC 12:20
PROVIDERS: ATTEND Internal Medicine Cardiovascular Disease
DX: I25.10 Atherosclerotic heart disease of native coronary artery without angina pectoris (principal); E11.9 Type 2 diabetes mellitus without complications; E78.5 Hyperlipidemia, unspecified

== ENCOUNTER → 2022-11-23 | Outpatient (CLI) | payer MEDICARE, OTHER ==
[2022-11-23 17:58] LABS: CALCIUM LEVEL 9.1 MG/DL (8.3-10.6); CHOLESTEROL RISK RATIO 5.81 (<5); CREATININE FOR GFR 1.29 MG/DL (0.70-1.30); GLOMERULAR FILTRATION RATE 58.6 (>42); HDL CHOLESTEROL 39.7 MG/DL (>40); LDL CHOLESTEROL 159.5 MG/DL (<100); NON-HDL-C 191.3 MG/DL; POTASSIUM SERUM 5.4 MMOL/L (3.5-5.1)
== END ==
LOC: M WUC 12:16
PROVIDERS: ATTEND Student in an Organized Health Care Education/Training Program
DX: E11.9 Type 2 diabetes mellitus without complications (principal); Z79.84 Long term (current) use of oral hypoglycemic drugs

== ENCOUNTER → 2023-05-22 | Outpatient (CLI) | payer MEDICARE ==
[~2023-05-22] MED LIST changes: +GLIP5TAB17 PO; -GLIP5TAB8 PO
== END ==
LOC: M PLAIMG 13:15
PROVIDERS: ATTEND Family Medicine
DX: N20.0 Calculus of kidney (principal)

== ENCOUNTER → 2023-09-19 | Outpatient (CLI) | payer MEDICARE | LOC: M RAD 12:06 | PROVIDERS: ATTEND Urology | DX: N13.30 Unspecified hydronephrosis (principal) | CPT/HCPCS: 78707; A9562 ==

== ENCOUNTER → 2023-09-26 | Outpatient (CLI) | payer MEDICARE ==
[2023-09-26 14:46] LABS: HEMATOCRIT 49.3 % (42.0-52.0); HEMOGLOBIN 16.5 g/dl (13.5-17.5); MEAN CORPUSCULAR HGB CONC 33.5 g/dl (32.0-36.5); MEAN CORPUSCULAR VOLUME 92.5 fl (80.0-96.0); PLATELET COUNT, AUTOMATED 261 10^3/uL (150-450); RED BLOOD COUNT 5.33 10^6/uL (4.30-6.10); WHITE BLOOD COUNT 7.8 10^3/uL (4.0-10.0)
[2023-09-26 14:58] LABS: INR 0.94; PROTHROMBIN TIME 12.3 SECONDS (12.5-14.5)
[2023-09-26 15:15] LABS: HEMOGLOBIN A1c 6.6 % (4.0-6.0)
[2023-09-26 15:17] LABS: BILIRUBIN,TOTAL 1.3 MG/DL (0.3-1.2); CALCIUM LEVEL 9.9 MG/DL (8.3-10.6); CREATININE FOR GFR 1.37 MG/DL (0.70-1.30); GLOMERULAR FILTRATION RATE 54.7 (>42); POTASSIUM SERUM 4.2 MMOL/L (3.5-5.1); PROSTATIC SPECIFIC AG MONITOR 1.96 NG/ML (< 4.00); TOTAL PROTEIN 7.2 G/DL (5.7-8.2)
[2023-09-26 15:18] LABS: THYROID STIMULATING HORMONE 2.436 uIU/ML (0.55-4.78)
== END ==
LOC: M RAD 13:45
PROVIDERS: ATTEND Family Medicine
DX: R53.83 Other fatigue (principal); E03.9 Hypothyroidism, unspecified; E11.9 Type 2 diabetes mellitus without complications; Z79.01 Long term (current) use of anticoagulants; R97.20 Elevated prostate specific antigen [PSA]

== ENCOUNTER → 2023-10-04 | Outpatient (CLI) | payer MEDICARE | LOC: M RAD 11:01 | PROVIDERS: ATTEND Family Medicine | DX: D37.1 Neoplasm of uncertain behavior of stomach (principal); R10.31 Right lower quadrant pain ==

== ENCOUNTER → 2024-02-16 | Outpatient (CLI) | payer MEDICARE ==
[2024-02-16 14:16] LABS: HEMATOCRIT 44.3 % (42.0-52.0); HEMOGLOBIN 14.9 g/dl (13.5-17.5); MEAN CORPUSCULAR HEMOGLOBIN 31.1 pg (27.0-33.0); MEAN CORPUSCULAR HGB CONC 33.6 g/dl (32.0-36.5); MEAN CORPUSCULAR VOLUME 92.5 fl (80.0-96.0); PLATELET COUNT, AUTOMATED 334 10^3/uL (150-450); RED BLOOD COUNT 4.79 10^6/uL (4.30-6.10); WHITE BLOOD COUNT 9.1 10^3/uL (4.0-10.0)
[2024-02-16 14:27] LABS: HEMOGLOBIN A1c 6.7 % (4.0-6.0)
[2024-02-16 14:42] LABS: ALBUMIN 3.9 G/DL (3.2-5.2); BILIRUBIN,TOTAL 1.1 MG/DL (0.3-1.2); CALCIUM LEVEL 9.6 MG/DL (8.3-10.6); CHOLESTEROL RISK RATIO 6.05 (<5); CREATININE FOR GFR 1.36 MG/DL (0.70-1.30); HDL CHOLESTEROL 37.8 MG/DL (>40); LDL CHOLESTEROL 148.4 MG/DL (<100); NON-HDL-C 191.2 MG/DL; POTASSIUM SERUM 4.7 MMOL/L (3.5-5.1); TOTAL PROTEIN 7.1 G/DL (5.7-8.2)
[2024-02-16 14:44] LABS: THYROID STIMULATING HORMONE 3.017 uIU/ML (0.55-4.78); TOTAL 25(OH) VITAMIN D 45.9 NG/ML (20.0-100.0)
== END ==
LOC: M LAB 13:34
PROVIDERS: ATTEND Family Medicine
DX: I10 Essential (primary) hypertension (principal); E11.9 Type 2 diabetes mellitus without complications; R53.83 Other fatigue; Z79.899 Other long term (current) drug therapy

== ENCOUNTER → 2024-07-21 | Outpatient (CLI) | payer MEDICARE ==
[~2024-07-21] MED LIST changes: +GABA-1172 PO; -GABA-282 PO
== END ==
LOC: M RAD 13:20
PROVIDERS: ATTEND Urology
DX: N28.89 Other specified disorders of kidney and ureter (principal)

== ENCOUNTER → 2024-07-29 | Outpatient (CLI) | payer MEDICARE ==
[2024-07-29 11:11] LABS: HEMATOCRIT 42.7 % (42.0-52.0); HEMOGLOBIN 13.7 g/dl (13.5-17.5); MEAN CORPUSCULAR HEMOGLOBIN 31.3 pg (27.0-33.0); MEAN CORPUSCULAR HGB CONC 32.1 g/dl (32.0-36.5); MEAN CORPUSCULAR VOLUME 97.5 fl (80.0-96.0); PLATELET COUNT, AUTOMATED 350 10^3/uL (150-450); RED BLOOD COUNT 4.38 10^6/uL (4.30-6.10); WHITE BLOOD COUNT 7.7 10^3/uL (4.0-10.0)
[2024-07-29 11:45] LABS: ALBUMIN 3.3 G/DL (3.2-5.2); ALKALINE PHOSPHATASE 115 U/L (40-129); ALT/SGPT 29 U/L (7.0-40); AST/SGOT 14 U/L (<34); BILIRUBIN,TOTAL 0.3 MG/DL (0.3-1.2); BLOOD UREA NITROGEN 44 MG/DL (9-23); CARBON DIOXIDE LEVEL 19 MMOL/L (20-31); CHLORIDE LEVEL 112 MMOL/L (98-107); CREATININE FOR GFR 1.22 MG/DL (0.70-1.30); GLOMERULAR FILTRATION RATE > 60.0 (>42); GLUCOSE, FASTING 265 MG/DL (74-106); SODIUM LEVEL 140 MMOL/L (136-145); TOTAL PROTEIN 6.9 G/DL (5.7-8.2)
[2024-07-29 11:47] LABS: FREE T4 0.91 NG/DL (0.89-1.76)
[2024-07-29 11:48] LABS: THYROID STIMULATING HORMONE 4.254 uIU/ML (0.55-4.78)
== END ==
LOC: M PLALAB 09:23
PROVIDERS: ATTEND Urology
DX: N28.89 Other specified disorders of kidney and ureter (principal); R53.83 Other fatigue; N18.9 Chronic kidney disease, unspecified; Z90.5 Acquired absence of kidney

== ENCOUNTER → 2025-01-30 | Outpatient (CLI) | payer MEDICARE ==
[~2025-01-30] MED LIST changes: +MORP-137 PO; -MSIR30TA PO
== END ==
LOC: M WUC 15:43
PROVIDERS: ATTEND Urology
DX: E29.1 Testicular hypofunction (principal)

== ENCOUNTER → 2025-05-06 | Outpatient (CLI) | payer MEDICARE ==
[2025-05-06 15:36] LABS: ESTIMATED AVERAGE GLUCOSE 174.0 MG/DL (60-110)
[2025-05-06 15:56] LABS: ALT/SGPT 26.0 U/L (7.0-40); AST/SGOT 23.0 U/L (<34); CALCIUM LEVEL 9.3 MG/DL (8.3-10.6); CARBON DIOXIDE LEVEL 22.0 MMOL/L (20-31); CHLORIDE LEVEL 114.0 MMOL/L (98-107); CHOLESTEROL LEVEL 250.0 MG/DL (<200); CHOLESTEROL RISK RATIO 6.12 (<5); CREATININE FOR GFR 1.35 MG/DL (0.70-1.30); GLOMERULAR FILTRATION RATE 55.8 (>42); LDL CHOLESTEROL 183.8 MG/DL (<100); NON-HDL-C 209.2 MG/DL; POTASSIUM SERUM 4.7 MMOL/L (3.5-5.1); SODIUM LEVEL 144.0 MMOL/L (136-145); TRIGLYCERIDES LEVEL 127.0 MG/DL (<150)
== END ==
LOC: M WUC 11:33
PROVIDERS: ATTEND Family Medicine
DX: M47.812 Spondylosis without myelopathy or radiculopathy, cervical region (principal); E78.5 Hyperlipidemia, unspecified; E11.9 Type 2 diabetes mellitus without complications